=== PATIENT | male | born 1960 | race Caucasian/White ===

== ENCOUNTER 2016-09-07 11:17 | Emergency (ER) | payer OTHER ==
[2016-09-07] MEDS ORDERED: RX INFO: IV CONTRAST WAS GIVEN 1 EACH MISC MISCELLANE PRN (11:55)
[2016-09-07] MEDS ORDERED: HYDROmorphone 1 MG/ML 1 ML SYRINGE IVP STA ×2 (11:55→15:46)
[2016-09-07] MEDS ORDERED: ONDANSETRON 4 MG/2 ML VIAL IVP STA (11:55)
--- NOTE | 2016-09-07 11:59 | ED ---
General Adult HPI - General Chief complaint: Chest Pain Stated complaint: chest and abdominal pain, post op Time Seen by Provider: 09/07/16 11:20 Source: patient, RN notes reviewed Mode of arrival: wheelchair Limitations: no limitations - History of Present Illness Initial comments: This is a 55-year-old male who presents emergency with a past medical history significant for smoking. Patient states she also had a abdominal aortic aneurysm. He states he just got stented on Sunday and released from yesterday. Patient states he woke up this morning felt fine and had a couple coughing and then started having significant abdominal pain which starts at the lower abdomen and radiates up to the epigastrium and into the lower aspect of his chest. Patient states the pain is been constant has not been changing. Patient states it's extremely nauseated and has vomited. Patient states no one else in the household was vomited. Patient denies any diarrhea. Patient denies any recent fever chills or cough. Patient states he is mildly short of breath but the oxygen seems to helped him. Patient denies any recent fever or chills. Patient denies any lightheadedness dizziness or near-syncopal episode. Patient denies any headache he denies any numbness weakness - Related Data Home Medications Medication Instructions Recorded Confirmed Albuterol Sulfate [Proair Hfa] 2 puff INHALATION RT-TID PRN 02/23/14 09/07/16 Amitriptyline HCl [Elavil] 25 mg PO HS PRN 02/23/14 09/07/16 Aspirin 81 mg PO DAILY 02/23/14 09/07/16 Clopidogrel [Plavix] 75 mg PO DAILY 02/23/14 09/07/16 Fluticasone Propionate [Flovent 1 puff INHALATION RT-BID PRN 02/23/14 09/07/16 Diskus] Omeprazole [PriLOSEC] 20 mg PO DAILY 02/23/14 09/07/16 Carvedilol [Coreg] 12.5 mg PO BID 08/25/15 09/07/16 Losartan [Cozaar] 50 mg PO DAILY 05/16/16 09/07/16 Sertraline [Zoloft] 50 mg PO DAILY 05/16/16 09/07/16 Atorvastatin Calcium [Lipitor] 80 mg PO HS 09/07/16 09/07/16 HYDROcodone/APAP 10-325MG [[place] 1 tab PO Q4HR PRN 09/07/16 09/07/16 10-325] Allergies Allergy/AdvReac Type Severity Reaction Status Date / Time amoxicillin [Amoxicillin] Allergy Rash/Hives Verified 09/07/16 12:04 enalapril maleate Allergy Rash/Hives Verified 09/07/16 12:04 [From Vasotec] enalaprilat dihydrate Allergy Rash/Hives Verified 09/07/16 12:04 [From Vasotec] Penicillins Allergy Rash/Hives Verified 09/07/16 12:04 Review of Systems ROS Statement: Those systems with pertinent positive or pertinent negative responses have been documented in the HPI. ROS Other: All systems not noted in ROS Statement are negative. Past Medical History Past Medical History: Cancer, COPD, CVA/TIA, GERD/Reflux, Hyperlipidemia, Hypertension, Osteoarthritis (OA), Skin Disorder, Sleep Apnea/CPAP/BIPAP, Vascular Disorder Additional Past Medical History / Comment(s): Hx. TIA 2013, uses cpap, hx diverticulitis, skin cancer, aortic aneurysm-dr monitoring, frequent nausea, AAA History of Any Multi-Drug Resistant Organisms: None Reported Past Surgical History: Bowel Resection, Orthopedic Surgery Additional Past Surgical History / Comment(s): RT ROTATOR CUFF REPAIR, BONE SPUR REMOVED RT SHOULDER, I & D BOIL LT BUTTOCK, FEM POP BYPASS rt leg, surgery fx neck(pins and plates), 14-16 lap lysis of adhesions, lap reduction of incarcerated inc hernia with ventral hernia repair w/mesh. AAA repair Past Anesthesia/Blood Transfusion Reactions: No Reported Reaction Additional Past Anesthesia/Blood Transfusion Reaction / Comment(s): surgery for fx neck -has pins and plates-pt. states can move neck forward and back, side to side ok (this was his last surgery). Past Psychological History: No Psychological Hx Reported Smoking Status: Current every day smoker Past Alcohol Use History: Rare Additional Past Alcohol Use History / Comment(s): cut down on his smoking-less than 1 ppd, has smoked for 30 yrs. Past Drug Use History: None Reported - Past Family History Mother Family Medical History: COPD Father Additional Family Medical History / Comment(s): health-still alive at age 92 General Exam - General Exam Comments Initial Comments: GENERAL: Patient is well-developed and well-nourished. Patient is nontoxic and well- hydrated and is in moderate distress. ENT: Neck is soft and supple. No significant lymphadenopathy is noted. Oropharynx is clear. Moist mucous membranes. Neck has full range of motion without eliciting any pain. EYES: The sclera were anicteric and conjunctiva were pink and moist. Extraocular movements were intact and pupils were equal round and reactive to light. Eyelids were unremarkable. PULMONARY: Unlabored respirations. Good breath sounds bilaterally. No audible rales rhonchi or wheezing was noted. CARDIOVASCULAR: There is a regular rate and rhythm without any murmurs gallops or rubs. ABDOMEN: Abdomen is mildly tender in the epigastric region all the down to and from umbilical. There is no rebound or guarding No palpable organomegaly was noted. There is no palpable pulsatile mass. SKIN: Skin is clear with no lesions or rashes and otherwise unremarkable. NEUROLOGIC: Patient is alert and oriented x3. Cranial nerves II through XII are grossly intact. Motor and sensory are also intact. Normal speech, volume and content. Symmetrical smile. . MUSCULOSKELETAL: Normal extremities with adequate strength and full range of motion. No lower extremity swelling or edema. No calf tenderness. LYMPHATICS: No significant lymphadenopathy is noted PSYCHIATRIC: Normal psychiatric evaluation. Normal interpersonal interactions appears functionally intact in deals appropriately with others. No signs of depression. No signs of anxiety. Limitations: no limitations Course Vital Signs 09/07/16 09/07/16 11:24 13:45 Temperature 98.2 F 96.9 F L Pulse Rate 75 75 Respiratory 20 16 Rate Blood Pressure 145/88 122/67 O2 Sat by Pulse 95 97 Oximetry Medical Decision Making - Medical Decision Making EKG shows normal sinus rhythm at 80 bpm DE interval 182 QRS 78 QT interval 366 QTC is 422. Patient's EKG shows no ST segment elevation or depression or T- wave abdomen is noted. I went back and reevaluated the patient is feeling considerably better he stated he only had 3 out of 10 pain at this time. I spoke with Dr. Kent he did not feel comfortable accepting the patient has I spoke with Dr. Arevalo the surgeon at he wanted the patient transferred to their ER spoke with Dr. Ruiz in the ER he accepted the transfer I sent the patient to the emergency room. - Lab Data Result diagrams: 09/07/16 12:22 09/07/16 12:22 Lab Results 09/07/16 09/07/16 09/07/16 Range/Units 12:22 12:22 12:22 WBC 12.8 H (3.8-10.6) k/uL RBC 4.70 (4.30-5.90) m/uL Hgb 15.2 (13.0-17.5) gm/dL Hct 44.5 (39.0-53.0) % MCV 94.6 (80.0-100.0) fL MCH 32.3 (25.0-35.0) pg MCHC 34.1 (31.0-37.0) g/dL RDW 13.5 (11.5-15.5) % Plt Count 272 (150-450) k/uL Neutrophils % 79 % Lymphocytes % 11 % Monocytes % 8 % Eosinophils % 1 % Basophils % 0 % Neutrophils # 10.1 H (1.3-7.7) k/uL Lymphocytes # 1.4 (1.0-4.8) k/uL Monocytes # 1.0 (0-1.0) k/uL Eosinophils # 0.1 (0-0.7) k/uL Basophils # 0.0 (0-0.2) k/uL PT (9.0-12.0) sec INR (<1.1) APTT (22.0-30.0) sec Sodium 135 L (137-145) mmol/L Potassium 4.3 (3.5-5.1) mmol/L Chloride 100 (98-107) mmol/L Carbon Dioxide 23 (22-30) mmol/L Anion Gap 12 mmol/L BUN 12 (9-20) mg/dL Creatinine 0.78 (0.66-1.25) mg/dL Est GFR (MDRD) Af Amer >60 (>60 ml/min/1.73 sqM) Est GFR (MDRD) Non-Af >60 (>60 ml/min/1.73 sqM) Glucose 129 H (74-99) mg/dL Calcium 9.2 (8.4-10.2) mg/dL Total Bilirubin 0.9 (0.2-1.3) mg/dL AST 15 L (17-59) U/L ALT 36 (21-72) U/L Alkaline Phosphatase 49 (38-126) U/L Total Creatine Kinase 70 (55-170) U/L CK-MB (CK-2) 0.5 (0.0-2.4) ng/mL CK-MB (CK-2) Rel Index 0.7 Troponin I <0.012 (0.000-0.034) ng/mL Total Protein 7.0 (6.3-8.2) g/dL Albumin 3.8 (3.5-5.0) g/dL Amylase 59 (30-110) U/L Lipase 421 H (23-300) U/L 09/07/16 Range/Units 12:22 WBC (3.8-10.6) k/uL RBC (4.30-5.90) m/uL Hgb (13.0-17.5) gm/dL Hct (39.0-53.0) % MCV (80.0-100.0) fL MCH (25.0-35.0) pg MCHC (31.0-37.0) g/dL RDW (11.5-15.5) % Plt Count (150-450) k/uL Neutrophils % % Lymphocytes % % Monocytes % % Eosinophils % % Basophils % % Neutrophils # (1.3-7.7) k/uL Lymphocytes # (1.0-4.8) k/uL Monocytes # (0-1.0) k/uL Eosinophils # (0-0.7) k/uL Basophils # (0-0.2) k/uL PT 10.4 (9.0-12.0) sec INR 1.0 (<1.1) APTT 23.2 (22.0-30.0) sec Sodium (137-145) mmol/L Potassium (3.5-5.1) mmol/L Chloride (98-107) mmol/L Carbon Dioxide (22-30) mmol/L Anion Gap mmol/L BUN (9-20) mg/dL Creatinine (0.66-1.25) mg/dL Est GFR (MDRD) Af Amer (>60 ml/min/1.73 sqM) Est GFR (MDRD) Non-Af (>60 ml/min/1.73 sqM) Glucose (74-99) mg/dL Calcium (8.4-10.2) mg/dL Total Bilirubin (0.2-1.3) mg/dL AST (17-59) U/L ALT (21-72) U/L Alkaline Phosphatase (38-126) U/L Total Creatine Kinase (55-170) U/L CK-MB (CK-2) (0.0-2.4) ng/mL CK-MB (CK-2) Rel Index Troponin I (0.000-0.034) ng/mL Total Protein (6.3-8.2) g/dL Albumin (3.5-5.0) g/dL Amylase (30-110) U/L Lipase (23-300) U/L Disposition Clinical Impression: Postoperative abdominal pain, Elevated lipase Disposition: OTHER INSTITUTION NOT DEFINED Time of Disposition: 15:11 - Out of Hospital Transfer - Req. Specs Out of Hospital Transfer - Requested Specifics: Other Emergency Center ([facility])
[2016-09-07 12:43] LABS: Basophils % (A) 0 %; CH 33.9; Eosinophils # (A) 0.1 k/uL (0-0.7); Eosinophils % (A) 1 %; HCT 44.5 % (39.0-53.0); HDW 2.61; HGB 15.2 gm/dL (13.0-17.5); Luc # (Auto) 0.23; Luc % (Auto) 2; Lymphocytes # (A) 1.4 k/uL (1.0-4.8); Lymphocytes % (A) 11 %; MCH 32.3 pg (25.0-35.0); MCHC 34.1 g/dL (31.0-37.0); MCV 94.6 fL (80.0-100.0); Mean Platelet Volume 6.7; Monocytes % (A) 8 %; Neutrophils # (A) 10.1 k/uL (1.3-7.7); Neutrophils % (A) 79 %; RDW 13.5 % (11.5-15.5); WBC 12.8 k/uL (3.8-10.6); WBC (Perox) 13.78
[2016-09-07 12:53] LABS: ALT 36 U/L (21-72); AST 15 U/L (17-59); Alkaline Phosphatase 49 U/L (38-126); Amylase 59 U/L (30-110); Anion Gap 12 mmol/L; Blood Urea Nitrogen 12 mg/dL (9-20); Calcium 9.2 mg/dL (8.4-10.2); Carbon Dioxide 23 mmol/L (22-30); Chloride 100 mmol/L (98-107); Glucose 129 mg/dL (74-99); Non-African American GFR(MDRD) >60 (>60 ml/min/1.73 sqM); Potassium 4.3 mmol/L (3.5-5.1); Sodium 135 mmol/L (137-145); Total Bilirubin 0.9 mg/dL (0.2-1.3)
[2016-09-07 12:59] LABS: Partial Thromboplastin Time 23.2 sec (22.0-30.0); Prothrombin Time 10.4 sec (9.0-12.0)
--- NOTE | 2016-09-07 13:00 | XR ---
EXAMINATION TYPE: XR chest 2V DATE OF EXAM: 09/07/2016 12:54 PM COMPARISON: 08/27/14 HISTORY: Shortness of breath TECHNIQUE: Frontal and lateral views of the chest are obtained. FINDINGS: Scattered senescent parenchymal changes noted. Hyperinflation compatible with COPD. No evidence for infiltrate. No evidence for atelectasis. Heart size is stable. Mediastinal structures are stable and grossly unremarkable. No evidence for hilar prominence. Degenerative changes dorsal spine. IMPRESSION: 1. No evidence for acute pulmonary disease.
[2016-09-07 13:05] LABS: Creatine Kinase 70 U/L (55-170)
[2016-09-07 13:17] LABS: Creatine Kinase MB 0.5 ng/mL (0.0-2.4); Troponin I <0.012 ng/mL (0.000-0.034)
--- NOTE | 2016-09-07 13:26 | CT ---
EXAMINATION TYPE: CT angio abdomen DATE OF EXAM: 09/07/2016 1:06 PM COMPARISON: 07/26/2016 HISTORY: Patient complains of periumbilical pain today. Patient had aortic stent placed [address] DLP: 2829.7 mGycm Automated exposure control for dose reduction was used. TECHNIQUE: Performed with IV Contrast, patient injected with 100 mL of Omnipaque 300. FINDINGS: Limited CT sections are obtained the lung bases. Some compressive atelectasis may be present. Noncontrast imaging liver spleen adrenal glands and kidneys normal. Pancreas is atrophic. Gallbladder is unremarkable. The aortic stent within the aortic aneurysm is evident. No obvious extravasation on the noncontrast imaging is evident. Appendix is normal. Loops of bowel without contrast are unremark able. Anterior abdominal wall hernia containing a small amount of mesenteric fat is at the level of t he umbilicus. Urinary bladder is decompressed and has an air-fluid level likely related to the patien t's catheter insertion. Postcontrast imaging is performed. No endovascular leak is evident. There appears to be a small amoun t of air adjacent to the proximal stent within the abdominal aortic aneurysm. This is present on pre and postcontrast imaging. IMPRESSION: 1. SMALL AMOUNT OF AIR ADJACENT TO THE PROXIMAL STENT WITHIN THE ABDOMINAL AORTIC ANEURYSM. CONSIDER INFECTION WITHIN THE DIFFERENTIAL. CONSIDER INSTRUMENTATION FROM THE PROCEDURE A POSSIBLE SOURCE. 2. NO ENDOVASCULAR LEAK EVIDENT. 3. AIR WITHIN THE URINARY BLADDER CAN BE RELATED TO THE PATIENT'S SHRESTHA CATHETER INSERTION.
[2016-09-07 14:00] VITALS: RESP 16
[2016-09-07 15:38] VITALS: BP 142/72; PULSE 76; TEMP 97.7
== END 2016-09-07 15:57 | disposition other institution (70) ==
LOC: EC 11:17
DX: G89.18 Other acute postprocedural pain (principal); R10.9 Unspecified abdominal pain; R74.8 Abnormal levels of other serum enzymes; I71.4 Abdominal aortic aneurysm, without rupture; F17.200 Nicotine dependence, unspecified, uncomplicated; R05 Cough; R11.2 Nausea with vomiting, unspecified; J44.9 Chronic obstructive pulmonary disease, unspecified; R06.02 Shortness of breath; K21.9 Gastro-esophageal reflux disease without esophagitis; G47.30 Sleep apnea, unspecified; E78.5 Hyperlipidemia, unspecified; I10 Essential (primary) hypertension; Z99.89 Dependence on other enabling machines and devices; Z79.899 Other long term (current) drug therapy; Z79.82 Long term (current) use of aspirin; Z79.02 Long term (current) use of antithrombotics/antiplatelets; Z88.0 Allergy status to penicillin; Z88.8 Allergy status to other drugs, medicaments and biological substances; Z86.73 Personal history of transient ischemic attack (TIA), and cerebral infarction without residual deficits; Z85.828 Personal history of other malignant neoplasm of skin
CPT/HCPCS: 99285; 36415; 93005; 80053; 82150; 82550; 82553; 83690; 84484; 85025; 85610; 85730; 71020; 74175; 96374; 96375; 96376; J2405; J1170; Q9967

== ENCOUNTER 2016-09-11 12:51 | Emergency (ER) | payer OTHER ==
[2016-09-11] MEDS ORDERED: RX INFO: IV CONTRAST WAS GIVEN 1 EACH MISC MISCELLANE PRN ×2 (13:01→15:23)
[2016-09-11] MEDS ORDERED: MORPHINE SULFATE 4 MG/ML SYRINGE IV STA (13:01)
[2016-09-11] MEDS ORDERED: SODIUM CHLORIDE 0.9% 1,000 ML IV STA (13:01)
[2016-09-11] MEDS ORDERED: SODIUM CHLORIDE 0.9% 500 ML IV STA (13:01)
--- NOTE | 2016-09-11 13:07 | ED ---
General Adult HPI - General Chief complaint: Abdominal Pain Stated complaint: Right Abd pain Time Seen by Provider: 09/11/16 13:00 Source: patient, RN notes reviewed, old records reviewed Mode of arrival: ambulatory Limitations: no limitations - History of Present Illness Initial comments: This is a 55-year-old male here for evaluation. The patient comes in for evaluation of bowel pain. Patient believes that he is having difficulty with this pooping. Abdominal pain. Patient did have significant recent history of abdominal surgery aortic surgery, patient has had one to hospital admissions since his surgery. Patient originally had surgery on Sunday was discharged home next day this is an elective aortic repair, he then came back to our ER for possible abdominal pain the next day. Patient was transferred an inpatient for 3 days and symptoms did resolve. He has had difficulty with bowel movements. Patient states he is taking stimulants at home with no help. - Related Data Home Medications Medication Instructions Recorded Confirmed Albuterol Sulfate [Proair Hfa] 2 puff INHALATION RT-TID PRN 02/23/14 09/11/16 Amitriptyline HCl [Elavil] 25 mg PO HS PRN 02/23/14 09/11/16 Aspirin 81 mg PO DAILY 02/23/14 09/11/16 Clopidogrel [Plavix] 75 mg PO DAILY 02/23/14 09/11/16 Fluticasone Propionate [Flovent 1 puff INHALATION RT-BID PRN 02/23/14 09/11/16 Diskus] Omeprazole [PriLOSEC] 20 mg PO DAILY 02/23/14 09/11/16 Carvedilol [Coreg] 12.5 mg PO BID 08/25/15 09/11/16 Losartan [Cozaar] 50 mg PO DAILY 05/16/16 09/11/16 Sertraline [Zoloft] 50 mg PO DAILY 05/16/16 09/11/16 Atorvastatin Calcium [Lipitor] 80 mg PO HS 09/07/16 09/11/16 HYDROcodone/APAP 10-325MG [[place]man 1 tab PO Q4HR PRN 09/07/16 09/11/16 10-325] Allergies Allergy/AdvReac Type Severity Reaction Status Date / Time amoxicillin [Amoxicillin] Allergy Rash/Hives Verified 09/11/16 13:41 enalapril maleate Allergy Rash/Hives Verified 09/11/16 13:41 [From Vasotec] enalaprilat dihydrate Allergy Rash/Hives Verified 09/11/16 13:41 [From Vasotec] Penicillins Allergy Rash/Hives Verified 09/11/16 13:41 Review of Systems ROS Statement: Those systems with pertinent positive or pertinent negative responses have been documented in the HPI. ROS Other: All systems not noted in ROS Statement are negative. Past Medical History Past Medical History: Cancer, COPD, CVA/TIA, GERD/Reflux, Hyperlipidemia, Hypertension, Osteoarthritis (OA), Skin Disorder, Sleep Apnea/CPAP/BIPAP, Vascular Disorder Additional Past Medical History / Comment(s): Hx. TIA 2013, uses cpap, hx diverticulitis, skin cancer, aortic aneurysm-dr monitoring, frequent nausea, AAA History of Any Multi-Drug Resistant Organisms: None Reported Past Surgical History: Bowel Resection, Orthopedic Surgery Additional Past Surgical History / Comment(s): RT ROTATOR CUFF REPAIR, BONE SPUR REMOVED RT SHOULDER, I & D BOIL LT BUTTOCK, FEM POP BYPASS rt leg, surgery fx neck(pins and plates), 08-26- lap lysis of adhesions, lap reduction of incarcerated inc hernia with ventral hernia repair w/mesh. AAA repair Past Anesthesia/Blood Transfusion Reactions: No Reported Reaction Additional Past Anesthesia/Blood Transfusion Reaction / Comment(s): surgery for fx neck -has pins and plates-pt. states can move neck forward and back, side to side ok (this was his last surgery). Past Psychological History: No Psychological Hx Reported Smoking Status: Current every day smoker Past Alcohol Use History: Rare Additional Past Alcohol Use History / Comment(s): cut down on his smoking-less than 1 ppd, has smoked for 30 yrs. Past Drug Use History: None Reported - Past Family History Mother Family Medical History: COPD Father Additional Family Medical History / Comment(s): health-still alive at age 92 General Exam Limitations: no limitations General appearance: alert, in no apparent distress Head exam: Present: atraumatic, normocephalic, normal inspection Eye exam: Present: normal appearance, PERRL, EOMI. Absent: scleral icterus, conjunctival injection, periorbital swelling ENT exam: Present: normal exam, mucous membranes moist Neck exam: Present: normal inspection. Absent: tenderness, meningismus, lymphadenopathy Respiratory exam: Present: normal lung sounds bilaterally. Absent: respiratory distress, wheezes, rales, rhonchi, stridor Cardiovascular Exam: Present: regular rate, normal rhythm, normal heart sounds. Absent: systolic murmur, diastolic murmur, rubs, gallop, clicks GI/Abdominal exam: Present: soft, normal bowel sounds. Absent: distended, tenderness, guarding, rebound, rigid Extremities exam: Present: normal inspection, full ROM, normal capillary refill. Absent: tenderness, pedal edema, joint swelling, calf tenderness Back exam: Present: normal inspection Neurological exam: Present: alert, oriented X3, CN II-XII intact Psychiatric exam: Present: normal affect, normal mood Skin exam: Present: warm, dry, intact, normal color. Absent: rash Course Vital Signs 09/11/16 12:53 Temperature 97.1 F L Pulse Rate 87 Respiratory 18 Rate Blood Pressure 111/71 O2 Sat by Pulse 95 Oximetry - Reevaluation(s) Reevaluation #1: 09/11/16 16:07 Patient's pain is resolved, no distress EKG Findings - EKG Comments: EKG Findings:: EKG shows normal sinus rhythm rate of 81, MI 162, QRS 80, QTC 450 Medical Decision Making - Medical Decision Making 55 male ER for evaluation regarding regarding abdominal pain. Patient feels he is constipated will patient is not having constipation, postop pain with surgery repair. Patient can be discharged home - Lab Data Result diagrams: 09/11/16 14:00 09/11/16 14:00 Lab Results 09/11/16 09/11/16 09/11/16 Range/Units 14:00 14:00 14:00 WBC 11.4 H (3.8-10.6) k/uL RBC 4.52 (4.30-5.90) m/uL Hgb 14.8 (13.0-17.5) gm/dL Hct 43.0 (39.0-53.0) % MCV 95.3 (80.0-100.0) fL MCH 32.8 (25.0-35.0) pg MCHC 34.4 (31.0-37.0) g/dL RDW 13.1 (11.5-15.5) % Plt Count 343 (150-450) k/uL Neutrophils % 73 % Lymphocytes % 15 % Monocytes % 7 % Eosinophils % 2 % Basophils % 1 % Neutrophils # 8.4 H (1.3-7.7) k/uL Lymphocytes # 1.7 (1.0-4.8) k/uL Monocytes # 0.8 (0-1.0) k/uL Eosinophils # 0.3 (0-0.7) k/uL Basophils # 0.1 (0-0.2) k/uL PT (9.0-12.0) sec INR (<1.1) APTT (22.0-30.0) sec Sodium 137 (137-145) mmol/L Potassium 4.9 (3.5-5.1) mmol/L Chloride 99 (98-107) mmol/L Carbon Dioxide 28 (22-30) mmol/L Anion Gap 10 mmol/L BUN 9 (9-20) mg/dL Creatinine 1.04 (0.66-1.25) mg/dL Est GFR (MDRD) Af Amer >60 (>60 ml/min/1.73 sqM) Est GFR (MDRD) Non-Af >60 (>60 ml/min/1.73 sqM) Glucose 108 H (74-99) mg/dL Plasma Lactic Acid Maximilian (0.7-2.0) mmol/L Calcium 9.1 (8.4-10.2) mg/dL Phosphorus 4.6 H (2.5-4.5) mg/dL Magnesium 1.7 (1.6-2.3) mg/dL Total Bilirubin 1.1 (0.2-1.3) mg/dL AST 17 (17-59) U/L ALT 40 (21-72) U/L Alkaline Phosphatase 54 (38-126) U/L Total Creatine Kinase 58 (55-170) U/L CK-MB (CK-2) 0.4 (0.0-2.4) ng/mL CK-MB (CK-2) Rel Index 0.7 Troponin I <0.012 (0.000-0.034) ng/mL Total Protein 7.0 (6.3-8.2) g/dL Albumin 3.7 (3.5-5.0) g/dL Urine Color Urine Appearance (Clear) Urine pH (5.0-8.0) Ur Specific [place] (1.001-1.035) Urine Protein (Negative) Urine Glucose (UA) (Negative) Urine Ketones (Negative) Urine Blood (Negative) Urine Nitrate (Negative) Urine Bilirubin (Negative) Urine Urobilinogen (<2.0) mg/dL Ur Leukocyte Esterase (Negative) 09/11/16 09/11/16 09/11/16 Range/Units 14:00 14:00 14:48 WBC (3.8-10.6) k/uL RBC (4.30-5.90) m/uL Hgb (13.0-17.5) gm/dL Hct (39.0-53.0) % MCV (80.0-100.0) fL MCH (25.0-35.0) pg MCHC (31.0-37.0) g/dL RDW (11.5-15.5) % Plt Count (150-450) k/uL Neutrophils % % Lymphocytes % % Monocytes % % Eosinophils % % Basophils % % Neutrophils # (1.3-7.7) k/uL Lymphocytes # (1.0-4.8) k/uL Monocytes # (0-1.0) k/uL Eosinophils # (0-0.7) k/uL Basophils # (0-0.2) k/uL PT 11.0 (9.0-12.0) sec INR 1.1 (<1.1) APTT 23.1 (22.0-30.0) sec Sodium (137-145) mmol/L Potassium (3.5-5.1) mmol/L Chloride (98-107) mmol/L Carbon Dioxide (22-30) mmol/L Anion Gap mmol/L BUN (9-20) mg/dL Creatinine (0.66-1.25) mg/dL Est GFR (MDRD) Af Amer (>60 ml/min/1.73 sqM) Est GFR (MDRD) Non-Af (>60 ml/min/1.73 sqM) Glucose (74-99) mg/dL Plasma Lactic Acid Maximilian 1.1 (0.7-2.0) mmol/L Calcium (8.4-10.2) mg/dL Phosphorus (2.5-4.5) mg/dL Magnesium (1.6-2.3) mg/dL Total Bilirubin (0.2-1.3) mg/dL AST (17-59) U/L ALT (21-72) U/L Alkaline Phosphatase (38-126) U/L Total Creatine Kinase (55-170) U/L CK-MB (CK-2) (0.0-2.4) ng/mL CK-MB (CK-2) Rel Index Troponin I (0.000-0.034) ng/mL Total Protein (6.3-8.2) g/dL Albumin (3.5-5.0) g/dL Urine Color Yellow Urine Appearance Clear (Clear) Urine pH 6.5 (5.0-8.0) Ur Specific [place] 1.011 (1.001-1.035) Urine Protein Negative (Negative) Urine Glucose (UA) Negative (Negative) Urine Ketones Negative (Negative) Urine Blood Negative (Negative) Urine Nitrate Negative (Negative) Urine Bilirubin Negative (Negative) Urine Urobilinogen 6.0 (<2.0) mg/dL Ur Leukocyte Esterase Negative (Negative) - Radiology Data Radiology results: report reviewed (X-ray abdominal series a chest negative for acute disease, CT pelvis negative for acute disease), image reviewed Disposition Clinical Impression: Colicky periumbilical abdominal pain, Nausea & vomiting, Post-op pain Disposition: HOME SELF-CARE Condition: Good Instructions: Abdominal Pain (ED) Referrals: Jackson Barahona DO [Primary Care Provider] - 1-2 days
[2016-09-11] MEDS ORDERED: DOCUSATE 100 MG CAP PO STA (14:08)
[2016-09-11] MEDS ORDERED: DICYCLOMINE 10 MG/ML 2 ML AMP IM STA (14:08)
[2016-09-11] MEDS ORDERED: MAGNESIUM CITRATE 296 ML BOTTLE PO ONE (14:08)
[2016-09-11] MEDS ORDERED: GLYCERIN ADULT SUPPOSITORY 1 EACH RECTAL STA (14:08)
[2016-09-11 14:24] LABS: Basophils # (A) 0.1 k/uL (0-0.2); Basophils % (A) 1 %; CH 33.5; CHCM 35.3; Eosinophils # (A) 0.3 k/uL (0-0.7); Eosinophils % (A) 2 %; HGB 14.8 gm/dL (13.0-17.5); Luc # (Auto) 0.21; Luc % (Auto) 2; Lymphocytes # (A) 1.7 k/uL (1.0-4.8); Lymphocytes % (A) 15 %; MCH 32.8 pg (25.0-35.0); MCHC 34.4 g/dL (31.0-37.0); MCV 95.3 fL (80.0-100.0); Mean Platelet Volume 7.6; Monocytes # (A) 0.8 k/uL (0-1.0); Monocytes % (A) 7 %; Neutrophils # (A) 8.4 k/uL (1.3-7.7); Neutrophils % (A) 73 %; RBC 4.52 m/uL (4.30-5.90); RDW 13.1 % (11.5-15.5); WBC 11.4 k/uL (3.8-10.6)
[2016-09-11 14:33] LABS: INR 1.1 (<1.1); Partial Thromboplastin Time 23.1 sec (22.0-30.0)
[2016-09-11 14:35] LABS: ALT 40 U/L (21-72); AST 17 U/L (17-59); Alkaline Phosphatase 54 U/L (38-126); Anion Gap 10 mmol/L; Blood Urea Nitrogen 9 mg/dL (9-20); Calcium 9.1 mg/dL (8.4-10.2); Carbon Dioxide 28 mmol/L (22-30); Chloride 99 mmol/L (98-107); Glucose 108 mg/dL (74-99); Magnesium 1.7 mg/dL (1.6-2.3); Non-African American GFR(MDRD) >60 (>60 ml/min/1.73 sqM); Phosphorous 4.6 mg/dL (2.5-4.5); Potassium 4.9 mmol/L (3.5-5.1); Sodium 137 mmol/L (137-145); Total Bilirubin 1.1 mg/dL (0.2-1.3)
[2016-09-11 14:46] LABS: Creatine Kinase 58 U/L (55-170)
[2016-09-11 14:56] LABS: Creatine Kinase MB 0.4 ng/mL (0.0-2.4); Troponin I <0.012 ng/mL (0.000-0.034)
[2016-09-11 15:04] LABS: Appearance,Urine Clear (Clear); Bilirubin,Urine Negative (Negative); Glucose,Urine (UA) Negative (Negative); Ketones,Urine Negative (Negative); Leukocyte Esterase,Urine Negative (Negative); Nitrite,Urine Negative (Negative); PH, Urine 6.5 (5.0-8.0); Protein,Urine Negative (Negative); Specific Gravity,Urine 1.011 (1.001-1.035); UA Billing (MACRO vs. MICRO) CHEM
--- NOTE | 2016-09-11 15:22 | XR ---
EXAMINATION TYPE: XR abdomen acute w cxr DATE OF EXAM: 09/11/2016 2:40 PM COMPARISON: NONE HISTORY: 55-year-old male with lower abdominal pain since last week, history of recent aortic stent. FINDINGS: Frontal view of the chest shows normal heart size and aorta. Diffuse interstitial prominence likely c hronic. Some focal right midlung atelectasis is present. Nodular density left lower lung likely nippl e shadow. No ashleigh consolidation or pleural effusion. Endovascular aortobiiliac stent graft is present. No evidence for free intraperitoneal air. A few scattered small colonic air-fluid levels are present. No dilated small bowel or small bowel air -fluid level seen. No significant stool burden. No suspicious calcifications. Surgical clips at the right groin. Partially visualized cervical fusion hardware. IMPRESSION: 1. Chronic-appearing changes in the lungs with some strandy midlung atelectasis on both sides. 2. No evidence for free air or bowel obstruction. 3. Scattered small air-fluid levels in the colon could represent a mild ileus or enteritis. No signif icant stool burden.
[2016-09-11] MEDS ORDERED: HYDROmorphone 1 MG/ML 1 ML SYRINGE IVP STA (15:27)
--- NOTE | 2016-09-11 15:46 | CT ---
EXAMINATION TYPE: CT angio abdomen pelvis DATE OF EXAM: 09/11/2016 3:31 PM COMPARISON: 09/07/2016 HISTORY: Pt states of abdominal pain after stent sx x6 days ago. CT DLP: 3012.7 mGycm CONTRAST: CTA abdominal aorta with 3-D reconstruction is performed without Oral Contrast and with IV Contrast, patient injected with 100 mL of Omnipaque 350. Contrast CTA of the abdominal aorta was performed from the lung apex through the base of the pelvis. 3-D reconstruction imaging obtained at a separate workstation. CONTRAST CT ABDOMEN AND PELVIS ABDOMENAL AORTA: Aortic stent graft is again noted. There is no evidence for contrast extravasation o r endoleak. Small focus of air is noted at the superior extent of the aortic graft likely postprocedu ral in nature. This has decreased from prior study. Branch vessels are patent. No evidence for abdomi nal aortic aneurysm. No dissection. Iliac vessels are symmetric and patent. LIVER/GB- No significant abnormality is seen. PANCREAS- No significant abnormality is seen. SPLEEN- No significant abnormality is seen. ADRENALS- No significant abnormality is seen. KIDNEYS/BLADDER- No significant abnormality is seen. Decreasing air within the urinary bladder. BOWEL- No Significant abnormality GENITAL ORGANS: No gross abnormality seen. LYMPH NODES- No greater than 1cm abdominal or pelvic lymph nodes areappreciated. OSSEOUS STRUCTURES- No significant abnormality is seen. OTHER- No significant abnormality is seen. IMPRESSION- 1. Aortic stent graft without evidence for leak, rupture or extravasation. Decreasing air adjacent to the proximal component of the stent graft is likely postprocedural in nature. Infection not excluded although felt to be less likely. 2. Decreasing air within the lumen of the urinary bladder.
[2016-09-11 16:25] VITALS: BP 117/64; PULSE 70; RESP 16; TEMP 98.4
== END 2016-09-11 16:24 | disposition home or self-care (01) ==
LOC: EC 12:51
DX: R10.33 Periumbilical pain (principal); G89.18 Other acute postprocedural pain; R11.2 Nausea with vomiting, unspecified; K21.9 Gastro-esophageal reflux disease without esophagitis; J44.9 Chronic obstructive pulmonary disease, unspecified; E78.5 Hyperlipidemia, unspecified; I10 Essential (primary) hypertension; M19.90 Unspecified osteoarthritis, unspecified site; Z86.73 Personal history of transient ischemic attack (TIA), and cerebral infarction without residual deficits; Z87.19 Personal history of other diseases of the digestive system; Z85.828 Personal history of other malignant neoplasm of skin; F17.200 Nicotine dependence, unspecified, uncomplicated; Z79.02 Long term (current) use of antithrombotics/antiplatelets; Z79.82 Long term (current) use of aspirin; Z79.899 Other long term (current) drug therapy; Z88.0 Allergy status to penicillin; Z88.8 Allergy status to other drugs, medicaments and biological substances; Z98.890 Other specified postprocedural states; Y83.8 Other surgical procedures as the cause of abnormal reaction of the patient, or of later complication, without mention of misadventure at the time of the procedure
CPT/HCPCS: 99285; 96374; 96375; 96361 ×2; 96372; 36415; 93005; 80053; 82550; 82553; 83605; 83735; 84100; 84484; 85025; 85610; 85730; 81003; 87086; 74022; 74174; J2270; J0500; Q9967; J1170

== ENCOUNTER → 2016-09-22 | Outpatient (CLI) | payer OTHER | END | disposition home or self-care (01) | LOC: LABWHC1 08:45 | PROVIDERS: ATTEND Surgery Plastic and Reconstructive Surgery | DX: E51.8 Other manifestations of thiamine deficiency (principal) | CPT/HCPCS: 36415; 84425 ==

== ENCOUNTER 2016-11-13 10:07 | Emergency (ER) | payer OTHER ==
[2016-11-13] MEDS ORDERED: ONDANSETRON 4 MG/2 ML VIAL IVP STA ×2 (10:34→12:53)
[2016-11-13] MEDS ORDERED: SODIUM CHLORIDE 0.9% 500 ML IV STA (10:34)
[2016-11-13] MEDS ORDERED: HYDROmorphone 1 MG/ML 1 ML SYRINGE IVP STA (10:35)
[2016-11-13] MEDS ORDERED: RX INFO: IV CONTRAST WAS GIVEN 1 EACH MISC MISCELLANE PRN (10:39)
--- NOTE | 2016-11-13 10:41 | ED ---
Abdominal Pain HPI - General Chief Complaint: Abdominal Pain Stated Complaint: abd pain Time Seen by Provider: 11/13/16 10:27 Source: patient, family Mode of arrival: wheelchair - History of Present Illness Initial Comments: 56-year-old male patient presents emergency department today for complaints of periumbilical abdominal pain. Patient states that symptoms started on Sunday with abdominal pain, nausea, and vomiting. Patient states he did vomit bright red blood, and did have some black stools on Sunday. Patient states that symptoms resolved on Sunday and had return of abdominal pain again this morning around 0700. Patient states the pain is a constant severe squeezing pain. Patient denies any radiation to his back. Patient denies any diarrhea, constipation, hematuria, urinary frequency, urinary urgency, or dysuria. Patient states he does have a history of diverticulitis and repair of umbilical hernia. Patient also had a AAA stenting and repair in September of this year. He denies any fever or chills, dizziness, weakness, chest pain, back pain. He is reporting some mild shortness of breath but states he does have a history of COPD and is oxygen dependent at nighttime hours a CPAP. - Related Data Home Medications Medication Instructions Recorded Confirmed Albuterol Sulfate [Proair Hfa] 2 puff INHALATION RT-TID PRN 02/23/14 11/13/16 Amitriptyline HCl [Elavil] 25 mg PO HS PRN 02/23/14 11/13/16 Aspirin 81 mg PO DAILY 02/23/14 11/13/16 Clopidogrel [Plavix] 75 mg PO DAILY 02/23/14 11/13/16 Carvedilol [Coreg] 12.5 mg PO BID 08/25/15 11/13/16 Losartan [Cozaar] 50 mg PO DAILY 05/16/16 11/13/16 Sertraline [Zoloft] 50 mg PO DAILY 05/16/16 11/13/16 Atorvastatin Calcium [Lipitor] 80 mg PO HS 09/07/16 11/13/16 HYDROcodone/APAP 10-325MG [Simms 1 tab PO Q4HR PRN 09/07/16 11/13/16 10-325] Previous Rx's Medication Instructions Recorded Magnesium Oxide [Magox 400] 400 mg PO DAILY #60 tablet 09/19/16 Omeprazole 40 mg PO DAILY #90 capsule. 09/19/16 Omeprazole 40 mg PO AC-BRKFST #30 capsule. 11/13/16 Sucralfate [Carafate] 1 gm PO ACHS #20 tablet 11/13/16 Allergies Allergy/AdvReac Type Severity Reaction Status Date / Time amoxicillin [Amoxicillin] Allergy Rash/Hives Verified 11/13/16 10:49 enalapril maleate Allergy Rash/Hives Verified 11/13/16 10:49 [From Vasotec] enalaprilat dihydrate Allergy Rash/Hives Verified 11/13/16 10:49 [From Vasotec] Penicillins Allergy Rash/Hives Verified 11/13/16 10:49 Review of Systems ROS Statement: Those systems with pertinent positive or pertinent negative responses have been documented in the HPI. ROS Other: All systems not noted in ROS Statement are negative. Past Medical History Past Medical History: Cancer, COPD, CVA/TIA, GERD/Reflux, Hyperlipidemia, Hypertension, Osteoarthritis (OA), Skin Disorder, Sleep Apnea/CPAP/BIPAP, Vascular Disorder Additional Past Medical History / Comment(s): Hx. TIA 2013, uses cpap, hx diverticulitis, skin cancer, aortic aneurysm-dr monitoring, frequent nausea, AAA History of Any Multi-Drug Resistant Organisms: None Reported Past Surgical History: Bowel Resection, Orthopedic Surgery Additional Past Surgical History / Comment(s): RT ROTATOR CUFF REPAIR, BONE SPUR REMOVED RT SHOULDER, I & D BOIL LT BUTTOCK, FEM POP BYPASS rt leg, surgery fx neck(pins and plates), 08-26-16 lap lysis of adhesions, lap reduction of incarcerated inc hernia with ventral hernia repair w/mesh. AAA repair Past Anesthesia/Blood Transfusion Reactions: No Reported Reaction Additional Past Anesthesia/Blood Transfusion Reaction / Comment(s): surgery for fx neck -has pins and plates-pt. states can move neck forward and back, side to side ok (this was his last surgery). Past Psychological History: No Psychological Hx Reported Smoking Status: Current every day smoker Past Alcohol Use History: Rare Additional Past Alcohol Use History / Comment(s): cut down on his smoking-less than 1 ppd, has smoked for 30 yrs. Past Drug Use History: None Reported - Past Family History Mother Family Medical History: COPD Father Additional Family Medical History / Comment(s): health-still alive at age 92 General Exam General appearance: alert, in no apparent distress Eye exam: Present: normal appearance, PERRL, EOMI. Absent: scleral icterus, conjunctival injection, periorbital swelling ENT exam: Present: normal exam, mucous membranes moist Neck exam: Present: normal inspection. Absent: tenderness, meningismus, lymphadenopathy Respiratory exam: Present: normal lung sounds bilaterally, wheezes (Scattered expiratory). Absent: respiratory distress, rales, rhonchi, stridor Cardiovascular Exam: Present: regular rate, normal rhythm, normal heart sounds. Absent: systolic murmur, diastolic murmur, rubs, gallop, clicks GI/Abdominal exam: Present: soft, tenderness (Lower abdominal tenderness), normal bowel sounds. Absent: distended, guarding, rebound, rigid Extremities exam: Present: normal inspection, full ROM, normal capillary refill. Absent: tenderness, pedal edema, joint swelling, calf tenderness Back exam: Present: normal inspection. Absent: CVA tenderness (R), CVA tenderness (L) Neurological exam: Present: alert, oriented X3, CN II-XII intact Psychiatric exam: Present: normal affect, normal mood Skin exam: Present: warm, dry, intact, normal color. Absent: rash Course Vital Signs 11/13/16 10:21 Temperature 97.8 F Pulse Rate 68 Respiratory 20 Rate Blood Pressure 173/105 O2 Sat by Pulse 95 Oximetry Medical Decision Making - Medical Decision Making 56-year-old male patient presents to emergency department today for evaluation of periumbilical abdominal pain and tenderness. CT of the abdomen and pelvis with contrast reveals moderate gastritis with no evidence of bowel obstruction or other abnormalities. Lab work was unremarkable. Patient's symptoms have improved with IV pain meds and IV fluids. Patient will be discharged home with a prescription for omeprazole 40 mg daily. Patient also instructed to follow- up with surgeon. Patient instructed to return for any new, worsening, or concerning symptoms. Patient verbalizes understanding and agrees with this plan. - Lab Data Result diagrams: 11/13/16 10:34 11/13/16 10:34 Lab Results 11/13/16 11/13/16 11/13/16 Range/Units 10:34 10:34 10:34 WBC 10.2 (3.8-10.6) k/uL RBC 5.40 (4.30-5.90) m/uL Hgb 17.4 (13.0-17.5) gm/dL Hct 51.4 (39.0-53.0) % MCV 95.3 (80.0-100.0) fL MCH 32.2 (25.0-35.0) pg MCHC 33.8 (31.0-37.0) g/dL RDW 13.8 (11.5-15.5) % Plt Count 343 (150-450) k/uL Neutrophils % 77 % Lymphocytes % 15 % Monocytes % 5 % Eosinophils % 1 % Basophils % 0 % Neutrophils # 7.9 H (1.3-7.7) k/uL Lymphocytes # 1.5 (1.0-4.8) k/uL Monocytes # 0.5 (0-1.0) k/uL Eosinophils # 0.1 (0-0.7) k/uL Basophils # 0.0 (0-0.2) k/uL PT (9.0-12.0) sec INR (<1.1) APTT (22.0-30.0) sec Sodium 140 (137-145) mmol/L Potassium 4.2 (3.5-5.1) mmol/L Chloride 102 (98-107) mmol/L Carbon Dioxide 22 (22-30) mmol/L Anion Gap 16 mmol/L BUN 22 H (9-20) mg/dL Creatinine 1.12 (0.66-1.25) mg/dL Est GFR (MDRD) Af Amer >60 (>60 ml/min/1.73 sqM) Est GFR (MDRD) Non-Af >60 (>60 ml/min/1.73 sqM) Glucose 135 H (74-99) mg/dL Calcium 9.6 (8.4-10.2) mg/dL Total Bilirubin 0.9 (0.2-1.3) mg/dL AST 18 (17-59) U/L ALT 28 (21-72) U/L Alkaline Phosphatase 50 (38-126) U/L Total Protein 7.9 (6.3-8.2) g/dL Albumin 4.5 (3.5-5.0) g/dL Amylase 54 (30-110) U/L Lipase 86 (23-300) U/L Stool Occult Blood Negative (Negative) 11/13/16 Range/Units 10:34 WBC (3.8-10.6) k/uL RBC (4.30-5.90) m/uL Hgb (13.0-17.5) gm/dL Hct (39.0-53.0) % MCV (80.0-100.0) fL MCH (25.0-35.0) pg MCHC (31.0-37.0) g/dL RDW (11.5-15.5) % Plt Count (150-450) k/uL Neutrophils % % Lymphocytes % % Monocytes % % Eosinophils % % Basophils % % Neutrophils # (1.3-7.7) k/uL Lymphocytes # (1.0-4.8) k/uL Monocytes # (0-1.0) k/uL Eosinophils # (0-0.7) k/uL Basophils # (0-0.2) k/uL PT 11.2 (9.0-12.0) sec INR 1.1 (<1.1) APTT 22.3 (22.0-30.0) sec Sodium (137-145) mmol/L Potassium (3.5-5.1) mmol/L Chloride (98-107) mmol/L Carbon Dioxide (22-30) mmol/L Anion Gap mmol/L BUN (9-20) mg/dL Creatinine (0.66-1.25) mg/dL Est GFR (MDRD) Af Amer (>60 ml/min/1.73 sqM) Est GFR (MDRD) Non-Af (>60 ml/min/1.73 sqM) Glucose (74-99) mg/dL Calcium (8.4-10.2) mg/dL Total Bilirubin (0.2-1.3) mg/dL AST (17-59) U/L ALT (21-72) U/L Alkaline Phosphatase (38-126) U/L Total Protein (6.3-8.2) g/dL Albumin (3.5-5.0) g/dL Amylase (30-110) U/L Lipase (23-300) U/L Stool Occult Blood (Negative) Disposition Clinical Impression: Gastritis Disposition: HOME SELF-CARE Condition: Stable Instructions: Gastritis (ED) Additional Instructions: Eat bland foods. Take omeprazole as directed. Follow up with surgeon. Follow- up with primary care physician for recheck in one to 2 days. Return for any new , worsening, or concerning symptoms. Prescriptions: Omeprazole 40 mg PO AC-BRKFST #30 capsule. Sucralfate [Carafate] 1 gm PO ACHS #20 tablet Referrals: Jackson Barahona DO [Primary Care Provider] - 1-2 days Letitia Baez MD [STAFF PHYSICIAN] - 1-2 days Time of Disposition: 11:43
[2016-11-13 10:59] LABS: Basophils % (A) 0 %; CH 33.6; CHCM 35.4; Eosinophils # (A) 0.1 k/uL (0-0.7); Eosinophils % (A) 1 %; HCT 51.4 % (39.0-53.0); HDW 2.71; HGB 17.4 gm/dL (13.0-17.5); Luc # (Auto) 0.19; Luc % (Auto) 2; Lymphocytes # (A) 1.5 k/uL (1.0-4.8); Lymphocytes % (A) 15 %; MCH 32.2 pg (25.0-35.0); MCHC 33.8 g/dL (31.0-37.0); MCV 95.3 fL (80.0-100.0); Monocytes # (A) 0.5 k/uL (0-1.0); Monocytes % (A) 5 %; Neutrophils # (A) 7.9 k/uL (1.3-7.7); Neutrophils % (A) 77 %; RDW 13.8 % (11.5-15.5); WBC 10.2 k/uL (3.8-10.6); WBC (Perox) 11.13
[2016-11-13 11:07] LABS: Partial Thromboplastin Time 22.3 sec (22.0-30.0)
[2016-11-13 11:11] LABS: ALT 28 U/L (21-72); AST 18 U/L (17-59); Alkaline Phosphatase 50 U/L (38-126); Amylase 54 U/L (30-110); Anion Gap 16 mmol/L; Blood Urea Nitrogen 22 mg/dL (9-20); Calcium 9.6 mg/dL (8.4-10.2); Carbon Dioxide 22 mmol/L (22-30); Chloride 102 mmol/L (98-107); Glucose 135 mg/dL (74-99); Non-African American GFR(MDRD) >60 (>60 ml/min/1.73 sqM); Potassium 4.2 mmol/L (3.5-5.1); Sodium 140 mmol/L (137-145); Total Bilirubin 0.9 mg/dL (0.2-1.3); Total Protein 7.9 g/dL (6.3-8.2)
[2016-11-13 11:14] LABS: INR 1.1 (<1.1); Prothrombin Time 11.2 sec (9.0-12.0)
--- NOTE | 2016-11-13 11:29 | CT ---
EXAMINATION TYPE: CT abdomen pelvis w con DATE OF EXAM: 11/13/2016 11:19 AM COMPARISON: CT abdomen and pelvis September 11, 2016 HISTORY: Mid Abd pain with nausea, vomiting and dark stools CT DLP: 1800 mGycm, Automated Exposure Control for Dose Reduction was Utilized. CONTRAST: CT scan of the abdomen and pelvis is performed without oral but with IV Contrast, patient injected wi th 100 mL of Omnipaque 300. FINDINGS: LUNG BASES: Dependent atelectatic change is redemonstrated bilaterally. LIVER/GB: No significant abnormality is appreciated. PANCREAS: No significant abnormality is seen. SPLEEN: No significant abnormality is seen. ADRENALS: No significant abnormality is seen. KIDNEYS: No significant abnormality is seen. BOWEL: Evaluation bowel is suboptimal due to lack of enteric contrast. There is no suspicious small o r large bowel dilatation seen. Some moderate wall thickening is suspected in the stomach. Surgical fuentes tures are seen involving the distal sigmoid colon near axial image 76. PROSTATE/SEMINAL VESICLES: No gross abnormality seen. LYMPH NODES: No greater than 1cm abdominal or pelvic lymph nodes are appreciated. OSSEOUS STRUCTURES: Mild to moderate multilevel spurring and spine is redemonstrated. OTHER: No surg ical clips in the right groin region are redemonstrated. There is slightly poor contrast bolus. There is juxtarenal aortobiiliac stent graft redemonstrated which appears patent. [place] aneurysm size is felt stable measuring up to 4.8 cm transversely on axial image 46. IMPRESSION: Moderate wall thickening of the stomach suggests moderate gastritis. Clinical correlation advised. No bowel obstruction is seen. No additional new significant finding identified.
[2016-11-13] MEDS ORDERED: PANTOPRAZOLE 40 MG/10 ML VIAL IVP STA (11:35)
[2016-11-13 12:06] VITALS: RESP 16
[2016-11-13 13:02] VITALS: BP 172/97; PULSE 63; TEMP 97.8
== END 2016-11-13 13:00 | disposition home or self-care (01) ==
LOC: EC 10:07
DX: K29.70 Gastritis, unspecified, without bleeding (principal); R06.02 Shortness of breath; R11.2 Nausea with vomiting, unspecified; J44.9 Chronic obstructive pulmonary disease, unspecified; K21.9 Gastro-esophageal reflux disease without esophagitis; E78.5 Hyperlipidemia, unspecified; I10 Essential (primary) hypertension; M19.90 Unspecified osteoarthritis, unspecified site; F17.200 Nicotine dependence, unspecified, uncomplicated; Z79.82 Long term (current) use of aspirin; Z79.02 Long term (current) use of antithrombotics/antiplatelets; Z79.899 Other long term (current) drug therapy; Z88.0 Allergy status to penicillin; Z88.8 Allergy status to other drugs, medicaments and biological substances; Z87.19 Personal history of other diseases of the digestive system; Z86.73 Personal history of transient ischemic attack (TIA), and cerebral infarction without residual deficits; Z86.79 Personal history of other diseases of the circulatory system; Z98.890 Other specified postprocedural states
CPT/HCPCS: 36415; 80053; 82150; 83690; 85025; 85610; 85730; 82272; 74177; 99284; 96374; 96375 ×2; J2405; J1170; Q9967; C9113

== ENCOUNTER → 2017-01-15 | Outpatient (CLI) | payer OTHER ==
--- NOTE | 2017-01-16 08:13 | CTL ---
EXAMINATION TYPE: CT Low Dose Lung DATE OF EXAM ORDERED: 01/15/2017 HISTORY: Personal history of tobacco use. Lung cancer screening CT DLP: 159.[address] CTDI: 4.3 mGy Automated exposure control for dose reduction was used. SCREENING VISIT: First COMPARISON: None TECHNIQUE: Low dose computed tomography scan was performed through the chest at 1 mm thick sections a nd reconstructed images in the coronal plane at [address] DIAGNOSTIC QUALITY: Satisfactory FINDINGS: LUNG NODULES: None. LUNGS: COPD: Severity: Moderate Fibrosis: Severity: Minimal apical fibrosis bilaterally. There is mild linear scarring in the mid gladis gs bilaterally. There is left basilar linear atelectasis and/or scarring. Lymph nodes: Some subcentimeter paratracheal and subcarinal lymph nodes are seen. No significant grea ter than 1 cm thoracic lymph nodes are identified. Other findings: Mild central parahilar peribronchial wall thickening is present bilaterally. BILATERAL PLEURAL SPACE: Effusion: None Calcification: None Thickening: None Pneumothorax: None HEART: Heart Size: Normal Coronary calcification: Minimal Pericardial effusion: Tiny OTHER FINDINGS: Upper abdomen: There is partial visualization of aortic stent graft beginning just below SMA origin. Liver is isodense to low dense relative to spleen consistent with mild diffuse fatty infiltration. Bony thorax: Mild multilevel spurring in the thoracic spine is present. There is partial visualizatio n of surgical change in the cervical spine on localizer image. Supraclavicular region: No significant finding is seen. Other: Ascending aorta measures up to 3.9 cm diameter on axial image 135. A bovine type arch is seen which is normal variant. IMPRESSION: No suspicious nodules or masses identified. Background moderate emphysematous change is p resent. There is ectasia of the ascending aorta measuring up to 3.9 cm in diameter noted. FOLLOW UP CT CHEST RECOMMENDATION: Annual low-dose lung screening CT CT LUNG RAD: Lung-Rad 1 Negative
== END | disposition home or self-care (01) ==
LOC: RADCTMAIN 18:48
PROVIDERS: ATTEND Internal Medicine Sleep Medicine
DX: Z12.2 Encounter for screening for malignant neoplasm of respiratory organs (principal); J43.9 Emphysema, unspecified; I77.810 Thoracic aortic ectasia; Z87.891 Personal history of nicotine dependence

== ENCOUNTER → 2017-02-20 | Outpatient (CLI) | payer OTHER ==
[2017-02-20 10:37] LABS: ALT 33 U/L (21-72); AST 16 U/L (17-59); Cholesterol 131 mg/dL (<200); HDL Cholesterol 25 mg/dL (40-60); Triglycerides 207 mg/dL (<150)
== END ==
LOC: LABWHC1 09:07
PROVIDERS: ATTEND Internal Medicine Interventional Cardiology
DX: E78.2 Mixed hyperlipidemia (principal)
CPT/HCPCS: 36415; 80061; 84450; 84460

== ENCOUNTER → 2017-04-25 | Outpatient (CLI) | payer OTHER ==
--- NOTE | 2017-04-25 19:22 | CT ---
EXAMINATION TYPE: CT angio abd aorta wo/w con DATE OF EXAM: 04/25/2017 COMPARISON: 11/13/2016 HISTORY: Follow-up abdominal aortic aneurysm with stent. CT DLP: 2748.40 mGycm, Automated Exposure Control for Dose Reduction was Utilized. CONTRAST: CT scan of the abdomen and pelvis is performed with oral and without and with IV Contrast, patient in jected with 100 mL of Omnipaque 350. FINDINGS: Lung bases are clear. There is no pleural effusion. Heart size is normal. There is aortic stent exten ding from from the level of the renal arteries to the common iliac arteries. There is normal contrast opacification of the stent. There is fusiform aneurysm of the lower abdominal aorta. This measures 4 .6 cm in diameter. The kidneys have normal size and contour. There is normal renal contrast opacification. There is contreras ncy of the superior mesenteric artery and the celiac artery. There is bilateral patency of the renal arteries. There is a tiny amount of thrombus within the left common iliac artery stent but no evidenc e of stenosis or occlusion. There is no ascites. Bladder distends smoothly. There is no sign of a pelvic mass. There is ventral h ernia at the umbilicus that contains omental fat. IMPRESSION: Abdominal aortic aneurysm is stable compared to old exam of 11/13/2016. No evidence of hem odynamically significant stenosis. Stable umbilical hernia. There is a tiny amount of thrombus in the stent that appears new compared to old exam.
== END | disposition home or self-care (01) ==
LOC: RADCTMAIN 18:22
PROVIDERS: ATTEND Thoracic Surgery (Cardiothoracic Vascular Surgery)
DX: I71.4 Abdominal aortic aneurysm, without rupture (principal); K42.9 Umbilical hernia without obstruction or gangrene; I74.5 Embolism and thrombosis of iliac artery
CPT/HCPCS: 75635; Q9967

== ENCOUNTER 2017-05-11 20:36 | Observation (INO) | payer OTHER ==
[2017-05-11] MEDS ORDERED: SODIUM CHLORIDE 0.9% 500 ML IV STA (20:43)
[2017-05-11] MEDS ORDERED: SODIUM CHLORIDE 0.9% 1,000 ML IV STA (20:43)
[2017-05-11 20:46] LABS: Glucose,Whole Blood 112 mg/dL (75-99)
--- NOTE | 2017-05-11 20:48 | ED ---
General Adult HPI - General Source: patient, RN notes reviewed, old records reviewed Mode of arrival: EMS Limitations: no limitations <Brayden Oquendo - Last Filed: 05/11/17 20:45> <Varun Calvo - Last Filed: 05/11/17 22:54> - General Chief complaint: Syncope Stated complaint: Syncope Time Seen by Provider: 05/11/17 20:42 - History of Present Illness Initial comments: 56-year-old male with history of COPD and hypertension presents for evaluation of altered mental status and unresponsiveness. Patient was at home, according to EMS his family was unable to arouse him. When EMS arrived, he was alert. Throughout transport patient did become unresponsive several times. According to EMS he remained in sinus rhythm at this time. Vital signs were stable. Patient was extremely diaphoretic during these episodes. At the time of my evaluation patient is alert and oriented. He has no complaints. Denies headache. Denies chest pain or shortness of breath. Denies abdominal pain. Denies fever or chills. Patient states he was recently started on 2 new medications for his COPD. He also admits to smoking marijuana earlier in the day. Denies any alcohol or other drug (Brayden Oquendo) - Related Data Home Medications Medication Instructions Recorded Confirmed Clopidogrel [Plavix] 75 mg PO DAILY 02/23/14 05/11/17 Carvedilol [Coreg] 12.5 mg PO BID 08/25/15 05/11/17 Losartan [Cozaar] 50 mg PO DAILY 05/16/16 05/11/17 Sertraline [Zoloft] 50 mg PO DAILY 05/16/16 05/11/17 Atorvastatin Calcium [Lipitor] 80 mg PO HS 09/07/16 05/11/17 Dicyclomine [Bentyl] 20 mg PO TID 05/11/17 05/11/17 Montelukast [Singulair] 10 mg PO DAILY 05/11/17 05/11/17 Multivitamins, Thera [Multivitamin 1 tab PO DAILY 05/11/17 05/11/17 (formulary)] Previous Rx's Medication Instructions Recorded Magnesium Oxide [Magox 400] 400 mg PO DAILY #60 tablet 09/19/16 Omeprazole 40 mg PO -BRKT #30 capsule. 04/03/17 Allergies Allergy/AdvReac Type Severity Reaction Status Date / Time amoxicillin [Amoxicillin] Allergy Rash/Hives Verified 05/11/17 20:41 enalapril maleate Allergy Rash/Hives Verified 05/11/17 20:41 [From Vasotec] enalaprilat dihydrate Allergy Rash/Hives Verified 05/11/17 20:41 [From Vasotec] Penicillins Allergy Rash/Hives Verified 05/11/17 20:41 Review of Systems ROS Other: All systems not noted in ROS Statement are negative. <Brayden Oquendo - Last Filed: 05/11/17 20:45> ROS Other: All systems not noted in ROS Statement are negative. <Varun Calvo - Last Filed: 05/11/17 22:54> ROS Statement: Those systems with pertinent positive or pertinent negative responses have been documented in the HPI. Past Medical History Past Medical History: Cancer, COPD, CVA/TIA, GERD/Reflux, Hyperlipidemia, Hypertension, Osteoarthritis (OA), Skin Disorder, Sleep Apnea/CPAP/BIPAP, Vascular Disorder Additional Past Medical History / Comment(s): Hx. TIA 2013, uses cpap, hx diverticulitis, skin cancer, aortic aneurysm-dr monitoring, frequent nausea, AAA History of Any Multi-Drug Resistant Organisms: None Reported Past Surgical History: Bowel Resection, Orthopedic Surgery Additional Past Surgical History / Comment(s): RT ROTATOR CUFF REPAIR, BONE SPUR REMOVED RT SHOULDER, I & D BOIL LT BUTTOCK, FEM POP BYPASS rt leg, surgery fx neck(pins and plates), 14-16 lap lysis of adhesions, lap reduction of incarcerated inc hernia with ventral hernia repair w/mesh. AAA repair Past Anesthesia/Blood Transfusion Reactions: No Reported Reaction Additional Past Anesthesia/Blood Transfusion Reaction / Comment(s): surgery for fx neck -has pins and plates-pt. states can move neck forward and back, side to side ok (this was his last surgery). Past Psychological History: No Psychological Hx Reported Smoking Status: Current every day smoker Past Alcohol Use History: None Reported, Rare Past Drug Use History: Marijuana - Past Family History Mother Family Medical History: COPD Father Additional Family Medical History / Comment(s): health-still alive at age 92 <Brayden Oquendo - Last Filed: 05/11/17 20:45> General Exam Limitations: no limitations General appearance: alert, in no apparent distress Head exam: Present: atraumatic, normocephalic Eye exam: Present: normal appearance, PERRL ENT exam: Present: normal exam Neck exam: Present: normal inspection. Absent: tenderness, meningismus Respiratory exam: Present: normal lung sounds bilaterally. Absent: respiratory distress, wheezes Cardiovascular Exam: Present: regular rate, normal rhythm GI/Abdominal exam: Present: soft. Absent: distended, tenderness Extremities exam: Present: normal inspection, normal capillary refill. Absent: pedal edema Neurological exam: Present: alert, oriented X3, CN II-XII intact. Absent: motor sensory deficit Psychiatric exam: Present: normal affect, normal mood Skin exam: Present: warm, diaphoretic <Brayden Oquedno - Last Filed: 05/11/17 20:45> Course <Brayden Oquendo - Last Filed: 05/11/17 20:45> <Varun Calvo - Last Filed: 05/11/17 22:54> Vital Signs 05/11/17 05/11/17 20:37 21:53 Temperature 96.9 F L Pulse Rate 67 59 L Respiratory 16 16 Rate Blood Pressure 129/78 113/62 O2 Sat by Pulse 94 L 3 L Oximetry - Reevaluation(s) Reevaluation #1: 05/11/172099 Patient's care is signed out to Dr. Calvo at 2100 awaiting all x-rays and laboratory studies. (Brayden Oquendo) EKG Findings - EKG Comments: EKG Findings:: EKG shows normal sinus rhythm, ventricular rate 65, OR interval 184, QRS duration 84, QTC 416, there is no ST segment elevation or depression, no T-wave abnormality <Brayden Oquendo - Last Filed: 05/11/17 20:45> Medical Decision Making <Brayden Oquendo - Last Filed: 05/11/17 20:45> - Lab Data Result diagrams: 05/11/17 20:40 05/11/17 20:40 <Varun Calvo - Last Filed: 05/11/17 22:54> - Medical Decision Making This patient has a sign out to review the remaining lab tests. The patient's x- ray does show a possible pneumonia though clinically he is not having any symptoms or signs. Patient given 1 dose of antibiotics and to have follow-up picture in the morning. Patient be admitted for overnight monitoring for the syncope. Results discussed with patient and family. He is symptom-free at admission. (Varun Calvo) - Lab Data Lab Results 05/11/17 05/11/17 05/11/17 Range/Units 20:40 20:40 20:40 WBC 12.0 H (3.8-10.6) k/uL RBC 4.76 (4.30-5.90) m/uL Hgb 16.0 (13.0-17.5) gm/dL Hct 47.0 (39.0-53.0) % MCV 98.7 (80.0-100.0) fL MCH 33.5 (25.0-35.0) pg MCHC 34.0 (31.0-37.0) g/dL RDW 13.8 (11.5-15.5) % Plt Count 303 (150-450) k/uL Neutrophils % 64 % Lymphocytes % 23 % Monocytes % 7 % Eosinophils % 3 % Basophils % 1 % Neutrophils # 7.7 (1.3-7.7) k/uL Lymphocytes # 2.8 (1.0-4.8) k/uL Monocytes # 0.8 (0-1.0) k/uL Eosinophils # 0.4 (0-0.7) k/uL Basophils # 0.1 (0-0.2) k/uL PT (9.0-12.0) sec INR (<1.2) APTT (22.0-30.0) sec VBG pH (7.31-7.41) VBG pCO2 (37-51) mmHg VBG HCO3 (24-28) mmol/L Sodium 139 (137-145) mmol/L Potassium 4.2 (3.5-5.1) mmol/L Chloride 106 (98-107) mmol/L Carbon Dioxide 20 L (22-30) mmol/L Anion Gap 13 mmol/L BUN 18 (9-20) mg/dL Creatinine 1.17 (0.66-1.25) mg/dL Est GFR (MDRD) Af Amer >60 (>60 ml/min/1.73 sqM) Est GFR (MDRD) Non-Af >60 (>60 ml/min/1.73 sqM) Glucose 94 (74-99) mg/dL POC Glucose (mg/dL) (75-99) mg/dL POC Glu [employer] Worker ID Calcium 9.3 (8.4-10.2) mg/dL Magnesium 1.7 (1.6-2.3) mg/dL Total Bilirubin 0.3 (0.2-1.3) mg/dL AST 18 (17-59) U/L ALT 26 (21-72) U/L Alkaline Phosphatase 50 (38-126) U/L Total Creatine Kinase 150 (55-170) U/L CK-MB (CK-2) 0.7 (0.0-2.4) ng/mL CK-MB (CK-2) Rel Index 0.5 Troponin I <0.012 (0.000-0.034) ng/mL Total Protein 7.0 (6.3-8.2) g/dL Albumin 3.9 (3.5-5.0) g/dL 05/11/17 05/11/17 05/11/17 Range/Units 20:40 20:40 20:43 WBC (3.8-10.6) k/uL RBC (4.30-5.90) m/uL Hgb (13.0-17.5) gm/dL Hct (39.0-53.0) % MCV (80.0-100.0) fL MCH (25.0-35.0) pg MCHC (31.0-37.0) g/dL RDW (11.5-15.5) % Plt Count (150-450) k/uL Neutrophils % % Lymphocytes % % Monocytes % % Eosinophils % % Basophils % % Neutrophils # (1.3-7.7) k/uL Lymphocytes # (1.0-4.8) k/uL Monocytes # (0-1.0) k/uL Eosinophils # (0-0.7) k/uL Basophils # (0-0.2) k/uL PT 10.4 (9.0-12.0) sec INR 1.0 (<1.2) APTT 22.8 (22.0-30.0) sec VBG pH 7.35 (7.31-7.41) VBG pCO2 45 (37-51) mmHg VBG HCO3 24 (24-28) mmol/L Sodium (137-145) mmol/L Potassium (3.5-5.1) mmol/L Chloride (98-107) mmol/L Carbon Dioxide (22-30) mmol/L Anion Gap mmol/L BUN (9-20) mg/dL Creatinine (0.66-1.25) mg/dL Est GFR (MDRD) Af Amer (>60 ml/min/1.73 sqM) Est GFR (MDRD) Non-Af (>60 ml/min/1.73 sqM) Glucose (74-99) mg/dL POC Glucose (mg/dL) 112 H (75-99) mg/dL POC Glu [employer] Worker ID Vani Baker Calcium (8.4-10.2) mg/dL Magnesium (1.6-2.3) mg/dL Total Bilirubin (0.2-1.3) mg/dL AST (17-59) U/L ALT (21-72) U/L Alkaline Phosphatase (38-126) U/L Total Creatine Kinase (55-170) U/L CK-MB (CK-2) (0.0-2.4) ng/mL CK-MB (CK-2) Rel Index Troponin I (0.000-0.034) ng/mL Total Protein (6.3-8.2) g/dL Albumin (3.5-5.0) g/dL Disposition <Brayden Oquendo - Last Filed: 05/11/17 20:45> <Varun Calov - Last Filed: 05/11/17 22:54> Clinical Impression: Syncope Disposition: ADMITTED IP TO THIS HOSP Condition: Good Referrals: Jackson Barahona DO [Primary Care Provider] - 1-2 days
[2017-05-11 21:02] LABS: VBG PH 7.35 (7.31-7.41)
[2017-05-11 21:03] LABS: Basophils # (A) 0.1 k/uL (0-0.2); Basophils % (A) 1 %; CH 34.3; CHCM 34.9; Eosinophils # (A) 0.4 k/uL (0-0.7); Eosinophils % (A) 3 %; HDW 2.61; Luc # (Auto) 0.23; Luc % (Auto) 2; Lymphocytes # (A) 2.8 k/uL (1.0-4.8); Lymphocytes % (A) 23 %; MCH 33.5 pg (25.0-35.0); MCV 98.7 fL (80.0-100.0); Mean Platelet Volume 7.9; Monocytes # (A) 0.8 k/uL (0-1.0); Monocytes % (A) 7 %; Neutrophils # (A) 7.7 k/uL (1.3-7.7); Neutrophils % (A) 64 %; RBC 4.76 m/uL (4.30-5.90); RDW 13.8 % (11.5-15.5); WBC (Perox) 12.12
[2017-05-11 21:13] LABS: Partial Thromboplastin Time 22.8 sec (22.0-30.0); Prothrombin Time 10.4 sec (9.0-12.0)
[2017-05-11 21:15] LABS: ALT 26 U/L (21-72); AST 18 U/L (17-59); Alkaline Phosphatase 50 U/L (38-126); Anion Gap 13 mmol/L; Blood Urea Nitrogen 18 mg/dL (9-20); Calcium 9.3 mg/dL (8.4-10.2); Carbon Dioxide 20 mmol/L (22-30); Chloride 106 mmol/L (98-107); Glucose 94 mg/dL (74-99); Magnesium 1.7 mg/dL (1.6-2.3); Non-African American GFR(MDRD) >60 (>60 ml/min/1.73 sqM); Potassium 4.2 mmol/L (3.5-5.1); Sodium 139 mmol/L (137-145); Total Bilirubin 0.3 mg/dL (0.2-1.3)
[2017-05-11 21:27] LABS: Creatine Kinase 150 U/L (55-170)
--- NOTE | 2017-05-11 21:34 | XR ---
EXAMINATION TYPE: XR chest 2V DATE OF EXAM: 05/11/2017 COMPARISON: 09/07/2016 HISTORY: Syncope TECHNIQUE: Frontal and lateral views of the chest are obtained. FINDINGS: There is some mild infiltrate in the left lower lobe. The other lung plunkett are clear. The re is no heart failure. Heart size is normal. There is no sign of pleural effusion. IMPRESSION: Mild pneumonia and atelectasis in the left lower lobe is new compared to last exam. Norm al heart.
[2017-05-11 21:40] LABS: Creatine Kinase MB 0.7 ng/mL (0.0-2.4); Troponin I <0.012 ng/mL (0.000-0.034)
--- NOTE | 2017-05-11 21:41 | CT ---
EXAMINATION TYPE: CT brain wo con DATE OF EXAM: 05/11/2017 COMPARISON: 04/25/2014 HISTORY: SYNCOPE. CT DLP: 968.7 mGycm Automated exposure control for dose reduction was used. FINDINGS: Ventricles and sulci appear normal. There is no mass effect nor midline shift. There is no sign of in tracranial hemorrhage. There is mucosal thickening in the maxillary and ethmoid sinuses. IMPRESSION: NEGATIVE CT SCAN OF THE BRAIN. SINUSITIS WITHOUT SIGNIFICANT CHANGE COMPARED TO OLD EXAM.
[2017-05-11] MEDS ORDERED: AZITHROMYCIN 500 MG TAB PO STA (22:46)
[2017-05-11] MEDS ORDERED: NITROGLYCERIN SL TABS 0.4 MG TAB SUBLINGUAL PRN (22:49)
[2017-05-11 23:40] VITALS: BMI 37.2
[2017-05-12] MEDS: MORPHINE SULFATE 2 MG/ML SYRINGE IVP PRN ×3 (00:49→09:13)
[2017-05-12 03:02] LABS: Cholesterol 128 mg/dL (<200); HDL Cholesterol 26 mg/dL (40-60)
[2017-05-12 03:06] LABS: Creatine Kinase 123 U/L (55-170)
[2017-05-12 03:19] LABS: Creatine Kinase MB 0.7 ng/mL (0.0-2.4); Troponin I <0.012 ng/mL (0.000-0.034)
[2017-05-12] MEDS ORDERED: PANTOPRAZOLE 40 MG TABLET PO SCH (07:30)
[2017-05-12] MEDS ORDERED: SERTRALINE 50 MG TAB PO SCH (09:00)
[2017-05-12] MEDS ORDERED: ASPIRIN 325 MG TAB PO SCH (09:00)
[2017-05-12] MEDS ORDERED: CARVEDILOL 12.5 MG TAB PO SCH (09:00)
[2017-05-12] MEDS ORDERED: CLOPIDOGREL 75 MG TAB PO SCH (09:00)
[2017-05-12] MEDS ORDERED: DICYCLOMINE 20 MG TAB PO SCH (09:00)
[2017-05-12] MEDS ORDERED: MAGNESIUM OXIDE 400 MG TAB PO SCH (09:00)
[2017-05-12] MEDS ORDERED: MULTIVITAMINS, THERA 1 EACH TAB PO SCH (09:00)
[2017-05-12] MEDS ORDERED: MONTELUKAST 10 MG TAB PO SCH (09:00)
[2017-05-12] MEDS ORDERED: LOSARTAN 50 MG TAB PO SCH (09:00)
[2017-05-12 09:27] LABS: Creatine Kinase 118 U/L (55-170)
[2017-05-12 09:39] LABS: Creatine Kinase MB 0.6 ng/mL (0.0-2.4); Troponin I <0.012 ng/mL (0.000-0.034)
--- NOTE | 2017-05-12 10:50 | P.HPIM ---
History of Present Illness 56-year-old male with history of COPD and hypertension presents for evaluation of altered mental status and unresponsiveness. Patient was at home, according to EMS his family was unable to arouse him. When EMS arrived, he was alert. Throughout transport patient did become unresponsive several times. According to EMS he remained in sinus rhythm at this time. Vital signs were stable. Patient was extremely diaphoretic during these episodes. At the time of my evaluation patient is alert and oriented. He has no complaints. Denies headache. Denies chest pain or shortness of breath. Denies abdominal pain. Denies fever or chills. Patient states he was recently started on 2 new medications for his COPD. He also admits to smoking marijuana earlier in the day. Denies any alcohol or other drug. I do not see any recent echocardiogram patient media monitor is essentially within normal notes EKG showed sinus rhythm. Chest x-ray were as read as possible pneumonia although clinically patient does not have pneumonia patient probably has atelectasis and will not require any antibiotics patient blood pressure is stable orthostatic vitals are negative. Patient doesn't have any diarrhea. We will obtain cardiology consultation regarding possibility of requiring a media monitor. Patient will monitor and to later in the day and will be discharged with an outpatient echocardiogram Review of Systems REVIEW OF SYSTEMS: CONSTITUTIONAL: No fever, no malaise, no fatigue. HEENT: No recent visual problems or hearing problems. Denied any sore throat. CARDIOVASCULAR: No chest pain, orthopnea, PND, no palpitations. PULMONARY: No shortness of breath, no cough, no hemoptysis. GASTROINTESTINAL: No diarrhea, no nausea, no vomiting, no abdominal pain. Normoactive bowel sounds. NEUROLOGICAL: No headaches, no weakness, no numbness. HEMATOLOGICAL: Denies any bleeding or petechiae. GENITOURINARY: Denies any burning micturition, frequency, or urgency. MUSCULOSKELETAL/RHEUMATOLOGICAL: Denies any joint pain, swelling, or any muscle pain. ENDOCRINE: Denies any polyuria or polydipsia. The rest of the 14-point review of systems is negative. Past Medical History Past Medical History: Cancer, COPD, CVA/TIA, GERD/Reflux, Hyperlipidemia, Hypertension, Osteoarthritis (OA), Skin Disorder, Sleep Apnea/CPAP/BIPAP, Vascular Disorder Additional Past Medical History / Comment(s): Hx. TIA 2013, uses cpap, hx diverticulitis, skin cancer, aortic aneurysm-dr monitoring, frequent nausea, AAA History of Any Multi-Drug Resistant Organisms: None Reported Past Surgical History: Bowel Resection, Orthopedic Surgery Additional Past Surgical History / Comment(s): RT ROTATOR CUFF REPAIR, BONE SPUR REMOVED RT SHOULDER, I & D BOIL LT BUTTOCK, FEM POP BYPASS rt leg, surgery fx neck(pins and plates), 08-26-15 lap lysis of adhesions, lap reduction of incarcerated inc hernia with ventral hernia repair w/mesh. AAA repair Past Anesthesia/Blood Transfusion Reactions: No Reported Reaction Additional Past Anesthesia/Blood Transfusion Reaction / Comment(s): surgery for fx neck -has pins and plates-pt. states can move neck forward and back, side to side ok (this was his last surgery). Past Psychological History: No Psychological Hx Reported Smoking Status: Current every day smoker Past Alcohol Use History: None Reported, Rare Additional Past Alcohol Use History / Comment(s): cut down on his smoking-less than 1 ppd, has smoked for 30 yrs. Past Drug Use History: None Reported - Past Family History Mother Family Medical History: COPD Father Family Medical History: No Reported History Additional Family Medical History / Comment(s): health-still alive at age 92 Medications and Allergies Home Medications Medication Instructions Recorded Confirmed Type Clopidogrel [Plavix] 75 mg PO DAILY 02/23/14 05/11/17 History Carvedilol [Coreg] 12.5 mg PO BID 08/25/15 05/11/17 History Losartan [Cozaar] 50 mg PO DAILY 05/16/16 05/11/17 History Sertraline [Zoloft] 50 mg PO DAILY 05/16/16 05/11/17 History Atorvastatin Calcium [Lipitor] 80 mg PO HS 09/07/16 05/11/17 History Magnesium Oxide [Magox 400] 400 mg PO DAILY #60 tablet 09/19/16 05/11/17 Rx Omeprazole 40 mg PO ALIX-JOSE M #30 capsule. 11/13/16 05/11/17 Rx Dicyclomine [Bentyl] 20 mg PO TID 05/11/17 05/11/17 History Montelukast [Singulair] 10 mg PO DAILY 05/11/17 05/11/17 History Multivitamins, Thera [Multivitamin 1 tab PO DAILY 05/11/17 05/11/17 History (formulary)] Allergies Allergy/AdvReac Type Severity Reaction Status Date / Time amoxicillin [Amoxicillin] Allergy Rash/Hives Verified 05/11/17 20:41 enalapril maleate Allergy Rash/Hives Verified 05/11/17 20:41 [From Vasotec] enalaprilat dihydrate Allergy Rash/Hives Verified 05/11/17 20:41 [From Vasotec] Penicillins Allergy Rash/Hives Verified 05/11/17 20:41 Physical Exam Vitals: Vital Signs Temp Pulse Pulse Resp BP BP Pulse Ox 05/12/17 08:25 95 05/12/17 08:00 65 18 05/12/17 07:00 97.0 F L 65 18 121/77 94 L 05/11/17 23:04 65 16 135/79 96 05/11/17 21:53 59 L 16 113/62 93 L 05/11/17 20:37 96.9 F L 67 16 129/78 94 L Intake and Output 05/11/17 05/12/17 05/12/17 22:59 06:59 14:59 Intake Total 425 480 Output Total 1000 Balance -575 480 Intake: Intake, IV Titration 425 Amount Sodium Chloride 0.9% 1, 375 000 ml @ 75 mls/hr IV . [id number] STA Rx#:[id number] cefTRIAXone 1,000 mg In 50 Sodium Chloride 0.9% 50 ml @ 100 mls/hr IVPB ONCE STA Rx#:[id number] Oral 480 Output: Urine 1000 Other: Voiding Method Toilet Toilet Urinal # Voids 1 Weight 121.109 kg 121.109 kg 121.109 kg Patient Weight 05/13/17 06:59 Weight 121.109 kg PHYSICAL EXAMINATION: GENERAL: The patient is alert and oriented x3, not in any acute distress. Obese HEENT: Pupils are round and equally reacting to light. EOMI. No scleral icterus. No conjunctival pallor. Normocephalic, atraumatic. No pharyngeal erythema. No thyromegaly. CARDIOVASCULAR: S1 and S2 present. No murmurs, rubs, or gallops. PULMONARY: Chest is clear to auscultation, no wheezing or crackles. ABDOMEN: Soft, nontender, nondistended, normoactive bowel sounds. No palpable organomegaly. MUSCULOSKELETAL: No joint swelling or deformity. EXTREMITIES: No cyanosis, clubbing, or pedal edema. NEUROLOGICAL: Gross neurological examination did not reveal any focal deficits. SKIN: No rashes. Results CBC & Chem 7: 05/11/17 20:40 05/11/17 20:40 Labs: Abnormal Lab Results - Last 24 Hours (Table) 05/11/17 05/11/17 05/11/17 Range/Units 20:40 20:40 20:40 WBC 12.0 H (3.8-10.6) k/uL D-Dimer 3.07 H (<0.60) mg/L FEU Carbon Dioxide 20 L (22-30) mmol/L POC Glucose (mg/dL) (75-99) mg/dL Triglycerides (<150) mg/dL HDL Cholesterol (40-60) mg/dL 05/11/17 05/12/17 Range/Units 20:43 02:26 WBC (3.8-10.6) k/uL D-Dimer (<0.60) mg/L FEU Carbon Dioxide (22-30) mmol/L POC Glucose (mg/dL) 112 H (75-99) mg/dL Triglycerides 167 H (<150) mg/dL HDL Cholesterol 26 L (40-60) mg/dL Thrombosis Risk Factor Assmnt - Choose All That Apply Any of the Below Risk Factors Present?: Yes Each Factor Represents 1 point: Abnormal pulmonary function (COPD), Age 41-60 years, Obesity (BMI >25) Other Risk Factors: No Other congenital or acquired thrombophilia - If yes, enter type in comment: No Thrombosis Risk Factor Assessment Total Risk Factor Score: 3 Thrombosis Risk Factor Assessment Level: Moderate Risk Assessment and Plan Plan: #1 syncope: Probably vasovagal in nature, no overnight events on telemetry. Cardiology will be consulted for outpatient Holter monitoring and will order outpatient echo cardiac memory monitor and later in the day and possibility of discharge later in the day. Patient blood pressure is essentially stable patient uses losartan and Coreg which will be continued EKG essentially within normal limits. #2 right lower lung atelectasis without any pneumonia, patient will not require antibiotics. #3 obesity: Counseling was provided #4 gastroesophageal reflux disease #5 hyperlipidemia #6 sleep apnea: Uses CPAP machine which she will continue. #7 hypertension: Patient will continue done the same home education medication regimen without any changes.
--- NOTE | 2017-05-12 10:51 | P.DS ---
Providers Date of admission: 05/11/17 22:49 Attending physician: Artie Wiseman Primary care physician: Jackson Barahona [facility] Course: Please refer to my HPI Patient Condition at Discharge: Good Plan - Discharge Summary New Discharge Prescriptions: No Action Clopidogrel [Plavix] 75 mg PO DAILY Carvedilol [Coreg] 12.5 mg PO BID Sertraline [Zoloft] 50 mg PO DAILY Losartan [Cozaar] 50 mg PO DAILY Atorvastatin Calcium [Lipitor] 80 mg PO HS Magnesium Oxide [Magox 400] 400 mg PO DAILY #60 tablet Omeprazole 40 mg PO AC-BRKFST #30 capsule. Multivitamins, Thera [Multivitamin (formulary)] 1 tab PO DAILY Montelukast [Singulair] 10 mg PO DAILY Dicyclomine [Bentyl] 20 mg PO TID Discharge Medication List Clopidogrel [Plavix] 75 mg PO DAILY 02/23/14 [History] Carvedilol [Coreg] 12.5 mg PO BID 08/25/15 [History] Losartan [Cozaar] 50 mg PO DAILY 05/16/16 [History] Sertraline [Zoloft] 50 mg PO DAILY 05/16/16 [History] Atorvastatin Calcium [Lipitor] 80 mg PO HS 09/07/16 [History] Magnesium Oxide [Magox 400] 400 mg PO DAILY #60 tablet 09/19/16 [Rx] Omeprazole 40 mg PO AC-BRKFST #30 capsule. 11/13/16 [Rx] Dicyclomine [Bentyl] 20 mg PO TID 05/11/17 [History] Montelukast [Singulair] 10 mg PO DAILY 05/11/17 [History] Multivitamins, Thera [Multivitamin (formulary)] 1 tab PO DAILY 05/11/17 [History ] Follow up Appointment(s)/Referral(s): Jackson Barahona DO [Primary Care Provider] - 3 Days
[2017-05-12] MEDS ORDERED: RX INFO: IV CONTRAST WAS GIVEN 1 EACH MISC MISCELLANE PRN (13:57)
--- NOTE | 2017-05-12 14:27 | CONS ---
CONSULTATION Mr. Pollock is a 56-year-old male who presented with a syncopal episode. The patient has a known history of peripheral vascular disease, history of abdominal aortic aneurysm, history of hypertension and hyperlipidemia. Yesterday while sitting at home, he complained of discomfort in the epigastrium and then subsequently became diaphoretic and felt dizzy. The EMS came and picked him up and he passed out in the ambulance. When he came to he was in the emergency room. He is ambulating today and feeling well. The episode occurred a few hours after eating and he does not recall any specific issue or around that. He denies any vomiting. He denies any change in his breathing. No chest pain. No palpitation. No arrhythmia. He underwent cardiac catheterization in August of 2014 and revealed moderate disease in the proximal left main with a normal fractional flow reserve and a normal left ventricular size and systolic function. He is usually active physically without any difficulty. He denies any PND, orthopnea, or peripheral edema. No prior history of arrhythmia or prior syncopal episode. His coronary risk factors are remarkable for the history of hypertension, history of hyperlipidemia. He is a nonsmoker, nondiabetic. MEDICATION: His medications at home include Zoloft, Singulair 10 mg daily, magnesium, losartan 50 mg daily, Plavix 75 mg daily. Coreg 12.5 mg twice a day and Lipitor 80 mg daily and includes Ellipta. REVIEW OF SYSTEMS: RESPIRATORY SYSTEM: Has no recent wheezing. No cough. No fever. GI SYSTEM: No recent GI bleeding. No peptic ulcer disease. SYSTEM: No dysuria or hematuria. NERVOUS SYSTEM: No stroke or seizure. PHYSICAL EXAMINATION: He is a 56-year-old male, alert, oriented, in no apparent distress. Blood pressure 121/70 with a heart rate 60. HEAD: Normocephalic. EYES: Sclerae anicteric. NECK: Good upstroke. No bruit. No jugular venous distention. LUNGS: Clear to auscultation. HEART: Regular rate and rhythm. S1, S2. No S3. No rub. ABDOMEN: Soft, nontender, obese. Positive bowel sounds. No organomegaly. EXTREMITIES: No edema. Intact distal pulses. LAB DATA: Lab data revealed troponin less than 0.012 for 3 samples. Cholesterol 128, LDL of 69. His D-dimer is 3.07. Hemoglobin of 16, white blood cell of 12. His EKG reveals sinus mechanism with no acute changes. Chest x-ray revealed questionable infiltrate, although clinically the patient has no findings to suggest an infectious process and his CT scan was unremarkable. IMPRESSION: 1. Syncopal episode, probably vasovagal, etiology not clear. 2. History of coronary artery disease, stable. 3. History of hypertension. 4. Hyperlipidemia. 5. History of abdominal aortic aneurysm. RECOMMENDATION: From the cardiac standpoint, he is stable. He will be followed as an outpatient. MMODL / IJN: [id number] /
[2017-05-12 14:28] VITALS: BP 147/72; PULSE 59; RESP 17; TEMP 97.5
--- NOTE | 2017-05-12 15:02 | CT ---
CT CHEST FOR PULMONARY EMBOLISM. EXAMINATION TYPE: CT chest angio for PE DATE OF EXAM: 05/12/2017 INDICATION: Patient complains of difficulty breathing. CT DLP: 537.6 mGycm, Automated exposure control for dose reduction was used. CONTRAST: Patient injected with 100 mL of Omnipaque 350. COMPARISON: NONE TECHNIQUE: CT of the chest is performed on a spiral scan at 2 mm thick sections. Study is performed with intravenous contrast timed for evaluation for pulmonary embolism. This will limit additional po rtions of the evaluation. 3-D MIP images reconstructed by the technologist are reviewed on the compu ter in the coronal and sagittal planes. FINDINGS: No persistent filling defects are evident to suggest an acute pulmonary embolism. No mediastinal or hilar adenopathy enlarged by CT criteria is evident. The ascending aorta diameter at the level of the main pulmonary artery is 3.9 cm. The main pulmonary artery diameter at the bifur cation is 2.2 cm. Mild emphysematous changes are present. No suspicious nodules are evident. Some peribronchial thicken ing is present diffusely. Streak opacities are in the posterior dependent lung bases. Limited CT section through the upper abdomen are unremarkable. IMPRESSIONS: 1. Clinical consideration for very mild bronchitis could be considered. 2. An acute pulmonary process is not evident. 3. No acute pulmonary embolism.
[2017-05-12] MEDS ORDERED: ATORVASTATIN 80 MG TAB PO SCH (21:00)
== END 2017-05-12 15:05 | disposition home or self-care (01) ==
LOC: EC 20:36 → INTOOBSV 22:49 → 5MS5E 22:49
PROVIDERS: ADMIT Hospitalist; ATTEND Hospitalist
DX: R55 Syncope and collapse (principal); I10 Essential (primary) hypertension; J98.11 Atelectasis; I25.10 Atherosclerotic heart disease of native coronary artery without angina pectoris; I73.9 Peripheral vascular disease, unspecified; F17.200 Nicotine dependence, unspecified, uncomplicated; M19.91 Primary osteoarthritis, unspecified site; E78.5 Hyperlipidemia, unspecified; E66.9 Obesity, unspecified; J44.9 Chronic obstructive pulmonary disease, unspecified; F12.90 Cannabis use, unspecified, uncomplicated; G47.30 Sleep apnea, unspecified; K21.9 Gastro-esophageal reflux disease without esophagitis; Z68.37 Body mass index [BMI] 37.0-37.9, adult; Z79.02 Long term (current) use of antithrombotics/antiplatelets; Z79.899 Other long term (current) drug therapy; Z86.73 Personal history of transient ischemic attack (TIA), and cerebral infarction without residual deficits; Z86.79 Personal history of other diseases of the circulatory system; Z88.0 Allergy status to penicillin; Z88.8 Allergy status to other drugs, medicaments and biological substances; Z99.89 Dependence on other enabling machines and devices
CPT/HCPCS: 96376; 96361 ×3; 96375; 96365; 99285; 36415; 93005 ×2; 85379; 80061; 80053; 82550 ×2; 82553 ×2; 82803; 83735; 84484 ×2; 85025; 85610; 85730; 71020; 70450; 71275; G0378 ×2; Q9967; J0696; J2270

== ENCOUNTER → 2017-09-19 | Outpatient (CLI) | payer OTHER ==
[2017-09-19 08:42] LABS: HCT 47.7 % (39.0-53.0); HGB 15.8 gm/dL (13.0-17.5); MCH 31.6 pg (25.0-35.0); MCHC 33.2 g/dL (31.0-37.0); MCV 95.4 fL (80.0-100.0); Platelet Count 270 k/uL (150-450); RDW 12.9 % (11.5-15.5); WBC 9.2 k/uL (3.8-10.6)
[2017-09-19 09:01] LABS: ALT 26 U/L (21-72); AST 16 U/L (17-59); Anion Gap 11 mmol/L; Blood Urea Nitrogen 14 mg/dL (9-20); Calcium 9.5 mg/dL (8.4-10.2); Carbon Dioxide 26 mmol/L (22-30); Chloride 104 mmol/L (98-107); Cholesterol 137 mg/dL (<200); Glucose 114 mg/dL (74-99); HDL Cholesterol 31 mg/dL (40-60); LDL Cholesterol,Calculated 71 mg/dL (0-99); Magnesium 1.8 mg/dL (1.6-2.3); Potassium 4.5 mmol/L (3.5-5.1); Sodium 141 mmol/L (137-145); Triglycerides 174 mg/dL (<150)
== END | disposition home or self-care (01) ==
LOC: LABWHC1 08:25
PROVIDERS: ATTEND Internal Medicine Interventional Cardiology
DX: I10 Essential (primary) hypertension (principal); E78.5 Hyperlipidemia, unspecified; I25.10 Atherosclerotic heart disease of native coronary artery without angina pectoris; E78.2 Mixed hyperlipidemia
CPT/HCPCS: 36415; 80048; 80061; 83735; 84450; 84460; 85027

== ENCOUNTER → 2017-10-24 | Outpatient (CLI) | payer OTHER ==
--- NOTE | 2017-10-24 15:55 | CT ---
EXAMINATION TYPE: CT angio abd aorta wo/w con DATE OF EXAM: 10/24/2017 COMPARISON: NONE INDICATION: Aortic Abdominal Aneurysm w/o rupture DLP: 2894.3 mGycm, Automated exposure control for dose reduction was used. CONTRAST: 100 mL of Omnipaque 350. Study performed TECHNIQUE: Axial images were obtained from above the diaphragm to the pubic rami in the axial plane a t 5 mm thick sections. Reconstructed images are reviewed on the computer in the coronal plane. FINDINGS: Limited CT sections are obtained the lung bases. Minimal compressive atelectasis may be in the depen dent right lung base. Lung bases are otherwise clear.. CT ABDOMEN: There is a 0.8 cm lymph node at the level of the diaphragm posterior to the esophagus. Liver: Normal Spleen: Normal Pancreas: Normal Adrenal glands: The adrenal glands are normal. Gallbladder: Normal Kidneys: No masses are evident. No hydronephrosis is present. No cysts are present. Delayed images were obtained through the kidneys, which remain unremarkable. Aorta: Vascular calcification is within the aorta. Aortic stent is present. Maximum aortic diameter surrounding stent is 4.1 cm. Stent extends into the iliac vessels. Contrast is within the stent which is patent. On delayed images stent appear normal. No endovascular leak is evident. Inferior vena cava: Normal. CT PELVIS: Loops of bowel within the abdomen and pelvis are normal. Study is without oral contrast limiting bowel evaluation. Appendix: Normal as visualized. Urinary bladder: Normal. Genitourinary structures: Prostate is prominent. Osseous structures: No suspicious lytic or sclerotic lesions. Some spondylosis is within the lumbar s pine IMPRESSIONS: 1. No endovascular leak. Residual aneurysm measures 4.1 cm within the mid abdominal aorta which is s lightly smaller than comparison.
== END | disposition home or self-care (01) ==
LOC: RADCTMAIN 10:59
PROVIDERS: ATTEND Thoracic Surgery (Cardiothoracic Vascular Surgery)
DX: I71.4 Abdominal aortic aneurysm, without rupture (principal); Z88.0 Allergy status to penicillin
CPT/HCPCS: 75635; Q9967

== ENCOUNTER → 2018-01-22 | Outpatient (CLI) | payer OTHER ==
--- NOTE | 2018-01-22 09:32 | US ---
EXAMINATION TYPE: US abdomen complete DATE OF EXAM: 01/22/2018 COMPARISON: CT 2018 CLINICAL HISTORY: R10.13 Epigastric pain. Large body habitus, overlying bowel gas difficult scan EXAM MEASUREMENTS: Liver Length: 19.3 cm Gallbladder Wall: 0.1 cm CBD: 0.3 cm Spleen: 10.9 cm Right Kidney: 11.7 x 3.8 x 4.0 cm Left Kidney: 11.2 x 4.7 x 4.7 cm Pancreas: Obscured by bowel gas Liver: Heterogeneous pattern. No focal mass. Gallbladder: wnl Evidence for sonographic Tang's sign: No CBD: wnl Spleen: wnl Right Kidney: wnl Left Kidney: wnl Upper IVC: wnl Abd Aorta: Obscured by overlying bowel gas IMPRESSION: 1. Heterogeneous pattern to the liver which is nonspecific and be seen with fatty infiltration or hep atitis. Mild hepatomegaly measuring 19 cm.
== END | disposition home or self-care (01) ==
LOC: RADUSWWP 08:47
DX: R16.0 Hepatomegaly, not elsewhere classified (principal)
CPT/HCPCS: 76700

== ENCOUNTER 2018-01-26 07:19 | Inpatient (IN) | payer OTHER ==
[2018-01-26] MEDS ORDERED: SODIUM CHLORIDE 0.9% 500 ML IV STA (07:39)
[2018-01-26] MEDS ORDERED: ONDANSETRON 4 MG/2 ML VIAL IVP STA (07:40)
[2018-01-26] MEDS ORDERED: MORPHINE SULFATE 2 MG/ML SYRINGE IVP STA (07:40)
--- NOTE | 2018-01-26 07:43 | ED ---
General Adult HPI - General Chief complaint: Urogenital Stated complaint: GROIN PAIN Time Seen by Provider: 01/26/18 07:22 Source: patient, EMS, RN notes reviewed, old records reviewed Mode of arrival: EMS Limitations: no limitations - History of Present Illness Initial comments: 57 yo male presents with pain and swelling in the right groin. Pain began yesterday. Has progressed over the past 24 hours. He does have swelling and redness in the right groin. Denies fever but states he is hot and then closed with his had nausea. No vomiting. Patient has previous history of bowel resection for diverticulosis. He has had abdominal aortic stenting as well as bypass to the right lower extremity. Denies any right lower extremity pain today. Denies significant testicular tenderness. No history of hernia in this region before. - Related Data Home Medications Medication Instructions Recorded Confirmed Clopidogrel [Plavix] 75 mg PO DAILY 02/23/14 05/11/17 Carvedilol [Coreg] 12.5 mg PO BID 08/25/15 05/11/17 Losartan [Cozaar] 50 mg PO DAILY 05/16/16 05/11/17 Sertraline [Zoloft] 50 mg PO DAILY 05/16/16 05/11/17 Atorvastatin Calcium [Lipitor] 80 mg PO HS 09/07/16 05/11/17 Dicyclomine [Bentyl] 20 mg PO TID 05/11/17 05/11/17 Montelukast [Singulair] 10 mg PO DAILY 05/11/17 05/11/17 Multivitamins, Thera [Multivitamin 1 tab PO DAILY 05/11/17 05/11/17 (formulary)] Ipratropium-Albuterol Nebulize 3 ml INHALATION RT-TID 05/12/17 05/12/17 [Duoneb 0.5 mg-3 mg/3 ml Soln] Mometasone/Formoterol [Dulera 100 1 puff INHALATION RT-BID 05/12/17 05/12/17 Mcg/5 Mcg Inhaler] Umeclidinium [place] [Incruse 1 puff INHALATION RT-DAILY 05/12/17 05/12/17 Ellipta] Previous Rx's Medication Instructions Recorded Magnesium Oxide [Magox 400] 400 mg PO DAILY #60 tablet 09/19/16 Omeprazole 40 mg PO AC-BRKFST #30 capsule. 11/13/16 Allergies Allergy/AdvReac Type Severity Reaction Status Date / Time amoxicillin [Amoxicillin] Allergy Rash/Hives Verified 01/26/18 07:23 enalapril maleate Allergy Rash/Hives Verified 01/26/18 07:23 [From Vasotec] enalaprilat dihydrate Allergy Rash/Hives Verified 01/26/18 07:23 [From Vasotec] Penicillins Allergy Rash/Hives Verified 01/26/18 07:23 Review of Systems ROS Statement: Those systems with pertinent positive or pertinent negative responses have been documented in the HPI. ROS Other: All systems not noted in ROS Statement are negative. Past Medical History Past Medical History: Cancer, COPD, CVA/TIA, GERD/Reflux, Hyperlipidemia, Hypertension, Osteoarthritis (OA), Skin Disorder, Sleep Apnea/CPAP/BIPAP, Vascular Disorder Additional Past Medical History / Comment(s): Hx. TIA 2013, uses cpap, hx diverticulitis, skin cancer, aortic aneurysm-dr monitoring, frequent nausea, AAA History of Any Multi-Drug Resistant Organisms: None Reported Past Surgical History: Bowel Resection, Orthopedic Surgery Additional Past Surgical History / Comment(s): RT ROTATOR CUFF REPAIR, BONE SPUR REMOVED RT SHOULDER, I & D BOIL LT BUTTOCK, FEM POP BYPASS rt leg, surgery fx neck(pins and plates), 08-26-15 lap lysis of adhesions, lap reduction of incarcerated inc hernia with ventral hernia repair w/mesh. AAA repair Past Anesthesia/Blood Transfusion Reactions: No Reported Reaction Additional Past Anesthesia/Blood Transfusion Reaction / Comment(s): surgery for fx neck -has pins and plates-pt. states can move neck forward and back, side to side ok (this was his last surgery). Past Psychological History: No Psychological Hx Reported Smoking Status: Current every day smoker Past Alcohol Use History: None Reported, Rare Past Drug Use History: None Reported - Past Family History Mother Family Medical History: COPD Father Family Medical History: No Reported History Additional Family Medical History / Comment(s): health-still alive at age 92 General Exam Limitations: no limitations General appearance: alert, in no apparent distress Head exam: Present: atraumatic, normocephalic Eye exam: Present: normal appearance, PERRL ENT exam: Present: normal exam Neck exam: Present: normal inspection. Absent: tenderness, meningismus Respiratory exam: Present: normal lung sounds bilaterally. Absent: respiratory distress Cardiovascular Exam: Present: regular rate, normal rhythm GI/Abdominal exam: Present: soft, distended. Absent: tenderness, guarding, rebound exam: Present: scrotal swelling, other (Erythema, and tense swelling along the right inguinal canal. Tenderness to palpation.). Absent: testicular tenderness Extremities exam: Present: normal inspection, normal capillary refill, other. Absent: pedal edema, calf tenderness Neurological exam: Present: alert, oriented X3, CN II-XII intact. Absent: motor sensory deficit Psychiatric exam: Present: normal affect, normal mood Skin exam: Present: warm, dry, intact. Absent: cyanosis, diaphoretic Course Vital Signs 01/26/18 01/26/18 07:21 08:06 Temperature 97.9 F Pulse Rate 83 77 Respiratory 18 18 Rate Blood Pressure 157/69 106/61 O2 Sat by Pulse 96 98 Oximetry Medical Decision Making - Medical Decision Making 57 yo male presenting with right groin pain and swelling. Laboratory studies are obtained including CBC, CMP, blood culture and lactic acid. CBC is significant for an elevated white blood cell count 19, hemoglobin is stable, normal electrolytes. Lactic acid is normal at 1.1. Blood culture pending. CT and ultrasound are obtained, CT shows right hemiscrotal and inguinal subcutaneous edema consistent with cellulitis. There is no bowel involvement. Ultrasound shows hyperemia consistent with cellulitis, no abscess or fluid collection, no torsion or orchitis. Patient's mass is nonpulsatile, it is away from the femoral pulse. There is induration with no focal abscess tracking into the perineum. CT is negative for soft tissue gas or abscess collection. Patient is given IV antibiotics, he will be admitted for further evaluation treatment. Case discussed with Dr. Wiseman, will accept admission - Lab Data Result diagrams: 01/26/18 08:05 01/26/18 08:05 Lab Results 01/26/18 01/26/18 01/26/18 Range/Units 08:05 08:05 08:05 WBC 19.0 H (3.8-10.6) k/uL RBC 4.48 (4.30-5.90) m/uL Hgb 14.9 (13.0-17.5) gm/dL Hct 43.1 (39.0-53.0) % MCV 96.0 (80.0-100.0) fL MCH 33.2 (25.0-35.0) pg MCHC 34.6 (31.0-37.0) g/dL RDW 13.4 (11.5-15.5) % Plt Count 234 (150-450) k/uL Neutrophils % 87 % Lymphocytes % 6 % Monocytes % 4 % Eosinophils % 1 % Basophils % 0 % Neutrophils # 16.5 H (1.3-7.7) k/uL Lymphocytes # 1.1 (1.0-4.8) k/uL Monocytes # 0.8 (0-1.0) k/uL Eosinophils # 0.3 (0-0.7) k/uL Basophils # 0.1 (0-0.2) k/uL Sodium 136 L (137-145) mmol/L Potassium 4.0 (3.5-5.1) mmol/L Chloride 103 (98-107) mmol/L Carbon Dioxide 23 (22-30) mmol/L Anion Gap 10 mmol/L BUN 12 (9-20) mg/dL Creatinine 0.93 (0.66-1.25) mg/dL Est GFR (CKD-EPI)AfAm >90 (>60 ml/min/1.73 sqM) Est GFR (CKD-EPI)NonAf >90 (>60 ml/min/1.73 sqM) Glucose 137 H (74-99) mg/dL Plasma Lactic Acid Maximilian 1.1 (0.7-2.0) mmol/L Calcium 8.5 (8.4-10.2) mg/dL Total Bilirubin 1.1 (0.2-1.3) mg/dL AST 12 L (17-59) U/L ALT 30 (21-72) U/L Alkaline Phosphatase 48 (38-126) U/L Total Protein 6.3 (6.3-8.2) g/dL Albumin 3.6 (3.5-5.0) g/dL Amylase 39 (30-110) U/L Lipase 41 (23-300) U/L Disposition Clinical Impression: Cellulitis of groin Disposition: ADMITTED IP TO THIS HOSP Condition: Stable Is patient prescribed a controlled substance at d/c from ED?: No Referrals: Jackson Barahona DO [Primary Care Provider] - 1-2 days Decision to Admit Reason: Admit from EC Decision Date: 01/26/18 Decision Time: 10:12
[2018-01-26 08:18] LABS: Basophils # (A) 0.1 k/uL (0-0.2); Basophils % (A) 0 %; Eosinophils # (A) 0.3 k/uL (0-0.7); Eosinophils % (A) 1 %; HCT 43.1 % (39.0-53.0); HGB 14.9 gm/dL (13.0-17.5); Lymphocytes # (A) 1.1 k/uL (1.0-4.8); Lymphocytes % (A) 6 %; MCH 33.2 pg (25.0-35.0); MCHC 34.6 g/dL (31.0-37.0); Mean Platelet Volume 6.8; Monocytes # (A) 0.8 k/uL (0-1.0); Monocytes % (A) 4 %; Neutrophils # (A) 16.5 k/uL (1.3-7.7); Neutrophils % (A) 87 %; Platelet Count 234 k/uL (150-450); RBC 4.48 m/uL (4.30-5.90); RDW 13.4 % (11.5-15.5)
[2018-01-26 08:26] LABS: ALT 30 U/L (21-72); AST 12 U/L (17-59); Albumin 3.6 g/dL (3.5-5.0); Alkaline Phosphatase 48 U/L (38-126); Amylase 39 U/L (30-110); Anion Gap 10 mmol/L; Blood Urea Nitrogen 12 mg/dL (9-20); Calcium 8.5 mg/dL (8.4-10.2); Carbon Dioxide 23 mmol/L (22-30); Chloride 103 mmol/L (98-107); Glucose 137 mg/dL (74-99); Lipase 41 U/L (23-300); Sodium 136 mmol/L (137-145); Total Bilirubin 1.1 mg/dL (0.2-1.3); Total Protein 6.3 g/dL (6.3-8.2)
[2018-01-26] MEDS ORDERED: LEVOFLOXACIN 500MG-D5W PMX 500 MG in DEXTROSE/WATER 1 100ML.BAG IVPB STA (08:30)
[2018-01-26] MEDS ORDERED: metroNIDAZOLE-NS PMX 500 MG in SALINE 1 100ML.BAG IVPB STA (08:30)
--- NOTE | 2018-01-26 08:58 | CT ---
EXAMINATION TYPE: CT abdomen pelvis w con DATE OF EXAM: 01/26/2018 COMPARISON: 10/24/2017 CT HISTORY: Groin Pain. Abdominal pain. CT DLP: 2142.10 mGycm. Automated exposure control for dose reduction was used. TECHNIQUE: Helical acquisition of images was performed from the lung bases through the pelvis. CONTRAST: Performed without Oral Contrast and with IV Contrast, patient injected with 100 ml mL of Is ovue 300. FINDINGS: RIGHT INGUINAL REGION: In the area of interest as directed by the patient there is diffuse ill-define d subcutaneous edematous reticulation of the adipose, extending from the inguinal canal down into the right hemiscrotum, with ill-defined scrotal vasculature noted on the caudal-most CT image. This melanie atous reticulation measures 18 cm obliques cc by 7 x 7 cm. No associated gas bubbles. No associated d rainable fluid collections. Further characterization with scrotal Doppler ultrasound is requested. LUNG BASES: No significant abnormality is appreciated. LIVER/GB: No significant abnormality is appreciated. PANCREAS: No significant abnormality is seen. SPLEEN: No significant abnormality is seen. ADRENALS: No significant abnormality is seen. KIDNEYS: No significant abnormality is seen. PERITONEAL CAVITY: No free air is visualized. ABDOMINAL ADENOPATHY: None visualized REPRODUCTIVE ORGANS: No significant abnormality is seen URINARY BLADDER: No significant abnormality is seen. PELVIC ADENOPATHY: None visualized. OSSEOUS STRUCTURES: No significant abnormality is seen. BOWEL: No significant abnormality is seen. VASCULATURE: Aortobiiliac stent is in place, but cannot be well visualized as the study was obtained in a venous stage of contrast enhancement. It appears to be patent. IMPRESSION: RIGHT HEMISCROTAL AND INGUINAL SUBCUTANEOUS EDEMATOUS CHANGE WITH OVERLYING CUTANEOUS THICKENING. REQ UEST FURTHER CHARACTERIZATION WITH SCROTAL DOPPLER ULTRASOUND.
--- NOTE | 2018-01-26 09:16 | US ---
EXAMINATION TYPE: US scrotum with doppler. Grayscale and color Doppler Duplex imaging performed of t daysi scrotum. DATE OF EXAM: 01/26/2018 COMPARISON: CT done same day CLINICAL HISTORY: Pain, with lump swelling adjacent to right testicle. EXAM MEASUREMENTS: TESTICLES: Ipsilateral RIGHT testicle: 4.1 x 1.9 x 2.9 cm, slightly larger than the left testicle. Contralateral LEFT testicle: 4.1 x 1.4 x 2.7 cm. EPIDIDYMIS HEAD: Right Epididymis: 1.1 x 0.6 cm. Left Epididymis: 0.9 x 0.7 cm. Doppler performed to assess for testicular vascularity; good bilateral color flow and waveforms are s een. There is no evidence of testicular torsion. Presence of hydroceles: none seen Presence of varicoceles: posterior to left testicle that have increased flow with valsalva There is edematous tissue noted adjacent to right testicle where patient has lump. Unable to prove he rnia with valsalva as no movement of the tissue is appreciated with ultrasound. IMPRESSION: Negative for testicular torsion or epididymal orchitis. No drainable fluid collection and no sonograp hic evidence of gas within the soft tissues. Therefore, the CT and sonographic findings consistent wi th a clinical diagnosis of cellulitis. Would suggest follow-up imaging following treatment, to prove resolution of the findings.
[2018-01-26] MEDS ORDERED: VANCOMYCIN IV PER PHARMACY 1 EACH MISC MISCELLANE PRN ×2 (09:27→16:29)
[2018-01-26] MEDS ORDERED: VANCOMYCIN 2,500 MG in SODIUM CHLORIDE 0.9% 500 ML IVPB STA (09:36)
[2018-01-26] MEDS ORDERED: NALOXONE 0.4 MG/ML 1 ML VIAL IV PRN (10:05)
[2018-01-26] MEDS ORDERED: CLINDAMYCIN 600 MG in DEXTROSE 5% IN WATER 50 ML IVPB STA ×2 (10:05)
[2018-01-26 11:21] VITALS: BMI 37.6
[2018-01-26] MEDS: MORPHINE SULFATE 2 MG/ML SYRINGE IV PRN ×3 (11:31→21:14)
[2018-01-26 11:41] LABS: Appearance,Urine Clear (Clear); Bilirubin,Urine Negative (Negative); Blood,Urine Negative (Negative); Color,Urine Yellow; Glucose,Urine (UA) Negative (Negative); Ketones,Urine Negative (Negative); Leukocyte Esterase,Urine Negative (Negative); Nitrite,Urine Negative (Negative); Protein,Urine Trace (Negative)
[2018-01-26] MEDS: SODIUM CHLORIDE 0.9% 1,000 ML IV SCH (11:43)
[2018-01-26 11:53] LABS: Specific Gravity,Urine >1.050 (1.001-1.035)
[2018-01-26] MEDS ORDERED: NICOTINE POLACRILEX 2 MG GUM BUCCAL PRN (15:59)
[2018-01-26] MEDS ORDERED: NAPROXEN 250 MG TAB PO SCH (16:15)
[2018-01-26] MEDS: NICOTINE 21MG/24HR PATCH TRANSDERM SCH (16:40)
[2018-01-26] MEDS: ENOXAPARIN 40 MG/0.4 ML SYRINGE SQ SCH (16:40)
[2018-01-26] MEDS: MULTIVITAMINS, THERA 1 EACH TAB PO SCH (16:41)
[2018-01-26] MEDS: PANTOPRAZOLE 40 MG TABLET PO SCH (16:41)
[2018-01-26] MEDS: MONTELUKAST 10 MG TAB PO SCH (16:41)
[2018-01-26] MEDS: SERTRALINE 100 MG TAB PO SCH (16:41)
[2018-01-26] MEDS: CARVEDILOL 12.5 MG TAB PO SCH (16:41)
[2018-01-26] MEDS: FAMOTIDINE 20 MG TAB PO SCH ×2 (16:41→21:14)
--- NOTE | 2018-01-26 16:59 | HP ---
HISTORY AND PHYSICAL DATE OF ADMISSION: 01/25/2018 PRESENTING COMPLAINT: Swelling, pain in the groin. HISTORY OF PRESENTING COMPLAINT: This is a pleasant 57-year-old patient of Dr. Barahona. Chronic stable medical conditions include COPD, GERD, hyperlipidemia, hypertension, osteoarthritis, sleep apnea, aortic aneurysm. The patient started off with pain and swelling in the right groin affecting the right part of the scrotum. Scrotum became very painful, tender. Denies any obvious fever. The patient does notice boils at times and decided to come in. The patient denies any injury to that area or shaving in that area or wearing any tight underwear. The patient was started on antibiotic in the ER. The patient denies any previous infection at that site. REVIEW OF SYSTEMS: CONSTITUTIONAL: Tired. HEENT: None. RESPIRATORY: Occasional wheezing. CARDIOVASCULAR: None. GASTROINTESTINAL: Heartburn. GENITOURINARY: As above. MUSCULOSKELETAL: Arthritic pain in joints. DERMATOLOGICAL: As above. LYMPHATICS: None. PSYCHIATRY: None. NEUROLOGICAL: None. PAST MEDICAL HISTORY: COPD, TIA, GERD, hyperlipidemia, hypertension, osteoarthritis, sleep apnea, uses CPAP, peripheral artery disease, diverticulitis, skin cancer, aortic aneurysm. PAST SURGICAL HISTORY: Bowel resection, right rotator cuff repair, bone spur removed right shoulder, I and D of left buttock, fem-pop bypass right leg, surgery for fracture of the neck pins and plates, lap lysis of adhesions, lap reduction of incarcerated inguinal hernia with ventral hernia repair with mesh, AAA repair. SOCIAL HISTORY: Smokes less than a pack a day for over 30 years. Lives with his girlfriend. Retired [employer]. FAMILY HISTORY: COPD. HOME MEDICATIONS: Include: 1. Ellipta 1 puff daily. 2. Zoloft 100 mg p.o. daily. 3. Omeprazole 40 mg daily. 4. Multivitamin 1 tablet p.o. daily. 5. Singulair 10 mg p.o. daily. 6. Dulera 100/5 one puff b.i.d. 7. Magnesium oxide 400 mg p.o. daily. 8. Cozaar 50 mg p.o. daily. 9. Plavix 75 mg p.o. daily. 10.Coreg 12.5 p.o. b.i.d. 11.Lipitor 80 mg q.h.s. ALLERGIES: To AMOXICILLIN, VASOTEC, PENICILLIN. EXAMINATION: Temperature 97.9, pulse 83, respirations 18, blood pressure 157/69, pulse ox 96% on room air. GENERAL APPEARANCE: Well-built, BMI 37.7, lying in bed, not in distress. EYES: Pupils equal. Conjunctivae normal. HEENT: External nose and ears normal. Oral cavity normal neck JVD not raised. Mass not palpable. Respiratory effort normal. LUNGS: Diminished breath sounds. CARDIOVASCULAR: First and second sounds normal. No edema. ABDOMEN: Distended, soft. Liver and spleen not palpable. LYMPHATIC: No lymph node palpable in neck or axillae. PSYCHIATRY: Alert and oriented x3. Mood and affect normal. GENITOURINARY: Patient has tenderness, especially in the right part of the scrotum. This area of exquisite tenderness going to above the scrotum area. There is no obvious fluctuation. Some tenderness in the right groin area, too. INVESTIGATIONS: White count 9, hemoglobin 14.9. Potassium 4. BUN and creatinine are normal. On examination, abdominal-pelvis CT scan shows right hemiscrotal inguinal subcutaneous edema changes with overlying cutaneous thickening and Doppler ultrasound does not report any fluid collection. ASSESSMENT: 1. Acute severe cellulitis, though abscess cannot be ruled out, in the right scrotum, which appears to be above the right testicle. I am wondering if this is an extension from the inguinal canal area. 2. Chronic obstructive pulmonary disease in a current smoker. 3. Gastroesophageal reflux disease. 4. Hyperlipidemia. 5. Essential hypertension. 6. Primary osteoarthritis. 7. Obstructive sleep apnea, uses a CPAP machine. 8. Peripheral artery disease. 9. Obesity; BMI 37.7. PLAN: Home medications are resumed. The patient is on IV clindamycin. Will add naproxen for anti-inflammatory. Will use warm compress and try to keep the scrotum a bit elevated. Consultation to ID and Urology is being made. Care was discussed with the patient. Questions were answered. MMODL / IJN: [id number] /
[2018-01-26] MEDS ORDERED: CLINDAMYCIN 600 MG in DEXTROSE 5% IN WATER 50 ML IVPB SCH ×2 (17:00)
[2018-01-26] MEDS: ERTAPENEM 1 GM in SODIUM CHLORIDE 0.9% 50 ML IVPB SCH (17:38)
--- NOTE | 2018-01-26 18:59 | P.CONS ---
History of Present Illness - Reason for Consult Consult date: 01/26/18 - Chief Complaint pain into the right groin - History of Present Illness 57-year-old male who has underlying medical troubles that include COPD hyperlipidemia hypertension and sleep apnea is developed difficulty that he has not had in the past. Is about the significant swelling and discomfort at the base of his scrotum to the right and into the tissue on the right side of his scrotum and pelvis. He relates area is tender and firm. He has had multiple skin abscesses in the past and requires surgical drainage at this time it does feel different. He has not noticed any pimple or pustule she's had an upper areas. He denies any distinct trauma to the area he has had no change in his clothing or his underwear, he does not shave in the region. He does not ride a bicycle and does not recall any falls. Zachary is developed the rapid onset of an illness with fever and chills in the significant pain in this area. Because of this he presented the emergency room and has been admitted for this infectious process. He denies being diabetic. Review of Systems pleasant 57-year-old male HEENT:Denies headache or acute visual change. Denies sinus or mouth discomforts. Denies neck stiffness or pain. Denies significant oral cavity pain. Denies difficulty on swallowing. Lungs: Denies significant shortness of breath, cough, sputum production, or hemoptysis. Cardiovascular: Denies significant shortness of breath, chest pain, chest wall pain, orthopnea, dyspnea on exertion, syncope Gastrointestinal:Denies nausea, vomiting, diarrhea, constipation, hematemesis, melena, hematochezia. No no significant change of bowel habit noticed. Musculoskeletal: he has chronic musculoskeletal pain and is disabled because of his back Skin: as per the HPI Neuro: Denies headache or visual change. Denies any new onset weakness or difficulty with ambulation. Denies falls or seizures. Psychiatric:Denies anxiety or depression. Endocrine: Denies significant fatigue, denies significant weight loss or weight gain. Past Medical History Past Medical History: Cancer, COPD, CVA/TIA, GERD/Reflux, Hyperlipidemia, Hypertension, Osteoarthritis (OA), Skin Disorder, Sleep Apnea/CPAP/BIPAP, Vascular Disorder Additional Past Medical History / Comment(s): Hx. TIA 2013, uses cpap, hx diverticulitis, skin cancer, aortic aneurysm, frequent nausea History of Any Multi-Drug Resistant Organisms: None Reported Past Surgical History: Bowel Resection, Orthopedic Surgery Additional Past Surgical History / Comment(s): RT ROTATOR CUFF REPAIR, BONE SPUR REMOVED RT SHOULDER, I & D BOIL LT BUTTOCK, FEM POP BYPASS rt leg, surgery fx neck (pins and plates), 08-26-15 lap lysis of adhesions, lap reduction of incarcerated ing hernia with ventral hernia repair w/mesh. AAA repair Past Anesthesia/Blood Transfusion Reactions: No Reported Reaction Additional Past Anesthesia/Blood Transfusion Reaction / Comm: surgery for fx neck -has pins and plates-pt. states can move neck forward and back, side to side ok (this was his last surgery). Past Psychological History: No Psychological Hx Reported Additional Psychological History / Comment(s): and lives with his and the family home, they have 2 pet dogs. Adult children do not live with him. Is a chronic tobacco smoker and has not stopped. Denies significant alcohol use or recreational drug use. 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 No experience. No international travel history. tattoos were professionally applied. Smoking Status: Current every day smoker Past Alcohol Use History: None Reported Additional Past Alcohol Use History / Comment(s): cut down on his smoking-less than 1 ppd, has smoked for 30 yrs. Past Drug Use History: None Reported - Past Family History Mother Family Medical History: COPD Additional Family Medical History / Comment(s): 2011 at age 78. Father Family Medical History: No Reported History Additional Family Medical History / Comment(s): in 2016 at age 92 Medications and Allergies Home Medications and Allergies Comment(s): Current Medications Atorvastatin Calcium (Lipitor) 80 mg PO HS [facility] Carvedilol (Coreg) 12.5 mg PO BID-W/MEALS [facility] Last Admin: 01/26/18 16:41 Dose: 12.5 mg Clopidogrel Bisulfate (Plavix) 75 mg PO DAILY [facility] Enoxaparin Sodium (Lovenox) 40 mg SQ DAILY [facility] Last Admin: 01/26/18 16:40 Dose: 40 mg Famotidine (Pepcid) 20 mg PO BID [facility] Last Admin: 01/26/18 16:41 Dose: 20 mg Sodium Chloride (Saline 0.9%) 1,000 mls @ 20 mls/hr IV .Q24H [facility] Last Admin: 01/26/18 11:43 Dose: 20 mls/hr Ertapenem 1 gm/ Sodium (Chloride) 50 mls @ 100 mls/hr IVPB Q24H [facility] Last Admin: 01/26/18 17:38 Dose: 100 mls/hr Vancomycin HCl 2,500 mg/ (Sodium Chloride) 500 mls @ 167 mls/hr IVPB Q24H [facility] Vancomycin HCl 2,000 mg/ (Sodium Chloride) 500 mls @ 167 mls/hr IVPB Q12HR [facility] Ipratropium [place] (Atrovent Nebulized) 0.5 mg INHALATION RT-QID [facility] Ketorolac Tromethamine (Toradol) 30 mg IVP Q6HR PRN PRN Reason: Moderate to Severe Pain Stop: 01/30/18 16:38 Losartan Potassium (Cozaar) 50 mg PO DAILY [facility] Magnesium Oxide (Mag-Ox) 400 mg PO DAILY [facility] Montelukast Sodium (Singulair) 10 mg PO DAILY [facility] Last Admin: 01/26/18 16:41 Dose: 10 mg Morphine Sulfate (Morphine Sulfate (Inj)) 4 mg IV Q4HR PRN PRN Reason: Severe Pain Last Admin: 01/26/18 16:42 Dose: 4 mg Multivitamins (Theragran) 1 each PO DAILY@1200 [facility] Last Admin: 01/26/18 16:41 Dose: 1 each Naloxone HCl (Narcan) 0.2 mg IV Q2M PRN PRN Reason: Opioid Reversal Nicotine (Habitrol 21mg/24hr Patch) 1 patch TRANSDERM DAILY [facility] Last Admin: 01/26/18 16:40 Dose: 1 patch Nicotine Polacrilex (Nicorette Gum) 2 mg BUCCAL Q4HR PRN PRN Reason: Nicotine Cravings Pantoprazole Sodium (Protonix) 40 mg PO AC-BRKFST [facility] Last Admin: 01/26/18 16:41 Dose: 40 mg Sertraline HCl (Zoloft) 100 mg PO DAILY [facility] Last Admin: 01/26/18 16:41 Dose: 100 mg Home Medications Medication Instructions Recorded Confirmed Type Clopidogrel [Plavix] 75 mg PO DAILY 02/23/14 01/26/18 History Carvedilol [Coreg] 12.5 mg PO BID 08/25/15 01/26/18 History Losartan [Cozaar] 50 mg PO DAILY 05/16/16 01/26/18 History Atorvastatin Calcium [Lipitor] 80 mg PO HS 09/07/16 01/26/18 History Magnesium Oxide [Magox 400] 400 mg PO DAILY #60 tablet 09/19/16 01/26/18 Rx Omeprazole 40 mg PO AC-BRKFST #30 capsule. 11/13/16 01/26/18 Rx Montelukast [Singulair] 10 mg PO DAILY 05/11/17 01/26/18 History Multivitamins, Thera [Multivitamin 1 tab PO DAILY 05/11/17 01/26/18 History (formulary)] Mometasone/Formoterol [Dulera 100 1 puff INHALATION RT-BID 05/12/17 01/26/18 History Mcg/5 Mcg Inhaler] Umeclidinium [place] [Incruse 1 puff INHALATION RT-DAILY 05/12/17 01/26/18 History Ellipta] Sertraline [Zoloft] 100 mg PO DAILY 01/26/18 01/26/18 History Allergies Allergy/AdvReac Type Severity Reaction Status Date / Time amoxicillin [Amoxicillin] Allergy Rash/Hives Verified 01/26/18 10:28 enalapril maleate Allergy Rash/Hives Verified 01/26/18 10:28 [From Vasotec] enalaprilat dihydrate Allergy Rash/Hives Verified 01/26/18 10:28 [From Vasotec] Penicillins Allergy Rash/Hives Verified 01/26/18 10:28 Physical Exam Vitals: Vital Signs Temp Pulse Pulse Resp BP BP Pulse Ox 01/26/18 16:00 68 20 01/26/18 15:00 98.7 F 68 20 108/56 95 01/26/18 11:34 73 20 01/26/18 11:32 97.9 F 73 20 125/65 97 01/26/18 10:55 97.1 F L 77 18 115/67 95 01/26/18 08:06 77 18 106/61 98 01/26/18 07:21 97.9 F 83 18 157/69 96 Intake and Output 01/26/18 01/26/18 01/26/18 06:59 14:59 22:59 Intake Total 320 Balance 320 Intake: Oral 320 Other: Voiding Method Toilet Toilet # Voids 1 Weight 122.47 kg 57-year-old male that has obesity is uncomfortable but not severe distress HEENT: Anicteric conjunctiva are pink and moist nasal mucosa grossly intact without significant lesions, there is no thrush.dentition is poor has all teeth missing upper without a plate no oral cavity lesions could be seen Neck: The neck is supple without significant lymphadenopathy or thyromegaly. Lungs: there was symmetric bilateral air entry with expiratory wheezes to the lung [place] but no ashleigh bronchial sounds, no dullness or egophony Heart: Regular rate and rhythm with an audible S1-S2, no S3 loud S4. There is no significant murmur click or rub, PMI was nondisplaced. Abdomen: Positive bowel sounds soft and nontender without palpable masses or organomegaly. There was no guarding or rebound. Extremities: upper extremities reveals normal IV site. Lower extremities evidence of the multiple prior surgical interventions there are no significant open ulcers in the lower extremities they are cool but not cold to touch The scrotum is evaluated. Left side is without any difficulties. The testicle is without tenderness and there is no open lesions to the left hemiscrotum area. There is no significant lymphadenopathy and a left inguinal area. The right hemiscrotum shows some swelling. The testicle itself is tender to touch. The epididymis is not swollen at the area is slightly tender. The base of the scrotum into the pelvic tissue shows evidence of the extensive induration there some warmth there some erythema there is however no open ulcerations, there is no bruising. No evidence of any lacerations or abrasions. The tissue is extremely tender in the region and there is right inguinal lymphadenopathy. No other abnormal lymph nodes are noted Neuro: Awake alert oriented to person place and time. There are no acute new gross focal sensory motor deficits. Results CBC & Chem 7: 01/26/18 08:05 01/26/18 08:05 Labs: Abnormal Lab Results - Last 24 Hours (Table) 01/26/18 01/26/18 01/26/18 Range/Units 08:05 08:05 10:15 WBC 19.0 H (3.8-10.6) k/uL Neutrophils # 16.5 H (1.3-7.7) k/uL Sodium 136 L (137-145) mmol/L Glucose 137 H (74-99) mg/dL AST 12 L (17-59) U/L Ur Specific [place] >1.050 H (1.001-1.035) Urine Protein Trace H (Negative) Laboratory Results WBC 19.0 k/uL (3.8-10.6) H 01/26/18 08:05 RBC 4.48 m/uL (4.30-5.90) 01/26/18 08:05 Hgb 14.9 gm/dL (13.0-17.5) 01/26/18 08:05 Hct 43.1 % (39.0-53.0) 01/26/18 08:05 MCV 96.0 fL (80.0-100.0) 01/26/18 08:05 MCH 33.2 pg (25.0-35.0) 01/26/18 08:05 MCHC 34.6 g/dL (31.0-37.0) 01/26/18 08:05 RDW 13.4 % (11.5-15.5) 01/26/18 08:05 Plt Count 234 k/uL (150-450) 01/26/18 08:05 Neutrophils % 87 % 01/26/18 08:05 Lymphocytes % 6 % 01/26/18 08:05 Monocytes % 4 % 01/26/18 08:05 Eosinophils % 1 % 01/26/18 08:05 Basophils % 0 % 01/26/18 08:05 Neutrophils # 16.5 k/uL (1.3-7.7) H 01/26/18 08:05 Lymphocytes # 1.1 k/uL (1.0-4.8) 01/26/18 08:05 Monocytes # 0.8 k/uL (0-1.0) 01/26/18 08:05 Eosinophils # 0.3 k/uL (0-0.7) 01/26/18 08:05 Basophils # 0.1 k/uL (0-0.2) 01/26/18 08:05 Sodium 136 mmol/L (137-145) L 01/26/18 08:05 Potassium 4.0 mmol/L (3.5-5.1) 01/26/18 08:05 Chloride 103 mmol/L (98-107) 01/26/18 08:05 Carbon Dioxide 23 mmol/L (22-30) 01/26/18 08:05 Anion Gap 10 mmol/L 01/26/18 08:05 BUN 12 mg/dL (9-20) 01/26/18 08:05 Creatinine 0.93 mg/dL (0.66-1.25) 01/26/18 08:05 Est GFR (CKD-EPI)AfAm >90 (>60 ml/min/1.73 sqM) 01/26/18 08:05 Est GFR (CKD-EPI)NonAf >90 (>60 ml/min/1.73 sqM) 01/26/18 08:05 Glucose 137 mg/dL (74-99) H 01/26/18 08:05 Plasma Lactic Acid [place] 1.1 mmol/L (0.7-2.0) 01/26/18 08:05 Calcium 8.5 mg/dL (8.4-10.2) 01/26/18 08:05 Total Bilirubin 1.1 mg/dL (0.2-1.3) 01/26/18 08:05 AST 12 U/L (17-59) L 01/26/18 08:05 ALT 30 U/L (21-72) 01/26/18 08:05 Alkaline Phosphatase 48 U/L (38-126) 01/26/18 08:05 Total Protein 6.3 g/dL (6.3-8.2) 01/26/18 08:05 Albumin 3.6 g/dL (3.5-5.0) 01/26/18 08:05 Amylase 39 U/L (30-110) 01/26/18 08:05 Lipase 41 U/L (23-300) 01/26/18 08:05 Urine Color Yellow 01/26/18 10:15 Urine Appearance Clear (Clear) 01/26/18 10:15 Urine pH 7.0 (5.0-8.0) 01/26/18 10:15 Ur Specific [place] >1.050 (1.001-1.035) H 01/26/18 10:15 Urine Protein Trace (Negative) H 01/26/18 10:15 Urine Glucose (UA) Negative (Negative) 01/26/18 10:15 Urine Ketones Negative (Negative) 01/26/18 10:15 Urine Blood Negative (Negative) 01/26/18 10:15 Urine Nitrite Negative (Negative) 01/26/18 10:15 Urine Bilirubin Negative (Negative) 01/26/18 10:15 Urine Urobilinogen 3.0 mg/dL (<2.0) 01/26/18 10:15 Ur Leukocyte Esterase Negative (Negative) 01/26/18 10:15 CT scan - pelvis: report reviewed (as well as ultrasound without evidence of any abscess with evidence of cellulitis in the area, no evidence of phlegmon at this time.) Assessment and Plan (1) Cellulitis of groin Narrative/Plan: 57-year-old male who does have obesity but denies diabetes presents to Hospital significant pain and swelling to the right groin area. Is having significant fevers chills and malaise and constantly presented. There is evidence of the distinct swelling and infection in this region of the right hemiscrotum. There is no evidence of any torsion or drainable abscess at this point in time. The patient likely has an extensive cellulitis. There is no evidence of any enhancement of the fascial planes without evidence of necrotizing fasciitis. The patient does not have a known history of MRSA infection but does have ALLERGIES to several antibiotics. To enhance the coverage for this area insuring that were covering for enteric pathogens, anaerobes as well as staph and strep antibiotic therapy with ertapenem and vancomycin will be utilized for now. For comfort warm or cold packs and the applied. Ketorolac is also offered in hopes that we can improve his significant amount of pain. The area will be monitored and if he develops evidence of phlegmon or abscess then surgical intervention may be required. Patient's blood sugar was mildly elevated 137 if he has any further elevated blood glucose with further evaluate for the possibility of diabetes. Current Visit: Yes Status: Acute Code(s): L03.314 - CELLULITIS OF GROIN SNOMED Code(s): 41539118 (2) BMI 38.0-38.9,adult Current Visit: No Status: Chronic Code(s): Z68.38 - BODY MASS INDEX (BMI) 38.0-38.9, ADULT SNOMED Code(s): 072704946 (3) Aortic aneurysm and dissection Current Visit: No Status: Chronic Code(s): I71.00 - DISSECTION OF UNSPECIFIED SITE OF AORTA SNOMED Code(s): 738653879 (4) Leukocytosis Current Visit: Yes Status: Acute Code(s): D72.829 - ELEVATED WHITE BLOOD CELL COUNT, UNSPECIFIED SNOMED Code(s): 669978259
[2018-01-26] MEDS ORDERED: VANCOMYCIN 2,500 MG in SODIUM CHLORIDE 0.9% 500 ML IVPB SCH (19:00)
[2018-01-26] MEDS: ATORVASTATIN 80 MG TAB PO SCH (21:14)
[2018-01-27] MEDS: KETOROLAC 30 MG/ML 1 ML VIAL IVP PRN ×2 (01:37→13:27)
[2018-01-27] MEDS: FAMOTIDINE 20 MG TAB PO SCH ×2 (08:09→22:02)
[2018-01-27] MEDS: CLOPIDOGREL 75 MG TAB PO SCH (08:09)
[2018-01-27] MEDS: NICOTINE 21MG/24HR PATCH TRANSDERM SCH (08:09)
[2018-01-27] MEDS: VANCOMYCIN 2,000 MG in SODIUM CHLORIDE 0.9% 500 ML IVPB SCH ×2 (08:09→20:52)
[2018-01-27] MEDS: CARVEDILOL 12.5 MG TAB PO SCH ×2 (08:09→16:58)
[2018-01-27] MEDS: PANTOPRAZOLE 40 MG TABLET PO SCH (08:09)
[2018-01-27] MEDS: MAGNESIUM OXIDE 400 MG TAB PO SCH (08:09)
[2018-01-27] MEDS: LOSARTAN 50 MG TAB PO SCH (08:09)
[2018-01-27] MEDS: SERTRALINE 100 MG TAB PO SCH (08:09)
[2018-01-27] MEDS: ENOXAPARIN 40 MG/0.4 ML SYRINGE SQ SCH (08:09)
[2018-01-27] MEDS: MORPHINE SULFATE 2 MG/ML SYRINGE IV PRN ×2 (08:11→18:05)
[2018-01-27] MEDS: MONTELUKAST 10 MG TAB PO SCH (08:15)
[2018-01-27 08:20] LABS: Basophils # (A) 0.1 k/uL (0-0.2); Basophils % (A) 0 %; Eosinophils # (A) 0.2 k/uL (0-0.7); Eosinophils % (A) 1 %; HCT 40.3 % (39.0-53.0); HGB 13.8 gm/dL (13.0-17.5); Lymphocytes # (A) 1.1 k/uL (1.0-4.8); Lymphocytes % (A) 8 %; MCHC 34.2 g/dL (31.0-37.0); MCV 96.7 fL (80.0-100.0); Mean Platelet Volume 6.8; Monocytes # (A) 0.9 k/uL (0-1.0); Monocytes % (A) 6 %; Neutrophils # (A) 12.1 k/uL (1.3-7.7); Neutrophils % (A) 83 %; Platelet Count 230 k/uL (150-450); RBC 4.17 m/uL (4.30-5.90); RDW 13.4 % (11.5-15.5); WBC 14.5 k/uL (3.8-10.6)
[2018-01-27] MEDS: IPRATROPIUM 0.5 MG/2.5 ML NEBU INHALATION SCH ×4 (08:26→19:18)
--- NOTE | 2018-01-27 11:14 | P.GSCN ---
History of Present Illness Consult date: 01/27/18 Reason for Consult: Cellulitis of the right groin History of present illness: The patient is a 57-year-old male admitted on 01/26 in the morning for evaluation and treatment of pain and swelling in the right groin. The patient said that he felt well until 01/25 when he first noted a "lump" and pain in the right groin. He denied any fever or chills. He says the pain and swelling worsened and he came to the emergency room where he was evaluated. Computed tomography scan of the abdomen and pelvis and scrotal ultrasound showed edema in the right groin but no evidence of abscess. The patient was initially treated with clindamycin and this was switched to vancomycin and ertapenem by Dr. Mcguire yesterday evening. The patient has remained afebrile since he was admitted. His white blood count at the time of admission was 15,000. His white count this morning is 11,500. He continues to have some discomfort right groin and does not feel there has been any significant lessening or worsening in the degree of swelling. He has no voiding problems. He says that he required incision and drainage of an abscess on his buttock and time in the past year or two. He says that he had previously required incision and drainage of "boils" the genital area performed by Dr. Loera. Review of Systems - Constitutional Reports lethargy, Denies fever - Gastrointestinal Denies abdominal pain - Genitourinary Reports as per HPI Past Medical History Past Medical History: Cancer, COPD, CVA/TIA, GERD/Reflux, Hyperlipidemia, Hypertension, Osteoarthritis (OA), Skin Disorder, Sleep Apnea/CPAP/BIPAP, Vascular Disorder Additional Past Medical History / Comment(s): Hx. TIA 2013, uses cpap, hx diverticulitis, skin cancer, aortic aneurysm, frequent nausea, drainage of buttock abscess and incision and drainage of skin abscesses History of Any Multi-Drug Resistant Organisms: None Reported Past Surgical History: Bowel Resection, Orthopedic Surgery Additional Past Surgical History / Comment(s): RT ROTATOR CUFF REPAIR, BONE SPUR REMOVED RT SHOULDER, I & D BOIL LT BUTTOCK, FEM POP BYPASS rt leg, surgery fx neck (pins and plates), 08-26-15 lap lysis of adhesions, lap reduction of incarcerated ing hernia with ventral hernia repair w/mesh. AAA repair Past Anesthesia/Blood Transfusion Reactions: No Reported Reaction Additional Past Anesthesia/Blood Transfusion Reaction / Comm: surgery for fx neck -has pins and plates-pt. states can move neck forward and back, side to side ok (this was his last surgery). Past Psychological History: No Psychological Hx Reported Additional Psychological History / Comment(s): and lives with his and the family home, they have 2 pet dogs. Adult children do not live with him. Is a chronic tobacco smoker and has not stopped. Denies significant alcohol use or recreational drug use. 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 No experience. No international travel history. tattoos were professionally applied. Smoking Status: Current every day smoker Past Alcohol Use History: None Reported Additional Past Alcohol Use History / Comment(s): cut down on his smoking-less than 1 ppd, has smoked for 30 yrs. Past Drug Use History: None Reported - Past Family History Mother Family Medical History: COPD Additional Family Medical History / Comment(s): 2011 at age 78. Father Family Medical History: No Reported History Additional Family Medical History / Comment(s): in 2016 at age 92 Medications and Allergies Home Medications Medication Instructions Recorded Confirmed Type Clopidogrel [Plavix] 75 mg PO DAILY 02/23/14 01/26/18 History Carvedilol [Coreg] 12.5 mg PO BID 08/25/15 01/26/18 History Losartan [Cozaar] 50 mg PO DAILY 05/16/16 01/26/18 History Atorvastatin Calcium [Lipitor] 80 mg PO HS 09/07/16 01/26/18 History Magnesium Oxide [Magox 400] 400 mg PO DAILY #60 tablet 09/19/16 01/26/18 [facility] [address] [facility] [facility] 11/13/16 01/26/18 Rx Montelukast [Singulair] 10 mg PO DAILY 05/11/17 01/26/18 History Multivitamins, Thera [Multivitamin 1 tab PO DAILY 05/11/17 01/26/18 History (formulary)] Mometasone/Formoterol [Dulera 100 1 puff INHALATION RT-BID 05/12/17 01/26/18 History Mcg/5 Mcg Inhaler] Umeclidinium [place] [Incruse 1 puff INHALATION RT-DAILY 05/12/17 01/26/18 History Ellipta] Sertraline [Zoloft] 100 mg PO DAILY 01/26/18 01/26/18 History Allergies Allergy/AdvReac Type Severity Reaction Status Date / Time amoxicillin [Amoxicillin] Allergy Rash/Hives Verified 01/26/18 10:28 enalapril maleate Allergy Rash/Hives Verified 01/26/18 10:28 [From Vasotec] enalaprilat dihydrate Allergy Rash/Hives Verified 01/26/18 10:28 [From Vasotec] Penicillins Allergy Rash/Hives Verified 01/26/18 10:28 Surgical - Exam Vital Signs Temp Pulse Resp BP Pulse Ox 97.9 F 83 18 157/69 96 01/26/18 07:21 01/26/18 07:21 01/26/18 07:21 01/26/18 07:21 01/26/18 07:21 - General well developed, well nourished, no distress, obese - Respiratory normal respiratory effort - Abdomen Abdomen: soft, non tender, no organomegaly - Genitourinary normal penis with no external lesions, testicles non-tender, other (There is induration in the right groin which extends inferiorly lateral to the scrotum. He is minimal erythema and no fluctuance. The right testicle not appear to be involved with the induration. Rugae are present in the right scrotum.) Results - Labs 01/27/18 07:15 01/26/18 08:05 Abnormal Lab Results - Last 24 Hours (Table) 01/26/18 01/27/18 Range/Units 10:15 07:15 WBC 14.5 H (3.8-10.6) k/uL RBC 4.17 L (4.30-5.90) m/uL Neutrophils # 12.1 H (1.3-7.7) k/uL Ur Specific [place] >1.050 H (1.001-1.035) Urine Protein Trace H (Negative) Microbiology - Last 24 Hours (Table) 01/26/18 08:05 Blood Culture - Preliminary Blood No Growth after 24 hours Assessment and Plan (1) Cellulitis of groin Narrative/Plan: The patient appears to have cellulitis involving the right groin and is currently receiving vancomycin and ertapenem. No abscess was noted on ultrasound or computed tomography scan but unfortunately the patient is obese which makes it more difficult to interpret the studies. At the present time he does not appear to have any fluctuance or other signs of an abscess and hopefully his IV antibiotics will be adequate for treatment of the infection. I will reexamine him again in the morning. Current Visit: Yes Status: Acute Code(s): L03.314 - CELLULITIS OF GROIN SNOMED Code(s): 97956084
[2018-01-27] MEDS: MULTIVITAMINS, THERA 1 EACH TAB PO SCH (11:19)
[2018-01-27] MEDS: SODIUM CHLORIDE 0.9% 1,000 ML IV SCH (11:21)
--- NOTE | 2018-01-27 15:30 | P.PN ---
Subjective Progress Note Date: 01/27/18 57-year-old male who has underlying medical troubles that include COPD hyperlipidemia hypertension and sleep apnea is developed difficulty that he has not had in the past. Is about the significant swelling and discomfort at the base of his scrotum to the right and into the tissue on the right side of his scrotum and pelvis. He relates area is tender and firm. He has had multiple skin abscesses in the past and requires surgical drainage at this time it does feel different. He has not noticed any pimple or pustule she's had an upper areas. He denies any distinct trauma to the area he has had no change in his clothing or his underwear, he does not shave in the region. He does not ride a bicycle and does not recall any falls. The patient developed the rapid onset of an illness with fever and chills in the significant pain in this area. Because of this he presented the emergency room and has been admitted for this infectious process. He denies being diabetic. 01/27/2018 the patient is showing some further improvement but still has discomfort in the area. He has been seen by urology with no surgical plan Objective - Vital Signs Vital signs: Vital Signs Temp 98.9 F 01/27/18 06:33 Pulse 64 01/27/18 12:22 Resp 20 01/27/18 15:19 BP 110/67 01/27/18 06:33 Pulse Ox 98 01/27/18 06:33 Intake & Output 01/26/18 01/27/18 01/27/18 18:59 06:59 18:59 Intake Total 320 600 Balance 320 600 Weight 122.47 kg Intake: Oral 320 600 Other: Voiding Method Toilet Toilet Toilet # Voids 1 1 2 - Exam 57-year-old male that has obesity is uncomfortable but not severe distress HEENT: Anicteric conjunctiva are pink and moist nasal mucosa grossly intact without significant lesions, there is no thrush.dentition is poor has all teeth missing upper without a plate no oral cavity lesions could be seen Neck: The neck is supple without significant lymphadenopathy or thyromegaly. Lungs: there was symmetric bilateral air entry with expiratory wheezes to the lung plunkett but no ashleigh bronchial sounds, no dullness or egophony Heart: Regular rate and rhythm with an audible S1-S2, no S3 loud S4. There is no significant murmur click or rub, PMI was nondisplaced. Abdomen: Positive bowel sounds soft and nontender without palpable masses or organomegaly. There was no guarding or rebound. Extremities: upper extremities reveals normal IV site. Lower extremities evidence of the multiple prior surgical interventions there are no significant open ulcers in the lower extremities they are cool but not cold to touch The scrotum is evaluated. Left side is without any difficulties. The testicle is without tenderness and there is no open lesions to the left hemiscrotum area. There is no significant lymphadenopathy and a left inguinal area. The right hemiscrotum shows some swelling. The testicle itself is tender to touch. The epididymis is not swollen at the area is slightly tender. The base of the scrotum into the pelvic tissue shows evidence of the extensive induration there some warmth there some erythema there is however no open ulcerations, there is no bruising. No evidence of any lacerations or abrasions. The tissue is extremely tender in the region and there is right inguinal lymphadenopathy. No other abnormal lymph nodes are noted Neuro: Awake alert oriented to person place and time. There are no acute new gross focal sensory motor deficits. - Labs CBC & Chem 7: 01/27/18 07:15 01/26/18 08:05 Labs: Abnormal Lab Results - Last 24 Hours (Table) 01/27/18 Range/Units 07:15 WBC 14.5 H (3.8-10.6) k/uL RBC 4.17 L (4.30-5.90) m/uL Neutrophils # 12.1 H (1.3-7.7) k/uL Microbiology - Last 24 Hours (Table) 01/26/18 08:05 Blood Culture - Preliminary Blood No Growth after 24 hours Laboratory Results WBC 14.5 k/uL (3.8-10.6) H 01/27/18 07:15 RBC 4.17 m/uL (4.30-5.90) L 01/27/18 07:15 Hgb 13.8 gm/dL (13.0-17.5) 01/27/18 07:15 Hct 40.3 % (39.0-53.0) 01/27/18 07:15 MCV 96.7 fL (80.0-100.0) 01/27/18 07:15 MCH 33.0 pg (25.0-35.0) 01/27/18 07:15 MCHC 34.2 g/dL (31.0-37.0) 01/27/18 07:15 RDW 13.4 % (11.5-15.5) 01/27/18 07:15 Plt Count 230 k/uL (150-450) 01/27/18 07:15 Neutrophils % 83 % 01/27/18 07:15 Lymphocytes % 8 % 01/27/18 07:15 Monocytes % 6 % 01/27/18 07:15 Eosinophils % 1 % 01/27/18 07:15 Basophils % 0 % 01/27/18 07:15 Neutrophils # 12.1 k/uL (1.3-7.7) H 01/27/18 07:15 Lymphocytes # 1.1 k/uL (1.0-4.8) 01/27/18 07:15 Monocytes # 0.9 k/uL (0-1.0) 01/27/18 07:15 Eosinophils # 0.2 k/uL (0-0.7) 01/27/18 07:15 Basophils # 0.1 k/uL (0-0.2) 01/27/18 07:15 Sodium 136 mmol/L (137-145) L 01/26/18 08:05 Potassium 4.0 mmol/L (3.5-5.1) 01/26/18 08:05 Chloride 103 mmol/L (98-107) 01/26/18 08:05 Carbon Dioxide 23 mmol/L (22-30) 01/26/18 08:05 Anion Gap 10 mmol/L 01/26/18 08:05 BUN 12 mg/dL (9-20) 01/26/18 08:05 Creatinine 0.93 mg/dL (0.66-1.25) 01/26/18 08:05 Est GFR (CKD-EPI)AfAm >90 (>60 ml/min/1.73 sqM) 01/26/18 08:05 Est GFR (CKD-EPI)NonAf >90 (>60 ml/min/1.73 sqM) 01/26/18 08:05 Glucose 137 mg/dL (74-99) H 01/26/18 08:05 Plasma Lactic Acid Maximilian 1.1 mmol/L (0.7-2.0) 01/26/18 08:05 Calcium 8.5 mg/dL (8.4-10.2) 01/26/18 08:05 Total Bilirubin 1.1 mg/dL (0.2-1.3) 01/26/18 08:05 AST 12 U/L (17-59) L 01/26/18 08:05 ALT 30 U/L (21-72) 01/26/18 08:05 Alkaline Phosphatase 48 U/L (38-126) 01/26/18 08:05 Total Protein 6.3 g/dL (6.3-8.2) 01/26/18 08:05 Albumin 3.6 g/dL (3.5-5.0) 01/26/18 08:05 Amylase 39 U/L (30-110) 01/26/18 08:05 Lipase 41 U/L (23-300) 01/26/18 08:05 Urine Color Yellow 01/26/18 10:15 Urine Appearance Clear (Clear) 01/26/18 10:15 Urine pH 7.0 (5.0-8.0) 01/26/18 10:15 Ur Specific [place] >1.050 (1.001-1.035) H 01/26/18 10:15 Urine Protein Trace (Negative) H 01/26/18 10:15 Urine Glucose (UA) Negative (Negative) 01/26/18 10:15 Urine Ketones Negative (Negative) 01/26/18 10:15 Urine Blood Negative (Negative) 01/26/18 10:15 Urine Nitrite Negative (Negative) 01/26/18 10:15 Urine Bilirubin Negative (Negative) 01/26/18 10:15 Urine Urobilinogen 3.0 mg/dL (<2.0) 01/26/18 10:15 Ur Leukocyte Esterase Negative (Negative) 01/26/18 10:15 Microbiology 01/26/18 08:05 Blood Blood Culture - Preliminary No Growth after 24 hours Assessment and Plan (1) Cellulitis of groin Narrative/Plan: 57-year-old male who does have obesity but denies diabetes presents to Hospital significant pain and swelling to the right groin area. Is having significant fevers chills and malaise and constantly presented. There is evidence of the distinct swelling and infection in this region of the right hemiscrotum. There is no evidence of any torsion or drainable abscess at this point in time. The patient likely has an extensive cellulitis. There is no evidence of any enhancement of the fascial planes without evidence of necrotizing fasciitis. The patient does not have a known history of MRSA infection but does have ALLERGIES to several antibiotics. To enhance the coverage for this area insuring that were covering for enteric pathogens, anaerobes as well as staph and strep antibiotic therapy with ertapenem and vancomycin will be utilized for now. For comfort warm or cold packs and the applied. Ketorolac is also offered in hopes that we can improve his significant amount of pain. The area will be monitored and if he develops evidence of phlegmon or abscess then surgical intervention may be required. Patient's blood sugar was mildly elevated 137 if he has any further elevated blood glucose with further evaluate for the possibility of diabetes. 2017 by the patient be feeling slightly better, still having discomfort but is not having fever and his chills have resolved. At this time we'll continue with current antibiotic therapy of ertapenem and vancomycin pending further culture results. Ketorolac has helped his pain. Urological evaluation has occurred with no need for surgical intervention at this time. He may need repeat imaging studies at the site changes over time which may give us the opportunity for drainage if abscess develops. He is more comfortable today. Current Visit: Yes Status: Acute Code(s): L03.314 - CELLULITIS OF GROIN SNOMED Code(s): 53064236 (2) BMI 38.0-38.9,adult Current Visit: No Status: Chronic Code(s): Z68.38 - BODY MASS INDEX (BMI) 38.0-38.9, ADULT SNOMED Code(s): 756198598 (3) Aortic aneurysm and dissection Current Visit: No Status: Chronic Code(s): I71.00 - DISSECTION OF UNSPECIFIED SITE OF AORTA SNOMED Code(s): 730931913 (4) Leukocytosis Current Visit: Yes Status: Acute Code(s): D72.829 - ELEVATED WHITE BLOOD CELL COUNT, UNSPECIFIED SNOMED Code(s): 917644485
[2018-01-27] MEDS: ERTAPENEM 1 GM in SODIUM CHLORIDE 0.9% 50 ML IVPB SCH (16:57)
--- NOTE | 2018-01-27 19:57 | PN ---
PROGRESS NOTE DATE OF SERVICE: 01/27/18 PRESENT COMPLAINT: Pain in the right groin. INTERVAL HISTORY: The patient has presented with severe cellulitis of the right scrotum/right groin area. Seen by Dr. Montenegro. At this point, decision made to continue with antibiotics not for any surgical intervention. The patient is still having significant pain, faint. No fevers. He is on IV antibiotics. REVIEW OF SYSTEMS: Done for constitutional, cardiovascular, GI, pulmonary; relevant findings above. CURRENT MEDICATIONS: Reviewed that include IV ertapenem and IV vancomycin. PHYSICAL EXAMINATION: Afebrile, pulse 70, respiration 14, blood pressure 111/56, pulse ox 93% on room air. GENERAL APPEARANCE: Sitting up a bit uncomfortable. EYES: Pupils equal. Conjunctivae normal. HEENT: External appearance of nose and ears. Oral cavity normal. NECK: JVD not raised. Mass not palpable. RESPIRATORY: Effort normal. Lungs, slightly decreased breath sounds. CARDIOVASCULAR: First and second sounds normal. No edema. ABDOMEN: Distended, soft. Liver and spleen not palpable. PSYCHIATRY: Alert, oriented x3. Mood and affect normal. GROIN AREA: Redness, tenderness in the right part of the scrotum and adjoining groin area with slight improvement. INVESTIGATIONS: White count 14.5. Blood cultures are negative. ASSESSMENT: 1. Acute severe cellulitis, abscess cannot be ruled out in the right scrotal area. The patient has been afebrile. White count has started to come down. 2. Chronic obstructive pulmonary disease in a current smoker. 3. Gastroesophageal reflux disease. 4. Hyperlipidemia. 5. Essential hypertension. 6. Primary osteoarthritis. 7. Obstructive sleep apnea uses CPAP machine. 8. Peripheral artery disease. 9. Obesity; BMI 37.7. PLAN: Keep the patient on IV antibiotics including IV ertapenem and vancomycin. I spoke to the patient and the nurse to elevate the scrotum. The patient is getting IV Toradol, which helped with inflammation. Follow. MMODL / IJN: [id number] /
[2018-01-27] MEDS ORDERED: ONDANSETRON 4 MG/2 ML VIAL IVP PRN (20:57)
[2018-01-27] MEDS: ATORVASTATIN 80 MG TAB PO SCH (22:02)
[2018-01-28] MEDS: KETOROLAC 30 MG/ML 1 ML VIAL IVP PRN ×4 (06:37→23:45)
[2018-01-28] MEDS: IPRATROPIUM 0.5 MG/2.5 ML NEBU INHALATION SCH ×4 (07:32→19:39)
[2018-01-28] MEDS: VANCOMYCIN 2,000 MG in SODIUM CHLORIDE 0.9% 500 ML IVPB SCH ×2 (07:47→20:54)
[2018-01-28] MEDS: CLOPIDOGREL 75 MG TAB PO SCH (07:47)
[2018-01-28] MEDS: FAMOTIDINE 20 MG TAB PO SCH ×2 (07:47→20:08)
[2018-01-28] MEDS: MAGNESIUM OXIDE 400 MG TAB PO SCH (07:47)
[2018-01-28] MEDS: LOSARTAN 50 MG TAB PO SCH (07:47)
[2018-01-28] MEDS: SERTRALINE 100 MG TAB PO SCH (07:47)
[2018-01-28] MEDS: ENOXAPARIN 40 MG/0.4 ML SYRINGE SQ SCH (07:48)
[2018-01-28] MEDS: PANTOPRAZOLE 40 MG TABLET PO SCH (07:48)
[2018-01-28] MEDS: NICOTINE 21MG/24HR PATCH TRANSDERM SCH (07:48)
[2018-01-28] MEDS: CARVEDILOL 12.5 MG TAB PO SCH ×2 (07:48→16:56)
[2018-01-28] MEDS: MONTELUKAST 10 MG TAB PO SCH (07:48)
[2018-01-28] MEDS: SODIUM CHLORIDE 0.9% 1,000 ML IV SCH (11:00)
[2018-01-28] MEDS: MULTIVITAMINS, THERA 1 EACH TAB PO SCH (12:23)
--- NOTE | 2018-01-28 13:10 | P.PN ---
Progress Note - Text Progress Note Date: 01/28/18 The patient had a low-grade temperature which was slightly over 100 last night but otherwise has remained afebrile. He says that he feels more comfortable since he was admitted and denies any chills. Blood cultures are no growth. On examination there is slight erythema in the right groin and the induration which extends from the groin to the lateral scrotum is unchanged. It is no fluctuance or other evidence of an overt abscess. The patient will be continued on his current antibiotics and will be reevaluated tomorrow.
[2018-01-28] MEDS: MORPHINE SULFATE 2 MG/ML SYRINGE IV PRN (15:35)
--- NOTE | 2018-01-28 16:15 | P.PN ---
Subjective Progress Note Date: 01/28/18 Progress note being dictated for Dr. Hayden. Interval history: This is a 57-year-old gentleman admitted with acute severe cellulitis, possible abscess of the right scrotal/groin. Maintained on IV antibiotics as per infectious disease. No surgical intervention recommended as per urology. Maintained on vancomycin and ertapenem. T-max 100.3.preliminary blood cultures negative at 48 hours. Redness, edema, tenderness slowly improving. Objective - Vital Signs Vital signs: Vital Signs Temp 98.3 F 01/28/18 13:34 Pulse 72 01/28/18 15:47 Resp 20 01/28/18 13:34 BP 106/60 01/28/18 13:34 Pulse Ox 94 L 01/28/18 13:34 Intake & Output 01/27/18 01/28/18 01/28/18 18:59 06:59 18:59 Other: Voiding Method Toilet Toilet # Voids 2 3 3 # Bowel Movements 0 - Exam PHYSICAL EXAM: VITAL SIGNS: As above GENERAL: Sitting up in bed, no acute distress HEENT: Conjunctivae normal. eyes normal. Oral mucosa moist NECK: No JVD. No thyroid enlargement. No LNs CARDIOVASCULAR: S1, S2 muffled. No murmur RESPIRATION: Breath sounds diminished in the bases. No rhonchi or crackles. No bronchial breathing. ABDOMEN: Soft, distended, nontender . No guarding. no masses palpable. Bowel sounds heard. LEGS: No edema. no swelling PSYCHIATRY: Alert and oriented -3, mood and affect normal. NERVOUS SYSTEM: Cranial N 2-12 grossly normal. Moves all 4 limbs. Diffuse weakness No focal deficits. No sensory deficit. No signs of cerebellar dysfucntion. Groin AREA: Mild erythema of right groin extending to the lateral scrotum, slightly improved Joints: No active swelling. No inflammation. Lymphatic system. No LN neck axilla or groin. - Labs CBC & Chem 7: 01/27/18 07:15 01/28/18 07:36 Labs: Microbiology - Last 24 Hours (Table) 01/26/18 08:05 Blood Culture - Preliminary Blood No Growth after 48 hours Assessment and Plan Assessment: 1. Acute cellulitis, abscess cannot be ruled out of the right scrotal,groin area 2. Peripheral vascular disease 3. COPD 4. Ongoing nicotine abuse 5. Gastroesophageal reflux disease 6. Obesity, BMI 37.7 Plan: Continue on current medication regime ,monitoring and symptomatic treatment. Maintain IV antibiotics of ertapenem and vancomycin as per infectious disease. Pain management/ IV Toradol. Follow closely with urology. The impression and plan of care has been dictated as directed. : I performed a history and examination of this patient, discussed the same with the dictator. I agree with the dictator's note ,documented as a scribe. Any additional findings or plans will be noted.
[2018-01-28] MEDS: ERTAPENEM 1 GM in SODIUM CHLORIDE 0.9% 50 ML IVPB SCH (16:56)
[2018-01-28] MEDS: ATORVASTATIN 80 MG TAB PO SCH (20:08)
--- NOTE | 2018-01-28 20:19 | P.PN ---
Subjective Progress Note Date: 01/28/18 57-year-old male who has underlying medical troubles that include COPD hyperlipidemia hypertension and sleep apnea is developed difficulty that he has not had in the past. Is about the significant swelling and discomfort at the base of his scrotum to the right and into the tissue on the right side of his scrotum and pelvis. He relates area is tender and firm. He has had multiple skin abscesses in the past and requires surgical drainage at this time it does feel different. He has not noticed any pimple or pustule she's had an upper areas. He denies any distinct trauma to the area he has had no change in his clothing or his underwear, he does not shave in the region. He does not ride a bicycle and does not recall any falls. The patient developed the rapid onset of an illness with fever and chills in the significant pain in this area. Because of this he presented the emergency room and has been admitted for this infectious process. He denies being diabetic. 01/27/2018 the patient is showing some further improvement but still has discomfort in the area. He has been seen by urology with no surgical plan 01/28/2018 the patient has had some improvement. His pain is somewhat better in the area. He has been seen by urology follow-up ultrasound has been requested to ensure the area is not developing into an abscess that requires drainage. Overall he feels better. Objective - Vital Signs Vital signs: Vital Signs Temp 98.3 F 01/28/18 13:34 Pulse 76 01/28/18 19:49 Resp 20 01/28/18 13:34 BP 106/60 01/28/18 13:34 Pulse Ox 94 L 01/28/18 13:34 Intake & Output 01/28/18 01/28/18 01/29/18 06:59 18:59 06:59 Other: Voiding Method Toilet # Voids 3 2 # Bowel Movements 0 - Exam 57-year-old male that has obesity is uncomfortable but not severe distress HEENT: Anicteric conjunctiva are pink and moist nasal mucosa grossly intact without significant lesions, there is no thrush.dentition is poor has all teeth missing upper without a plate no oral cavity lesions could be seen Neck: The neck is supple without significant lymphadenopathy or thyromegaly. Lungs: there was symmetric bilateral air entry with expiratory wheezes to the lung plunkett but no ashleigh bronchial sounds, no dullness or egophony Heart: Regular rate and rhythm with an audible S1-S2, no S3 loud S4. There is no significant murmur click or rub, PMI was nondisplaced. Abdomen: Positive bowel sounds soft and nontender without palpable masses or organomegaly. There was no guarding or rebound. Extremities: upper extremities reveals normal IV site. Lower extremities evidence of the multiple prior surgical interventions there are no significant open ulcers in the lower extremities they are cool but not cold to touch The scrotum is evaluated. Left side is without any difficulties. The testicle is without tenderness and there is no open lesions to the left hemiscrotum area. There is no significant lymphadenopathy and a left inguinal area. The right hemiscrotum shows some swelling. The testicle itself is tender to touch. The epididymis is not swollen at the area is slightly tender. The base of the scrotum into the pelvic tissue shows evidence of the extensive induration there some warmth there some erythema there is however no open ulcerations, there is no bruising. No evidence of any lacerations or abrasions. The tissue is extremely tender in the region and there is right inguinal lymphadenopathy. No other abnormal lymph nodes are noted Neuro: Awake alert oriented to person place and time. There are no acute new gross focal sensory motor deficits. - Labs CBC & Chem 7: 01/27/18 07:15 01/28/18 07:36 Labs: Microbiology - Last 24 Hours (Table) 01/26/18 08:05 Blood Culture - Preliminary Blood No Growth after 48 hours Laboratory Results WBC 14.5 k/uL (3.8-10.6) H 01/27/18 07:15 RBC 4.17 m/uL (4.30-5.90) L 01/27/18 07:15 Hgb 13.8 gm/dL (13.0-17.5) 01/27/18 07:15 Hct 40.3 % (39.0-53.0) 01/27/18 07:15 MCV 96.7 fL (80.0-100.0) 01/27/18 07:15 MCH 33.0 pg (25.0-35.0) 01/27/18 07:15 MCHC 34.2 g/dL (31.0-37.0) 01/27/18 07:15 RDW 13.4 % (11.5-15.5) 01/27/18 07:15 Plt Count 230 k/uL (150-450) 01/27/18 07:15 Neutrophils % 83 % 01/27/18 07:15 Lymphocytes % 8 % 01/27/18 07:15 Monocytes % 6 % 01/27/18 07:15 Eosinophils % 1 % 01/27/18 07:15 Basophils % 0 % 01/27/18 07:15 Neutrophils # 12.1 k/uL (1.3-7.7) H 01/27/18 07:15 Lymphocytes # 1.1 k/uL (1.0-4.8) 01/27/18 07:15 Monocytes # 0.9 k/uL (0-1.0) 01/27/18 07:15 Eosinophils # 0.2 k/uL (0-0.7) 01/27/18 07:15 Basophils # 0.1 k/uL (0-0.2) 01/27/18 07:15 Sodium 136 mmol/L (137-145) L 01/26/18 08:05 Potassium 4.0 mmol/L (3.5-5.1) 01/26/18 08:05 Chloride 103 mmol/L (98-107) 01/26/18 08:05 Carbon Dioxide 23 mmol/L (22-30) 01/26/18 08:05 Anion Gap 10 mmol/L 01/26/18 08:05 BUN 12 mg/dL (9-20) 01/26/18 08:05 Creatinine 0.92 mg/dL (0.66-1.25) 01/28/18 07:36 Est GFR (CKD-EPI)AfAm >90 (>60 ml/min/1.73 sqM) 01/28/18 07:36 Est GFR (CKD-EPI)NonAf >90 (>60 ml/min/1.73 sqM) 01/28/18 07:36 Glucose 137 mg/dL (74-99) H 01/26/18 08:[address] Glu mg/dL 126 01/26/18 16:29 Hemoglobin A1c 6.0 % (4.0-6.0) 01/26/18 16:29 Plasma Lactic Acid Maximilian 1.1 mmol/L (0.7-2.0) 01/26/18 08:05 Calcium 8.5 mg/dL (8.4-10.2) 01/26/18 08:05 Total Bilirubin 1.1 mg/dL (0.2-1.3) 01/26/18 08:05 AST 12 U/L (17-59) L 01/26/18 08:05 ALT 30 U/L (21-72) 01/26/18 08:05 Alkaline Phosphatase 48 U/L (38-126) 01/26/18 08:05 Total Protein 6.3 g/dL (6.3-8.2) 01/26/18 08:05 Albumin 3.6 g/dL (3.5-5.0) 01/26/18 08:05 Amylase 39 U/L (30-110) 01/26/18 08:05 Lipase 41 U/L (23-300) 01/26/18 08:05 Urine Color Yellow 01/26/18 10:15 Urine Appearance Clear (Clear) 01/26/18 10:15 Urine pH 7.0 (5.0-8.0) 01/26/18 10:15 Ur Specific [place] >1.050 (1.001-1.035) H 01/26/18 10:15 Urine Protein Trace (Negative) H 01/26/18 10:15 Urine Glucose (UA) Negative (Negative) 01/26/18 10:15 Urine Ketones Negative (Negative) 01/26/18 10:15 Urine Blood Negative (Negative) 01/26/18 10:15 Urine Nitrite Negative (Negative) 01/26/18 10:15 Urine Bilirubin Negative (Negative) 01/26/18 10:15 Urine Urobilinogen 3.0 mg/dL (<2.0) 01/26/18 10:15 Ur Leukocyte Esterase Negative (Negative) 01/26/18 10:15 Microbiology 01/26/18 08:05 Blood Blood Culture - Preliminary No Growth after 48 hours Assessment and Plan (1) Cellulitis of groin Narrative/Plan: 57-year-old male who does have obesity but denies diabetes presents to Hospital significant pain and swelling to the right groin area. Is having significant fevers chills and malaise and constantly presented. There is evidence of the distinct swelling and infection in this region of the right hemiscrotum. There is no evidence of any torsion or drainable abscess at this point in time. The patient likely has an extensive cellulitis. There is no evidence of any enhancement of the fascial planes without evidence of necrotizing fasciitis. The patient does not have a known history of MRSA infection but does have ALLERGIES to several antibiotics. To enhance the coverage for this area insuring that were covering for enteric pathogens, anaerobes as well as staph and strep antibiotic therapy with ertapenem and vancomycin will be utilized for now. For comfort warm or cold packs and the applied. Ketorolac is also offered in hopes that we can improve his significant amount of pain. The area will be monitored and if he develops evidence of phlegmon or abscess then surgical intervention may be required. Patient's blood sugar was mildly elevated 137 if he has any further elevated blood glucose with further evaluate for the possibility of diabetes. 2017 by the patient be feeling slightly better, still having discomfort but is not having fever and his chills have resolved. At this time we'll continue with current antibiotic therapy of ertapenem and vancomycin pending further culture results. Ketorolac has helped his pain. Urological evaluation has occurred with no need for surgical intervention at this time. He may need repeat imaging studies at the site changes over time which may give us the opportunity for drainage if abscess develops. He is more comfortable today. 01/28/2018 patient does feel somewhat better today. Fevers and chills have remained resolved. However did have a fever last night and had excellent response to the ketorolac. Follow-up ultrasound was requested for tomorrow to evaluate if the site is developed into an abscess that will require surgical drainage from urology. Leukocytosis is showing some improvement and will be monitored. Patient is showing some clinical improvement we'll continue with the ertapenem and vancomycin at this time pending further intervention. Current Visit: Yes Status: Acute Code(s): L03.314 - CELLULITIS OF GROIN SNOMED Code(s): 20412580 (2) BMI 38.0-38.9,adult Current Visit: No Status: Chronic Code(s): Z68.38 - BODY MASS INDEX (BMI) 38.0-38.9, ADULT SNOMED Code(s): 538843817 (3) Aortic aneurysm and dissection Current Visit: No Status: Chronic Code(s): I71.00 - DISSECTION OF UNSPECIFIED SITE OF AORTA SNOMED Code(s): 596236337 (4) Leukocytosis Current Visit: Yes Status: Acute Code(s): D72.829 - ELEVATED WHITE BLOOD CELL COUNT, UNSPECIFIED SNOMED Code(s): 059749821
[2018-01-29] MEDS: MORPHINE SULFATE 2 MG/ML SYRINGE IV PRN ×4 (01:07→23:38)
[2018-01-29] MEDS ORDERED: VANCOMYCIN TROUGH DUE 1 EACH MISC MISCELLANE ONE (08:00)
[2018-01-29] MEDS: KETOROLAC 30 MG/ML 1 ML VIAL IVP PRN ×3 (08:27→21:12)
[2018-01-29] MEDS: IPRATROPIUM 0.5 MG/2.5 ML NEBU INHALATION SCH ×4 (08:33→20:12)
[2018-01-29] MEDS: NICOTINE 21MG/24HR PATCH TRANSDERM SCH (08:37)
[2018-01-29] MEDS: VANCOMYCIN 2,000 MG in SODIUM CHLORIDE 0.9% 500 ML IVPB SCH ×3 (08:37→21:11)
[2018-01-29] MEDS: ENOXAPARIN 40 MG/0.4 ML SYRINGE SQ SCH (08:40)
[2018-01-29] MEDS: SERTRALINE 100 MG TAB PO SCH (08:40)
[2018-01-29] MEDS: FAMOTIDINE 20 MG TAB PO SCH ×2 (08:40→21:13)
[2018-01-29] MEDS: CARVEDILOL 12.5 MG TAB PO SCH ×2 (08:40→17:11)
[2018-01-29] MEDS: LOSARTAN 50 MG TAB PO SCH (08:40)
[2018-01-29] MEDS: MONTELUKAST 10 MG TAB PO SCH (08:40)
[2018-01-29] MEDS: CLOPIDOGREL 75 MG TAB PO SCH (08:40)
[2018-01-29] MEDS: PANTOPRAZOLE 40 MG TABLET PO SCH (08:40)
[2018-01-29] MEDS: MAGNESIUM OXIDE 400 MG TAB PO SCH (08:41)
[2018-01-29] MEDS: MULTIVITAMINS, THERA 1 EACH TAB PO SCH (08:41)
[2018-01-29 09:50] LABS: Basophils % (A) 0 %; Eosinophils # (A) 0.1 k/uL (0-0.7); Eosinophils % (A) 1 %; HCT 39.4 % (39.0-53.0); HGB 13.1 gm/dL (13.0-17.5); Lymphocytes # (A) 0.9 k/uL (1.0-4.8); Lymphocytes % (A) 6 %; MCH 31.6 pg (25.0-35.0); MCHC 33.3 g/dL (31.0-37.0); MCV 94.8 fL (80.0-100.0); Mean Platelet Volume 7.3; Monocytes # (A) 0.6 k/uL (0-1.0); Monocytes % (A) 4 %; Neutrophils # (A) 12.4 k/uL (1.3-7.7); Neutrophils % (A) 87 %; Platelet Count 266 k/uL (150-450); RBC 4.16 m/uL (4.30-5.90); RDW 13.1 % (11.5-15.5); WBC 14.3 k/uL (3.8-10.6)
[2018-01-29 10:09] LABS: Anion Gap 12 mmol/L; Blood Urea Nitrogen 16 mg/dL (9-20); Calcium 8.2 mg/dL (8.4-10.2); Carbon Dioxide 21 mmol/L (22-30); Chloride 104 mmol/L (98-107); Glucose 99 mg/dL (74-99); Sodium 137 mmol/L (137-145)
[2018-01-29 10:49] LABS: Erythrocyte Sedimentation Rate 78 mm/hr (0-15)
[2018-01-29] MEDS: SODIUM CHLORIDE 0.9% 1,000 ML IV SCH (11:08)
--- NOTE | 2018-01-29 12:50 | US ---
EXAMINATION TYPE: US groin RT DATE OF EXAM: 01/29/2018 COMPARISON: US 01/26/2018, CT 01/26/2018 CLINICAL HISTORY: abscess. Right groin swollen area No fluid collection visualized at the area of the patient's palpable area in the right groin. Images saved show mild subcutaneous edema without well-formed fluid collection or suspicious mass. IMPRESSION: As above
--- NOTE | 2018-01-29 13:29 | P.PN ---
Progress Note - Text Progress Note Date: 01/29/18 Patient is afebrile and says that he is more comfortable than yesterday. On examination he continues to have induration in his right groin. The degree of erythema appears last and there is no definite fluctuance other than inferiorly in the groin which could be related to edema. Ultrasound of the right groin today showed no evidence of abscess. In view of this there is no need to attempt drainage and the patient will be continued on antibiotics.
[2018-01-29] MEDS: ERTAPENEM 1 GM in SODIUM CHLORIDE 0.9% 50 ML IVPB SCH (17:10)
--- NOTE | 2018-01-29 18:21 | P.PN ---
Subjective Progress Note Date: 01/29/18 Progress note being dictated for Dr. Hayden. Interval history: This is a 57-year-old gentleman admitted with acute severe cellulitis, possible abscess of the right scrotal/groin. Maintained on IV antibiotics as per infectious disease. No surgical intervention recommended as per urology. Maintained on vancomycin and ertapenem. T-max 100.3.preliminary blood cultures negative at 48 hours. Redness, edema, tenderness slowly improving. 01/29/2018 remains afebrile, redness, edema, tenderness improving. Groin Ultrasound completed reporting no fluid collection in the right groin, mild subcutaneous edema without suspicious mass or well formed fluid collection. Initially had planned for discharge but upon arising, crease of right leg and groin area burst open with significant puss drainage. Cultures obtained. Objective - Vital Signs Vital signs: Vital Signs Temp 98.3 F 01/29/18 14:58 Pulse 76 01/29/18 15:56 Resp 18 01/29/18 14:58 BP 144/80 01/29/18 14:58 Pulse Ox 97 01/29/18 14:58 Intake & Output 01/28/18 01/29/18 01/29/18 18:59 06:59 18:59 Other: Voiding Method Toilet # Voids 2 3 2 # Bowel Movements 1 - Exam PHYSICAL EXAM: VITAL SIGNS: As above GENERAL: Sitting up in bed, no acute distress HEENT: Conjunctivae normal. eyes normal. Oral mucosa moist NECK: No JVD. No thyroid enlargement. No LNs CARDIOVASCULAR: S1, S2 muffled. No murmur RESPIRATION: Breath sounds diminished in the bases. No rhonchi or crackles. No bronchial breathing. ABDOMEN: Soft, distended, nontender . No guarding. no masses palpable. Bowel sounds heard. LEGS: No edema. no swelling PSYCHIATRY: Alert and oriented -3, mood and affect normal. NERVOUS SYSTEM: Cranial N 2-12 grossly normal. Moves all 4 limbs. Diffuse weakness No focal deficits. No sensory deficit. No signs of cerebellar dysfucntion. Groin AREA: Mild erythema of right groin extending to the lateral scrotum, slightly improved; as mentioned above Joints: No active swelling. No inflammation. Lymphatic system. No LN neck axilla or groin. - Labs CBC & Chem 7: 01/29/18 09:05 01/29/18 09:05 Labs: Abnormal Lab Results - Last 24 Hours (Table) 01/29/18 01/29/18 Range/Units 09:05 09:05 WBC 14.3 H (3.8-10.6) k/uL RBC 4.16 L (4.30-5.90) m/uL Neutrophils # 12.4 H (1.3-7.7) k/uL Lymphocytes # 0.9 L (1.0-4.8) k/uL ESR 78 H (0-15) mm/hr Carbon Dioxide 21 L (22-30) mmol/L Calcium 8.2 L (8.4-10.2) mg/dL Microbiology - Last 24 Hours (Table) 01/26/18 08:05 Blood Culture - Preliminary Blood No Growth after 72 hours Assessment and Plan Assessment: 1. Acute cellulitis, abscess cannot be ruled out of the right scrotal,groin area 2. Peripheral vascular disease 3. COPD 4. Ongoing nicotine abuse 5. Gastroesophageal reflux disease 6. Obesity, BMI 37.7 Plan: Continue on current medication regime ,monitoring and symptomatic treatment. Maintain IV antibiotics as per infectious disease. Cultures obtained and pending. The impression and plan of care has been dictated as directed. : I performed a history and examination of this patient, discussed the same with the dictator. I agree with the dictator's note ,documented as a scribe. Any additional findings or plans will be noted.
[2018-01-29] MEDS: ATORVASTATIN 80 MG TAB PO SCH (21:13)
--- NOTE | 2018-01-29 22:08 | P.PN ---
Subjective Progress Note Date: 01/29/18 57-year-old male who has underlying medical troubles that include COPD hyperlipidemia hypertension and sleep apnea is developed difficulty that he has not had in the past. Is about the significant swelling and discomfort at the base of his scrotum to the right and into the tissue on the right side of his scrotum and pelvis. He relates area is tender and firm. He has had multiple skin abscesses in the past and requires surgical drainage at this time it does feel different. He has not noticed any pimple or pustule she's had an upper areas. He denies any distinct trauma to the area he has had no change in his clothing or his underwear, he does not shave in the region. He does not ride a bicycle and does not recall any falls. The patient developed the rapid onset of an illness with fever and chills in the significant pain in this area. Because of this he presented the emergency room and has been admitted for this infectious process. He denies being diabetic. 01/27/2018 the patient is showing some further improvement but still has discomfort in the area. He has been seen by urology with no surgical plan 01/28/2018 the patient has had some improvement. His pain is somewhat better in the area. He has been seen by urology follow-up ultrasound has been requested to ensure the area is not developing into an abscess that requires drainage. Overall he feels better. January 29 2018 patient is been seen by urology, ultrasound failed to reveal evidence of a large fluid collection. However this evening the patient arose to go to the bathroom and had a large gush of material from his right groin area. He relates immediately after he felt considerably better with a significant reduction in pain and discomfort to the area. He's had no fever or chills senses as occurred. He is impressed with how much better he feels. Objective - Vital Signs Vital signs: Vital Signs Temp 98.3 F 01/29/18 14:58 Pulse 78 01/29/18 20:21 Resp 18 01/29/18 14:58 BP 144/80 01/29/18 14:58 Pulse Ox 97 01/29/18 14:58 Intake & Output 01/29/18 01/29/18 01/30/18 06:59 18:59 06:59 Other: Voiding Method Toilet # Voids 3 2 2 # Bowel Movements 1 - Exam 57-year-old male that has obesity is uncomfortable but not severe distress HEENT: Anicteric conjunctiva are pink and moist nasal mucosa grossly intact without significant lesions, there is no thrush.dentition is poor has all teeth missing upper without a plate no oral cavity lesions could be seen Neck: The neck is supple without significant lymphadenopathy or thyromegaly. Lungs: there was symmetric bilateral air entry with expiratory wheezes to the lung plunkett but no ashleigh bronchial sounds, no dullness or egophony Heart: Regular rate and rhythm with an audible S1-S2, no S3 loud S4. There is no significant murmur click or rub, PMI was nondisplaced. Abdomen: Positive bowel sounds soft and nontender without palpable masses or organomegaly. There was no guarding or rebound. Extremities: upper extremities reveals normal IV site. Lower extremities evidence of the multiple prior surgical interventions there are no significant open ulcers in the lower extremities they are cool but not cold to touch The scrotum is evaluated. Left side is without any difficulties. The testicle is without tenderness and there is no open lesions to the left hemiscrotum area. There is no significant lymphadenopathy and a left inguinal area. The right hemiscrotum shows some swelling. The testicle itself is tender to touch. The epididymis is not swollen at the area is slightly tender. The base of the scrotum into the pelvic tissue shows evidence of the extensive induration there some warmth there some erythema There is now an area that has opened and a large amount of somewhat foul smelling purulent material is drained, there is still a large amount of induration but it is much less tense and he is much less tender. The tissue is extremely tender in the region and there is right inguinal lymphadenopathy. No other abnormal lymph nodes are noted Neuro: Awake alert oriented to person place and time. There are no acute new gross focal sensory motor deficits. - Labs CBC & Chem 7: 01/29/18 09:05 01/29/18 09:05 Labs: Abnormal Lab Results - Last 24 Hours (Table) 01/29/18 01/29/18 Range/Units 09:05 09:05 WBC 14.3 H (3.8-10.6) k/uL RBC 4.16 L (4.30-5.90) m/uL Neutrophils # 12.4 H (1.3-7.7) k/uL Lymphocytes # 0.9 L (1.0-4.8) k/uL ESR 78 H (0-15) mm/hr Carbon Dioxide 21 L (22-30) mmol/L Calcium 8.2 L (8.4-10.2) mg/dL Microbiology - Last 24 Hours (Table) 01/26/18 08:05 Blood Culture - Preliminary Blood No Growth after 72 hours Laboratory Results WBC 14.3 k/uL (3.8-10.6) H 01/29/18 09:05 RBC 4.16 m/uL (4.30-5.90) L 01/29/18 09:05 Hgb 13.1 gm/dL (13.0-17.5) 01/29/18 09:05 Hct 39.4 % (39.0-53.0) 01/29/18 09:05 MCV 94.8 fL (80.0-100.0) 01/29/18 09:05 MCH 31.6 pg (25.0-35.0) 01/29/18 09:05 MCHC 33.3 g/dL (31.0-37.0) 01/29/18 09:05 RDW 13.1 % (11.5-15.5) 01/29/18 09:05 Plt Count 266 k/uL (150-450) 01/29/18 09:05 Neutrophils % 87 % 01/29/18 09:05 Lymphocytes % 6 % 01/29/18 09:05 Monocytes % 4 % 01/29/18 09:05 Eosinophils % 1 % 01/29/18 09:05 Basophils % 0 % 01/29/18 09:05 Neutrophils # 12.4 k/uL (1.3-7.7) H 01/29/18 09:05 Lymphocytes # 0.9 k/uL (1.0-4.8) L 01/29/18 09:05 Monocytes # 0.6 k/uL (0-1.0) 01/29/18 09:05 Eosinophils # 0.1 k/uL (0-0.7) 01/29/18 09:05 Basophils # 0.0 k/uL (0-0.2) 01/29/18 09:05 ESR 78 mm/hr (0-15) H 01/29/18 09:05 Sodium 137 mmol/L (137-145) 01/29/18 09:05 Potassium 4.0 mmol/L (3.5-5.1) 01/29/18 09:05 Chloride 104 mmol/L (98-107) 01/29/18 09:05 Carbon Dioxide 21 mmol/L (22-30) L 01/29/18 09:05 Anion Gap 12 mmol/L 01/29/18 09:05 BUN 16 mg/dL (9-20) 01/29/18 09:05 Creatinine 0.96 mg/dL (0.66-1.25) 01/29/18 09:05 Est GFR (CKD-EPI)AfAm >90 (>60 ml/min/1.73 sqM) 01/29/18 09:05 Est GFR (CKD-EPI)NonAf 89 (>60 ml/min/1.73 sqM) 01/29/18 09:05 Glucose 99 mg/dL (74-99) 01/29/18 09:[address] Glu mg/dL 126 01/26/18 16:29 Hemoglobin A1c 6.0 % (4.0-6.0) 01/26/18 16:29 Plasma Lactic Acid Maximilian 1.1 mmol/L (0.7-2.0) 01/26/18 08:05 Calcium 8.2 mg/dL (8.4-10.2) L 01/29/18 09:05 Total Bilirubin 1.1 mg/dL (0.2-1.3) 01/26/18 08:05 AST 12 U/L (17-59) L 01/26/18 08:05 ALT 30 U/L (21-72) 01/26/18 08:05 Alkaline Phosphatase 48 U/L (38-126) 01/26/18 08:05 Total Protein 6.3 g/dL (6.3-8.2) 01/26/18 08:05 Albumin 3.6 g/dL (3.5-5.0) 01/26/18 08:05 Amylase 39 U/L (30-110) 01/26/18 08:05 Lipase 41 U/L (23-300) 01/26/18 08:05 Urine Color Yellow 01/26/18 10:15 Urine Appearance Clear (Clear) 01/26/18 10:15 Urine pH 7.0 (5.0-8.0) 01/26/18 10:15 Ur Specific [place] >1.050 (1.001-1.035) H 01/26/18 10:15 Urine Protein Trace (Negative) H 01/26/18 10:15 Urine Glucose (UA) Negative (Negative) 01/26/18 10:15 Urine Ketones Negative (Negative) 01/26/18 10:15 Urine Blood Negative (Negative) 01/26/18 10:15 Urine Nitrite Negative (Negative) 01/26/18 10:15 Urine Bilirubin Negative (Negative) 01/26/18 10:15 Urine Urobilinogen 3.0 mg/dL (<2.0) 01/26/18 10:15 Ur Leukocyte Esterase Negative (Negative) 01/26/18 10:15 Vancomycin Trough 12.1 ug/mL 01/29/18 09:05 Microbiology 01/26/18 08:05 Blood Blood Culture - Preliminary No Growth after 72 hours Assessment and Plan (1) Cellulitis of groin Narrative/Plan: 57-year-old male who does have obesity but denies diabetes presents to Hospital significant pain and swelling to the right groin area. Is having significant fevers chills and malaise and constantly presented. There is evidence of the distinct swelling and infection in this region of the right hemiscrotum. There is no evidence of any torsion or drainable abscess at this point in time. The patient likely has an extensive cellulitis. There is no evidence of any enhancement of the fascial planes without evidence of necrotizing fasciitis. The patient does not have a known history of MRSA infection but does have ALLERGIES to several antibiotics. To enhance the coverage for this area insuring that were covering for enteric pathogens, anaerobes as well as staph and strep antibiotic therapy with ertapenem and vancomycin will be utilized for now. For comfort warm or cold packs and the applied. Ketorolac is also offered in hopes that we can improve his significant amount of pain. The area will be monitored and if he develops evidence of phlegmon or abscess then surgical intervention may be required. Patient's blood sugar was mildly elevated 137 if he has any further elevated blood glucose with further evaluate for the possibility of diabetes. 2017 by the patient be feeling slightly better, still having discomfort but is not having fever and his chills have resolved. At this time we'll continue with current antibiotic therapy of ertapenem and vancomycin pending further culture results. Ketorolac has helped his pain. Urological evaluation has occurred with no need for surgical intervention at this time. He may need repeat imaging studies at the site changes over time which may give us the opportunity for drainage if abscess develops. He is more comfortable today. 01/28/2018 patient does feel somewhat better today. Fevers and chills have remained resolved. However did have a fever last night and had excellent response to the ketorolac. Follow-up ultrasound was requested for tomorrow to evaluate if the site is developed into an abscess that will require surgical drainage from urology. Leukocytosis is showing some improvement and will be monitored. Patient is showing some clinical improvement we'll continue with the ertapenem and vancomycin at this time pending further intervention. 01/29/2018 patient now feels considerably better that the site has spontaneously drained, he has been seen by urology and there is no plans for surgical intervention of any type. We'll continue with warm compress to facilitate drainage from this site. Patient continues warm showers also to help with the drainage. Gentle manipulation will help further drainage. A culture was sent which is going to help with the course of antibiotic therapy and discharge which hopefully we can arrange for tomorrow once we have a bit more data. He does have a leukocytosis and somewhat persistent but with the drainage would expect this to improve. Current Visit: Yes Status: Acute Code(s): L03.314 - CELLULITIS OF GROIN SNOMED Code(s): 29817620 (2) BMI 38.0-38.9,adult Current Visit: No Status: Chronic Code(s): Z68.38 - BODY MASS INDEX (BMI) 38.0-38.9, ADULT SNOMED Code(s): 558372590 (3) Aortic aneurysm and dissection Current Visit: No Status: Chronic Code(s): I71.00 - DISSECTION OF UNSPECIFIED SITE OF AORTA SNOMED Code(s): 246719436 (4) Leukocytosis Current Visit: Yes Status: Acute Code(s): D72.829 - ELEVATED WHITE BLOOD CELL COUNT, UNSPECIFIED SNOMED Code(s): 278329968
[2018-01-30] MEDS: ENOXAPARIN 40 MG/0.4 ML SYRINGE SQ SCH (06:58)
[2018-01-30 07:58] VITALS: RESP 18
[2018-01-30] MEDS: MORPHINE SULFATE 2 MG/ML SYRINGE IV PRN ×2 (08:21→14:43)
[2018-01-30] MEDS: MONTELUKAST 10 MG TAB PO SCH (08:22)
[2018-01-30] MEDS: LOSARTAN 50 MG TAB PO SCH (08:22)
[2018-01-30] MEDS: NICOTINE 21MG/24HR PATCH TRANSDERM SCH (08:22)
[2018-01-30] MEDS: MAGNESIUM OXIDE 400 MG TAB PO SCH (08:24)
[2018-01-30] MEDS: SERTRALINE 100 MG TAB PO SCH (08:24)
[2018-01-30] MEDS: CARVEDILOL 12.5 MG TAB PO SCH (08:24)
[2018-01-30] MEDS: CLOPIDOGREL 75 MG TAB PO SCH (08:24)
[2018-01-30] MEDS: FAMOTIDINE 20 MG TAB PO SCH (08:24)
[2018-01-30] MEDS: MULTIVITAMINS, THERA 1 EACH TAB PO SCH (08:25)
[2018-01-30] MEDS: VANCOMYCIN 2,000 MG in SODIUM CHLORIDE 0.9% 500 ML IVPB SCH (08:25)
[2018-01-30] MEDS: PANTOPRAZOLE 40 MG TABLET PO SCH (08:25)
[2018-01-30] MEDS: IPRATROPIUM 0.5 MG/2.5 ML NEBU INHALATION SCH ×3 (08:30→15:43)
--- NOTE | 2018-01-30 12:02 | P.PN ---
Progress Note - Text Progress Note Date: 01/30/18 The patient is afebrile. He apparently had spontaneous drainage from the inferior area of his groin induration last night and a large amount of purulent material discharged. Says he feels much better at this time. The abscess was apparently not visualized on the ultrasound performed earlier in the day. He continued to have induration in the superior groin that this does not appear fluctuant. Hopefully this will resolve now that the abscess inferiorly has drained. The patient will be continued on his current antibiotics.
[2018-01-30] MEDS: KETOROLAC 30 MG/ML 1 ML VIAL IVP PRN (13:08)
--- NOTE | 2018-01-30 15:51 | P.PN ---
Subjective Progress Note Date: 01/30/18 Progress note being dictated for Dr. Hayedn. Interval history: This is a 57-year-old gentleman admitted with acute severe cellulitis, possible abscess of the right scrotal/groin. Maintained on IV antibiotics as per infectious disease. No surgical intervention recommended as per urology. Maintained on vancomycin and ertapenem. T-max 100.3.preliminary blood cultures negative at 48 hours. Redness, edema, tenderness slowly improving. 01/29/2018 remains afebrile, redness, edema, tenderness improving. Groin Ultrasound completed reporting no fluid collection in the right groin, mild subcutaneous edema without suspicious mass or well formed fluid collection. Initially had planned for discharge but upon arising, crease of right leg and groin area burst open with significant puss drainage. Cultures obtained. 01/30/2018 cultures pending. States less tenderness, feels significantly better. Afebrile, labs pending. Further evaluated by urology with no surgical interventions recommended at this time. Objective - Vital Signs Vital signs: Vital Signs Temp 98.0 F 01/30/18 07:32 Pulse 70 01/30/18 08:43 Resp 18 01/30/18 07:32 BP 146/78 01/30/18 07:32 Pulse Ox 97 01/30/18 07:32 Intake & Output 01/29/18 01/30/18 01/30/18 18:59 06:59 18:59 Weight 122.47 kg Other: Voiding Method Toilet Toilet # Voids 2 2 # Bowel Movements 1 - Exam PHYSICAL EXAM: VITAL SIGNS: As above GENERAL: Sitting up in bed, no acute distress HEENT: Conjunctivae normal. eyes normal. Oral mucosa moist NECK: No JVD. No thyroid enlargement. No LNs CARDIOVASCULAR: S1, S2 muffled. No murmur RESPIRATION: Breath sounds diminished in the bases. No rhonchi or crackles. No bronchial breathing. ABDOMEN: Soft, distended, nontender . No guarding. no masses palpable. Bowel sounds heard. LEGS: No edema. no swelling PSYCHIATRY: Alert and oriented -3, mood and affect normal. NERVOUS SYSTEM: Cranial N 2-12 grossly normal. Moves all 4 limbs. Diffuse weakness No focal deficits. No sensory deficit. No signs of cerebellar dysfucntion. Groin AREA: Mild erythema of right groin extending to the lateral scrotum, slightly improved; as mentioned above; now open inferior area of groin draining serosanguineous Joints: No active swelling. No inflammation. Lymphatic system. No LN neck axilla or groin. - Labs CBC & Chem 7: 01/29/18 09:05 01/29/18 09:05 Labs: Microbiology - Last 24 Hours (Table) 01/26/18 08:05 Blood Culture - Preliminary Blood No Growth after 96 hours 01/29/18 17:25 Gram Stain - Preliminary Groin Wound Culture - Preliminary 01/29/18 17:25 Anaerobic Culture - Preliminary Groin Assessment and Plan Assessment: 1. Acute cellulitis, spontaneously drained abscess of the right scrotal,groin area 2. Peripheral vascular disease 3. COPD 4. Ongoing nicotine abuse 5. Gastroesophageal reflux disease 6. Obesity, BMI 37.7 Plan: Continue on current medication regime ,monitoring and symptomatic treatment. Maintain IV antibiotics/warm compresses as per infectious disease. Discharge planning in progress pending culture results. The impression and plan of care has been dictated as directed. : I performed a history and examination of this patient, discussed the same with the dictator. I agree with the dictator's note ,documented as a scribe. Any additional findings or plans will be noted.
[2018-01-30 16:13] VITALS: BP 130/72; PULSE 63; TEMP 98.4
[2018-01-30] MEDS: ERTAPENEM 1 GM in SODIUM CHLORIDE 0.9% 50 ML IVPB SCH (16:47)
[2018-01-30 16:56] LABS: Basophils % (A) 0 %; Eosinophils # (A) 0.3 k/uL (0-0.7); Eosinophils % (A) 4 %; HCT 37.4 % (39.0-53.0); Lymphocytes # (A) 1.5 k/uL (1.0-4.8); Lymphocytes % (A) 18 %; MCH 32.5 pg (25.0-35.0); MCHC 34.8 g/dL (31.0-37.0); MCV 93.5 fL (80.0-100.0); Mean Platelet Volume 7.6; Monocytes # (A) 0.5 k/uL (0-1.0); Monocytes % (A) 6 %; Neutrophils # (A) 5.7 k/uL (1.3-7.7); Neutrophils % (A) 70 %; Platelet Count 259 k/uL (150-450); RBC 3.99 m/uL (4.30-5.90); WBC 8.2 k/uL (3.8-10.6)
--- NOTE | 2018-01-30 22:17 | P.PN ---
Subjective Progress Note Date: 01/30/18 57-year-old male who has underlying medical troubles that include COPD hyperlipidemia hypertension and sleep apnea is developed difficulty that he has not had in the past. Is about the significant swelling and discomfort at the base of his scrotum to the right and into the tissue on the right side of his scrotum and pelvis. He relates area is tender and firm. He has had multiple skin abscesses in the past and requires surgical drainage at this time it does feel different. He has not noticed any pimple or pustule she's had an upper areas. He denies any distinct trauma to the area he has had no change in his clothing or his underwear, he does not shave in the region. He does not ride a bicycle and does not recall any falls. The patient developed the rapid onset of an illness with fever and chills in the significant pain in this area. Because of this he presented the emergency room and has been admitted for this infectious process. He denies being diabetic. 01/27/2018 the patient is showing some further improvement but still has discomfort in the area. He has been seen by urology with no surgical plan 01/28/2018 the patient has had some improvement. His pain is somewhat better in the area. He has been seen by urology follow-up ultrasound has been requested to ensure the area is not developing into an abscess that requires drainage. Overall he feels better. January 29 2018 patient is been seen by urology, ultrasound failed to reveal evidence of a large fluid collection. However this evening the patient arose to go to the bathroom and had a large gush of material from his right groin area. He relates immediately after he felt considerably better with a significant reduction in pain and discomfort to the area. He's had no fever or chills senses as occurred. He is impressed with how much better he feels 01/30/2018 patient continues to improve, the spontaneous drainage has allowed the improvement. No further fever and pain nearly resolved. Objective - Vital Signs Vital signs: Vital Signs Temp 98.4 F 01/30/18 15:00 Pulse 70 01/30/18 15:53 Resp 18 01/30/18 15:00 BP 130/72 01/30/18 15:00 Pulse Ox 95 01/30/18 15:00 Intake & Output 06/20/18 06/20/18 06/21/18 06:59 18:59 06:59 Weight 122.47 kg Other: Voiding Method Toilet # Voids 2 - Exam 57-year-old male that has obesity is uncomfortable but not severe distress HEENT: Anicteric conjunctiva are pink and moist nasal mucosa grossly intact without significant lesions, there is no thrush.dentition is poor has all teeth missing upper without a plate no oral cavity lesions could be seen Neck: The neck is supple without significant lymphadenopathy or thyromegaly. Lungs: there was symmetric bilateral air entry with expiratory wheezes to the lung plunkett but no ashleigh bronchial sounds, no dullness or egophony Heart: Regular rate and rhythm with an audible S1-S2, no S3 loud S4. There is no significant murmur click or rub, PMI was nondisplaced. Abdomen: Positive bowel sounds soft and nontender without palpable masses or organomegaly. There was no guarding or rebound. Extremities: upper extremities reveals normal IV site. Lower extremities evidence of the multiple prior surgical interventions there are no significant open ulcers in the lower extremities they are cool but not cold to touch The scrotum is evaluated. Left side is without any difficulties. The testicle is without tenderness and there is no open lesions to the left hemiscrotum area. There is no significant lymphadenopathy and a left inguinal area. The right hemiscrotum shows some swelling. The testicle itself is tender to touch. The epididymis is not swollen at the area is slightly tender. The base of the scrotum into the pelvic tissue shows evidence of the extensive induration there some warmth there some erythema There is now an area that has opened and is still draining a moderate amount of seropurulent drainage there is still a large amount of induration but it is much less tense and he is much less tender. The tissue is right groin less tender and the inguinal lymphadenopathy is improved. No other abnormal lymph nodes are noted Neuro: Awake alert oriented to person place and time. There are no acute new gross focal sensory motor deficits. - Labs CBC & Chem 7: 01/30/18 16:02 01/29/18 09:05 Labs: Abnormal Lab Results - Last 24 Hours (Table) 01/30/18 Range/Units 16:02 RBC 3.99 L (4.30-5.90) m/uL Hct 37.4 L (39.0-53.0) % Microbiology - Last 24 Hours (Table) 01/26/18 08:05 Blood Culture - Preliminary Blood No Growth after 96 hours 01/29/18 17:25 Gram Stain - Preliminary Groin Wound Culture - Preliminary 01/29/18 17:25 Anaerobic Culture - Preliminary Groin Laboratory Results WBC 8.2 k/uL (3.8-10.6) 01/30/18 16:02 RBC 3.99 m/uL (4.30-5.90) L 01/30/18 16:02 Hgb 13.0 gm/dL (13.0-17.5) 01/30/18 16:02 Hct 37.4 % (39.0-53.0) L 01/30/18 16:02 MCV 93.5 fL (80.0-100.0) 01/30/18 16:02 MCH 32.5 pg (25.0-35.0) 01/30/18 16:02 MCHC 34.8 g/dL (31.0-37.0) 01/30/18 16:02 RDW 13.0 % (11.5-15.5) 01/30/18 16:02 Plt Count 259 k/uL (150-450) 01/30/18 16:02 Neutrophils % 70 % 01/30/18 16:02 Lymphocytes % 18 % 01/30/18 16:02 Monocytes % 6 % 01/30/18 16:02 Eosinophils % 4 % 01/30/18 16:02 Basophils % 0 % 01/30/18 16:02 Neutrophils # 5.7 k/uL (1.3-7.7) 01/30/18 16:02 Lymphocytes # 1.5 k/uL (1.0-4.8) 01/30/18 16:02 Monocytes # 0.5 k/uL (0-1.0) 01/30/18 16:02 Eosinophils # 0.3 k/uL (0-0.7) 01/30/18 16:02 Basophils # 0.0 k/uL (0-0.2) 01/30/18 16:02 ESR 78 mm/hr (0-15) H 01/29/18 09:05 Sodium 137 mmol/L (137-145) 01/29/18 09:05 Potassium 4.0 mmol/L (3.5-5.1) 01/29/18 09:05 Chloride 104 mmol/L (98-107) 01/29/18 09:05 Carbon Dioxide 21 mmol/L (22-30) L 01/29/18 09:05 Anion Gap 12 mmol/L 01/29/18 09:05 BUN 16 mg/dL (9-20) 01/29/18 09:05 Creatinine 0.96 mg/dL (0.66-1.25) 01/29/18 09:05 Est GFR (CKD-EPI)AfAm >90 (>60 ml/min/1.73 sqM) 01/29/18 09:05 Est GFR (CKD-EPI)NonAf 89 (>60 ml/min/1.73 sqM) 01/29/18 09:05 Glucose 99 mg/dL (74-99) 01/29/18 09:[address] Glu mg/dL 126 01/26/18 16:29 Hemoglobin A1c 6.0 % (4.0-6.0) 01/26/18 16:29 Plasma Lactic Acid Maximilian 1.1 mmol/L (0.7-2.0) 01/26/18 08:05 Calcium 8.2 mg/dL (8.4-10.2) L 01/29/18 09:05 Total Bilirubin 1.1 mg/dL (0.2-1.3) 01/26/18 08:05 AST 12 U/L (17-59) L 01/26/18 08:05 ALT 30 U/L (21-72) 01/26/18 08:05 Alkaline Phosphatase 48 U/L (38-126) 01/26/18 08:05 Total Protein 6.3 g/dL (6.3-8.2) 01/26/18 08:05 Albumin 3.6 g/dL (3.5-5.0) 01/26/18 08:05 Amylase 39 U/L (30-110) 01/26/18 08:05 Lipase 41 U/L (23-300) 01/26/18 08:05 Urine Color Yellow 01/26/18 10:15 Urine Appearance Clear (Clear) 01/26/18 10:15 Urine pH 7.0 (5.0-8.0) 01/26/18 10:15 Ur Specific [place] >1.050 (1.001-1.035) H 01/26/18 10:15 Urine Protein Trace (Negative) H 01/26/18 10:15 Urine Glucose (UA) Negative (Negative) 01/26/18 10:15 Urine Ketones Negative (Negative) 01/26/18 10:15 Urine Blood Negative (Negative) 01/26/18 10:15 Urine Nitrite Negative (Negative) 01/26/18 10:15 Urine Bilirubin Negative (Negative) 01/26/18 10:15 Urine Urobilinogen 3.0 mg/dL (<2.0) 01/26/18 10:15 Ur Leukocyte Esterase Negative (Negative) 01/26/18 10:15 Vancomycin Trough 12.1 ug/mL 01/29/18 09:05 Microbiology 01/26/18 08:05 Blood Blood Culture - Preliminary No Growth after 96 hours 01/29/18 17:25 Groin Gram Stain - Preliminary 01/29/18 17:25 Groin Wound Culture - Preliminary 01/29/18 17:25 Groin Anaerobic Culture - Preliminary Assessment and Plan (1) Cellulitis of groin Narrative/Plan: 57-year-old male who does have obesity but denies diabetes presents to Hospital significant pain and swelling to the right groin area. Is having significant fevers chills and malaise and constantly presented. There is evidence of the distinct swelling and infection in this region of the right hemiscrotum. There is no evidence of any torsion or drainable abscess at this point in time. The patient likely has an extensive cellulitis. There is no evidence of any enhancement of the fascial planes without evidence of necrotizing fasciitis. The patient does not have a known history of MRSA infection but does have ALLERGIES to several antibiotics. To enhance the coverage for this area insuring that were covering for enteric pathogens, anaerobes as well as staph and strep antibiotic therapy with ertapenem and vancomycin will be utilized for now. For comfort warm or cold packs and the applied. Ketorolac is also offered in hopes that we can improve his significant amount of pain. The area will be monitored and if he develops evidence of phlegmon or abscess then surgical intervention may be required. Patient's blood sugar was mildly elevated 137 if he has any further elevated blood glucose with further evaluate for the possibility of diabetes. 2017 by the patient be feeling slightly better, still having discomfort but is not having fever and his chills have resolved. At this time we'll continue with current antibiotic therapy of ertapenem and vancomycin pending further culture results. Ketorolac has helped his pain. Urological evaluation has occurred with no need for surgical intervention at this time. He may need repeat imaging studies at the site changes over time which may give us the opportunity for drainage if abscess develops. He is more comfortable today. 01/28/2018 patient does feel somewhat better today. Fevers and chills have remained resolved. However did have a fever last night and had excellent response to the ketorolac. Follow-up ultrasound was requested for tomorrow to evaluate if the site is developed into an abscess that will require surgical drainage from urology. Leukocytosis is showing some improvement and will be monitored. Patient is showing some clinical improvement we'll continue with the ertapenem and vancomycin at this time pending further intervention. 01/29/2018 patient now feels considerably better that the site has spontaneously drained, he has been seen by urology and there is no plans for surgical intervention of any type. We'll continue with warm compress to facilitate drainage from this site. Patient continues warm showers also to help with the drainage. Gentle manipulation will help further drainage. A culture was sent which is going to help with the course of antibiotic therapy and discharge which hopefully we can arrange for tomorrow once we have a bit more data. He does have a leukocytosis and somewhat persistent but with the drainage would expect this to improve. 01/30/2018 patient is now with marked improvement and anxious for discharge to home, this will be arranged. At first moxifloxacin was sent to pharmacy but denied by insurance so Levaquin and flagyl was sent and allowed. should follow up with me in 2 weeks if possible. Emily still need surgical drainage if does not progress to resolution. Status: Acute Code(s): L03.314 - CELLULITIS OF GROIN SNOMED Code(s): 50739331 (2) BMI 38.0-38.9,adult Status: Chronic Code(s): Z68.38 - BODY MASS INDEX (BMI) 38.0-38.9, ADULT SNOMED Code(s): 316661491 (3) Aortic aneurysm and dissection Status: Chronic Code(s): I71.00 - DISSECTION OF UNSPECIFIED SITE OF AORTA SNOMED Code(s): 305429143 (4) Leukocytosis Status: Acute Code(s): D72.829 - ELEVATED WHITE BLOOD CELL COUNT, UNSPECIFIED SNOMED Code(s): 171289073
== END 2018-01-30 16:45 | disposition home or self-care (01) | DRG 603 ==
LOC: EC 07:19 → 4MS4W 10:23 → OBSVTOIN 01-29 13:30
PROVIDERS: ADMIT Hospitalist; ATTEND Hospitalist
DX: L03.314 Cellulitis of groin (principal); E66.9 Obesity, unspecified; L02.214 Cutaneous abscess of groin; E78.5 Hyperlipidemia, unspecified; J44.9 Chronic obstructive pulmonary disease, unspecified; K21.9 Gastro-esophageal reflux disease without esophagitis; I10 Essential (primary) hypertension; M19.91 Primary osteoarthritis, unspecified site; G47.33 Obstructive sleep apnea (adult) (pediatric); Z68.37 Body mass index [BMI] 37.0-37.9, adult; F17.210 Nicotine dependence, cigarettes, uncomplicated; Z71.6 Tobacco abuse counseling; Z79.02 Long term (current) use of antithrombotics/antiplatelets; Z79.51 Long term (current) use of inhaled steroids; Z79.899 Other long term (current) drug therapy; Z85.828 Personal history of other malignant neoplasm of skin; Z86.73 Personal history of transient ischemic attack (TIA), and cerebral infarction without residual deficits; Z98.62 Peripheral vascular angioplasty status; Z90.49 Acquired absence of other specified parts of digestive tract; Z86.79 Personal history of other diseases of the circulatory system; Z87.81 Personal history of (healed) traumatic fracture; Z88.0 Allergy status to penicillin; Z88.8 Allergy status to other drugs, medicaments and biological substances; Z82.5 Family history of asthma and other chronic lower respiratory diseases
CPT/HCPCS: 36415; 74177; 76870; 80048; 80053; 80202; 81003; 82150; 82565; 83036; 83605; 83690; 85025; 85652; 87040; 87070; 87075; 87205; 93975; 94640; 96365; 96368; 96375; 99285

== ENCOUNTER → 2018-02-12 | Outpatient (CLI) | payer OTHER ==
--- NOTE | 2018-02-12 10:19 | US ---
EXAMINATION TYPE: US groin RT DATE OF EXAM: 02/12/2018 COMPARISON: 01/29/2018 CLINICAL HISTORY: L03.314 Cellulitis. Right groin cellulitis, hardness (lump) right groin posterior t o right scrotal sac Multiple lymph nodes right groin with largest = 1.6 x 0.6 x 1.4cm. These are nonenlarged. Scanned p osterior to right scrotal sac (patient's area of concern) fluid collection = 1.6 x 0.7cm that is avas cular. The recently seen subcutaneous edema has improved in the interim. IMPRESSION: Small 1.6 x 0.7 cm new focal fluid collection in the region of the previously seen cellu litis (sonographically improved edema) that may represent residual fluid collection from prior absces s/seroma as there is no peripheral vascularity to suggest abscess sonographically.
== END | disposition home or self-care (01) ==
LOC: RADUSWWP 09:36
PROVIDERS: ATTEND Surgery Plastic and Reconstructive Surgery
DX: L03.314 Cellulitis of groin (principal); Z88.0 Allergy status to penicillin

== ENCOUNTER 2018-03-22 16:05 | Inpatient (IN) | payer OTHER ==
[2018-03-22] MEDS ORDERED: MORPHINE SULFATE 4 MG/ML SYRINGE IVP STA (17:10)
[2018-03-22] MEDS ORDERED: SODIUM CHLORIDE 0.9% 1,000 ML IV ONE (17:10)
--- NOTE | 2018-03-22 17:15 | ED ---
General Adult HPI - General Chief complaint: Skin/Abscess/Foreign Body Stated complaint: Groin Infection Time Seen by Provider: 03/22/18 16:45 Source: patient Mode of arrival: ambulatory Limitations: no limitations - History of Present Illness Initial comments: Patient is a 57-year-old, nondiabetic male who presents with a chief complaint of right-sided groin pain and swelling. Patient states that he was admitted to the hospital in the middle of January and had had an abscess drained in that area. He states that this was performed by Dr. Baez. The patient states that over the last 2 days, the pain and swelling has increased after reportedly doing well from his previous surgery. The patient cannot identify an inciting incident. Pain is aggravated by walking, and palpation. There are no alleviating factors. Patient been taking Aleve without pain relief. Patient admits to some nausea but has not vomited, he denies chest pain or shortness of breath. Patient denies fever or chills at this time. - Related Data Home Medications Medication Instructions Recorded Confirmed Clopidogrel [Plavix] 75 mg PO DAILY 02/23/14 01/26/18 Carvedilol [Coreg] 12.5 mg PO BID 08/25/15 01/26/18 Losartan [Cozaar] 50 mg PO DAILY 05/16/16 01/26/18 Atorvastatin Calcium [Lipitor] 80 mg PO HS 09/07/16 01/26/18 Montelukast [Singulair] 10 mg PO DAILY 05/11/17 01/26/18 Multivitamins, Thera [Multivitamin 1 tab PO DAILY 05/11/17 01/26/18 (formulary)] Mometasone/Formoterol [Dulera 100 1 puff INHALATION RT-BID 05/12/17 01/26/18 Mcg/5 Mcg Inhaler] Umeclidinium [place] [Incruse 1 puff INHALATION RT-DAILY 05/12/17 01/26/18 Ellipta] Sertraline [Zoloft] 100 mg PO DAILY 01/26/18 01/26/18 Previous Rx's Medication Instructions Recorded Magnesium Oxide [Magox 400] 400 mg PO DAILY #60 tablet 09/19/16 Omeprazole 40 mg PO ALIX-JOSE M #30 capsule. 11/13/16 Nicotine 21Mg/24Hr Patch [Habitrol] 1 patch TRANSDERM DAILY #30 patch 01/29/18 Levofloxacin [Levaquin] 500 mg PO DAILY #14 tab 01/30/18 metroNIDAZOLE [Flagyl] 500 mg PO BID #56 tab 01/30/18 Allergies Allergy/AdvReac Type Severity Reaction Status Date / Time amoxicillin [Amoxicillin] Allergy Rash/Hives Verified 03/22/18 16:13 enalapril maleate Allergy Rash/Hives Verified 03/22/18 16:13 [From Vasotec] enalaprilat dihydrate Allergy Rash/Hives Verified 03/22/18 16:13 [From Vasotec] Penicillins Allergy Rash/Hives Verified 03/22/18 16:13 Review of Systems ROS Statement: Those systems with pertinent positive or pertinent negative responses have been documented in the HPI. ROS Other: All systems not noted in ROS Statement are negative. Constitutional: Denies: fever Genitourinary: Reports: testicular pain Musculoskeletal: Reports: other (Groin swelling and tenderness) Past Medical History Past Medical History: Cancer, COPD, CVA/TIA, GERD/Reflux, Hyperlipidemia, Hypertension, Osteoarthritis (OA), Skin Disorder, Sleep Apnea/CPAP/BIPAP, Vascular Disorder Additional Past Medical History / Comment(s): Hx. TIA 2013, uses cpap, hx diverticulitis, skin cancer, aortic aneurysm, frequent nausea, drainage of buttock abscess and incision and drainage of skin abscesses History of Any Multi-Drug Resistant Organisms: None Reported Past Surgical History: Bowel Resection, Orthopedic Surgery Additional Past Surgical History / Comment(s): RT ROTATOR CUFF REPAIR, BONE SPUR REMOVED RT SHOULDER, I & D BOIL LT BUTTOCK, FEM POP BYPASS rt leg, surgery fx neck (pins and plates), 08-26-15 lap lysis of adhesions, lap reduction of incarcerated ing hernia with ventral hernia repair w/mesh. AAA repair Past Anesthesia/Blood Transfusion Reactions: No Reported Reaction Additional Past Anesthesia/Blood Transfusion Reaction / Comment(s): surgery for fx neck -has pins and plates-pt. states can move neck forward and back, side to side ok (this was his last surgery). Past Psychological History: No Psychological Hx Reported Smoking Status: Current every day smoker Past Alcohol Use History: None Reported Past Drug Use History: None Reported - Past Family History Mother Family Medical History: COPD Additional Family Medical History / Comment(s): 2011 at age 78. Father Family Medical History: No Reported History Additional Family Medical History / Comment(s): in 2017 at age 92 General Exam Limitations: no limitations General appearance: alert, in no apparent distress Head exam: Present: atraumatic, normocephalic Eye exam: Present: normal appearance ENT exam: Present: normal exam Neck exam: Present: normal inspection Respiratory exam: Present: normal lung sounds bilaterally. Absent: respiratory distress, wheezes Cardiovascular Exam: Present: regular rate, normal rhythm GI/Abdominal exam: Present: soft. Absent: distended, tenderness Rectal exam: Present: deferred exam: Present: testicular tenderness (Right-sided), scrotal swelling, circumcision, other (There is fullness to palpation of the scrotum. I do not feel any fluctuance. The groin is swollen, erythematous, and indurated. It is exquisitely tender to palpation.). Absent: urethral discharge Extremities exam: Present: normal inspection Back exam: Present: normal inspection Neurological exam: Present: alert, oriented X3 Psychiatric exam: Present: normal affect, normal mood Skin exam: Present: warm, dry, intact Course Vital Signs 03/22/18 03/22/18 16:10 19:27 Temperature 98.4 F Pulse Rate 85 78 Respiratory 18 16 Rate Blood Pressure 116/79 137/71 O2 Sat by Pulse 95 96 Oximetry Medical Decision Making - Medical Decision Making Patient presents with a chief complaint of right-sided groin pain and swelling. On initial evaluation, vitals are stable, patient is no acute distress. The area is exquisitely tender to palpation. Patient required incision and drainage of an abscess in January. He states that this is in the same area. Patient be evaluated with basic labs, blood cultures, lactic acid, and computed tomography scan of the abdomen and pelvis. Patient is nondiabetic however fourniers gangrene cannot be excluded at this time. 7:35 PM Lab evaluation of this patient shows a white blood cell count of 14,000, labs are otherwise unremarkable. Computed tomography scan of the abdomen and pelvis shows evidence of an abscess in the right groin with extension to the scrotum. There is no CT evidence of necrotizing fasciitis or other gas forming bacterial infection. Case was discussed with Dr. Lopez who accepts admission. Patient was started on vancomycin, Rocephin, and clindamycin. Patient has a penicillin ALLERGY. Further management per the surgical team. Care plan was discussed with the patient, he is agreeable at this time. EKG performed at 1730 shows normal sinus rhythm with a rate of 75 bpm. EKG is otherwise unremarkable. - Lab Data Result diagrams: 03/22/18 18:10 03/22/18 18:10 Lab Results 03/22/18 03/22/18 03/22/18 Range/Units 18:10 18:10 18:10 WBC 14.0 H (3.8-10.6) k/uL RBC 5.22 (4.30-5.90) m/uL Hgb 16.4 D (13.0-17.5) gm/dL Hct 48.5 (39.0-53.0) % MCV 92.9 (80.0-100.0) fL MCH 31.4 (25.0-35.0) pg MCHC 33.8 (31.0-37.0) g/dL RDW 13.4 (11.5-15.5) % Plt Count 330 (150-450) k/uL Neutrophils % 71 % Lymphocytes % 18 % Monocytes % 6 % Eosinophils % 3 % Basophils % 1 % Neutrophils # 10.0 H (1.3-7.7) k/uL Lymphocytes # 2.4 (1.0-4.8) k/uL Monocytes # 0.8 (0-1.0) k/uL Eosinophils # 0.4 (0-0.7) k/uL Basophils # 0.1 (0-0.2) k/uL PT (9.0-12.0) sec INR (<1.2) Sodium 137 (137-145) mmol/L Potassium 4.5 (3.5-5.1) mmol/L Chloride 103 (98-107) mmol/L Carbon Dioxide 24 (22-30) mmol/L Anion Gap 10 mmol/L BUN 11 (9-20) mg/dL Creatinine 0.90 (0.66-1.25) mg/dL Est GFR (CKD-EPI)AfAm >90 (>60 ml/min/1.73 sqM) Est GFR (CKD-EPI)NonAf >90 (>60 ml/min/1.73 sqM) Glucose 90 (74-99) mg/dL Plasma Lactic Acid Maximilian 1.2 (0.7-2.0) mmol/L Calcium 9.2 (8.4-10.2) mg/dL 03/22/18 Range/Units 18:10 WBC (3.8-10.6) k/uL RBC (4.30-5.90) m/uL Hgb (13.0-17.5) gm/dL Hct (39.0-53.0) % MCV (80.0-100.0) fL MCH (25.0-35.0) pg MCHC (31.0-37.0) g/dL RDW (11.5-15.5) % Plt Count (150-450) k/uL Neutrophils % % Lymphocytes % % Monocytes % % Eosinophils % % Basophils % % Neutrophils # (1.3-7.7) k/uL Lymphocytes # (1.0-4.8) k/uL Monocytes # (0-1.0) k/uL Eosinophils # (0-0.7) k/uL Basophils # (0-0.2) k/uL PT 10.4 (9.0-12.0) sec INR 1.1 (<1.2) Sodium (137-145) mmol/L Potassium (3.5-5.1) mmol/L Chloride (98-107) mmol/L Carbon Dioxide (22-30) mmol/L Anion Gap mmol/L BUN (9-20) mg/dL Creatinine (0.66-1.25) mg/dL Est GFR (CKD-EPI)AfAm (>60 ml/min/1.73 sqM) Est GFR (CKD-EPI)NonAf (>60 ml/min/1.73 sqM) Glucose (74-99) mg/dL Plasma Lactic Acid Maximilian (0.7-2.0) mmol/L Calcium (8.4-10.2) mg/dL Disposition Clinical Impression: Groin abscess, Leukocytosis Disposition: ADMITTED IP TO THIS HOSP Condition: Good Is patient prescribed a controlled substance at d/c from ED?: No Referrals: Jackson Barahona DO [Primary Care Provider] - 1-2 days Decision to Admit Reason: Admit from EC
[2018-03-22 18:33] LABS: Basophils # (A) 0.1 k/uL (0-0.2); Basophils % (A) 1 %; Eosinophils # (A) 0.4 k/uL (0-0.7); Eosinophils % (A) 3 %; HCT 48.5 % (39.0-53.0); Lymphocytes # (A) 2.4 k/uL (1.0-4.8); Lymphocytes % (A) 18 %; MCH 31.4 pg (25.0-35.0); MCHC 33.8 g/dL (31.0-37.0); MCV 92.9 fL (80.0-100.0); Mean Platelet Volume 6.6; Monocytes # (A) 0.8 k/uL (0-1.0); Monocytes % (A) 6 %; Neutrophils % (A) 71 %; Platelet Count 330 k/uL (150-450); RBC 5.22 m/uL (4.30-5.90); RDW 13.4 % (11.5-15.5)
[2018-03-22 18:39] LABS: HGB 16.4 gm/dL (13.0-17.5); INR 1.1 (<1.2); Prothrombin Time 10.4 sec (9.0-12.0)
[2018-03-22 18:47] LABS: Anion Gap 10 mmol/L; Blood Urea Nitrogen 11 mg/dL (9-20); Calcium 9.2 mg/dL (8.4-10.2); Carbon Dioxide 24 mmol/L (22-30); Chloride 103 mmol/L (98-107); Glucose 90 mg/dL (74-99); Potassium 4.5 mmol/L (3.5-5.1); Sodium 137 mmol/L (137-145)
--- NOTE | 2018-03-22 19:12 | CT ---
EXAMINATION TYPE: CT abdomen pelvis w con DATE OF EXAM: 03/22/2018 COMPARISON: 01/26/2018 HISTORY: Right groin pain CT DLP: 1893 mGycm Automated exposure control for dose reduction was used. TECHNIQUE: Helical acquisition of images was performed from the lung bases through the pelvis. CONTRAST: Performed without Oral Contrast and with IV Contrast, patient injected with 100 mL of Isovue 300. FINDINGS: L there is mild interstitial infiltrate at the right posterior lung base. Heart size is normal. Liver and spleen appear normal. Bile ducts are not dilated. There is no pancreatic mass. Gallbladder appears normal. There is aortoiliac stent noted. There is no adrenal mass. Kidneys show satisfactory contrast opacification. There is no hydronephrosi s. There is no retroperitoneal adenopathy. There is no ascites. Abdominal aorta is atheromatous. Blad jose francisco distends smoothly. There is no pelvic mass. There is no intestinal wall thickening. There are no dilated loops. Appendix appears normal. There is 3.8 cm fusiform lower abdominal aortic aneurysm. The re is mild umbilical hernia that contains fat. There are spondylotic changes in the lumbar spine. There is some fat stranding in the right scrotal region. There is some fluid in the upper right scrot um. This measures 4.4 x 2.5 cm. IMPRESSION: MILD ABDOMINAL AORTIC ANEURYSM WITHOUT CHANGE. MINIMAL INTERSTITIAL INFILTRATE OR ATELECTASIS AT THE RIGHT LUNG BASE COMPARED TO OLD EXAM. Fluid and inflammatory changes in the upper right scrotum region. Correlation with the physical exam is recommended. There was fat stranding on the old CT scan that is similar to the exam today. There i s new fluid collection that could be related to an abscess.
[2018-03-22] MEDS ORDERED: HYDROcodone/APAP 5-325MG 1 EACH TAB PO STA (19:28)
[2018-03-22] MEDS ORDERED: CLINDAMYCIN 600 MG in DEXTROSE 5% IN WATER 50 ML IVPB STA ×2 (19:28)
[2018-03-22] MEDS ORDERED: VANCOMYCIN 2,000 MG in SODIUM CHLORIDE 0.9% 500 ML IVPB STA (19:28)
[2018-03-22] MEDS ORDERED: NALOXONE 0.4 MG/ML 1 ML VIAL IV PRN (19:32)
[2018-03-22] MEDS ORDERED: cefTRIAXone IN SWFI 1,000 MG/10 ML SYRINGE IVP SCH (20:00)
[2018-03-22] MEDS: SODIUM CHLORIDE 0.9% 1,000 ML IV SCH (21:13)
[2018-03-22] MEDS: MORPHINE SULFATE 4 MG/ML SYRINGE IV PRN (22:35)
[2018-03-23] MEDS: MORPHINE SULFATE 4 MG/ML SYRINGE IV PRN ×4 (02:45→19:57)
[2018-03-23] MEDS: VANCOMYCIN 2,000 MG in SODIUM CHLORIDE 0.9% 500 ML IVPB SCH ×2 (06:22→17:04)
[2018-03-23] MEDS: SODIUM CHLORIDE 0.9% 1,000 ML IV SCH ×2 (06:22→17:05)
[2018-03-23 07:42] LABS: Basophils # (A) 0.1 k/uL (0-0.2); Basophils % (A) 0 %; Eosinophils # (A) 0.3 k/uL (0-0.7); Eosinophils % (A) 2 %; HCT 44.5 % (39.0-53.0); HGB 14.7 gm/dL (13.0-17.5); Lymphocytes # (A) 1.5 k/uL (1.0-4.8); Lymphocytes % (A) 12 %; MCH 31.3 pg (25.0-35.0); MCHC 33.1 g/dL (31.0-37.0); MCV 94.4 fL (80.0-100.0); Mean Platelet Volume 6.5; Monocytes # (A) 0.8 k/uL (0-1.0); Monocytes % (A) 6 %; Neutrophils # (A) 10.3 k/uL (1.3-7.7); Neutrophils % (A) 79 %; Platelet Count 277 k/uL (150-450); RBC 4.71 m/uL (4.30-5.90); RDW 13.7 % (11.5-15.5); WBC 13.1 k/uL (3.8-10.6)
[2018-03-23 08:19] LABS: Anion Gap 6 mmol/L; Blood Urea Nitrogen 10 mg/dL (9-20); Calcium 8.6 mg/dL (8.4-10.2); Carbon Dioxide 24 mmol/L (22-30); Chloride 107 mmol/L (98-107); Glucose 105 mg/dL (74-99); Potassium 4.3 mmol/L (3.5-5.1); Sodium 137 mmol/L (137-145)
--- NOTE | 2018-03-23 08:53 | P.GSHP ---
History of Present Illness H&P Date: 03/23/18 Chief Complaint: Left groin abscess This a 57-year-old male who presented to the emergency room with complaints of left groin pain and swelling. Patient has a history of left groin abscess. He was initially treated by Dr. Campbell in January of this year. Patient states he had an incision and drainage performed. Patient known to me a performed a low anterior section approximately 8 years ago. Past Medical History Past Medical History: Cancer, COPD, CVA/TIA, GERD/Reflux, Hyperlipidemia, Hypertension, Osteoarthritis (OA), Skin Disorder, Sleep Apnea/CPAP/BIPAP, Vascular Disorder Additional Past Medical History / Comment(s): Hx. TIA 2013, uses cpap, hx diverticulitis, skin cancer, aortic aneurysm(sx done stated has stent), past abscess and incision and drainage of skin abscess rt groin History of Any Multi-Drug Resistant Organisms: None Reported Past Surgical History: Bowel Resection, Orthopedic Surgery Additional Past Surgical History / Comment(s): RT ROTATOR CUFF REPAIR, BONE SPUR REMOVED RT SHOULDER, I & D BOIL LT BUTTOCK, FEM POP BYPASS rt leg, surgery fx neck (pins and plates), 08-26-15 lap lysis of adhesions, lap reduction of incarcerated lt ing hernia with ventral hernia repair w/mesh. (AAA repair has stent) Past Anesthesia/Blood Transfusion Reactions: No Reported Reaction Additional Past Anesthesia/Blood Transfusion Reaction / Comment(s): surgery for fx neck -has pins and plates-pt. states can move neck forward and back, side to side ok (this was his last surgery). Smoking Status: Current every day smoker - Past Family History Mother Family Medical History: COPD Additional Family Medical History / Comment(s): 2011 at age 78. Father Family Medical History: No Reported History Additional Family Medical History / Comment(s): in 2016 at age 92 Medications and Allergies Home Medications Medication Instructions Recorded Confirmed Type Clopidogrel [Plavix] 75 mg PO HS 02/23/14 03/22/18 History Carvedilol [Coreg] 12.5 mg PO BID 08/25/15 03/22/18 History Losartan [Cozaar] 50 mg PO DAILY 05/16/16 03/22/18 History Atorvastatin Calcium [Lipitor] 80 mg PO HS 09/07/16 03/22/18 History Magnesium Oxide [Magox 400] 400 mg PO DAILY #60 tablet 09/19/16 03/22/18 Rx Omeprazole 40 mg PO AC-BRKFST #30 capsule. 11/13/16 03/22/18 Rx Montelukast [Singulair] 10 mg PO DAILY 05/11/17 03/22/18 History Multivitamins, Thera [Multivitamin 1 tab PO DAILY 05/11/17 03/22/18 History (formulary)] Mometasone/Formoterol [Dulera 100 1 puff INHALATION RT-BID 05/12/17 03/22/18 History Mcg/5 Mcg Inhaler] Sertraline [Zoloft] 100 mg PO DAILY 01/26/18 03/22/18 History Nystatin 100,000Unit/gm Cream 1 applic TOPICAL TID 03/22/18 03/22/18 History [Mycostatin Cream] Triamcinolone 0.1% Cream [Kenalog 1 applic TOPICAL TID 03/22/18 03/22/18 History 0.1% Cream] busPIRone HCL 22.5 mg PO BID 03/22/18 03/22/18 History Allergies Allergy/AdvReac Type Severity Reaction Status Date / Time amoxicillin [Amoxicillin] Allergy Rash/Hives Verified 03/22/18 20:14 enalapril maleate Allergy Rash/Hives Verified 03/22/18 20:14 [From Vasotec] enalaprilat dihydrate Allergy Rash/Hives Verified 03/22/18 20:14 [From Vasotec] Penicillins Allergy Rash/Hives Verified 03/22/18 20:14 Surgical - Exam Vital Signs Temp Pulse Resp BP Pulse Ox 98.4 F 85 18 116/79 95 03/22/18 16:10 03/22/18 16:10 03/22/18 16:10 03/22/18 16:10 03/22/18 16:10 - General well developed, no distress - Eyes PERRL - ENT normal pinna - Neck no masses - Respiratory normal expansion - Cardiovascular Rhythm: regular - Abdomen Left groin induration near the ilioinguinal ligament with some extension toward scrotum. Abdomen: soft, non tender Results - Labs 03/23/18 07:13 03/23/18 07:13 Abnormal Lab Results - Last 24 Hours (Table) 08/05/3003/23/18 03/23/18 Range/Units 18:10 07:13 07:13 WBC 14.0 H 13.1 H (3.8-10.6) k/uL Neutrophils # 10.0 H 10.3 H (1.3-7.7) k/uL Glucose 105 H (74-99) mg/dL Diabetes panel 03/22/18 03/23/18 Range/Units 18:10 07:13 Sodium 137 137 (137-145) mmol/L Potassium 4.5 4.3 (3.5-5.1) mmol/L Chloride 103 107 (98-107) mmol/L Carbon Dioxide 24 24 (22-30) mmol/L BUN 11 10 (9-20) mg/dL Creatinine 0.90 0.91 (0.66-1.25) mg/dL Glucose 90 105 H (74-99) mg/dL Calcium 9.2 8.6 (8.4-10.2) mg/dL Calcium panel 03/22/18 03/23/18 Range/Units 18:10 07:13 Calcium 9.2 8.6 (8.4-10.2) mg/dL Pituitary panel 03/22/18 03/23/18 Range/Units 18:10 07:13 Sodium 137 137 (137-145) mmol/L Potassium 4.5 4.3 (3.5-5.1) mmol/L Chloride 103 107 (98-107) mmol/L Carbon Dioxide 24 24 (22-30) mmol/L BUN 11 10 (9-20) mg/dL Creatinine 0.90 0.91 (0.66-1.25) mg/dL Glucose 90 105 H (74-99) mg/dL Calcium 9.2 8.6 (8.4-10.2) mg/dL Adrenal panel 03/22/18 03/23/18 Range/Units 18:10 07:13 Sodium 137 137 (137-145) mmol/L Potassium 4.5 4.3 (3.5-5.1) mmol/L Chloride 103 107 (98-107) mmol/L Carbon Dioxide 24 24 (22-30) mmol/L BUN 11 10 (9-20) mg/dL Creatinine 0.90 0.91 (0.66-1.25) mg/dL Glucose 90 105 H (74-99) mg/dL Calcium 9.2 8.6 (8.4-10.2) mg/dL Assessment and Plan Assessment: Left groin induration with possible abscess. Patient has improved with IV antibiotic. He'll be reassessed tomorrow. If there is evidence of a abscess he was taken to the OR for incision and drainage.
[2018-03-23] MEDS: LOSARTAN 50 MG TAB PO SCH (10:41)
[2018-03-23] MEDS: CARVEDILOL 12.5 MG TAB PO SCH ×2 (10:42→17:04)
[2018-03-23] MEDS: HEPARIN SODIUM,PORCINE 5,000 UNIT/ML 1 ML VIAL SQ SCH ×2 (10:42→19:58)
[2018-03-23] MEDS: PANTOPRAZOLE 40 MG TABLET PO SCH (10:42)
[2018-03-23] MEDS: MONTELUKAST 10 MG TAB PO SCH (10:42)
[2018-03-23] MEDS: SERTRALINE 100 MG TAB PO SCH (10:42)
[2018-03-23] MEDS: busPIRone HCl 5 MG TAB PO SCH ×2 (11:46→19:58)
[2018-03-23] MEDS: MULTIVITAMINS, THERA 1 EACH TAB PO SCH (11:48)
[2018-03-23] MEDS: MAGNESIUM OXIDE 400 MG TAB PO SCH (11:48)
[2018-03-23] MEDS: HYDROcodone/APAP 5-325MG 1 EACH TAB PO PRN ×2 (11:48→18:49)
[2018-03-23] MEDS: SYMBICORT 80-4.5 MCG INHALER INHALATION SCH ×2 (12:16→19:28)
[2018-03-23] MEDS: TRIAMCINOLONE 0.1% CREAM 80 GM TUBE TOPICAL SCH ×2 (15:04→19:59)
[2018-03-23] MEDS: NYSTATIN 100,000UNIT/GM CREAM 30 GM TUBE TOPICAL SCH ×2 (15:04→19:59)
[2018-03-23] MEDS: ATORVASTATIN 80 MG TAB PO SCH (19:58)
--- NOTE | 2018-03-23 21:33 | P.CONS ---
History of Present Illness - History of Present Illness this is a pleasant 57 yo M with pmh of CVA/TIA, GERD, Hypertension , Hyperlipidemia, osteoarthritis, sleep apnea on BiPAP/CPAP, he is s/p bowel resection who was admitted to the surgical team for right groin abscess, pt is complaining from right groin erythema and swelling and tenderness but states it is better than on admission , there is what looks like a fistula, pt is kept NPO over mid night for possible surgical intervention in the morning Review of Systems CONSTITUTIONAL: No fever, no malaise, no fatigue. HEENT: No recent visual problems or hearing problems. Denied any sore throat. CARDIOVASCULAR: No orthopnea, PND, no palpitations, no syncope. PULMONARY: No shortness of breath, no cough, no hemoptysis. GASTROINTESTINAL: No diarrhea, no nausea, no vomiting, no abdominal pain. Normoactive bowel sounds. NEUROLOGICAL: No headaches, no weakness, no numbness. HEMATOLOGICAL: Denies any bleeding or petechiae. GENITOURINARY: Denies any burning micturition, frequency, or urgency. MUSCULOSKELETAL/RHEUMATOLOGICAL: Denies any joint pain, swelling, or any muscle pain. ENDOCRINE: Denies any polyuria or polydipsia. Past Medical History Past Medical History: Cancer, COPD, CVA/TIA, GERD/Reflux, Hyperlipidemia, Hypertension, Osteoarthritis (OA), Skin Disorder, Sleep Apnea/CPAP/BIPAP, Vascular Disorder Additional Past Medical History / Comment(s): Hx. TIA 2013, uses cpap, hx diverticulitis, skin cancer, aortic aneurysm(sx done stated has stent), past abscess and incision and drainage of skin abscess rt groin History of Any Multi-Drug Resistant Organisms: None Reported Past Surgical History: Bowel Resection, Orthopedic Surgery Additional Past Surgical History / Comment(s): RT ROTATOR CUFF REPAIR, BONE SPUR REMOVED RT SHOULDER, I & D BOIL LT BUTTOCK, FEM POP BYPASS rt leg, surgery fx neck (pins and plates), 08-26-16 lap lysis of adhesions, lap reduction of incarcerated lt ing hernia with ventral hernia repair w/mesh. (AAA repair has stent) Past Anesthesia/Blood Transfusion Reactions: No Reported Reaction Additional Past Anesthesia/Blood Transfusion Reaction / Comm: surgery for fx neck -has pins and plates-pt. states can move neck forward and back, side to side ok (this was his last surgery). Smoking Status: Current every day smoker - Past Family History Mother Family Medical History: COPD Additional Family Medical History / Comment(s): 2011 at age 78. Father Family Medical History: No Reported History Additional Family Medical History / Comment(s): in 2017 at age 92 Medications and Allergies Home Medications Medication Instructions Recorded Confirmed Type Clopidogrel [Plavix] 75 mg PO HS 02/23/14 03/22/18 History Carvedilol [Coreg] 12.5 mg PO BID 08/25/15 03/22/18 History Losartan [Cozaar] 50 mg PO DAILY 05/16/16 03/22/18 History Atorvastatin Calcium [Lipitor] 80 mg PO HS 09/07/16 03/22/18 History Magnesium Oxide [Magox 400] 400 mg PO DAILY #60 tablet 09/19/16 03/22/18 Rx Omeprazole 40 mg PO AC-BRKFST #30 capsule. 11/13/16 03/22/18 Rx Montelukast [Singulair] 10 mg PO DAILY 05/11/17 03/22/18 History Multivitamins, Thera [Multivitamin 1 tab PO DAILY 05/11/17 03/22/18 History (formulary)] Mometasone/Formoterol [Dulera 100 1 puff INHALATION RT-BID 05/12/17 03/22/18 History Mcg/5 Mcg Inhaler] Sertraline [Zoloft] 100 mg PO DAILY 01/26/18 03/22/18 History Nystatin 100,000Unit/gm Cream 1 applic TOPICAL TID 03/22/18 03/22/18 History [Mycostatin Cream] Triamcinolone 0.1% Cream [Kenalog 1 applic TOPICAL TID 03/22/18 03/22/18 History 0.1% Cream] busPIRone HCL 22.5 mg PO BID 03/22/18 03/22/18 History Allergies Allergy/AdvReac Type Severity Reaction Status Date / Time amoxicillin [Amoxicillin] Allergy Rash/Hives Verified 03/22/18 20:14 enalapril maleate Allergy Rash/Hives Verified 03/22/18 20:14 [From Vasotec] enalaprilat dihydrate Allergy Rash/Hives Verified 03/22/18 20:14 [From Vasotec] Penicillins Allergy Rash/Hives Verified 03/22/18 20:14 Physical Exam Vitals: Vital Signs Temp Pulse Pulse Resp BP BP Pulse Ox 03/23/18 16:00 64 20 03/23/18 15:00 96.7 F L 64 20 115/66 94 L 03/23/18 08:00 71 18 03/23/18 07:00 98.3 F 71 18 147/86 94 L 03/22/18 21:30 98.1 F 79 20 153/95 95 03/22/18 20:11 71 16 95 03/22/18 19:27 78 16 137/71 96 Intake and Output 03/23/18 03/23/18 03/23/18 06:59 14:59 22:59 Intake Total 0 240 Output Total 800 275 Balance -800 240 -275 Intake: Oral 0 240 Output: Urine 800 275 Other: # Voids 2 1 # Bowel Movements 0 Weight 116 kg GENERAL: The patient is alert and oriented x3, not in any acute distress. Well developed, well nourished. HEENT: Pupils are round and equally reacting to light. EOMI. No scleral icterus. No conjunctival pallor. Normocephalic, atraumatic. No pharyngeal erythema. No thyromegaly. CARDIOVASCULAR: S1 and S2 present. No murmurs, rubs, or gallops. PULMONARY: Chest is clear to auscultation, no wheezing or crackles. ABDOMEN: Soft, nontender, nondistended, normoactive bowel sounds. No palpable organomegaly. MUSCULOSKELETAL: No joint swelling or deformity. EXTREMITIES: No cyanosis, clubbing, or pedal edema. -right groin abscess, with right groin erythema and swelling and tenderness, there is fistula like opening in the right groin as well NEUROLOGICAL: Gross neurological examination did not reveal any focal deficits. SKIN: No rashes. Results CBC & Chem 7: 03/23/18 07:13 03/23/18 07:13 Labs: Abnormal Lab Results - Last 24 Hours (Table) 03/23/18 03/23/18 Range/Units 07:13 07:13 WBC 13.1 H (3.8-10.6) k/uL Neutrophils # 10.3 H (1.3-7.7) k/uL Glucose 105 H (74-99) mg/dL Microbiology - Last 24 Hours (Table) 03/22/18 22:44 Blood Culture Gram Stain - Preliminary Blood 03/22/18 18:10 Blood Culture - Final Blood Assessment and Plan Assessment: Right Groin abscess with surrounding cellulitis CVA/TIA GERD Hypertension Hyperlipidemia osteoarthritis sleep apnea on BiPAP/CPAP he is s/p bowel resection Plan: pt is a pleasant 57 yo M who presents under surgery service team for right groing abscess and fistula, continue with the same treatment , continue with symptomatic treatment , resume home medication , monitor lytes and vitals including glucose , c/w iv fluids, infectious disease consult is appreciated . c/w same antibioitc pt is currently on meropenem . GI and DVT prophylaxis , further recommendation based upon pt clinical course -Plavix is on Hold for suergery DVT px on sc heparin , may hold it prior to surgery GI px protnoix
--- NOTE | 2018-03-23 23:26 | P.CONS ---
History of Present Illness - Reason for Consult Consult date: 03/23/18 - Chief Complaint Right scrotal abscess - History of Present Illness Rudolph 57-year-old male known to the service after his hospitalization a couple months ago which point in time he developed a significant abscess to his right groin and scrotal area. He was seen by general surgery and urology. He has spontaneous drainage of a large amount of grossly purulent material from the area and then had good resolution. He was seen in the office at which point in time he was feeling well, He had no erythema crepitance fluctuance or tenderness in the area. Now 6 weeks later has noticed over the last several days the recurrence of erythema swelling and discomfort right groin area. She started develops to be in fever and chills and with this presents to Hospital. With evidence of positive blood cultures and increasing infection to the right groin area the infectious diseases consultation was requested. The patient does not feel as poorly as he did last time. He did not let it get is out of hand and severe as it was a few months ago. Denies any other changes, does not shave Review of Systems rudolph 57-year-old male HEENT:Denies headache or acute visual change. Denies sinus or mouth discomforts. Denies neck stiffness or pain. Denies significant oral cavity pain. Denies difficulty on swallowing. Lungs: Denies significant shortness of breath, cough, sputum production, or hemoptysis. Cardiovascular: Denies significant shortness of breath, chest pain, chest wall pain, orthopnea, dyspnea on exertion, syncope Gastrointestinal:Denies nausea, vomiting, diarrhea, constipation, hematemesis, melena, hematochezia. No no significant change of bowel habit noticed. Musculoskeletal: he has chronic musculoskeletal pain and is disabled because of his back Skin: as per the HPI Neuro: Denies headache or visual change. Denies any new onset weakness or difficulty with ambulation. Denies falls or seizures. Psychiatric:Denies anxiety or depression. Endocrine: Denies significant fatigue, denies significant weight loss or weight gain. Past Medical History Past Medical History: Cancer, COPD, CVA/TIA, GERD/Reflux, Hyperlipidemia, Hypertension, Osteoarthritis (OA), Skin Disorder, Sleep Apnea/CPAP/BIPAP, Vascular Disorder Additional Past Medical History / Comment(s): Hx. TIA 2013, uses cpap, hx diverticulitis, skin cancer, aortic aneurysm(sx done stated has stent), past abscess and incision and drainage of skin abscess rt groin History of Any Multi-Drug Resistant Organisms: None Reported Past Surgical History: Bowel Resection, Orthopedic Surgery Additional Past Surgical History / Comment(s): RT ROTATOR CUFF REPAIR, BONE SPUR REMOVED RT SHOULDER, I & D BOIL LT BUTTOCK, FEM POP BYPASS rt leg, surgery fx neck (pins and plates), 08-26-15 lap lysis of adhesions, lap reduction of incarcerated lt ing hernia with ventral hernia repair w/mesh. (AAA repair has stent) Past Anesthesia/Blood Transfusion Reactions: No Reported Reaction Additional Past Anesthesia/Blood Transfusion Reaction / Comm: surgery for fx neck -has pins and plates-pt. states can move neck forward and back, side to side ok (this was his last surgery). Additional Psychological History / Comment(s): and lives with his and the family home, they have 2 pet dogs. Adult children do not live with him. Is a chronic tobacco smoker and has not stopped. Denies significant alcohol use or recreational drug use. 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 No experience. No international travel history. tattoos were professionally applied. Smoking Status: Current every day smoker - Past Family History Mother Family Medical History: COPD Additional Family Medical History / Comment(s): 2011 at age 78. Father Family Medical History: No Reported History Additional Family Medical History / Comment(s): in 2016 at age 92 Medications and Allergies Home Medications and Allergies Comment(s): Current Medications Hydrocodone Bitart/Acetaminophen ([place] 5-325) 1 each PO Q4HR PRN PRN Reason: Moderate Pain Last Admin: 03/23/18 18:49 Dose: 1 each Atorvastatin Calcium (Lipitor) 80 mg PO HS [facility] Last Admin: 03/23/18 19:58 Dose: 80 mg Budesonide/Formoterol Fumarate (Symbicort 80-4.5 Mcg Inhaler) 2 puff INHALATION RT-BID [facility] Last Admin: 03/23/18 19:28 Dose: 2 puff Buspirone HCl (Buspar) 22.5 mg PO BID [facility] Last Admin: 03/23/18 19:58 Dose: 22.5 mg Carvedilol (Coreg) 12.5 mg PO BID-W/MEALS [facility] Last Admin: 03/23/18 17:04 Dose: 12.5 mg Heparin Sodium (Porcine) (Heparin) 5,000 unit SQ Q12HR [facility] Last Admin: 03/23/18 19:58 Dose: 5,000 unit Sodium Chloride (Saline 0.9%) 1,000 mls @ 100 mls/hr IV .Q10H [facility] Last Admin: 03/23/18 17:05 Dose: 100 mls/hr Meropenem 2 gm/ Sodium (Chloride) 100 mls @ 200 mls/hr IVPB Q8HR [facility]; Protocol Losartan Potassium (Cozaar) 50 mg PO DAILY [facility] Last Admin: 03/23/18 10:41 Dose: 50 mg Magnesium Oxide (Mag-Ox) 400 mg PO 1200 [facility] Last Admin: 03/23/18 11:48 Dose: 400 mg Montelukast Sodium (Singulair) 10 mg PO DAILY [facility] Last Admin: 03/23/18 10:42 Dose: 10 mg Morphine Sulfate (Morphine Sulfate (Inj)) 4 mg IV Q4HR PRN PRN Reason: Severe Pain Last Admin: 03/23/18 19:57 Dose: 4 mg Multivitamins (Theragran) 1 each PO 1200 [facility] Last Admin: 03/23/18 11:48 Dose: 1 each Naloxone HCl (Narcan) 0.2 mg IV Q2M PRN PRN Reason: Opioid Reversal Nystatin (Mycostatin Cream) 1 applic TOPICAL TID [facility] Last Admin: 03/23/18 19:59 Dose: Not Given Pantoprazole Sodium (Protonix) 40 mg PO AC-BRKFST [facility] Last Admin: 03/23/18 10:42 Dose: 40 mg Sertraline HCl (Zoloft) 100 mg PO DAILY [facility] Last Admin: 03/23/18 10:42 Dose: 100 mg Triamcinolone Acetonide (Kenalog) 1 applic TOPICAL TID [facility] Last Admin: 03/23/18 19:59 Dose: Not Given Home Medications Medication Instructions Recorded Confirmed Type Clopidogrel [Plavix] 75 mg PO 02/23/14 03/22/18 History Carvedilol [Coreg] 12.5 mg PO BID 08/25/15 03/22/18 History Losartan [Cozaar] 50 mg PO DAILY 05/16/16 03/22/18 History Atorvastatin Calcium [Lipitor] 80 mg PO HS 09/07/16 03/22/18 History Magnesium Oxide [Magox 400] 400 mg PO DAILY #60 tablet 09/19/16 03/22/18 Rx Omeprazole 40 mg PO AC-BRKFST #30 capsule. 11/13/16 03/22/18 Rx Montelukast [Singulair] 10 mg PO DAILY 05/11/17 03/22/18 History Multivitamins, Thera [Multivitamin 1 tab PO DAILY 05/11/17 03/22/18 History (formulary)] Mometasone/Formoterol [Dulera 100 1 puff INHALATION RT-BID 05/12/17 03/22/18 History Mcg/5 Mcg Inhaler] Sertraline [Zoloft] 100 mg PO DAILY 01/26/18 03/22/18 History Nystatin 100,000Unit/gm Cream 1 applic TOPICAL TID 03/22/18 03/22/18 History [Mycostatin Cream] Triamcinolone 0.1% Cream [Kenalog 1 applic TOPICAL TID 03/22/18 03/22/18 History 0.1% Cream] busPIRone HCL 22.5 mg PO BID 03/22/18 03/22/18 History Allergies Allergy/AdvReac Type Severity Reaction Status Date / Time amoxicillin [Amoxicillin] Allergy Rash/Hives Verified 03/22/18 20:14 enalapril maleate Allergy Rash/Hives Verified 03/22/18 20:14 [From Vasotec] enalaprilat dihydrate Allergy Rash/Hives Verified 03/22/18 20:14 [From Vasotec] Penicillins Allergy Rash/Hives Verified 03/22/18 20:14 Physical Exam Vitals: Vital Signs Temp Pulse Resp BP Pulse Ox 03/23/18 16:00 64 20 03/23/18 15:00 96.7 F L 64 20 115/66 94 L 03/23/18 08:00 71 18 03/23/18 07:00 98.3 F 71 18 147/86 94 L Intake and Output 03/23/18 03/23/18 03/24/18 14:59 22:59 06:59 Intake Total 240 Output Total 275 Balance 240 -275 Intake: Oral 240 Output: Urine 275 Other: # Voids 2 1 # Bowel Movements 0 57-year-old male that has obesity is uncomfortable but not severe distress HEENT: Anicteric conjunctiva are pink and moist nasal mucosa grossly intact without significant lesions, there is no thrush.dentition is poor has all teeth missing upper without a plate no oral cavity lesions could be seen Neck: The neck is supple without significant lymphadenopathy or thyromegaly. Lungs: there was symmetric bilateral air entry with expiratory wheezes to the lung plunkett but no ashleigh bronchial sounds, no dullness or egophony Heart: Regular rate and rhythm with an audible S1-S2, no S3 loud S4. There is no significant murmur click or rub, PMI was nondisplaced. Abdomen: Positive bowel sounds soft and nontender without palpable masses or organomegaly. There was no guarding or rebound. Extremities: upper extremities reveals normal IV site. Lower extremities evidence of the multiple prior surgical interventions there are no significant open ulcers in the lower extremities they are cool but not cold to touch The right groin is evaluated. It is not nearly as involved as it was during his last stay. However is significant induration into the right groin fold at the base of the scrotum. The testicle itself is not swollen and painful at this time. There however is erythema and fluctuance to the right groin area. It is very tender to touch. Neuro: Awake alert oriented to person place and time. There are no acute new gross focal sensory motor deficits. Results CBC & Chem 7: 03/23/18 07:13 03/23/18 07:13 Labs: Abnormal Lab Results - Last 24 Hours (Table) 03/23/18 03/23/18 Range/Units 07:13 07:13 WBC 13.1 H (3.8-10.6) k/uL Neutrophils # 10.3 H (1.3-7.7) k/uL Glucose 105 H (74-99) mg/dL Microbiology - Last 24 Hours (Table) 03/22/18 22:44 Blood Culture Gram Stain - Preliminary Blood 03/22/18 18:10 Blood Culture - Final Blood Laboratory Results WBC 13.1 k/uL (3.8-10.6) H 03/23/18 07:13 RBC 4.71 m/uL (4.30-5.90) 03/23/18 07:13 Hgb 14.7 gm/dL (13.0-17.5) 03/23/18 07:13 Hct 44.5 % (39.0-53.0) 03/23/18 07:13 MCV 94.4 fL (80.0-100.0) 03/23/18 07:13 MCH 31.3 pg (25.0-35.0) 03/23/18 07:13 MCHC 33.1 g/dL (31.0-37.0) 03/23/18 07:13 RDW 13.7 % (11.5-15.5) 03/23/18 07:13 Plt Count 277 k/uL (150-450) 03/23/18 07:13 Neutrophils % 79 % 03/23/18 07:13 Lymphocytes % 12 % 03/23/18 07:13 Monocytes % 6 % 03/23/18 07:13 Eosinophils % 2 % 03/23/18 07:13 Basophils % 0 % 03/23/18 07:13 Neutrophils # 10.3 k/uL (1.3-7.7) H 03/23/18 07:13 Lymphocytes # 1.5 k/uL (1.0-4.8) 03/23/18 07:13 Monocytes # 0.8 k/uL (0-1.0) 03/23/18 07:13 Eosinophils # 0.3 k/uL (0-0.7) 03/23/18 07:13 Basophils # 0.1 k/uL (0-0.2) 03/23/18 07:13 PT 10.4 sec (9.0-12.0) 03/22/18 18:10 INR 1.1 (<1.2) 03/22/18 18:10 Sodium 137 mmol/L (137-145) 03/23/18 07:13 Potassium 4.3 mmol/L (3.5-5.1) 03/23/18 07:13 Chloride 107 mmol/L (98-107) 03/23/18 07:13 Carbon Dioxide 24 mmol/L (22-30) 03/23/18 07:13 Anion Gap 6 mmol/L 03/23/18 07:13 BUN 10 mg/dL (9-20) 03/23/18 07:13 Creatinine 0.91 mg/dL (0.66-1.25) 03/23/18 07:13 Est GFR (CKD-EPI)AfAm >90 (>60 ml/min/1.73 sqM) 03/23/18 07:13 Est GFR (CKD-EPI)NonAf >90 (>60 ml/min/1.73 sqM) 03/23/18 07:13 Glucose 105 mg/dL (74-99) H 03/23/18 07:13 Plasma Lactic Acid Maximilian 1.2 mmol/L (0.7-2.0) 03/22/18 18:10 Calcium 8.6 mg/dL (8.4-10.2) 03/23/18 07:13 Blood Type A Positive 03/22/18 22:44 Blood Type Recheck No 03/22/18 22:44 Antibody Screen NEGATIVE 03/22/18 22:44 Spec Expiration Date 03/25/2018 - 234303/22/18 22:44 Microbiology 03/22/18 22:44 Blood Blood Culture Gram Stain - Preliminary 03/22/18 18:10 Blood Blood Culture - Final Assessment and Plan (1) Groin abscess Current Visit: Yes Status: Acute Code(s): L02.214 - CUTANEOUS ABSCESS OF GROIN SNOMED Code(s): 11002358 (2) Leukocytosis Current Visit: Yes Status: Acute Code(s): D72.829 - ELEVATED WHITE BLOOD CELL COUNT, UNSPECIFIED SNOMED Code(s): 227132113 (3) Gram negative sepsis Narrative/Plan: Pleasant 57-year-old male who does have obesity and likely prediabetes is developed recurrent abscess into his right groin. He has had some difficulties with skin abscesses in the past but has not had any difficulties the severe. He was hospitalized a couple months ago and has been abscess that did spontaneously drain and with antibiotic therapy he had improvement. He was seen in the office in January and seemed to have good resolution. Now 6 weeks later has recurrence of the same area. It is likely that without an official incision and drainage there was residual infection in the area that has now allows significant recurrence. He has been seen by surgery and appears will be incision and drainage planned in the morning. Hopefully this official debridement will clean out any necrotic material in complete resolution of this infectious process. It is not there is a positive blood culture with gram-negative bacilli and antibiotic therapy is streamlined to Zosyn, there was no resistant gram-positive organisms last time and gram negatives are seen at this time. Pain control seems to be adequate will monitor, he may require an outpatient course of intravenous antibiotic therapy depending on the pathogen. Current Visit: Yes Status: Acute Code(s): A41.50 - GRAM-NEGATIVE SEPSIS, UNSPECIFIED SNOMED Code(s): 716257466
[2018-03-24] MEDS: MORPHINE SULFATE 4 MG/ML SYRINGE IV PRN ×6 (00:07→22:53)
[2018-03-24] MEDS: MEROPENEM 2 GM in SODIUM CHLORIDE 0.9% 100 ML IVPB SCH ×4 (00:07→23:49)
[2018-03-24] MEDS: SODIUM CHLORIDE 0.9% 1,000 ML IV SCH ×3 (03:57→21:28)
[2018-03-24] MEDS: SYMBICORT 80-4.5 MCG INHALER INHALATION SCH ×2 (07:32→19:17)
[2018-03-24] MEDS: TRIAMCINOLONE 0.1% CREAM 80 GM TUBE TOPICAL SCH ×3 (07:58→21:28)
[2018-03-24] MEDS: NYSTATIN 100,000UNIT/GM CREAM 30 GM TUBE TOPICAL SCH ×3 (07:59→21:28)
[2018-03-24] MEDS: busPIRone HCl 5 MG TAB PO SCH ×2 (07:59→21:26)
[2018-03-24] MEDS: LOSARTAN 50 MG TAB PO SCH (08:00)
[2018-03-24] MEDS: PANTOPRAZOLE 40 MG TABLET PO SCH (08:00)
[2018-03-24] MEDS: SERTRALINE 100 MG TAB PO SCH (08:00)
[2018-03-24] MEDS: CARVEDILOL 12.5 MG TAB PO SCH ×2 (08:00→18:20)
[2018-03-24] MEDS: MONTELUKAST 10 MG TAB PO SCH (08:00)
[2018-03-24] MEDS: HEPARIN SODIUM,PORCINE 5,000 UNIT/ML 1 ML VIAL SQ SCH ×2 (08:01→21:27)
[2018-03-24 08:26] LABS: Basophils # (A) 0.1 k/uL (0-0.2); Basophils % (A) 0 %; Eosinophils # (A) 0.3 k/uL (0-0.7); Eosinophils % (A) 2 %; HGB 15.1 gm/dL (13.0-17.5); Lymphocytes # (A) 1.4 k/uL (1.0-4.8); Lymphocytes % (A) 12 %; MCH 31.1 pg (25.0-35.0); MCHC 33.6 g/dL (31.0-37.0); MCV 92.7 fL (80.0-100.0); Mean Platelet Volume 6.8; Monocytes # (A) 0.6 k/uL (0-1.0); Monocytes % (A) 5 %; Neutrophils # (A) 9.3 k/uL (1.3-7.7); Neutrophils % (A) 79 %; Platelet Count 300 k/uL (150-450); RBC 4.85 m/uL (4.30-5.90); RDW 13.3 % (11.5-15.5); WBC 11.8 k/uL (3.8-10.6)
[2018-03-24 08:29] LABS: INR 1.1 (<1.2); Prothrombin Time 10.7 sec (9.0-12.0)
[2018-03-24 08:38] LABS: Anion Gap 6 mmol/L; Blood Urea Nitrogen 7 mg/dL (9-20); Calcium 8.8 mg/dL (8.4-10.2); Carbon Dioxide 23 mmol/L (22-30); Chloride 106 mmol/L (98-107); Glucose 106 mg/dL (74-99); Potassium 4.3 mmol/L (3.5-5.1); Sodium 135 mmol/L (137-145)
[2018-03-24] MEDS ORDERED: KETAMINE 10 MG/ML 20 ML VIAL ONE ×2 (09:44)
[2018-03-24] MEDS ORDERED: PROPOFOL 10 MG/ML 20 ML VIAL IV ONE ×2 (09:44)
[2018-03-24] MEDS ORDERED: IV FLUID CONTINUATION 100 ML IV ONE (09:44)
[2018-03-24] MEDS ORDERED: fentaNYL (PF) 50 MCG/ML 2 ML AMP ONE ×2 (09:44)
[2018-03-24] MEDS ORDERED: diphenhydrAMINE 50 MG/ML 1 ML VIAL ONE ×2 (09:44)
[2018-03-24] MEDS ORDERED: LIDOCAINE 1% INJ 10MG/ML (20 ML MDV) ONE ×2 (09:44)
[2018-03-24] MEDS ORDERED: MIDAZOLAM 2 MG/2 ML VIAL ONE ×2 (09:44)
[2018-03-24] MEDS ORDERED: ROPIVACAINE 5 MG/ML 30 ML VIAL MISCELLANE ONE ×2 (10:02)
[2018-03-24] MEDS ORDERED: LACTATED RINGERS 1,000 ML IV ONE (10:03)
--- NOTE | 2018-03-24 10:17 | P.OP ---
Date of Procedure: 03/24/18 Preoperative Diagnosis: Right groin abscess Postoperative Diagnosis: Right groin abscess Procedure(s) Performed: Incision and drainage of right groin abscess Anesthesia: MAC Surgeon: Rocky Lopez Pathology: other (Culture) Condition: stable Disposition: PACU Description of Procedure: The patient's placed the operative table in the dorsal lithotomy position. He received IV sedation. His right groin was prepped and draped usual sterile fashion. A 18-gauge needle was used to enter the abscess cavity. Approximately 10 mL of purulent fluid was removed. This was sent for culture. The area was anesthetized with 1% local Xylocaine. Next using a 10 blade the area the abscess cavity was incised. A 8 cm incision was made along the entire length of the abscess cavity. The Bovie was used for hemostasis. The wound was packed with Kerlix. Patient top she will was sent to recovery room stable condition.
[2018-03-24] MEDS ORDERED: KETOROLAC 30 MG/ML 1 ML VIAL IVP ONE (10:26)
[2018-03-24] MEDS: MAGNESIUM OXIDE 400 MG TAB PO SCH (11:29)
[2018-03-24] MEDS: HYDROcodone/APAP 5-325MG 1 EACH TAB PO PRN ×3 (11:29→21:32)
[2018-03-24] MEDS: MULTIVITAMINS, THERA 1 EACH TAB PO SCH (11:29)
--- NOTE | 2018-03-24 12:59 | P.PN ---
Subjective - History of Present Illness this is a pleasant 57 yo M with pmh of CVA/TIA, GERD, Hypertension , Hyperlipidemia, osteoarthritis, sleep apnea on BiPAP/CPAP, he is s/p bowel resection who was admitted to the surgical team for right groin abscess, pt is complaining from right groin erythema and swelling and tenderness but states it is better than on admission , there is what looks like a fistula, pt is kept NPO over mid night for possible surgical intervention in the morning 03/24/2018 Patient is a status I and D by surgical team on his right groin abscess, wound is open with packing is in a Place. WBC is trending down on antibiotic already Objective - Vital Signs Vital signs: Vital Signs Temp 97.7 F 03/24/18 10:17 Pulse 71 03/24/18 10:46 Resp 18 03/24/18 10:46 BP 127/73 03/24/18 10:46 Pulse Ox 94 L 03/24/18 10:46 Intake & Output 03/23/18 03/24/18 03/24/18 18:59 06:59 18:59 Intake Total 240 500 600 Output Total 275 600 10 Balance -35 -100 590 Intake: IV 600 Oral 240 500 Output: Urine 275 600 Estimated Blood Loss 10 Other: # Voids 1 # Bowel Movements 0 - Exam GENERAL: The patient is alert and oriented x3, not in any acute distress. Well developed, well nourished. HEENT: Pupils are round and equally reacting to light. EOMI. No scleral icterus. No conjunctival pallor. Normocephalic, atraumatic. No pharyngeal erythema. No thyromegaly. CARDIOVASCULAR: S1 and S2 present. No murmurs, rubs, or gallops. PULMONARY: Chest is clear to auscultation, no wheezing or crackles. ABDOMEN: Soft, nontender, nondistended, normoactive bowel sounds. No palpable organomegaly. MUSCULOSKELETAL: No joint swelling or deformity. EXTREMITIES: No cyanosis, clubbing, or pedal edema. -right groin abscess, s/p I&D, with improving right groin erythema and swelling and tenderness, wound is open and pack is in place NEUROLOGICAL: Gross neurological examination did not reveal any focal deficits. SKIN: No rashes. - Labs CBC & Chem 7: 03/24/18 08:01 03/24/18 08:01 Labs: Abnormal Lab Results - Last 24 Hours (Table) 03/24/18 03/24/18 Range/Units 08:01 08:01 WBC 11.8 H (3.8-10.6) k/uL Neutrophils # 9.3 H (1.3-7.7) k/uL Sodium 135 L (137-145) mmol/L BUN 7 L (9-20) mg/dL Glucose 106 H (74-99) mg/dL Microbiology - Last 24 Hours (Table) 03/22/18 18:10 Blood Culture Gram Stain - Final Blood Blood Culture - Final Neisseria mucosa 03/22/18 18:10 Blood Culture - Final Blood Assessment and Plan Assessment: Right Groin abscess with surrounding cellulitis , s/p I&D on 03/24/2018 CVA/TIA GERD Hypertension Hyperlipidemia osteoarthritis sleep apnea on BiPAP/CPAP he is s/p bowel resection Plan: pt is a pleasant 57 yo M who presents under surgery service team for right groing abscess and fistula, continue with the same treatment , continue with symptomatic treatment , resume home medication , monitor lytes and vitals including glucose , c/w iv fluids, infectious disease consult is appreciated . c/w same antibioitc pt is currently on meropenem . GI and DVT prophylaxis , further recommendation based upon pt clinical course -Plavix is on Hold for suergery DVT px on sc heparin , may hold it prior to surgery GI px protnoix
[2018-03-24] MEDS: ATORVASTATIN 80 MG TAB PO SCH (21:28)
[2018-03-25] MEDS: MORPHINE SULFATE 4 MG/ML SYRINGE IV PRN ×5 (03:00→21:28)
[2018-03-25 08:06] LABS: Basophils # (A) 0.1 k/uL (0-0.2); Basophils % (A) 1 %; Eosinophils # (A) 0.2 k/uL (0-0.7); Eosinophils % (A) 3 %; HGB 14.7 gm/dL (13.0-17.5); Lymphocytes # (A) 1.5 k/uL (1.0-4.8); Lymphocytes % (A) 18 %; MCH 31.6 pg (25.0-35.0); MCHC 34.3 g/dL (31.0-37.0); MCV 92.2 fL (80.0-100.0); Mean Platelet Volume 6.6; Monocytes # (A) 0.6 k/uL (0-1.0); Monocytes % (A) 8 %; Neutrophils # (A) 5.6 k/uL (1.3-7.7); Neutrophils % (A) 68 %; Platelet Count 284 k/uL (150-450); RBC 4.66 m/uL (4.30-5.90); WBC 8.2 k/uL (3.8-10.6)
[2018-03-25 08:18] LABS: Anion Gap 5 mmol/L; Blood Urea Nitrogen 9 mg/dL (9-20); Calcium 8.7 mg/dL (8.4-10.2); Carbon Dioxide 26 mmol/L (22-30); Chloride 105 mmol/L (98-107); Glucose 96 mg/dL (74-99); Potassium 4.4 mmol/L (3.5-5.1); Sodium 136 mmol/L (137-145)
[2018-03-25] MEDS: CARVEDILOL 12.5 MG TAB PO SCH ×2 (08:19→15:55)
[2018-03-25] MEDS: SODIUM CHLORIDE 0.9% 1,000 ML IV SCH ×2 (08:19→15:56)
[2018-03-25] MEDS: PANTOPRAZOLE 40 MG TABLET PO SCH (08:19)
[2018-03-25] MEDS: MEROPENEM 2 GM in SODIUM CHLORIDE 0.9% 100 ML IVPB SCH ×2 (08:20→15:55)
[2018-03-25] MEDS: HEPARIN SODIUM,PORCINE 5,000 UNIT/ML 1 ML VIAL SQ SCH ×2 (08:21→21:28)
[2018-03-25] MEDS: LOSARTAN 50 MG TAB PO SCH (08:21)
[2018-03-25] MEDS: busPIRone HCl 5 MG TAB PO SCH ×2 (08:21→21:28)
[2018-03-25] MEDS: MONTELUKAST 10 MG TAB PO SCH (08:22)
[2018-03-25] MEDS: NYSTATIN 100,000UNIT/GM CREAM 30 GM TUBE TOPICAL SCH ×3 (08:23→21:27)
[2018-03-25] MEDS: SYMBICORT 80-4.5 MCG INHALER INHALATION SCH ×2 (08:23→19:09)
[2018-03-25] MEDS: HYDROcodone/APAP 5-325MG 1 EACH TAB PO PRN ×4 (08:24→22:37)
[2018-03-25] MEDS: SERTRALINE 100 MG TAB PO SCH (08:24)
[2018-03-25] MEDS: TRIAMCINOLONE 0.1% CREAM 80 GM TUBE TOPICAL SCH ×3 (08:24→21:27)
[2018-03-25] MEDS: MULTIVITAMINS, THERA 1 EACH TAB PO SCH (12:53)
[2018-03-25] MEDS: MAGNESIUM OXIDE 400 MG TAB PO SCH (12:53)
--- NOTE | 2018-03-25 19:44 | P.PN ---
Subjective - History of Present Illness this is a pleasant 57 yo M with pmh of CVA/TIA, GERD, Hypertension , Hyperlipidemia, osteoarthritis, sleep apnea on BiPAP/CPAP, he is s/p bowel resection who was admitted to the surgical team for right groin abscess, pt is complaining from right groin erythema and swelling and tenderness but states it is better than on admission , there is what looks like a fistula, pt is kept NPO over mid night for possible surgical intervention in the morning 03/24/2018 Patient is a status I and D by surgical team on his right groin abscess, wound is open with packing is in a Place. WBC is trending down on antibiotic already 03/25/2018 PT Is not in distress, he feels more comfortable as he has less pain and tenderness, wound is open and surrounding area is lead mason tender and red but less compared to yesterday Objective - Vital Signs Vital signs: Vital Signs Temp 97.7 F 03/25/18 14:41 Pulse 68 03/25/18 14:41 Resp 18 03/25/18 14:41 BP 123/82 03/25/18 14:41 Pulse Ox 94 L 03/25/18 14:41 Intake & Output 03/25/18 03/25/18 03/26/18 06:59 18:59 06:59 Intake Total 800 600 Balance 800 600 Intake: Intake, IV Titration 800 Amount Sodium Chloride 0.9% 1, 800 000 ml @ 100 mls/hr IV . Q10H [facility] Rx#:[id number] Oral 600 Other: # Voids 2 1 - Exam GENERAL: The patient is alert and oriented x3, not in any acute distress. Well developed, well nourished. HEENT: Pupils are round and equally reacting to light. EOMI. No scleral icterus. No conjunctival pallor. Normocephalic, atraumatic. No pharyngeal erythema. No thyromegaly. CARDIOVASCULAR: S1 and S2 present. No murmurs, rubs, or gallops. PULMONARY: Chest is clear to auscultation, no wheezing or crackles. ABDOMEN: Soft, nontender, nondistended, normoactive bowel sounds. No palpable organomegaly. MUSCULOSKELETAL: No joint swelling or deformity. EXTREMITIES: No cyanosis, clubbing, or pedal edema. -right groin abscess, s/p I&D, with improving right groin erythema and swelling and tenderness, wound is open and pack is in place NEUROLOGICAL: Gross neurological examination did not reveal any focal deficits. SKIN: No rashes. - Labs CBC & Chem 7: 03/25/18 07:30 03/25/18 07:30 Labs: Abnormal Lab Results - Last 24 Hours (Table) 03/25/18 Range/Units 07:30 Sodium 136 L (137-145) mmol/L Microbiology - Last 24 Hours (Table) 03/24/18 07:40 Blood Culture - Preliminary Blood No Growth after 24 hours 03/24/18 08:01 Blood Culture - Preliminary Blood No Growth after 24 hours 03/24/18 10:00 Gram Stain - Preliminary Aspirate Body Fluid Culture - Preliminary 03/24/18 10:00 Anaerobic Culture - Preliminary Aspirate Assessment and Plan Assessment: Right Groin abscess with surrounding cellulitis , s/p I&D on 03/24/2018 CVA/TIA GERD Hypertension Hyperlipidemia osteoarthritis sleep apnea on BiPAP/CPAP he is s/p bowel resection Plan: pt is a pleasant 57 yo M who presents under surgery service team for right groing abscess and fistula, continue with the same treatment , continue with symptomatic treatment , resume home medication , monitor lytes and vitals including glucose , c/w iv fluids, infectious disease consult is appreciated . c/w same antibioitc pt is currently on meropenem . GI and DVT prophylaxis , further recommendation based upon pt clinical course -Plavix is on Hold for suergery DVT px on sc heparin , may hold it prior to surgery GI px protnoix
[2018-03-25] MEDS: ATORVASTATIN 80 MG TAB PO SCH (21:28)
--- NOTE | 2018-03-25 23:10 | P.PN ---
Subjective Progress Note Date: 03/25/18 Pleasant 57-year-old male known to the service after his hospitalization a couple months ago which point in time he developed a significant abscess to his right groin and scrotal area. He was seen by general surgery and urology. He has spontaneous drainage of a large amount of grossly purulent material from the area and then had good resolution. He was seen in the office at which point in time he was feeling well, He had no erythema crepitance fluctuance or tenderness in the area. Now 6 weeks later has noticed over the last several days the recurrence of erythema swelling and discomfort right groin area. She started develops to be in fever and chills and with this presents to Hospital. With evidence of positive blood cultures and increasing infection to the right groin area the infectious diseases consultation was requested. The patient does not feel as poorly as he did last time. He did not let it get is out of hand and severe as it was a few months ago. Denies any other changes, does not shave 03/25/2018 the patient was in the operating room yesterday, is now postoperative and comfortable but is impressed with the extent of the packing that was required. He is aware with his bacteremia and extensive infection that outpatient intravenous antibiotic therapy will be advised. Objective - Vital Signs Vital signs: Vital Signs Temp 97.7 F 03/25/18 14:41 Pulse 68 03/25/18 14:41 Resp 18 03/25/18 14:41 BP 123/82 03/25/18 14:41 Pulse Ox 94 L 03/25/18 14:41 Intake & Output 03/25/18 03/25/18 03/26/18 06:59 18:59 06:59 Intake Total 800 600 Output Total 250 Balance 800 600 -250 Intake: Intake, IV Titration 800 Amount Sodium Chloride 0.9% 1, 800 000 ml @ 100 mls/hr IV . Q10H SEBASTIAN Rx#:[id number] Oral 600 Output: Urine 250 Other: # Voids 2 1 1 - Exam 57-year-old male that has obesity is uncomfortable but not severe distress HEENT: Anicteric conjunctiva are pink and moist nasal mucosa grossly intact without significant lesions, there is no thrush.dentition is poor has all teeth missing upper without a plate no oral cavity lesions could be seen Neck: The neck is supple without significant lymphadenopathy or thyromegaly. Lungs: there was symmetric bilateral air entry with expiratory wheezes to the lung plunkett but no ashleigh bronchial sounds, no dullness or egophony Heart: Regular rate and rhythm with an audible S1-S2, no S3 loud S4. There is no significant murmur click or rub, PMI was nondisplaced. Abdomen: Positive bowel sounds soft and nontender without palpable masses or organomegaly. There was no guarding or rebound. Extremities: upper extremities reveals normal IV site. Lower extremities evidence of the multiple prior surgical interventions there are no significant open ulcers in the lower extremities they are cool but not cold to touch The right groin is evaluated. The surgical incision and drainage has occurred and there is less tenderness this time. There is no significant amount of purulent drainage although a large amount of purulent material was extracted at the time of the incision and drainage. The testicle itself is not swollen and painful at this time. There however is erythema and fluctuance to the right groin area. It is very tender to touch. Neuro: Awake alert oriented to person place and time. There are no acute new gross focal sensory motor deficits. - Labs CBC & Chem 7: 03/25/18 07:30 03/25/18 07:30 Labs: Abnormal Lab Results - Last 24 Hours (Table) 03/25/18 Range/Units 07:30 Sodium 136 L (137-145) mmol/L Microbiology - Last 24 Hours (Table) 03/24/18 07:40 Blood Culture - Preliminary Blood No Growth after 24 hours 03/24/18 08:01 Blood Culture - Preliminary Blood No Growth after 24 hours 03/24/18 10:00 Gram Stain - Preliminary Aspirate Body Fluid Culture - Preliminary Laboratory Results WBC 8.2 k/uL (3.8-10.6) 03/25/18 07:30 RBC 4.66 m/uL (4.30-5.90) 03/25/18 07:30 Hgb 14.7 gm/dL (13.0-17.5) 03/25/18 07:30 Hct 43.0 % (39.0-53.0) 03/25/18 07:30 MCV 92.2 fL (80.0-100.0) 03/25/18 07:30 MCH 31.6 pg (25.0-35.0) 03/25/18 07:30 MCHC 34.3 g/dL (31.0-37.0) 03/25/18 07:30 RDW 13.0 % (11.5-15.5) 03/25/18 07:30 Plt Count 284 k/uL (150-450) 03/25/18 07:30 Neutrophils % 68 % 03/25/18 07:30 Lymphocytes % 18 % 03/25/18 07:30 Monocytes % 8 % 03/25/18 07:30 Eosinophils % 3 % 03/25/18 07:30 Basophils % 1 % 03/25/18 07:30 Neutrophils # 5.6 k/uL (1.3-7.7) 03/25/18 07:30 Lymphocytes # 1.5 k/uL (1.0-4.8) 03/25/18 07:30 Monocytes # 0.6 k/uL (0-1.0) 03/25/18 07:30 Eosinophils # 0.2 k/uL (0-0.7) 03/25/18 07:30 Basophils # 0.1 k/uL (0-0.2) 03/25/18 07:30 PT 10.7 sec (9.0-12.0) 03/24/18 08:01 INR 1.1 (<1.2) 03/24/18 08:01 Sodium 136 mmol/L (137-145) L 03/25/18 07:30 Potassium 4.4 mmol/L (3.5-5.1) 03/25/18 07:30 Chloride 105 mmol/L (98-107) 03/25/18 07:30 Carbon Dioxide 26 mmol/L (22-30) 03/25/18 07:30 Anion Gap 5 mmol/L 03/25/18 07:30 BUN 9 mg/dL (9-20) 03/25/18 07:30 Creatinine 0.80 mg/dL (0.66-1.25) 03/25/18 07:30 Est GFR (CKD-EPI)AfAm >90 (>60 ml/min/1.73 sqM) 03/25/18 07:30 Est GFR (CKD-EPI)NonAf >90 (>60 ml/min/1.73 sqM) 03/25/18 07:30 Glucose 96 mg/dL (74-99) 03/25/18 07:30 Plasma Lactic Acid Maximilian 1.2 mmol/L (0.7-2.0) 03/22/18 18:10 Calcium 8.7 mg/dL (8.4-10.2) 03/25/18 07:30 Blood Type A Positive 03/22/18 22:44 Blood Type Recheck No 03/22/18 22:44 Antibody Screen NEGATIVE 03/22/18 22:44 Spec Expiration Date 03/25/2018 - 2344 03/22/18 22:44 Microbiology 03/24/18 07:40 Blood Blood Culture - Preliminary No Growth after 24 hours 03/24/18 08:01 Blood Blood Culture - Preliminary No Growth after 24 hours 03/24/18 10:00 Aspirate Gram Stain - Preliminary 03/24/18 10:00 Aspirate Body Fluid Culture - Preliminary 03/24/18 10:00 Aspirate Anaerobic Culture - Preliminary 03/22/18 18:10 Blood Blood Culture Gram Stain - Final 03/22/18 18:10 Blood Blood Culture - Final Neisseria mucosa 03/22/18 18:10 Blood Blood Culture - Final Assessment and Plan (1) Groin abscess Current Visit: Yes Status: Acute Code(s): L02.214 - CUTANEOUS ABSCESS OF GROIN SNOMED Code(s): 34547795 (2) Leukocytosis Current Visit: Yes Status: Acute Code(s): D72.829 - ELEVATED WHITE BLOOD CELL COUNT, UNSPECIFIED SNOMED Code(s): 593829016 (3) Gram negative sepsis Narrative/Plan: Pleasant 57-year-old male who does have obesity and likely prediabetes is developed recurrent abscess into his right groin. He has had some difficulties with skin abscesses in the past but has not had any difficulties the severe. He was hospitalized a couple months ago and has been abscess that did spontaneously drain and with antibiotic therapy he had improvement. He was seen in the office in January and seemed to have good resolution. Now 6 weeks later has recurrence of the same area. It is likely that without an official incision and drainage there was residual infection in the area that has now allows significant recurrence. He has been seen by surgery and appears will be incision and drainage planned in the morning. Hopefully this official debridement will clean out any necrotic material in complete resolution of this infectious process. It is not there is a positive blood culture with gram-negative bacilli and antibiotic therapy is streamlined to Zosyn, there was no resistant gram-positive organisms last time and gram negatives are seen at this time. Pain control seems to be adequate will monitor, he may require an outpatient course of intravenous antibiotic therapy depending on the pathogen. 03/25/2018 the patient is now status post incision and drainage. He is feeling somewhat better and doing well on current antibiotic therapy. The Neisseria mucosa was isolated and this is a gram-negative pathogen that is routinely susceptible to ceftriaxone Given the patient was bacteremic at this time antibiotic therapy continues and await follow blood culture. Once available PICC line will be placed and recently made for an outpatient course of intravenous antibiotic therapy patient relates that if office as the least expensive option would make at his choice. Current Visit: Yes Status: Acute Code(s): A41.50 - GRAM-NEGATIVE SEPSIS, UNSPECIFIED SNOMED Code(s): 232558207
[2018-03-26] MEDS: MEROPENEM 2 GM in SODIUM CHLORIDE 0.9% 100 ML IVPB SCH ×4 (00:43→23:13)
[2018-03-26] MEDS: MORPHINE SULFATE 4 MG/ML SYRINGE IV PRN ×3 (01:46→20:26)
[2018-03-26] MEDS: HYDROcodone/APAP 5-325MG 1 EACH TAB PO PRN ×5 (02:35→21:37)
[2018-03-26] MEDS: SODIUM CHLORIDE 0.9% 1,000 ML IV SCH ×2 (05:00→14:04)
[2018-03-26] MEDS: NYSTATIN 100,000UNIT/GM CREAM 30 GM TUBE TOPICAL SCH ×3 (07:56→21:38)
[2018-03-26] MEDS: TRIAMCINOLONE 0.1% CREAM 80 GM TUBE TOPICAL SCH ×3 (07:56→21:38)
[2018-03-26] MEDS: busPIRone HCl 5 MG TAB PO SCH ×2 (07:56→20:25)
[2018-03-26] MEDS: SERTRALINE 100 MG TAB PO SCH (07:57)
[2018-03-26] MEDS: CARVEDILOL 12.5 MG TAB PO SCH ×2 (07:57→16:29)
[2018-03-26] MEDS: LOSARTAN 50 MG TAB PO SCH (07:57)
[2018-03-26] MEDS: HEPARIN SODIUM,PORCINE 5,000 UNIT/ML 1 ML VIAL SQ SCH ×2 (07:57→20:26)
[2018-03-26] MEDS: MAGNESIUM OXIDE 400 MG TAB PO SCH (07:57)
[2018-03-26] MEDS: MONTELUKAST 10 MG TAB PO SCH (07:57)
[2018-03-26] MEDS: MULTIVITAMINS, THERA 1 EACH TAB PO SCH (07:57)
[2018-03-26] MEDS: PANTOPRAZOLE 40 MG TABLET PO SCH (07:57)
[2018-03-26 08:11] LABS: Basophils # (A) 0.1 k/uL (0-0.2); Basophils % (A) 1 %; Eosinophils # (A) 0.4 k/uL (0-0.7); Eosinophils % (A) 6 %; HCT 44.3 % (39.0-53.0); HGB 15.1 gm/dL (13.0-17.5); Lymphocytes % (A) 26 %; MCH 31.9 pg (25.0-35.0); MCHC 34.1 g/dL (31.0-37.0); MCV 93.5 fL (80.0-100.0); Mean Platelet Volume 6.5; Monocytes # (A) 0.6 k/uL (0-1.0); Monocytes % (A) 8 %; Neutrophils # (A) 4.6 k/uL (1.3-7.7); Neutrophils % (A) 58 %; Platelet Count 292 k/uL (150-450); RBC 4.74 m/uL (4.30-5.90); RDW 13.3 % (11.5-15.5); WBC 7.9 k/uL (3.8-10.6)
--- NOTE | 2018-03-26 08:29 | CDI ---
Last Revision, July 2017 Documentation Clarification Form Date: 03/26/2018 8:12:13 AM From: Keely MirandaOG, CCDS Admit Date: 03/22/2018 7:38:00 PM Patient Name: Lukasz Pollock Visit Number: [id number] Discharge Date: ATTENTION: The Clinical Documentation Specialists (CDI) and [facility] Coding Staff appreciate your assistance in clarifying documentation. Please respond to the clarification below the line at the bottom and electronically sign. The CDI & [facility] Coding staff will review the response and follow-up if needed. Please note: Queries are made part of the Legal Health Record. If you have any questions, please contact the author of this message via ITS. Sabino Schwarz MD Per your 03/23 ID Consult and subsequent documentation, the patient is diagnosed with Gram Negative Sepsis. Patient presented to the ER on 03/22 with right sided groin pain & swelling. Recently admitted in January this year with an abscess of the same area that was drained. Complained of nausea, no fever or chills. History/Risk Factors: TIA, Skin Cancer, COPD, Hypertension, Smoker. Clinical Indicators: VS: T 98.4, P 85, R 18, BP 116/79, PO 95 ra WBC: WBC 14.0, Neutrophils 10.0, Lactic Acid (1.2). Blood cultures: Beta-Lactamase Negative: Neisseria mucosa (final) Gram Stain, Blood Culture: Gram negative Diploccoci (final) Treatment: IV Ms, IV fl bolus, IV Clindamycin, IV Vanco, IV Rocephin In your professional opinion, please clarify if the Sepsis is ruled in or ruled out and if present on admission: Sepsis ruled in o If ruled in: o Present on Admission o Identify suspected organism & condition Sepsis ruled out Other, please specify Unable to determine Please continue to document in your progress notes and discharge summary in order to capture severity of illness and risk of mortality. Include clinical findings that support your diagnosis. Sepsis ruled in, on admission with fever at home, leukocytosis of 14, infection of the right groin, positive blood culture with neisseria mucosa( gram negative sriram) from right groin abscess which was surgically drained on 07/2018 [facility]
[2018-03-26 08:31] LABS: Anion Gap 7 mmol/L; Blood Urea Nitrogen 9 mg/dL (9-20); Calcium 8.9 mg/dL (8.4-10.2); Carbon Dioxide 26 mmol/L (22-30); Chloride 106 mmol/L (98-107); Glucose 93 mg/dL (74-99); Potassium 4.6 mmol/L (3.5-5.1); Sodium 139 mmol/L (137-145)
[2018-03-26] MEDS: SYMBICORT 80-4.5 MCG INHALER INHALATION SCH ×2 (08:52→21:05)
--- NOTE | 2018-03-26 15:59 | P.PN ---
Subjective - History of Present Illness this is a pleasant 57 yo M with pmh of CVA/TIA, GERD, Hypertension , Hyperlipidemia, osteoarthritis, sleep apnea on BiPAP/CPAP, he is s/p bowel resection who was admitted to the surgical team for right groin abscess, pt is complaining from right groin erythema and swelling and tenderness but states it is better than on admission , there is what looks like a fistula, pt is kept NPO over mid night for possible surgical intervention in the morning 03/24/2018 Patient is a status I and D by surgical team on his right groin abscess, wound is open with packing is in a Place. 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 Patient feels better. Pending finalization of his culture results for better choosing of his antibiotic as per ID team One of the blood cultures: Showing Neisseria. Repeat blood cultures are negative so far Objective - Vital Signs Vital signs: Vital Signs Temp 98.1 F 03/26/18 14:02 Pulse 65 03/26/18 14:02 Resp 18 03/26/18 14:02 BP 142/86 03/26/18 14:02 Pulse Ox 92 L 03/26/18 14:02 Intake & Output 03/25/18 03/26/18 03/26/18 18:59 06:59 18:59 Intake Total 600 600 Output Total 250 2275 Balance 600 -250 -1675 Weight 116 kg Intake: Oral 600 600 Output: Urine 250 2275 Other: # Voids 1 2 1 # Bowel Movements 1 - Exam GENERAL: The patient is alert and oriented x3, not in any acute distress. Well developed, well nourished. HEENT: Pupils are round and equally reacting to light. EOMI. No scleral icterus. No conjunctival pallor. Normocephalic, atraumatic. No pharyngeal erythema. No thyromegaly. CARDIOVASCULAR: S1 and S2 present. No murmurs, rubs, or gallops. PULMONARY: Chest is clear to auscultation, no wheezing or crackles. ABDOMEN: Soft, nontender, nondistended, normoactive bowel sounds. No palpable organomegaly. MUSCULOSKELETAL: No joint swelling or deformity. EXTREMITIES: No cyanosis, clubbing, or pedal edema. -right groin abscess, s/p I&D, with improving right groin erythema and swelling and tenderness, wound is open and pack is in place NEUROLOGICAL: Gross neurological examination did not reveal any focal deficits. SKIN: No rashes. - Labs CBC & Chem 7: 03/26/18 07:59 03/26/18 07:59 Labs: Microbiology - Last 24 Hours (Table) 03/24/18 07:40 Blood Culture - Preliminary Blood No Growth after 48 hours 03/24/18 08:01 Blood Culture - Preliminary Blood No Growth after 48 hours Assessment and Plan Assessment: Right Groin abscess with surrounding cellulitis , s/p I&D on 03/24/2018 CVA/TIA GERD Hypertension Hyperlipidemia osteoarthritis sleep apnea on BiPAP/CPAP he is s/p bowel resection Plan: pt is a pleasant 57 yo M who presents under surgery service team for right groing abscess and fistula, continue with the same treatment , continue with symptomatic treatment , resume home medication , monitor lytes and vitals including glucose , c/w iv fluids, infectious disease consult is appreciated . c/w same antibioitc pt is currently on meropenem . GI and DVT prophylaxis , further recommendation based upon pt clinical course -Plavix is on Hold for suergery DVT px on sc heparin , may hold it prior to surgery GI px protnoix
[2018-03-26] MEDS: ATORVASTATIN 80 MG TAB PO SCH (20:25)
--- NOTE | 2018-03-27 00:18 | P.PN ---
Subjective Progress Note Date: 03/26/18 Pleasant 57-year-old male known to the service after his hospitalization a couple months ago which point in time he developed a significant abscess to his right groin and scrotal area. He was seen by general surgery and urology. He has spontaneous drainage of a large amount of grossly purulent material from the area and then had good resolution. He was seen in the office at which point in time he was feeling well, He had no erythema crepitance fluctuance or tenderness in the area. Now 6 weeks later has noticed over the last several days the recurrence of erythema swelling and discomfort right groin area. She started develops to be in fever and chills and with this presents to Hospital. With evidence of positive blood cultures and increasing infection to the right groin area the infectious diseases consultation was requested. The patient does not feel as poorly as he did last time. He did not let it get is out of hand and severe as it was a few months ago. Denies any other changes, does not shave 03/25/2018 the patient was in the operating room yesterday, is now postoperative and comfortable but is impressed with the extent of the packing that was required. He is aware with his bacteremia and extensive infection that outpatient intravenous antibiotic therapy will be advised. 03/26/2018 the patient is feeling somewhat better today. He is denying new interim troubles. Blood cultures are negative and IV accesses been requested. Objective - Vital Signs Vital signs: Vital Signs Temp 98.0 F 03/26/18 23:00 Pulse 66 03/26/18 23:00 Resp 18 03/26/18 23:00 BP 120/76 03/26/18 23:00 Pulse Ox 95 03/26/18 23:00 Intake & Output 03/26/18 03/26/18 03/27/18 06:59 18:59 06:59 Intake Total 1200 Output Total 250 2500 Balance -250 -1300 Weight 116 kg Intake: Oral 1200 Output: Urine 250 2500 Other: # Voids 2 1 1 # Bowel Movements 1 - Exam 57-year-old male that has obesity is uncomfortable but not severe distress HEENT: Anicteric conjunctiva are pink and moist nasal mucosa grossly intact without significant lesions, there is no thrush.dentition is poor has all teeth missing upper without a plate no oral cavity lesions could be seen Neck: The neck is supple without significant lymphadenopathy or thyromegaly. Lungs: there was symmetric bilateral air entry with expiratory wheezes to the lung plunkett but no ashleigh bronchial sounds, no dullness or egophony Heart: Regular rate and rhythm with an audible S1-S2, no S3 loud S4. There is no significant murmur click or rub, PMI was nondisplaced. Abdomen: Positive bowel sounds soft and nontender without palpable masses or organomegaly. There was no guarding or rebound. Extremities: upper extremities reveals normal IV site. Lower extremities evidence of the multiple prior surgical interventions there are no significant open ulcers in the lower extremities they are cool but not cold to touch The right groin is evaluated. The surgical incision and drainage has occurred and there is less tenderness this time. There is no significant amount of purulent drainage although a large amount of purulent material was extracted at the time of the incision and drainage. The testicle itself is not swollen and painful at this time. There however is erythema and fluctuance to the right groin area. It is very tender to touch. Neuro: Awake alert oriented to person place and time. There are no acute new gross focal sensory motor deficits. - Labs CBC & Chem 7: 03/26/18 07:59 03/26/18 07:59 Labs: Microbiology - Last 24 Hours (Table) 03/24/18 07:40 Blood Culture - Preliminary Blood No Growth after 48 hours 03/24/18 08:01 Blood Culture - Preliminary Blood No Growth after 48 hours Laboratory Results WBC 7.9 k/uL (3.8-10.6) 03/26/18 07:59 RBC 4.74 m/uL (4.30-5.90) 03/26/18 07:59 Hgb 15.1 gm/dL (13.0-17.5) 03/26/18 07:59 Hct 44.3 % (39.0-53.0) 03/26/18 07:59 MCV 93.5 fL (80.0-100.0) 03/26/18 07:59 MCH 31.9 pg (25.0-35.0) 03/26/18 07:59 MCHC 34.1 g/dL (31.0-37.0) 03/26/18 07:59 RDW 13.3 % (11.5-15.5) 03/26/18 07:59 Plt Count 292 k/uL (150-450) 03/26/18 07:59 Neutrophils % 58 % 03/26/18 07:59 Lymphocytes % 26 % 03/26/18 07:59 Monocytes % 8 % 03/26/18 07:59 Eosinophils % 6 % 03/26/18 07:59 Basophils % 1 % 03/26/18 07:59 Neutrophils # 4.6 k/uL (1.3-7.7) 03/26/18 07:59 Lymphocytes # 2.0 k/uL (1.0-4.8) 03/26/18 07:59 Monocytes # 0.6 k/uL (0-1.0) 03/26/18 07:59 Eosinophils # 0.4 k/uL (0-0.7) 03/26/18 07:59 Basophils # 0.1 k/uL (0-0.2) 03/26/18 07:59 PT 10.7 sec (9.0-12.0) 03/24/18 08:01 INR 1.1 (<1.2) 03/24/18 08:01 Sodium 139 mmol/L (137-145) 03/26/18 07:59 Potassium 4.6 mmol/L (3.5-5.1) 03/26/18 07:59 Chloride 106 mmol/L (98-107) 03/26/18 07:59 Carbon Dioxide 26 mmol/L (22-30) 03/26/18 07:59 Anion Gap 7 mmol/L 03/26/18 07:59 BUN 9 mg/dL (9-20) 03/26/18 07:59 Creatinine 0.93 mg/dL (0.66-1.25) 03/26/18 07:59 Est GFR (CKD-EPI)AfAm >90 (>60 ml/min/1.73 sqM) 03/26/18 07:59 Est GFR (CKD-EPI)NonAf >90 (>60 ml/min/1.73 sqM) 03/26/18 07:59 Glucose 93 mg/dL (74-99) 03/26/18 07:59 Plasma Lactic Acid Maximilian 1.2 mmol/L (0.7-2.0) 03/22/18 18:10 Calcium 8.9 mg/dL (8.4-10.2) 03/26/18 07:59 Blood Type A Positive 03/22/18 22:44 Blood Type Recheck No 03/22/18 22:44 Antibody Screen NEGATIVE 03/22/18 22:44 Spec Expiration Date 03/25/2018 - 2344 03/22/18 22:44 Microbiology 03/24/18 07:40 Blood Blood Culture - Preliminary No Growth after 48 hours 03/24/18 08:01 Blood Blood Culture - Preliminary No Growth after 48 hours 03/24/18 10:00 Aspirate Gram Stain - Preliminary 03/24/18 10:00 Aspirate Body Fluid Culture - Preliminary 03/24/18 10:00 Aspirate Anaerobic Culture - Preliminary 03/22/18 18:10 Blood Blood Culture Gram Stain - Final 03/22/18 18:10 Blood Blood Culture - Final Neisseria mucosa 03/22/18 18:10 Blood Blood Culture - Final Assessment and Plan (1) Groin abscess Current Visit: Yes Status: Acute Code(s): L02.214 - CUTANEOUS ABSCESS OF GROIN SNOMED Code(s): 95125701 (2) Leukocytosis Current Visit: Yes Status: Acute Code(s): D72.829 - ELEVATED WHITE BLOOD CELL COUNT, UNSPECIFIED SNOMED Code(s): 896118593 (3) Gram negative sepsis Narrative/Plan: Pleasant 57-year-old male who does have obesity and likely prediabetes is developed recurrent abscess into his right groin. He has had some difficulties with skin abscesses in the past but has not had any difficulties the severe. He was hospitalized a couple months ago and has been abscess that did spontaneously drain and with antibiotic therapy he had improvement. He was seen in the office in January and seemed to have good resolution. Now 6 weeks later has recurrence of the same area. It is likely that without an official incision and drainage there was residual infection in the area that has now allows significant recurrence. He has been seen by surgery and appears will be incision and drainage planned in the morning. Hopefully this official debridement will clean out any necrotic material in complete resolution of this infectious process. It is not there is a positive blood culture with gram-negative bacilli and antibiotic therapy is streamlined to Zosyn, there was no resistant gram-positive organisms last time and gram negatives are seen at this time. Pain control seems to be adequate will monitor, he may require an outpatient course of intravenous antibiotic therapy depending on the pathogen. 03/25/2018 the patient is now status post incision and drainage. He is feeling somewhat better and doing well on current antibiotic therapy. The Neisseria mucosa was isolated and this is a gram-negative pathogen that is routinely susceptible to ceftriaxone Given the patient was bacteremic at this time antibiotic therapy continues and await follow blood culture. Once available PICC line will be placed and recently made for an outpatient course of intravenous antibiotic therapy patient relates that if office as the least expensive option would make at his choice. 03/26/2018 patient continues to improve status post is incision and drainage. Blood cultures are negative PICC line has been requested and we'll make arrangements for Rocephin as his outpatient intravenous antibiotic given the neisseria mucosa infection. We'll plan to weeks of antibiotic therapy given his gram-negative infection from the extensive abscess to the right groin. He will follow up closely in the outpatient clinic after his discharge. Aquacel silver will be utilized to packed into the ulceration. Current Visit: Yes Status: Acute Code(s): A41.50 - GRAM-NEGATIVE SEPSIS, UNSPECIFIED SNOMED Code(s): 890671714
[2018-03-27] MEDS: HYDROcodone/APAP 5-325MG 1 EACH TAB PO PRN ×4 (01:40→22:24)
[2018-03-27] MEDS: SYMBICORT 80-4.5 MCG INHALER INHALATION SCH ×2 (07:03→19:49)
[2018-03-27] MEDS: MEROPENEM 2 GM in SODIUM CHLORIDE 0.9% 100 ML IVPB SCH ×2 (08:23→15:12)
[2018-03-27] MEDS: busPIRone HCl 5 MG TAB PO SCH ×2 (08:24→20:18)
[2018-03-27] MEDS: PANTOPRAZOLE 40 MG TABLET PO SCH (08:25)
[2018-03-27] MEDS: SERTRALINE 100 MG TAB PO SCH (08:25)
[2018-03-27] MEDS: MONTELUKAST 10 MG TAB PO SCH (08:25)
[2018-03-27] MEDS: LOSARTAN 50 MG TAB PO SCH (08:25)
[2018-03-27] MEDS: HEPARIN SODIUM,PORCINE 5,000 UNIT/ML 1 ML VIAL SQ SCH ×2 (08:25→20:18)
[2018-03-27] MEDS: CARVEDILOL 12.5 MG TAB PO SCH ×2 (08:25→16:57)
[2018-03-27] MEDS: NYSTATIN 100,000UNIT/GM CREAM 30 GM TUBE TOPICAL SCH ×3 (08:26→22:20)
[2018-03-27] MEDS: MULTIVITAMINS, THERA 1 EACH TAB PO SCH (08:26)
[2018-03-27] MEDS: TRIAMCINOLONE 0.1% CREAM 80 GM TUBE TOPICAL SCH ×3 (08:26→22:20)
[2018-03-27] MEDS: MAGNESIUM OXIDE 400 MG TAB PO SCH (08:26)
[2018-03-27] MEDS: MORPHINE SULFATE 4 MG/ML SYRINGE IV PRN ×2 (15:45→20:12)
--- NOTE | 2018-03-27 20:14 | P.PN ---
Subjective - History of Present Illness this is a pleasant 57 yo M with pmh of CVA/TIA, GERD, Hypertension , Hyperlipidemia, osteoarthritis, sleep apnea on BiPAP/CPAP, he is s/p bowel resection who was admitted to the surgical team for right groin abscess, pt is complaining from right groin erythema and swelling and tenderness but states it is better than on admission , there is what looks like a fistula, pt is kept NPO over mid night for possible surgical intervention in the morning 03/24/2018 Patient is a status I and D by surgical team on his right groin abscess, wound is open with packing is in a Place. 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 Patient feels better. Pending finalization of his culture results for better choosing of his antibiotic as per ID team One of the blood cultures: Showing Neisseria. Repeat blood cultures are negative so far 03/27/2018 pt is still improving and waiting for his culture to finalize . he remains clinically stable Objective - Vital Signs Vital signs: Vital Signs Temp 96 F L 03/27/18 14:24 Pulse 61 03/27/18 15:35 Resp 17 03/27/18 15:35 BP 123/75 03/27/18 14:24 Pulse Ox 95 03/27/18 14:24 Intake & Output 03/27/18 03/27/18 03/28/18 06:59 18:59 06:59 Intake Total 400 240 Output Total 225 Balance 175 240 Weight 116 kg Intake: Oral 400 240 Output: Urine 225 Other: # Voids 2 2 - Exam GENERAL: The patient is alert and oriented x3, not in any acute distress. Well developed, well nourished. HEENT: Pupils are round and equally reacting to light. EOMI. No scleral icterus. No conjunctival pallor. Normocephalic, atraumatic. No pharyngeal erythema. No thyromegaly. CARDIOVASCULAR: S1 and S2 present. No murmurs, rubs, or gallops. PULMONARY: Chest is clear to auscultation, no wheezing or crackles. ABDOMEN: Soft, nontender, nondistended, normoactive bowel sounds. No palpable organomegaly. MUSCULOSKELETAL: No joint swelling or deformity. EXTREMITIES: No cyanosis, clubbing, or pedal edema. -right groin abscess, s/p I&D, with improving right groin erythema and swelling and tenderness, wound is open and pack is in place NEUROLOGICAL: Gross neurological examination did not reveal any focal deficits. SKIN: No rashes. - Labs CBC & Chem 7: 03/26/18 07:59 03/26/18 07:59 Labs: Microbiology - Last 24 Hours (Table) 03/24/18 10:00 Anaerobic Culture - Final Aspirate Anaerobic Gm Negative Bacilli 03/24/18 10:00 Gram Stain - Final Aspirate Body Fluid Culture - Final 03/24/18 07:40 Blood Culture - Preliminary Blood No Growth after 72 hours 03/24/18 08:01 Blood Culture - Preliminary Blood No Growth after 72 hours Assessment and Plan Assessment: Right Groin abscess with surrounding cellulitis , s/p I&D on 03/24/2018 CVA/TIA GERD Hypertension Hyperlipidemia osteoarthritis sleep apnea on BiPAP/CPAP he is s/p bowel resection Plan: pt is a pleasant 57 yo M who presents under surgery service team for right groing abscess and fistula, continue with the same treatment , continue with symptomatic treatment , resume home medication , monitor lytes and vitals including glucose , c/w iv fluids, infectious disease consult is appreciated . c/w same antibioitc pt is currently on meropenem . GI and DVT prophylaxis , further recommendation based upon pt clinical course -Plavix is on Hold for suergery DVT px on sc heparin , may hold it prior to surgery GI px protnoix
[2018-03-27] MEDS: ATORVASTATIN 80 MG TAB PO SCH (20:18)
[2018-03-27 22:25] VITALS: RESP 18
[2018-03-28] MEDS: MEROPENEM 2 GM in SODIUM CHLORIDE 0.9% 100 ML IVPB SCH ×2 (01:03→08:05)
[2018-03-28] MEDS: HYDROcodone/APAP 5-325MG 1 EACH TAB PO PRN ×3 (02:30→12:11)
[2018-03-28] MEDS: busPIRone HCl 5 MG TAB PO SCH (07:53)
[2018-03-28] MEDS: PANTOPRAZOLE 40 MG TABLET PO SCH (07:54)
[2018-03-28] MEDS: LOSARTAN 50 MG TAB PO SCH (07:54)
[2018-03-28] MEDS: CARVEDILOL 12.5 MG TAB PO SCH (07:54)
[2018-03-28] MEDS: MONTELUKAST 10 MG TAB PO SCH (07:54)
[2018-03-28] MEDS: SYMBICORT 80-4.5 MCG INHALER INHALATION SCH (07:54)
[2018-03-28] MEDS: MULTIVITAMINS, THERA 1 EACH TAB PO SCH (07:54)
[2018-03-28] MEDS: HEPARIN SODIUM,PORCINE 5,000 UNIT/ML 1 ML VIAL SQ SCH (07:55)
[2018-03-28] MEDS: NYSTATIN 100,000UNIT/GM CREAM 30 GM TUBE TOPICAL SCH ×2 (07:55→09:13)
[2018-03-28] MEDS: TRIAMCINOLONE 0.1% CREAM 80 GM TUBE TOPICAL SCH ×2 (07:55→09:13)
[2018-03-28] MEDS: MAGNESIUM OXIDE 400 MG TAB PO SCH (07:55)
[2018-03-28] MEDS: SERTRALINE 100 MG TAB PO SCH (07:55)
[2018-03-28] MEDS: MORPHINE SULFATE 4 MG/ML SYRINGE IV PRN (10:34)
[2018-03-28] MEDS ORDERED: cefTRIAXone IN SWFI 2,000 MG/20 ML SYRINGE IVP SCH (11:45)
[2018-03-28] MEDS ORDERED: LIDOCAINE 2% (PF) 20 MG/ML 2 ML VIAL SQ ONE (12:51)
[2018-03-28 15:12] VITALS: BP 137/89; PULSE 51; TEMP 98.9
--- NOTE | 2018-03-28 22:46 | P.DS ---
Providers Date of admission: 03/22/18 19:38 Attending physician: Artie Wiseman Consults: 03/23/18 08:16 Consult Physician Routine Consulting Provider: Artie Wiseman Consult Reason/Comments: medical management Do you want consulting provider notified?: Yes 03/23/18 08:54 Consult Physician Routine Consulting Provider: Artie Wiseman Consult Reason/Comments: Medications management Do you want consulting provider notified?: Yes 03/23/18 13:50 Consult Physician Routine Consulting Provider: Sabino Mcguire Consult Reason/Comments: positive blood cultures Do you want consulting provider notified?: Yes Primary care physician: [facility] Course: Please note patient was admitted under surgical service, however his surgeon was on medication as per staff and he was not following the patient over a few days, patient transferred to medical service and we discharged the patient today this is a pleasant 57 yo M with pmh of CVA/TIA, GERD, Hypertension , Hyperlipidemia, osteoarthritis, sleep apnea on BiPAP/CPAP, he is s/p bowel resection who was admitted to the surgical team for right groin abscess, he had right groin erythema, swelling and tenderness. Patient is status post incision and drainage of his right groin abscess, with open wound and PICC and dressing in place. Progressively patient was showing significant improvement, and his mobility is improved with less swelling and tenderness and redness. Infectious disease were following the patient. And he was discharged on IV ceftriaxone as per ID team recommendation, with PICC/midline in place. Patient was cleared by surgical infectious team for discharge. Problems and management plan were discussed with the patient and he agrees, patient is found stable and can be discharged home however he needs follow-up as an outpatient. An appointment is made for him with infectious disease clinic which he agrees with. Patient was instructed to follow-up with his PCP and the surgical office in one week and he agrees too GENERAL: The patient is alert and oriented x3, not in any acute distress. Well developed, well nourished. HEENT: Pupils are round and equally reacting to light. EOMI. No scleral icterus. No conjunctival pallor. Normocephalic, atraumatic. No pharyngeal erythema. No thyromegaly. CARDIOVASCULAR: S1 and S2 present. No murmurs, rubs, or gallops. PULMONARY: Chest is clear to auscultation, no wheezing or crackles. ABDOMEN: Soft, nontender, nondistended, normoactive bowel sounds. No palpable organomegaly. MUSCULOSKELETAL: No joint swelling or deformity. EXTREMITIES: No cyanosis, clubbing, or pedal edema. -right groin abscess, s/p I&D, with improving right groin erythema and swelling and tenderness, wound is open and pack is in place NEUROLOGICAL: Gross neurological examination did not reveal any focal deficits. SKIN: No rashes. Time spent more than 35 minutes Patient Condition at Discharge: Good Plan - Discharge Summary Discharge Rx Participant: Yes New Discharge Prescriptions: New cefTRIAXone SODIUM [Ceftriaxone] 2 gm IV DAILY #30 vial.port HYDROcodone/APAP 5-325MG [Natalia 5-325] 1 each PO Q6HR PRN 3 Days #10 tab PRN Reason: Moderate Pain Continue Clopidogrel [Plavix] 75 mg PO HS Carvedilol [Coreg] 12.5 mg PO BID Losartan [Cozaar] 50 mg PO DAILY Atorvastatin Calcium [Lipitor] 80 mg PO HS Magnesium Oxide [Magox 400] 400 mg PO DAILY #60 tablet Omeprazole 40 mg PO AC-BRKFST #30 capsule. Multivitamins, Thera [Multivitamin (formulary)] 1 tab PO DAILY Montelukast [Singulair] 10 mg PO DAILY Mometasone/Formoterol [Dulera 100 Mcg/5 Mcg Inhaler] 1 puff INHALATION RT-BID Sertraline [Zoloft] 100 mg PO DAILY Triamcinolone 0.1% Cream [Kenalog 0.1% Cream] 1 applic TOPICAL TID busPIRone HCL 22.5 mg PO BID Nystatin 100,000Unit/gm Cream [Mycostatin Cream] 1 applic TOPICAL TID Discharge Medication List Clopidogrel [Plavix] 75 mg PO HS 02/23/14 [History] Carvedilol [Coreg] 12.5 mg PO BID 08/25/15 [History] Losartan [Cozaar] 50 mg PO DAILY 05/16/16 [History] Atorvastatin Calcium [Lipitor] 80 mg PO HS 09/07/16 [History] Magnesium Oxide [Magox 400] 400 mg PO DAILY #60 tablet 09/19/16 [Rx] Omeprazole 40 mg PO AC-BRKFST #30 capsule. 11/13/16 [Rx] Montelukast [Singulair] 10 mg PO DAILY 05/11/17 [History] Multivitamins, Thera [Multivitamin (formulary)] 1 tab PO DAILY 05/11/17 [History ] Mometasone/Formoterol [Dulera 100 Mcg/5 Mcg Inhaler] 1 puff INHALATION RT-BID [History] Sertraline [Zoloft] 100 mg PO DAILY 01/26/18 [History] Nystatin 100,000Unit/gm Cream [Mycostatin Cream] 1 applic TOPICAL TID 03/22/18 [ History] Triamcinolone 0.1% Cream [Kenalog 0.1% Cream] 1 applic TOPICAL TID 03/22/18 [ History] busPIRone HCL 22.5 mg PO BID 03/22/18 [History] cefTRIAXone SODIUM [Ceftriaxone] 2 gm IV DAILY #30 vial.port 03/25/18 [Rx] HYDROcodone/APAP 5-325MG [Natalia 5-325] 1 each PO Q6HR PRN 3 Days #10 tab [Rx] Follow up Appointment(s)/Referral(s): Jackson Barahona DO [Primary Care Provider] - 1-2 days Sabino Mcguire MD [STAFF PHYSICIAN] - 03/29/18 (For IV antibiotic infusion please arrive any time tomorrow on 03/29/18 between 8:30AM and 4:00PM) [facility] Visiting Nurse, [NON-STAFF] - Rocky Lopez MD [STAFF PHYSICIAN] - 1 Week Patient Instructions/Handouts: Peripherally Inserted Central Catheters and Midline Catheters (DC), Acute Wound Care (DC) Activity/Diet/Wound Care/Special Instructions: -To the right groin ulceration, on Sunday, Sunday and Sunday, cleanse with saline and packed with Aquacel silver rope cover with saline moistened gauze and dry ABD pad to cover. (Supplies: Aquacel silver rope, 4 x 4, Kerlix, ABD) -Go to Dr. mcguire office anywhere from 8AM-4PM tomorrow 03/29. -No smoking, cessation information provided. -[facility] home[facility] with call with and let you know what time and when they will be coming. -Activity as tolerated. - PICC line info given to patient. -diet: resume your previous diet Discharge Disposition: HOME WITH HOME HEALTH SERVICES
== END 2018-03-28 15:44 | disposition home health service (06) | DRG 872 ==
LOC: EC 16:05 → 4MS4W 19:38
PROVIDERS: ADMIT Hospitalist; ATTEND Hospitalist
PROC: 0H9AXZZ Drainage of Inguinal Skin, External Approach (ICD-10-PCS; principal; 2018-03-24 09:00)
PROC: 05HC33Z Insertion of Infusion Device into Left Basilic Vein, Percutaneous Approach (ICD-10-PCS; 2018-03-28 12:30)
DX: A41.50 Gram-negative sepsis, unspecified (principal); L02.214 Cutaneous abscess of groin; E66.9 Obesity, unspecified; Z68.35 Body mass index [BMI] 35.0-35.9, adult; E78.5 Hyperlipidemia, unspecified; F17.200 Nicotine dependence, unspecified, uncomplicated; Z86.73 Personal history of transient ischemic attack (TIA), and cerebral infarction without residual deficits; G47.30 Sleep apnea, unspecified; I10 Essential (primary) hypertension; J44.9 Chronic obstructive pulmonary disease, unspecified; K21.9 Gastro-esophageal reflux disease without esophagitis; M19.90 Unspecified osteoarthritis, unspecified site; N49.2 Inflammatory disorders of scrotum; R73.03 Prediabetes; Z79.02 Long term (current) use of antithrombotics/antiplatelets; Z79.51 Long term (current) use of inhaled steroids; Z79.899 Other long term (current) drug therapy; Z82.5 Family history of asthma and other chronic lower respiratory diseases; Z85.828 Personal history of other malignant neoplasm of skin; Z86.79 Personal history of other diseases of the circulatory system; Z88.0 Allergy status to penicillin; Z90.49 Acquired absence of other specified parts of digestive tract; Z88.8 Allergy status to other drugs, medicaments and biological substances
CPT/HCPCS: 36415; 36569; 74177; 76937; 77001; 80048; 83605; 85025; 85610; 86850; 86900; 86901; 87040; 87070; 87075; 87205; 93005; 94640; 96365; 96375; 99285

== ENCOUNTER → 2018-04-10 | Outpatient (CLI) | payer OTHER ==
[2018-04-10 12:15] LABS: ALT 42 U/L (21-72); AST 18 U/L (17-59); Cholesterol 163 mg/dL (<200); HDL Cholesterol 32 mg/dL (40-60); LDL Cholesterol,Calculated 96 mg/dL (0-99); Triglycerides 174 mg/dL (<150)
== END | disposition home or self-care (01) ==
LOC: LABWHC1 11:15
PROVIDERS: ATTEND Internal Medicine Interventional Cardiology
DX: E78.2 Mixed hyperlipidemia (principal)
CPT/HCPCS: 36415; 80061; 84450; 84460

== ENCOUNTER 2018-05-22 00:17 | Observation (INO) | payer OTHER ==
[2018-05-22] MEDS ORDERED: SODIUM CHLORIDE 0.9% 1,000 ML IV ONE (01:21)
[2018-05-22] MEDS ORDERED: ONDANSETRON 4 MG/2 ML VIAL IVP STA (01:21)
[2018-05-22] MEDS ORDERED: HYDROmorphone 1 MG/ML 1 ML SYRINGE IVP STA ×2 (01:21→03:04)
[2018-05-22] MEDS ORDERED: KETOROLAC 30 MG/ML 1 ML VIAL IVP STA (01:21)
[2018-05-22 01:39] LABS: Basophils # (A) 0.1 k/uL (0-0.2); Basophils % (A) 1 %; Eosinophils # (A) 0.4 k/uL (0-0.7); Eosinophils % (A) 3 %; HCT 44.8 % (39.0-53.0); HGB 15.2 gm/dL (13.0-17.5); Lymphocytes # (A) 2.9 k/uL (1.0-4.8); Lymphocytes % (A) 22 %; MCH 31.6 pg (25.0-35.0); MCHC 33.9 g/dL (31.0-37.0); MCV 93.1 fL (80.0-100.0); Monocytes % (A) 8 %; Neutrophils # (A) 8.5 k/uL (1.3-7.7); Neutrophils % (A) 65 %; Platelet Count 290 k/uL (150-450); RBC 4.82 m/uL (4.30-5.90); RDW 13.9 % (11.5-15.5); WBC 13.1 k/uL (3.8-10.6)
[2018-05-22 01:50] LABS: ALT 18 U/L (21-72); AST 16 U/L (17-59); Albumin 3.7 g/dL (3.5-5.0); Alkaline Phosphatase 48 U/L (38-126); Anion Gap 13 mmol/L; Blood Urea Nitrogen 14 mg/dL (9-20); Calcium 9.1 mg/dL (8.4-10.2); Carbon Dioxide 19 mmol/L (22-30); Chloride 105 mmol/L (98-107); Glucose 122 mg/dL (74-99); Potassium 4.2 mmol/L (3.5-5.1); Sodium 137 mmol/L (137-145); Total Bilirubin 0.3 mg/dL (0.2-1.3); Total Protein 6.8 g/dL (6.3-8.2)
[2018-05-22] MEDS: LIDOCAINE 1% INJ 10MG/ML (20 ML MDV) SQ ONE ×2 (02:56→03:03)
--- NOTE | 2018-05-22 03:04 | ED ---
Skin/Abscess/FB HPI - General Source: patient, EMS Mode of arrival: EMS Limitations: no limitations <Mirta Sánchez - Last Filed: 05/22/18 03:05> <Xuan Mathew - Last Filed: 05/22/18 06:15> - General Chief complaint: Skin/Abscess/Foreign Body Stated complaint: GROIN PAIN Time Seen by Provider: 05/22/18 01:11 - History of Present Illness Initial comments: 57-year-old male patient presents to the emergency department today for evaluation of abscess to the left groin region. Patient states that the area started as a small pimple yesterday and then started to grow larger quickly. Patient states that the area is very tender to touch and painful. He denies any drainage from the area. Patient does have history of recurrent abscess to this area. Patient was admitted in January and then also in March for similar symptoms. Patient did have to have a PICC line inserted and prolonged IV antibiotics. The patient has followed with Dr. Mcguire outpatient. Patient states he has felt chilled and nauseous throughout the day today. Denies taking anything for his pain. Denies any documented temperatures. Patient denies any recent rash, shortness breath, chest pain, abdominal pain, vomiting, diarrhea, constipation, back pain, numbness, tingling, dizziness, weakness, hematuria, dysuria, urinary urgency, urinary frequency, headache, visual changes , or any other complaints. (Mirta Sánchez) - Related Data Home Medications Medication Instructions Recorded Confirmed Clopidogrel [Plavix] 75 mg PO HS 02/23/14 05/22/18 Carvedilol [Coreg] 12.5 mg PO BID 08/25/15 05/22/18 Losartan [Cozaar] 50 mg PO DAILY 05/16/16 05/22/18 Atorvastatin Calcium [Lipitor] 80 mg PO HS 09/07/16 05/22/18 Montelukast [Singulair] 10 mg PO DAILY 05/11/17 05/22/18 Multivitamins, Thera [Multivitamin 1 tab PO DAILY 05/11/17 05/22/18 (formulary)] Mometasone/Formoterol [Dulera 100 1 puff INHALATION RT-BID 05/12/17 05/22/18 Mcg/5 Mcg Inhaler] Sertraline [Zoloft] 100 mg PO DAILY 01/26/18 05/22/18 Nystatin 100,000Unit/gm Cream 1 applic TOPICAL TID 03/22/18 05/22/18 [Mycostatin Cream] Triamcinolone 0.1% Cream [Kenalog 1 applic TOPICAL TID 03/22/18 05/22/18 0.1% Cream] busPIRone HCL 22.5 mg PO BID 03/22/18 05/22/18 Previous Rx's Medication Instructions Recorded Magnesium Oxide [Magox 400] 400 mg PO DAILY #60 tablet 09/19/16 Omeprazole 40 mg PO AC-BRKFST #30 capsule. 11/13/16 cefTRIAXone SODIUM [Ceftriaxone] 2 gm IV DAILY #30 vial.port 03/25/18 HYDROcodone/APAP 5-325MG [[place] 1 each PO Q6HR PRN 3 Days #10 tab 03/28/18 5-325] Allergies Allergy/AdvReac Type Severity Reaction Status Date / Time amoxicillin [Amoxicillin] Allergy Rash/Hives Verified 03/22/18 20:14 enalapril maleate Allergy Rash/Hives Verified 03/22/18 20:14 [From Vasotec] enalaprilat dihydrate Allergy Rash/Hives Verified 03/22/18 20:14 [From Vasotec] Penicillins Allergy Rash/Hives Verified 03/22/18 20:14 Review of Systems ROS Other: All systems not noted in ROS Statement are negative. <Mirta Sánchez M - Last Filed: 05/22/18 03:05> ROS Other: All systems not noted in ROS Statement are negative. <Xuan Mathew - Last Filed: 05/22/18 06:15> ROS Statement: Those systems with pertinent positive or pertinent negative responses have been documented in the HPI. Past Medical History Past Medical History: Cancer, COPD, CVA/TIA, GERD/Reflux, Hyperlipidemia, Hypertension, Osteoarthritis (OA), Skin Disorder, Sleep Apnea/CPAP/BIPAP, Vascular Disorder Additional Past Medical History / Comment(s): Hx. TIA 2013, uses cpap, hx diverticulitis, skin cancer, aortic aneurysm(sx done stated has stent), past abscess and incision and drainage of skin abscess rt groin History of Any Multi-Drug Resistant Organisms: None Reported Past Surgical History: Bowel Resection, Orthopedic Surgery Additional Past Surgical History / Comment(s): RT ROTATOR CUFF REPAIR, BONE SPUR REMOVED RT SHOULDER, I & D BOIL LT BUTTOCK, FEM POP BYPASS rt leg, surgery fx neck (pins and plates), 08-26-16 lap lysis of adhesions, lap reduction of incarcerated lt ing hernia with ventral hernia repair w/mesh. (AAA repair has stent) Past Anesthesia/Blood Transfusion Reactions: No Reported Reaction Additional Past Anesthesia/Blood Transfusion Reaction / Comment(s): surgery for fx neck -has pins and plates-pt. states can move neck forward and back, side to side ok (this was his last surgery). Past Psychological History: No Psychological Hx Reported Smoking Status: Current every day smoker Past Alcohol Use History: None Reported Past Drug Use History: None Reported - Past Family History Mother Family Medical History: COPD Additional Family Medical History / Comment(s): 2011 at age 78. Father Family Medical History: No Reported History Additional Family Medical History / Comment(s): in 2017 at age 92 <Mirta Sánchez M - Last Filed: 05/22/18 03:05> General Exam Limitations: no limitations General appearance: alert, in no apparent distress, other (This is a well- developed, well-nourished adult male patient in no acute distress. Vital signs upon presentation are temperature 98.5F, pulse 79, respirations 17, blood pressure 154/76, pulse ox 97% on room air.) Eye exam: Present: normal appearance, PERRL, EOMI. Absent: scleral icterus, conjunctival injection, periorbital swelling ENT exam: Present: normal exam, normal oropharynx, mucous membranes moist Respiratory exam: Present: normal lung sounds bilaterally. Absent: respiratory distress, wheezes, rales, rhonchi, stridor Cardiovascular Exam: Present: regular rate, normal rhythm, normal heart sounds. Absent: systolic murmur, diastolic murmur, rubs, gallop, clicks GI/Abdominal exam: Present: soft, normal bowel sounds. Absent: distended, tenderness, guarding, rebound, rigid Neurological exam: Present: alert, oriented X3, CN II-XII intact Psychiatric exam: Present: normal affect, normal mood Skin exam: Present: warm, dry, intact, normal color. Absent: rash Expanded Type of lesion: Present: abscess (There is a 3 cm x 2 cm abscess to the left groin, there is surrounding erythema and evidence of purulent drainage. Area is firm with surrounding induration.) <Mirta Sánchez - Last Filed: 05/22/18 03:05> Vital Signs 05/22/18 05/22/18 05/22/18 00:19 02:50 03:48 Temperature 98.5 F Pulse Rate 79 67 71 Respiratory 17 18 16 Rate Blood Pressure 154/76 127/60 113/59 O2 Sat by Pulse 97 96 96 Oximetry Medical Decision Making - Lab Data Result diagrams: 05/22/18 00:26 05/22/18 00:26 <Mirta Sánchez - Last Filed: 05/22/18 03:05> - Lab Data Result diagrams: 05/22/18 00:26 05/22/18 00:26 <Xuan Mathew - Last Filed: 05/22/18 06:15> - Medical Decision Making 57 year-old male patient presented to the emergency department today for evaluation of left groin abscess. Physical examination did reveal a 3 cm x 2 cm abscess to the left groin with surrounding erythema and induration. Patient is exquisitely tender to the area making examination difficult. Patient did have evidence of purulent drainage. Does have history of recurrent abscess to this area with last admission being in March where he had to have PICC line insertion and prolonged IV antibiotics. Patient is currently afebrile. Patient does have elevated white blood cell count at 13.6. Patient will be started on antibiotics and admitted for surgical consultation and drainage. Dr. Mcguire will be consulted for infectious disease. Patient verbalizes understanding and agrees with this plan. (Mirta Sánchez) I was available for consultation in the emergency department. The history and physical exam were done by the midlevel provider. I was consulted for this patient's care. I reviewed the case with the midlevel provider and based on their presentation of the patient, I agree with the assessment, medical decision making and plan of care as documented. Based on the patient's complicated history do feel he warrants admission to the hospital. We'll plan to admit to medicine for infection with a consult to general surgery and infectious disease. (Xuan Mathew) - Lab Data Lab Results 05/22/18 05/22/18 05/22/18 Range/Units 00:26 00:26 00:26 WBC 13.1 H (3.8-10.6) k/uL RBC 4.82 (4.30-5.90) m/uL Hgb 15.2 (13.0-17.5) gm/dL Hct 44.8 (39.0-53.0) % MCV 93.1 (80.0-100.0) fL MCH 31.6 (25.0-35.0) pg MCHC 33.9 (31.0-37.0) g/dL RDW 13.9 (11.5-15.5) % Plt Count 290 (150-450) k/uL Neutrophils % 65 % Lymphocytes % 22 % Monocytes % 8 % Eosinophils % 3 % Basophils % 1 % Neutrophils # 8.5 H (1.3-7.7) k/uL Lymphocytes # 2.9 (1.0-4.8) k/uL Monocytes # 1.0 (0-1.0) k/uL Eosinophils # 0.4 (0-0.7) k/uL Basophils # 0.1 (0-0.2) k/uL Sodium 137 (137-145) mmol/L Potassium 4.2 (3.5-5.1) mmol/L Chloride 105 (98-107) mmol/L Carbon Dioxide 19 L (22-30) mmol/L Anion Gap 13 mmol/L BUN 14 (9-20) mg/dL Creatinine 1.00 (0.66-1.25) mg/dL Est GFR (CKD-EPI)AfAm >90 (>60 ml/min/1.73 sqM) Est GFR (CKD-EPI)NonAf 84 (>60 ml/min/1.73 sqM) Glucose 122 H (74-99) mg/dL Plasma Lactic Acid Maximilian 1.5 (0.7-2.0) mmol/L Calcium 9.1 (8.4-10.2) mg/dL Total Bilirubin 0.3 (0.2-1.3) mg/dL AST 16 L (17-59) U/L ALT 18 L (21-72) U/L Alkaline Phosphatase 48 (38-126) U/L Total Protein 6.8 (6.3-8.2) g/dL Albumin 3.7 (3.5-5.0) g/dL Disposition Decision to Admit Reason: Admit from EC Decision Date: 05/22/18 Decision Time: 03:11 <Mirta Sánchez - Last Filed: 05/22/18 03:05> <Xuan Mathew - Last Filed: 05/22/18 06:15> Clinical Impression: Abscess of left groin Disposition: ADMITTED IP TO THIS HOSP Condition: Serious
[2018-05-22] MEDS ORDERED: NALOXONE 0.4 MG/ML 1 ML VIAL IV PRN (03:14)
[2018-05-22] MEDS ORDERED: ACETAMINOPHEN TAB 325 MG TAB PO PRN (03:14)
[2018-05-22] MEDS ORDERED: VANCOMYCIN IV PER PHARMACY 1 EACH MISC MISCELLANE PRN (03:17)
[2018-05-22] MEDS ORDERED: VANCOMYCIN 1,750 MG in SODIUM CHLORIDE 0.9% 500 ML 500 ML IVPB STA (03:22)
[2018-05-22] MEDS ORDERED: cefTRIAXone 2,000 MG in SODIUM CHLORIDE 0.9% 100 ML IVPB STA (03:28)
[2018-05-22] MEDS: SODIUM CHLORIDE 0.9% 1,000 ML IV SCH ×2 (03:44→16:47)
[2018-05-22 04:51] VITALS: BMI 35.5
[2018-05-22] MEDS: HYDROmorphone 1 MG/ML 1 ML SYRINGE IVP PRN ×5 (09:22→23:55)
[2018-05-22] MEDS: busPIRone HCl 10 MG TAB PO SCH ×2 (10:08→20:34)
[2018-05-22] MEDS: SERTRALINE 100 MG TAB PO SCH (10:09)
[2018-05-22] MEDS: CARVEDILOL 12.5 MG TAB PO SCH ×2 (10:09→15:26)
[2018-05-22] MEDS: MULTIVITAMINS, THERA 1 EACH TAB PO SCH (10:09)
[2018-05-22] MEDS: LOSARTAN 50 MG TAB PO SCH (10:09)
[2018-05-22] MEDS: MAGNESIUM OXIDE 400 MG TAB PO SCH (10:09)
[2018-05-22] MEDS: PANTOPRAZOLE 40 MG TABLET PO SCH (10:09)
[2018-05-22] MEDS: MONTELUKAST 10 MG TAB PO SCH (10:09)
[2018-05-22] MEDS: clonazePAM 0.5 MG TAB PO SCH (10:13)
[2018-05-22] MEDS ORDERED: IPRATROPIUM-ALBUTEROL 3 ML NEB INHALATION PRN (12:16)
--- NOTE | 2018-05-22 12:29 | P.CONS ---
History of Present Illness - Reason for Consult Consult date: 05/22/18 Antibiotic recommendations - History of Present Illness This is a 57-year-old male patient was recently seen for abscess in the left groin region initially seen for this on an admission in January of this year. He admitted again in March for the same and was discharged home on Rocephin for 30 tape course which was subsequently changed and Dr. Mcguire office. Patient states he completed antibiotics about 2-3 weeks ago. His PICC line was removed. He states that an onset yesterday of erythema and edema to the left groin as well as fever and chills and nausea. He denies any vomiting or diarrhea. He came into [facility] emergency center for evaluation. He was afebrile, leukocytosis of 13.1. He was given a dose of ceftriaxone and vancomycin in the emergency center and admitted to the [facility] floor. He has been seen by Dr. Lopez with no plan for intervention today. He has been continued on vancomycin. Wound culture has been obtained. Cultures status received. Patient states that his fever or chills, and nausea are improved. He was able to eat at lunch without nausea. Patient does complain of shortness of breath with wheezing secondary to COPD. He voices frustration that the infection to the groin is recurring. Right groin wound is healed with no sign of infection. Review of Systems All systems: negative Constitutional: Reports chills, Reports fever, Reports poor appetite Eyes: denies blurred vision, denies pain Ears, nose, mouth and throat: Denies dental pain, Denies headache, Denies mouth pain, Denies sore throat, Denies vertigo Cardiovascular: Denies chest pain, Denies leg edema, Denies lightheadedness, Denies shortness of breath, Denies syncope Respiratory: Reports cough, Reports dyspnea, Reports wheezing, Denies cough with sputum, Denies excessive sputum, Denies hemoptysis, Denies home oxygen Gastrointestinal: Reports loss of appetite, Reports nausea, Denies abdominal pain, Denies diarrhea, Denies vomiting Genitourinary: Denies dysuria Musculoskeletal: Denies myalgias Integumentary: Reports wounds, Denies pruritus, Denies rash Neurological: Denies numbness, Denies weakness Psychiatric: Denies anxiety, Denies depression Endocrine: Denies fatigue, Denies weight change Past Medical History Past Medical History: Cancer, COPD, CVA/TIA, GERD/Reflux, Hyperlipidemia, Hypertension, Osteoarthritis (OA), Skin Disorder, Sleep Apnea/CPAP/BIPAP, Vascular Disorder Additional Past Medical History / Comment(s): Hx. TIA 2013, uses cpap, hx diverticulitis, skin cancer, aortic aneurysm(sx done stated has stent), past abscess and incision and drainage of skin abscess rt groin History of Any Multi-Drug Resistant Organisms: None Reported Past Surgical History: Bowel Resection, Orthopedic Surgery Additional Past Surgical History / Comment(s): RT ROTATOR CUFF REPAIR, BONE SPUR REMOVED RT SHOULDER, I & D BOIL LT BUTTOCK, FEM POP BYPASS rt leg, surgery fx neck (pins and plates), 08-26-15 lap lysis of adhesions, lap reduction of incarcerated lt ing hernia with ventral hernia repair w/mesh. (AAA repair has stent) Past Anesthesia/Blood Transfusion Reactions: No Reported Reaction Additional Past Anesthesia/Blood Transfusion Reaction / Comm: surgery for fx neck -has pins and plates-pt. states can move neck forward and back, side to side ok (this was his last surgery). Past Psychological History: No Psychological Hx Reported Additional Psychological History / Comment(s): and lives with his and the family home, they have 2 pet dogs. Adult children do not live with him. Is a chronic tobacco smoker of a half a pack per day for 35 years and has not stopped. Denies significant alcohol use or recreational drug use. 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 No experience. No international travel history. tattoos were professionally applied. Smoking Status: Current every day smoker Past Alcohol Use History: None Reported Additional Past Alcohol Use History / Comment(s): started smoking in 1987 has cut down to 1-2 cig per day Past Drug Use History: None Reported - Past Family History Mother Family Medical History: COPD Additional Family Medical History / Comment(s): 2011 at age 78. Father Family Medical History: No Reported History Additional Family Medical History / Comment(s): in 2016 at age 92 Medications and Allergies Home Medications Medication Instructions Recorded Confirmed Type Clopidogrel [Plavix] 75 mg PO HS 02/23/14 05/22/18 History Carvedilol [Coreg] 12.5 mg PO BID 08/25/15 05/22/18 History Losartan [Cozaar] 50 mg PO DAILY 05/16/16 05/22/18 History Atorvastatin Calcium [Lipitor] 80 mg PO HS 09/07/16 05/22/18 History Magnesium Oxide [Magox 400] 400 mg PO DAILY #60 tablet 09/19/16 05/22/18 Rx Omeprazole 40 mg PO ALIX-BRKFST #30 capsule. 11/13/16 05/22/18 Rx Montelukast [Singulair] 10 mg PO DAILY 05/11/17 05/22/18 History Multivitamins, Thera [Multivitamin 1 tab PO DAILY 05/11/17 05/22/18 History (formulary)] Mometasone/Formoterol [Dulera 100 1 puff INHALATION RT-BID 05/12/17 05/22/18 History Mcg/5 Mcg Inhaler] Sertraline [Zoloft] 100 mg PO DAILY 01/26/18 05/22/18 History Nystatin 100,000Unit/gm Cream 1 applic TOPICAL TID 03/22/18 05/22/18 History [Mycostatin Cream] Triamcinolone 0.1% Cream [Kenalog 1 applic TOPICAL TID 03/22/18 05/22/18 History 0.1% Cream] busPIRone HCL [Buspar] 30 mg PO BID 05/22/18 05/22/18 History clonazePAM [KlonoPIN] 0.5 mg PO DAILY 05/22/18 05/22/18 History Allergies Allergy/AdvReac Type Severity Reaction Status Date / Time amoxicillin [Amoxicillin] Allergy Rash/Hives Verified 05/22/18 08:11 enalapril maleate Allergy Rash/Hives Verified 05/22/18 08:11 [From Vasotec] enalaprilat dihydrate Allergy Rash/Hives Verified 05/22/18 08:11 [From Vasotec] Penicillins Allergy Rash/Hives Verified 05/22/18 08:11 Physical Exam Vitals: Vital Signs Temp Pulse Pulse Resp BP BP Pulse Ox 05/22/18 07:00 97.5 F L 72 16 113/69 92 L 05/22/18 04:19 97.5 F L 72 16 113/69 92 L 05/22/18 03:48 71 16 113/59 96 05/22/18 02:50 67 18 127/60 96 05/22/18 00:19 98.5 F 79 17 154/76 97 Intake and Output 05/21/18 05/22/18 05/22/18 22:59 06:59 14:59 Other: # Voids 1 Weight 115 kg Gen: This is a 57-year-old male. He is sitting up in bed and appears to be comfortable and in no acute distress. HEENT: Head is atraumatic, normocephalic. Pupils equal, round. Sclerae is anicteric. Conjunctiva pink. Mucous members of the mouth are moist. No thrush noted. Dentition is in poor order patient is edentulous on the top. NECK: Supple. No JVD. No lymphadenopathy. No thyromegaly. LUNGS: Expiratory wheezes throughout all lung plunkett. No intercostal retractions. HEART: Regular rate and rhythm. No murmur. ABDOMEN: Soft. Bowel sounds are present. No masses. No tenderness. The right groin shows a surgical wound that has healed. No surrounding erythema or edema. To the left groin there is edema with serous drainage with significant tenderness to touch. No testicular edema noted. EXTREMITIES: No pedal edema. No calf tenderness. Dorsalis pedis palpable bilaterally. NEUROLOGICAL: Patient is awake, alert and oriented x3. Cranial nerves 2 through 12 are grossly intact. Results Results: Laboratory Results WBC 13.1 k/uL (3.8-10.6) H 05/22/18 00:26 RBC 4.82 m/uL (4.30-5.90) 05/22/18 00:26 Hgb 15.2 gm/dL (13.0-17.5) 05/22/18 00:26 Hct 44.8 % (39.0-53.0) 05/22/18 00:26 MCV 93.1 fL (80.0-100.0) 05/22/18 00:26 MCH 31.6 pg (25.0-35.0) 05/22/18 00:26 MCHC 33.9 g/dL (31.0-37.0) 05/22/18 00:26 RDW 13.9 % (11.5-15.5) 05/22/18 00:26 Plt Count 290 k/uL (150-450) 05/22/18 00:26 Neutrophils % 65 % 05/22/18 00:26 Lymphocytes % 22 % 05/22/18 00: Monocytes % 8 % 05/22/18 00: Eosinophils % 3 % 05/22/18 00: Basophils % 1 % 05/22/18 00: Neutrophils # 8.5 k/uL (1.3-7.7) H 05/22/18 00: Lymphocytes # 2.9 k/uL (1.0-4.8) 05/22/18 00: Monocytes # 1.0 k/uL (0-1.0) 05/22/18 00: Eosinophils # 0.4 k/uL (0-0.7) 05/22/18 00: Basophils # 0.1 k/uL (0-0.2) 05/22/18 00:26 Sodium 137 mmol/L (137-145) 05/22/18 00: Potassium 4.2 mmol/L (3.5-5.1) 05/22/18: Chloride 105 mmol/L (98-107) 05/22/18 00: Carbon Dioxide 19 mmol/L (22-30) L 05/22/18 00: Anion Gap 13 mmol/L 05/22/18 00: BUN 14 mg/dL (9-20) 05/22/18 00: Creatinine 1.00 mg/dL (0.66-1.25) 05/22/18 00:26 Est GFR (CKD-EPI)AfAm >90 (>60 ml/min/1.73 sqM) 05/22/18 00: Est GFR (CKD-EPI)NonAf 84 (>60 ml/min/1.73 sqM) 05/22/18 00: Glucose 122 mg/dL (74-99) H 05/22/18 00:26 Plasma Lactic Acid Maximilian 1.5 mmol/L (0.7-2.0) 05/22/18: Calcium 9.1 mg/dL (8.4-10.2) 05/22/18 00:26 Total Bilirubin 0.3 mg/dL (0.2-1.3) 05/22/18 00: AST 16 U/L (17-59) L 05/22/18: ALT 18 U/L (21-72) L 05/22/18 00:26 Alkaline Phosphatase 48 U/L (38-126) 05/22/18 00:26 Total Protein 6.8 g/dL (6.3-8.2) 05/22/18 00:26 Albumin 3.7 g/dL (3.5-5.0) 05/22/18 00:26 CBC & Chem 7: 05/22/18 00:26 05/22/18 00:26 Labs: Abnormal Lab Results - Last 24 Hours (Table) 05/22/18 05/22/18 Range/Units 00: 00:26 WBC 13.1 H (3.8-10.6) k/uL Neutrophils # 8.5 H (1.3-7.7) k/uL Carbon Dioxide 19 L (22-30) mmol/L Glucose 122 H (74-99) mg/dL AST 16 L (17-59) U/L ALT 18 L (21-72) U/L Microbiology - Last 24 Hours (Table) 05/22/18 00:26 Wound Culture - Preliminary Groin Assessment and Plan Plan: This is a 57-year-old male who presents with recurrent soft tissue and skin abscesses wit concern for fistula. Now presents with abscess to the left groin. Patient is currently on vancomycin and Merrem added. General surgery is for possible I&D. Cultures are in progress. Continue supportive care. Further recommendations as patient versus. The above dictated assessment and findings were discussed with Dr. Mcguire. The impression and plan of care have been directed as dictated. Leonila Valles nurse practitioner acting as scribe for Dr. Mcguire.
[2018-05-22] MEDS: IPRATROPIUM-ALBUTEROL 3 ML NEB INHALATION SCH ×2 (12:43→19:38)
--- NOTE | 2018-05-22 13:15 | P.GSCN ---
History of Present Illness Consult date: 05/22/18 Reason for Consult: Left groin pain with probable abscess History of present illness: 57-year-old male being seen at the request of the attending for surgical eval after patient developed acutel pain in the left groin area within the last 24- 48 hours. Patient stated it initially started out on the left groin a small pimple yesterday and then he noted it get larger rather quickly. He stated the area was very tender to touch. Reportedly was experiencing odorous serous drainage from the area. Patient states that he has history of having recurrent abscess in this area. Patient has been admitted at least twice within the last several months for similar symptoms. Patient reports that he just completed a prolonged course of outpatient antibiotics with infectious disease Dr. Mcguire 2 weeks ago. Patient stated at that time the PICC line was removed. Patient stated he had been doing relatively well. Patient recently underwent incision and drainage of the right groin abscess March 24 this year. The right groin inspected nontender well-healed non-open the left groin significant tenderness with serous drainage significant amount edema was odor noted from the left groin . No edema noted to the testicles. Past medical history of prior CVA TIA, hypertension, hyperlipidemia, sleep apnea on BiPAP therapy esophageal reflux Past surgical history prior incision and drainages of the abscess bilateral groin Orthopedic procedures, repair of incarcerated left inguinal hernia, ventral hernia repair, aortic aneurysm repair with stent Active every day smoker Review of Systems Essentially unremarkable except as mentioned in the present illness Past Medical History Past Medical History: Cancer, COPD, CVA/TIA, GERD/Reflux, Hyperlipidemia, Hypertension, Osteoarthritis (OA), Skin Disorder, Sleep Apnea/CPAP/BIPAP, Vascular Disorder Additional Past Medical History / Comment(s): Hx. TIA 2013, uses cpap, hx diverticulitis, skin cancer, aortic aneurysm(sx done stated has stent), past abscess and incision and drainage of skin abscess rt groin History of Any Multi-Drug Resistant Organisms: None Reported Past Surgical History: Bowel Resection, Orthopedic Surgery Additional Past Surgical History / Comment(s): RT ROTATOR CUFF REPAIR, BONE SPUR REMOVED RT SHOULDER, I & D BOIL LT BUTTOCK, FEM POP BYPASS rt leg, surgery fx neck (pins and plates), 08-26-16 lap lysis of adhesions, lap reduction of incarcerated lt ing hernia with ventral hernia repair w/mesh. (AAA repair has stent) Past Anesthesia/Blood Transfusion Reactions: No Reported Reaction Additional Past Anesthesia/Blood Transfusion Reaction / Comm: surgery for fx neck -has pins and plates-pt. states can move neck forward and back, side to side ok (this was his last surgery). Past Psychological History: No Psychological Hx Reported Additional Psychological History / Comment(s): and lives with his and the family home, they have 2 pet dogs. Adult children do not live with him. Is a chronic tobacco smoker of a half a pack per day for 35 years and has not stopped. Denies significant alcohol use or recreational drug use. 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 No experience. No international travel history. tattoos were professionally applied. Smoking Status: Current every day smoker Past Alcohol Use History: None Reported Additional Past Alcohol Use History / Comment(s): started smoking in 1987 has cut down to 1-2 cig per day Past Drug Use History: None Reported - Past Family History Mother Family Medical History: COPD Additional Family Medical History / Comment(s): 2011 at age 78. Father Family Medical History: No Reported History Additional Family Medical History / Comment(s): in 2016 at age 92 Medications and Allergies Home Medications Medication Instructions Recorded Confirmed Type Clopidogrel [Plavix] 75 mg PO HS 02/23/14 05/22/18 History Carvedilol [Coreg] 12.5 mg PO BID 08/25/15 05/22/18 History Losartan [Cozaar] 50 mg PO DAILY 05/16/16 05/22/18 History Atorvastatin Calcium [Lipitor] 80 mg PO HS 09/07/16 05/22/18 History Magnesium Oxide [Magox 400] 400 mg PO DAILY #60 tablet 09/19/16 05/22/18 Rx Omeprazole 40 mg PO AC-BRKFST #30 capsule. 11/13/16 05/22/18 Rx Montelukast [Singulair] 10 mg PO DAILY 05/11/17 05/22/18 History Multivitamins, Thera [Multivitamin 1 tab PO DAILY 05/11/17 05/22/18 History (formulary)] Mometasone/Formoterol [Dulera 100 1 puff INHALATION RT-BID 05/12/17 05/22/18 History Mcg/5 Mcg Inhaler] Sertraline [Zoloft] 100 mg PO DAILY 01/26/18 05/22/18 History Nystatin 100,000Unit/gm Cream 1 applic TOPICAL TID 03/22/18 05/22/18 History [Mycostatin Cream] Triamcinolone 0.1% Cream [Kenalog 1 applic TOPICAL TID 03/22/18 05/22/18 History 0.1% Cream] busPIRone HCL [Buspar] 30 mg PO BID 05/22/18 05/22/18 History clonazePAM [KlonoPIN] 0.5 mg PO DAILY 05/22/18 05/22/18 History Allergies Allergy/AdvReac Type Severity Reaction Status Date / Time amoxicillin [Amoxicillin] Allergy Rash/Hives Verified 05/22/18 08:11 enalapril maleate Allergy Rash/Hives Verified 05/22/18 08:11 [From Vasotec] enalaprilat dihydrate Allergy Rash/Hives Verified 05/22/18 08:11 [From Vasotec] Penicillins Allergy Rash/Hives Verified 05/22/18 08:11 Surgical - Exam Vital Signs Temp Pulse Resp BP Pulse Ox 98.5 F 79 17 154/76 97 05/22/18 00:19 05/22/18 00:19 05/22/18 00:19 05/22/18 00:19 05/22/18 00:19 GENERAL APPEARANCE: 57-year-old male patient is alert, oriented, in no acute distress. "Upset I don't why I keep developing these cyst VITAL SIGNS: Reviewed HEENT: Head is normocephalic and atraumatic. Pupils are equal and reactive. The nares are patent. Oropharynx is clear without lesions. NECK: Supple without lymphadenopathy. Traches midline. HEART: S1, S2. Regular rate and rhythm. No murmur noted denying chest pain when questioning LUNGS: No crackles or wheezes are heard. Good air movement bilaterally on room air no cough noted ABDOMEN: Soft nondistended and nontender active bowel tones left groin significant tenderness with edema tender to the touch draining serous drainage with an odor The right groin shows a well-healed surgical scar from a prior incision and drainage. No scrotal edema. Patient reports no nausea no vomiting bowel movement this morning no loose stools Extremities no pedal edema no calf tenderness . Results - Labs 05/22/18 00:26 05/22/18 00:26 Abnormal Lab Results - Last 24 Hours (Table) 05/22/18 05/22/18 Range/Units 00:26 00:26 WBC 13.1 H (3.8-10.6) k/uL Neutrophils # 8.5 H (1.3-7.7) k/uL Carbon Dioxide 19 L (22-30) mmol/L Glucose 122 H (74-99) mg/dL AST 16 L (17-59) U/L ALT 18 L (21-72) U/L Microbiology - Last 24 Hours (Table) 05/22/18 00:26 Wound Culture - Preliminary Groin Diabetes panel 05/22/18 Range/Units 00:26 Sodium 137 (137-145) mmol/L Potassium 4.2 (3.5-5.1) mmol/L Chloride 105 (98-107) mmol/L Carbon Dioxide 19 L (22-30) mmol/L BUN 14 (9-20) mg/dL Creatinine 1.00 (0.66-1.25) mg/dL Glucose 122 H (74-99) mg/dL Calcium 9.1 (8.4-10.2) mg/dL AST 16 L (17-59) U/L ALT 18 L (21-72) U/L Alkaline Phosphatase 48 (38-126) U/L Total Protein 6.8 (6.3-8.2) g/dL Albumin 3.7 (3.5-5.0) g/dL Calcium panel 05/22/18 Range/Units 00:26 Calcium 9.1 (8.4-10.2) mg/dL Albumin 3.7 (3.5-5.0) g/dL Pituitary panel 05/22/18 Range/Units 00:26 Sodium 137 (137-145) mmol/L Potassium 4.2 (3.5-5.1) mmol/L Chloride 105 (98-107) mmol/L Carbon Dioxide 19 L (22-30) mmol/L BUN 14 (9-20) mg/dL Creatinine 1.00 (0.66-1.25) mg/dL Glucose 122 H (74-99) mg/dL Calcium 9.1 (8.4-10.2) mg/dL Adrenal panel 05/22/18 Range/Units 00:26 Sodium 137 (137-145) mmol/L Potassium 4.2 (3.5-5.1) mmol/L Chloride 105 (98-107) mmol/L Carbon Dioxide 19 L (22-30) mmol/L BUN 14 (9-20) mg/dL Creatinine 1.00 (0.66-1.25) mg/dL Glucose 122 H (74-99) mg/dL Calcium 9.1 (8.4-10.2) mg/dL Total Bilirubin 0.3 (0.2-1.3) mg/dL AST 16 L (17-59) U/L ALT 18 L (21-72) U/L Alkaline Phosphatase 48 (38-126) U/L Total Protein 6.8 (6.3-8.2) g/dL Albumin 3.7 (3.5-5.0) g/dL Assessment and Plan Assessment: Impression Present on admission left groin pain suspect due to an abscess A recent incision and drainage of the right groin abscess done on 03/24/2018 Obesity BMI 35 Current every day smoker History of a low anterior resection done 8 years prior History of prior abscess with incision and drainages of the right groin Present on admission leukocytosis suspect reactive Plan Continue recommendations by infectious disease defer to IV antibiotics per infectious disease recommendations currently on IV vancomycin Follow-up on pending wound cultures does not improve with IV antibiotics will be reassessed tomorrow for determination if indicated an incision and drainage of the infected area needs to be done Follow with you Pain control advised to stop smoking cigarettes smoking cessation information provided DVT and GI prophylaxis Surgical consultation note dictated for Dr. mitchell The above impression and plan of care have been discussed and directed by signing physician. Alona Chapman nurse practitioner acting as scribe for signing physician.
[2018-05-22] MEDS: VANCOMYCIN 1,750 MG in SODIUM CHLORIDE 0.9% 500 ML 500 ML IVPB SCH (14:41)
--- NOTE | 2018-05-22 15:06 | P.HPIM ---
History of Present Illness 57-year-old male came in the with pain in the left groin area found to have an abscess patient is presently on cefepime and vancomycin patient does not have any fever at home but does have leukocytosis did have chills at home. Patient was recently treated for right groin abscess patient completed these antibiotics about 2-3 weeks ago and had a PICC line at that time. Patient denied any cough runny nose dysuria dysuria. Patient was nauseous. Review of Systems REVIEW OF SYSTEMS: CONSTITUTIONAL: No fever, no malaise, no fatigue. HEENT: No recent visual problems or hearing problems. Denied any sore throat. CARDIOVASCULAR: No chest pain, orthopnea, PND, no palpitations, no syncope. PULMONARY: No shortness of breath, no cough, no hemoptysis. GASTROINTESTINAL: No diarrhea, no nausea, no vomiting, no abdominal pain. Normoactive bowel sounds. NEUROLOGICAL: No headaches, no weakness, no numbness. HEMATOLOGICAL: Denies any bleeding or petechiae. GENITOURINARY: Denies any burning micturition, frequency, or urgency. MUSCULOSKELETAL/RHEUMATOLOGICAL: Denies any joint pain, swelling, or any muscle pain. ENDOCRINE: Denies any polyuria or polydipsia. The rest of the 14-point review of systems is negative. t Past Medical History Past Medical History: Cancer, COPD, CVA/TIA, GERD/Reflux, Hyperlipidemia, Hypertension, Osteoarthritis (OA), Skin Disorder, Sleep Apnea/CPAP/BIPAP, Vascular Disorder Additional Past Medical History / Comment(s): Hx. TIA 2013, uses cpap, hx diverticulitis, skin cancer, aortic aneurysm(sx done stated has stent), past abscess and incision and drainage of skin abscess rt groin History of Any Multi-Drug Resistant Organisms: None Reported Past Surgical History: Bowel Resection, Orthopedic Surgery Additional Past Surgical History / Comment(s): RT ROTATOR CUFF REPAIR, BONE SPUR REMOVED RT SHOULDER, I & D BOIL LT BUTTOCK, FEM POP BYPASS rt leg, surgery fx neck (pins and plates), 08-26-16 lap lysis of adhesions, lap reduction of incarcerated lt ing hernia with ventral hernia repair w/mesh. (AAA repair has stent) Past Anesthesia/Blood Transfusion Reactions: No Reported Reaction Additional Past Anesthesia/Blood Transfusion Reaction / Comment(s): surgery for fx neck -has pins and plates-pt. states can move neck forward and back, side to side ok (this was his last surgery). Past Psychological History: No Psychological Hx Reported Additional Psychological History / Comment(s): and lives with his and the family home, they have 2 pet dogs. Adult children do not live with him. Is a chronic tobacco smoker of a half a pack per day for 35 years and has not stopped. Denies significant alcohol use or recreational drug use. 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 No experience. No international travel history. tattoos were professionally applied. Smoking Status: Current every day smoker Past Alcohol Use History: None Reported Additional Past Alcohol Use History / Comment(s): started smoking in 1987 has cut down to 1-2 cig per day Past Drug Use History: None Reported - Past Family History Mother Family Medical History: COPD Additional Family Medical History / Comment(s): 2011 at age 78. Father Family Medical History: No Reported History Additional Family Medical History / Comment(s): in 2016 at age 92 Medications and Allergies Home Medications Medication Instructions Recorded Confirmed Type Clopidogrel [Plavix] 75 mg PO HS 02/23/14 05/22/18 History Carvedilol [Coreg] 12.5 mg PO BID 08/25/15 05/22/18 History Losartan [Cozaar] 50 mg PO DAILY 05/16/16 05/22/18 History Atorvastatin Calcium [Lipitor] 80 mg PO HS 09/07/16 05/22/18 History Magnesium Oxide [Magox 400] 400 mg PO DAILY #60 tablet 09/19/16 05/22/18 Rx Omeprazole 40 mg PO [facility] [[email or web address]] #30 capsule. 11/13/16 05/22/18 Rx Montelukast [Singulair] 10 mg PO DAILY 05/11/17 05/22/18 History Multivitamins, Thera [Multivitamin 1 tab PO DAILY 05/11/17 05/22/18 History (formulary)] Mometasone/Formoterol [Dulera 100 1 puff INHALATION RT-BID 05/12/17 05/22/18 History Mcg/5 Mcg Inhaler] Sertraline [Zoloft] 100 mg PO DAILY 01/26/18 05/22/18 History Nystatin 100,000Unit/gm Cream 1 applic TOPICAL TID 03/22/18 05/22/18 History [Mycostatin Cream] Triamcinolone 0.1% Cream [Kenalog 1 applic TOPICAL TID 03/22/18 05/22/18 History 0.1% Cream] busPIRone HCL [Buspar] 30 mg PO BID 05/22/18 05/22/18 History clonazePAM [KlonoPIN] 0.5 mg PO DAILY 05/22/18 05/22/18 History Allergies Allergy/AdvReac Type Severity Reaction Status Date / Time amoxicillin [Amoxicillin] Allergy Rash/Hives Verified 05/22/18 08:11 enalapril maleate Allergy Rash/Hives Verified 05/22/18 08:11 [From Vasotec] enalaprilat dihydrate Allergy Rash/Hives Verified 05/22/18 08:11 [From Vasotec] Penicillins Allergy Rash/Hives Verified 05/22/18 08:11 Physical Exam Vitals: Vital Signs Temp Pulse Pulse Pulse Resp BP BP 05/22/18 14:39 97.8 F 61 05/22/18 12:53 74 05/22/18 12:43 72 05/22/18 07:00 97.5 F L 72 16 113/69 05/22/18 04:19 97.5 F L 72 16 113/69 05/22/18 03:48 71 16 113/59 05/22/18 02:50 67 18 127/60 05/22/18 00:19 98.5 F 79 17 154/76 BP Pulse Ox 05/22/18 14:39 104/69 92 L 05/22/18 12:53 05/22/18 12:43 05/22/18 07:00 92 L 05/22/18 04:19 92 L 05/22/18 03:48 96 05/22/18 02:50 96 05/22/18 00:19 97 Intake and Output 05/21/18 05/22/18 05/22/18 22:59 06:59 14:59 Output Total 325 Balance -325 Output: Urine 325 Other: # Voids 1 Weight 115 kg PHYSICAL EXAMINATION: GENERAL: The patient is alert and oriented x3, not in any acute distress. Well developed, well nourished. HEENT: Pupils are round and equally reacting to light. EOMI. No scleral icterus. No conjunctival pallor. Normocephalic, atraumatic. No pharyngeal erythema. No thyromegaly. CARDIOVASCULAR: S1 and S2 present. No murmurs, rubs, or gallops. PULMONARY: Chest is clear to auscultation, no wheezing or crackles. ABDOMEN: Soft, nontender, nondistended, normoactive bowel sounds. No palpable organomegaly. MUSCULOSKELETAL: No joint swelling or deformity. EXTREMITIES: No cyanosis, clubbing, or pedal edema. NEUROLOGICAL: Gross neurological examination did not reveal any focal deficits. SKIN: Right groin there is an indurated mass with some ulceration and drainage coming out of it mostly appears to be serous to purulent local is of temperature tenderness to touch. Results CBC & Chem 7: 05/22/18 00:26 05/22/18 00:26 Labs: Abnormal Lab Results - Last 24 Hours (Table) 05/22/18 05/22/18 Range/Units 00:26 00:26 WBC 13.1 H (3.8-10.6) k/uL Neutrophils # 8.5 H (1.3-7.7) k/uL Carbon Dioxide 19 L (22-30) mmol/L Glucose 122 H (74-99) mg/dL AST 16 L (17-59) U/L ALT 18 L (21-72) U/L Microbiology - Last 24 Hours (Table) 05/22/18 00:26 Gram Stain - Preliminary Groin Wound Culture - Preliminary Thrombosis Risk Factor Assmnt - Choose All That Apply Each Factor Represents 1 point: Abnormal pulmonary function (COPD), Age 41-60 years, Obesity (BMI >25) Other Risk Factors: No Thrombosis Risk Factor Assessment Total Risk Factor Score: 3 Thrombosis Risk Factor Assessment Level: Moderate Risk Assessment and Plan Plan: -Right groin abscess: Patient will need incision and drainage and Gen. surgery was consulted patient was started on vancomycin and Rocephin which is being continued -COPD without any exacerbation Gastroesophageal reflux disease hypertension -hyperlipidemia -Sleep apnea For above-mentioned chronic medical problems patient was resumed on appropriate home medications. Changes are being made in the medication reconciliation. Will follow-up on the blood cultures.
[2018-05-22] MEDS: MEROPENEM 2 GM in SODIUM CHLORIDE 0.9% 100 ML IVPB SCH ×2 (15:25→23:50)
[2018-05-22] MEDS: IOPAMIDOL-300 CONTRAST 30 ML VIAL (ORAL USE) PO PRN ×2 (15:25→16:39)
[2018-05-22] MEDS: TRIAMCINOLONE 0.1% CREAM 80 GM TUBE TOPICAL SCH ×2 (15:26→20:35)
[2018-05-22] MEDS: NYSTATIN 100,000UNIT/GM CREAM 30 GM TUBE TOPICAL SCH ×2 (15:26→20:36)
--- NOTE | 2018-05-22 18:18 | CT ---
EXAMINATION TYPE: CT abdomen pelvis w con DATE OF EXAM: 05/22/2018 COMPARISON: 03/22/2018 HISTORY: Left groin abscess. CT DLP: 1946 mGycm Automated exposure control for dose reduction was used. TECHNIQUE: Helical acquisition of images was performed from the lung bases through the pelvis. CONTRAST: Performed with Oral Contrast and with IV Contrast, patient injected with 100 mL of Isovue M300. FINDINGS: There is patchy atelectasis at the lung bases. Heart size is normal. There is no pericardial effusion . Liver spleen pancreas appear normal. Bile ducts are not dilated. Gallbladder appears normal. There is no adrenal mass. Kidneys have normal size and contour. There is no hydronephrosis. There is no retroperitoneal adenopa thy. There is aortoiliac stent noted. There is 3.8 cm aneurysm of the lower abdominal aorta. Stent ap pears patent. Bladder distends smoothly. There is no pelvic mass. I see no intestinal wall thickening. There are no dilated loops. The appendix appears normal. Bony structures are intact. There is no inguinal hernia. There is mild fat stranding in the left inguinal region without a discrete fluid collection. There i s small umbilical hernia that contains fat. IMPRESSION: THERE IS NEW INFILTRATE AND ATELECTASIS AT THE POSTERIOR LUNG BASES COMPARED TO OLD EXAM. SUBCUTANEOUS FAT STRANDING IN THE LEFT INGUINAL REGION CONSISTENT WITH CELLULITIS. NO ABSCESS. THERE IS CLEARING OF THE RIGHT PUDENDAL INFLAMMATORY CHANGES COMPARED TO OLD EXAM. THERE IS CLEARING OF A 4 X 2 CM FLUID COLLECTION IN THE UPPER RIGHT PUDENDAL REGION COMPARED TO OLD EXAM. STABLE ABDOMINAL AORTIC ANEURYSM.
[2018-05-22] MEDS: SYMBICORT 80-4.5 MCG INHALER INHALATION SCH (19:38)
[2018-05-22] MEDS: ATORVASTATIN 80 MG TAB PO SCH (20:34)
[2018-05-22] MEDS: CLOPIDOGREL 75 MG TAB PO SCH (20:34)
--- NOTE | 2018-05-22 23:27 | P.CON ---
Consult Note - . Consult date: 05/22/18 Assessment/Plan:: This is a 57-year-old male patient was recently seen for abscess in the left groin region initially seen for this on an admission in January of this year. He admitted again in March for the same and was discharged home on Rocephin for 30 day course which was subsequently changed and Dr. Mcguire office. Patient states he completed antibiotics about 2-3 weeks ago. His PICC line was removed. He states that an onset yesterday of erythema and edema to the left groin as well as fever and chills and nausea. He denies any vomiting or diarrhea. He came into [facility] emergency center for evaluation. He was afebrile, leukocytosis of 13.1. He was given a dose of ceftriaxone and vancomycin in the emergency center and admitted to the [facility] floor. He has been seen by Dr. Lopez with no plan for intervention today. He has been continued on vancomycin. Wound culture has been obtained. Cultures status received. Patient states that his fever or chills, and nausea are improved. He was able to eat at lunch without nausea. Patient does complain of shortness of breath with wheezing secondary to COPD. He voices frustration that the infection to the groin is recurring. Right groin wound is healed with no sign of infection.Please see the consult note is dictated by nurse practitioner Mrs. Leonila Valles Pleasant 57-year-old male with a very extensive recent past medical history regarding significant abscess to the right groin area that had recurred. Requiring extensive surgical incision and drainage. Patient was treated with a course of intravenous antibiotic therapy with complete resolution of the significant abscess to the right groin. There was a polymicrobial culture with multiple anaerobic bacteria as well as the neiserria species that resulted in a bacteremia. The patient has done well off of antibiotic therapy suddenly had the onset of pain and swelling discomfort to the left groin associated with fever and chill and because his fever became so highly became ill he presented to the emergency center for evaluation. The patient does have evidence of leukocytosis in the significant pain and swelling to the left groin. The patient did have a computed tomography scan of the abdomen performed over a year ago other than diverticulitis no evidence of any acute difficulty. Patient has been seen by general surgery and the case is discussed in that the patient is having recurrent abscess to the groin area. The last culture was polymicrobial with multiple anaerobic bacteria in the Neisseria species. With this there is concerns to a bowel source and a follow-up computed tomography scan has been requested. If there are no significant findings then the patient would do well to have colonoscopy to evaluate the possibility of underlying bowel disease. Antibiotic therapy with vancomycin and meropenem have been started pending further culture results. Await blood cultures, the patient was bacteremic during his last stay. I agree with evaluation, assessment and plan is dictated by nurse practitioner Mrs. Leonila Valles.
[2018-05-23] MEDS: VANCOMYCIN 1,750 MG in SODIUM CHLORIDE 0.9% 500 ML 500 ML IVPB SCH ×2 (03:39→14:22)
[2018-05-23] MEDS: HYDROmorphone 1 MG/ML 1 ML SYRINGE IVP PRN ×4 (04:41→19:42)
[2018-05-23] MEDS: SODIUM CHLORIDE 0.9% 1,000 ML IV SCH ×2 (06:22→19:41)
[2018-05-23] MEDS: SYMBICORT 80-4.5 MCG INHALER INHALATION SCH ×2 (07:26→21:02)
[2018-05-23] MEDS: IPRATROPIUM-ALBUTEROL 3 ML NEB INHALATION SCH ×3 (07:26→21:02)
[2018-05-23] MEDS: PANTOPRAZOLE 40 MG TABLET PO SCH (08:14)
[2018-05-23] MEDS: CARVEDILOL 12.5 MG TAB PO SCH ×2 (08:14→17:24)
[2018-05-23] MEDS: MULTIVITAMINS, THERA 1 EACH TAB PO SCH (08:14)
[2018-05-23] MEDS: LOSARTAN 50 MG TAB PO SCH (08:14)
[2018-05-23] MEDS: clonazePAM 0.5 MG TAB PO SCH (08:14)
[2018-05-23] MEDS: busPIRone HCl 10 MG TAB PO SCH ×2 (08:14→19:39)
[2018-05-23] MEDS: MONTELUKAST 10 MG TAB PO SCH (08:15)
[2018-05-23] MEDS: SERTRALINE 100 MG TAB PO SCH (08:15)
[2018-05-23] MEDS: NYSTATIN 100,000UNIT/GM CREAM 30 GM TUBE TOPICAL SCH ×3 (08:15→19:41)
[2018-05-23] MEDS: TRIAMCINOLONE 0.1% CREAM 80 GM TUBE TOPICAL SCH ×3 (08:15→19:41)
[2018-05-23] MEDS: MAGNESIUM OXIDE 400 MG TAB PO SCH (08:15)
[2018-05-23] MEDS: MEROPENEM 2 GM in SODIUM CHLORIDE 0.9% 100 ML IVPB SCH ×3 (08:17→23:55)
[2018-05-23 09:02] LABS: Basophils % (A) 1 %; Eosinophils # (A) 0.3 k/uL (0-0.7); Eosinophils % (A) 3 %; HCT 44.9 % (39.0-53.0); HGB 14.9 gm/dL (13.0-17.5); Lymphocytes # (A) 1.5 k/uL (1.0-4.8); Lymphocytes % (A) 19 %; MCH 31.5 pg (25.0-35.0); MCHC 33.1 g/dL (31.0-37.0); MCV 95.4 fL (80.0-100.0); Monocytes # (A) 0.4 k/uL (0-1.0); Monocytes % (A) 5 %; Neutrophils # (A) 5.9 k/uL (1.3-7.7); Neutrophils % (A) 71 %; Platelet Count 264 k/uL (150-450); RBC 4.71 m/uL (4.30-5.90); RDW 13.5 % (11.5-15.5); WBC 8.2 k/uL (3.8-10.6)
[2018-05-23 09:15] LABS: ALT 25 U/L (21-72); AST 16 U/L (17-59); Albumin 3.3 g/dL (3.5-5.0); Alkaline Phosphatase 46 U/L (38-126); Anion Gap 7 mmol/L; Blood Urea Nitrogen 12 mg/dL (9-20); Calcium 8.9 mg/dL (8.4-10.2); Carbon Dioxide 28 mmol/L (22-30); Chloride 104 mmol/L (98-107); Glucose 119 mg/dL (74-99); Sodium 139 mmol/L (137-145); Total Bilirubin 0.4 mg/dL (0.2-1.3); Total Protein 6.2 g/dL (6.3-8.2)
--- NOTE | 2018-05-23 11:25 | P.PN ---
Subjective Progress Note Date: 05/23/18 57-year-old male sitting up in bed. Reports continues to have discomfort in the left coronary. Moderate amount of serous drainage noted on dressing Discuss with the patient the plan to do colonoscopy tomorrow agreeable states anxious to find out "intracyst why he continues to get infection involving the reddy and keeps reoccurring the right groin wound continues to show no signs of infection urinating no difficulty. The white count 8.2 hemoglobin 14 electrolyte within normal limits except for potassium 5 Objective - Vital Signs Vital signs: Vital Signs Temp 97.1 F L 05/23/18 07:00 Pulse 70 05/23/18 07:35 Resp 16 05/23/18 07:00 BP 134/78 05/23/18 07:00 Pulse Ox 92 L 05/23/18 07:00 Intake & Output 05/22/18 05/23/18 05/23/18 18:59 06:59 18:59 Intake Total 240 1100 Output Total 325 900 500 Balance -85 200 -500 Intake: Oral 240 1100 Output: Urine 325 900 500 Other: # Bowel Movements 0 - Exam Physical exam 57-year-old male resting in bed appears in no acute distress states continues to have discomfort in the left groin area Lungs good air movement bilaterally Heart S1-S2 audible regular denying chest pain Abdomen obese soft nontender nondistended states no stool urinating no difficulty right groin evidence of infection left groin dressing in place positive tenderness Extremities no edema noted - Labs CBC & Chem 7: 05/23/18 08:20 05/23/18 08:20 Labs: Abnormal Lab Results - Last 24 Hours (Table) 05/23/18 Range/Units 08:20 Glucose 119 H (74-99) mg/dL AST 16 L (17-59) U/L Total Protein 6.2 L (6.3-8.2) g/dL Albumin 3.3 L (3.5-5.0) g/dL Microbiology - Last 24 Hours (Table) 05/22/18 00:26 Gram Stain - Preliminary Groin Wound Culture - Preliminary 05/22/18 00:26 Blood Culture - Preliminary Blood No Growth after 24 hours 05/22/18 09:20 Gram Stain - Preliminary Groin Wound Culture - Preliminary 05/22/18 09:20 Anaerobic Culture - Preliminary Groin Assessment and Plan Assessment: Impression Present on admission left groin pain suspect due to an abscess A recent incision and drainage of the right groin abscess done on 03/24/2018 Obesity BMI 35 Current every day smoker History of a low anterior resection done 8 years prior History of prior abscess with incision and drainages of the right groin Present on admission leukocytosis suspect reactive improving Mild hyperkalemia CAT scan abdomen and pelvis report indicates stable abdominal aortic aneurysm Computed tomography scan abdomen pelvis done on the subcutaneous fat left inguinal region consistent with cellulitis no abscess Plan Schedule for colonoscopy tomorrow Bowel prep to be initiated IV antibiotics per infectious disease recommendations currently on IV vancomycin and meropenem Follow-up on pending wound culture Follow with you Pain control advised to stop smoking cigarettes smoking cessation information provided DVT and GI prophylaxis The above impression and plan of care have been discussed and directed by signing physician. Alona Chapman nurse practitioner acting as scribe for signing physician.
[2018-05-23] MEDS ORDERED: PEG 3350-NA SULF,BICARB,CL/KCL 4,000 ML BOTTLE PO ONE (12:00)
[2018-05-23] MEDS: CLOPIDOGREL 75 MG TAB PO SCH ×2 (13:59→19:39)
[2018-05-23 15:33] VITALS: RESP 18
--- NOTE | 2018-05-23 16:04 | P.PN ---
Subjective Progress Note Date: 05/23/18 Progress note being dictated for Dr. Hayden. Interval history:57-year-old male came in the with pain in the left groin area found to have an abscess patient is presently on cefepime and vancomycin patient does not have any fever at home but does have leukocytosis did have chills at home. Patient was recently treated for right groin abscess patient completed these antibiotics about 2-3 weeks ago and had a PICC line at that time. Patient denied any cough runny nose dysuria dysuria. Patient was nauseous. Review of Systems REVIEW OF SYSTEMS: CONSTITUTIONAL: No fever, no malaise, no fatigue. HEENT: No recent visual problems or hearing problems. Denied any sore throat. CARDIOVASCULAR: No chest pain, orthopnea, PND, no palpitations, no syncope. PULMONARY: No shortness of breath, no cough, no hemoptysis. GASTROINTESTINAL: No diarrhea, no nausea, no vomiting, no abdominal pain. Normoactive bowel sounds. NEUROLOGICAL: No headaches, no weakness, no numbness. HEMATOLOGICAL: Denies any bleeding or petechiae. GENITOURINARY: Denies any burning micturition, frequency, or urgency. MUSCULOSKELETAL/RHEUMATOLOGICAL: Denies any joint pain, swelling, or any muscle pain. ENDOCRINE: Denies any polyuria or polydipsia. The rest of the 14-point review of systems is negative. 05/23/2018 maintained on IV antibiotics as per infectious disease. Reports increased drainage; serous. Given reocurring right groin wounds ,Scheduled for colonoscopy tomorrow with surgery. Afebrile, WBC 8.2. Potassium 5. t Objective - Vital Signs Vital signs: Vital Signs Temp 97.5 F L 05/23/18 15:00 Pulse 60 05/23/18 15:00 Resp 18 05/23/18 15:00 BP 117/72 05/23/18 15:00 Pulse Ox 91 L 05/23/18 15:00 Intake & Output 05/22/18 05/23/18 05/23/18 18:59 06:59 18:59 Intake Total 240 1100 240 Output Total 325 900 500 Balance -85 200 -260 Intake: Oral 240 1100 240 Output: Urine 325 900 500 Other: # Voids 2 # Bowel Movements 0 - Exam EXAMINATION: GENERAL: The patient is alert and oriented x3, not in any acute distress. Well developed, well nourished. HEENT: Pupils are round and equally reacting to light. EOMI. No scleral icterus. No conjunctival pallor. Normocephalic, atraumatic. No pharyngeal erythema. No thyromegaly. CARDIOVASCULAR: S1 and S2 present. No murmurs, rubs, or gallops. PULMONARY: Chest is clear to auscultation, no wheezing or crackles. ABDOMEN: Soft, nontender, nondistended, normoactive bowel sounds. No palpable organomegaly. MUSCULOSKELETAL: No joint swelling or deformity. EXTREMITIES: No cyanosis, clubbing, or pedal edema. NEUROLOGICAL: Gross neurological examination did not reveal any focal deficits. SKIN: Left groin there is an indurated mass with some ulceration, increased serous/purulent drainage, local temperature, tenderness to touch. - Labs CBC & Chem 7: 05/23/18 08:20 05/23/18 08:20 Labs: Abnormal Lab Results - Last 24 Hours (Table) 05/23/18 Range/Units 08:20 Glucose 119 H (74-99) mg/dL AST 16 L (17-59) U/L Total Protein 6.2 L (6.3-8.2) g/dL Albumin 3.3 L (3.5-5.0) g/dL Microbiology - Last 24 Hours (Table) 05/22/18 00:26 Gram Stain - Preliminary Groin Wound Culture - Preliminary 05/22/18 00:26 Blood Culture - Preliminary Blood No Growth after 24 hours 05/22/18 09:20 Gram Stain - Preliminary Groin Wound Culture - Preliminary 05/22/18 09:20 Anaerobic Culture - Preliminary Groin Assessment and Plan Assessment: -Left groin abscess: Recent incision and drainage -COPD without any exacerbation Gastroesophageal reflux disease hypertension -hyperlipidemia -Sleep apnea -Ongoing nicotine dependence Plan: Continue current medication regime ,monitoring and symptomatic treatment. Maintain IV antibiotics as per infectious disease. Wound cultures pending. As mentioned above scheduled for colonoscopy in a.m.. Smoking cessation readdressed. Low potassium diet. Close monitoring of electrolytes, renal function with repeat labs ordered for a.m. The impression and plan of care has been dictated as directed. : I performed a history and examination of this patient, discussed the same with the dictator. I agree with the dictator's note ,documented as a scribe. Any additional findings or plans will be noted.
[2018-05-23] MEDS: HYDROcodone/APAP 5-325MG 1 EACH TAB PO PRN ×2 (17:34→23:55)
[2018-05-23] MEDS: ATORVASTATIN 80 MG TAB PO SCH (19:40)
--- NOTE | 2018-05-23 23:14 | P.PN ---
Subjective Progress Note Date: 05/23/18 This is a 57-year-old male patient was recently seen for abscess in the left groin region initially seen for this on an admission in January of this year. He admitted again in March for the same and was discharged home on Rocephin for 30 tape course which was subsequently changed and Dr. Mcguire office. Patient states he completed antibiotics about 2-3 weeks ago. His PICC line was removed. He states that an onset yesterday of erythema and edema to the left groin as well as fever and chills and nausea. He denies any vomiting or diarrhea. He came into [facility] emergency center for evaluation. He was afebrile, leukocytosis of 13.1. He was given a dose of ceftriaxone and vancomycin in the emergency center and admitted to the [facility] floor. He has been seen by Dr. Lopez with no plan for intervention today. He has been continued on vancomycin. Wound culture has been obtained. Cultures status received. Patient states that his fever or chills, and nausea are improved. He was able to eat at lunch without nausea. Patient does complain of shortness of breath with wheezing secondary to COPD. He voices frustration that the infection to the groin is recurring. Right groin wound is healed with no sign of infection. 05/23/2018 patient is feeling slightly better today. The pain is under better control. Patient has had a computed tomography scan failure on 70 extensive abscess. No significant intra-abdominal pathology was seen. Objective - Vital Signs Vital signs: Vital Signs Temp 97.5 F L 05/23/18 15:00 Pulse 69 05/23/18 21:15 Resp 18 05/23/18 15:00 BP 117/72 05/23/18 15:00 Pulse Ox 91 L 05/23/18 15:00 Intake & Output 05/23/18 05/23/18 05/24/18 06:59 18:59 06:59 Intake Total 1100 240 600 Output Total 900 500 400 Balance 200 -260 200 Intake: Oral 1100 240 600 Output: Urine 900 500 400 Other: # Voids 2 # Bowel Movements 0 2 - Exam Gen: This is a 57-year-old male. He is sitting up in bed and appears to be comfortable and in no acute distress. HEENT: Head is atraumatic, normocephalic. Pupils equal, round. Sclerae is anicteric. Conjunctiva pink. Mucous members of the mouth are moist. No thrush noted. Dentition is in poor order patient is edentulous on the top. NECK: Supple. No JVD. No lymphadenopathy. No thyromegaly. LUNGS: Expiratory wheezes throughout all lung plunkett. No intercostal retractions. HEART: Regular rate and rhythm. No murmur. ABDOMEN: Soft. Bowel sounds are present. No masses. No tenderness. The right groin shows a surgical wound that has healed. No surrounding erythema or edema. To the left groin there is edema with less drainage with significant tenderness to touch. No testicular edema noted. EXTREMITIES: No pedal edema. No calf tenderness. Dorsalis pedis palpable bilaterally. NEUROLOGICAL: Patient is awake, alert and oriented x3. - Labs CBC & Chem 7: 05/23/18 08:20 05/23/18 08:20 Labs: Abnormal Lab Results - Last 24 Hours (Table) 05/23/18 Range/Units 08:20 Glucose 119 H (74-99) mg/dL AST 16 L (17-59) U/L Total Protein 6.2 L (6.3-8.2) g/dL Albumin 3.3 L (3.5-5.0) g/dL Microbiology - Last 24 Hours (Table) 05/22/18 00:26 Gram Stain - Preliminary Groin Wound Culture - Preliminary 05/22/18 00:26 Blood Culture - Preliminary Blood No Growth after 24 hours 05/22/18 09:20 Gram Stain - Preliminary Groin Wound Culture - Preliminary Laboratory Results WBC 8.2 k/uL (3.8-10.6) 05/23/18 08:20 RBC 4.71 m/uL (4.30-5.90) 05/23/18 08:20 Hgb 14.9 gm/dL (13.0-17.5) 05/23/18 08:20 Hct 44.9 % (39.0-53.0) 05/23/18 08:20 MCV 95.4 fL (80.0-100.0) 05/23/18 08:20 MCH 31.5 pg (25.0-35.0) 05/23/18 08:20 MCHC 33.1 g/dL (31.0-37.0) 05/23/18 08:20 RDW 13.5 % (11.5-15.5) 05/23/18 08:20 Plt Count 264 k/uL (150-450) 05/23/18 08:20 Neutrophils % 71 % 05/23/18 08:20 Lymphocytes % 19 % 05/23/18 08:20 Monocytes % 5 % 05/23/18 08:20 Eosinophils % 3 % 05/23/18 08:20 Basophils % 1 % 05/23/18 08:20 Neutrophils # 5.9 k/uL (1.3-7.7) 05/23/18 08:20 Lymphocytes # 1.5 k/uL (1.0-4.8) 05/23/18 08:20 Monocytes # 0.4 k/uL (0-1.0) 05/23/18 08:20 Eosinophils # 0.3 k/uL (0-0.7) 05/23/18 08:20 Basophils # 0.0 k/uL (0-0.2) 05/23/18 08:20 Sodium 139 mmol/L (137-145) 05/23/18 08:20 Potassium 5.0 mmol/L (3.5-5.1) 05/23/18 08:20 Chloride 104 mmol/L (98-107) 05/23/18 08:20 Carbon Dioxide 28 mmol/L (22-30) 05/23/18 08:20 Anion Gap 7 mmol/L 05/23/18 08:20 BUN 12 mg/dL (9-20) 05/23/18 08:20 Creatinine 0.98 mg/dL (0.66-1.25) 05/23/18 08:20 Est GFR (CKD-EPI)AfAm >90 (>60 ml/min/1.73 sqM) 05/23/18 08:20 Est GFR (CKD-EPI)NonAf 87 (>60 ml/min/1.73 sqM) 05/23/18 08:20 Glucose 119 mg/dL (74-99) H 05/23/18 08:20 Plasma Lactic Acid Maximilian 1.5 mmol/L (0.7-2.0) 05/22/18 00:26 Calcium 8.9 mg/dL (8.4-10.2) 05/23/18 08:20 Total Bilirubin 0.4 mg/dL (0.2-1.3) 05/23/18 08:20 AST 16 U/L (17-59) L 05/23/18 08:20 ALT 25 U/L (21-72) 05/23/18 08:20 Alkaline Phosphatase 46 U/L (38-126) 05/23/18 08:20 Total Protein 6.2 g/dL (6.3-8.2) L 05/23/18 08:20 Albumin 3.3 g/dL (3.5-5.0) L 05/23/18 08:20 Microbiology 05/22/18 00:26 Groin Gram Stain - Preliminary 05/22/18 00:26 Groin Wound Culture - Preliminary 05/22/18 00: Blood Blood Culture - Preliminary No Growth after 24 hours 05/22/18 09:20 Groin Gram Stain - Preliminary 05/22/18 09:20 Groin Wound Culture - Preliminary 05/22/18 09:20 Groin Anaerobic Culture - Preliminary - Imaging and Cardiology CT scan - abdomen: report reviewed, image reviewed (No evidence of abscess intra -abdominally, no significant dilatation of the colon inflammation without obvious abscess left groin. ) Assessment and Plan (1) Abscess of left groin Narrative/Plan: Pleasant 57-year-old male with a very extensive recent past medical history regarding significant abscess to the right groin area that had recurred. Requiring extensive surgical incision and drainage. Patient was treated with a course of intravenous antibiotic therapy with complete resolution of the significant abscess to the right groin. There was a polymicrobial culture with multiple anaerobic bacteria as well as the neiserria species that resulted in a bacteremia. The patient has done well off of antibiotic therapy suddenly had the onset of pain and swelling discomfort to the left groin associated with fever and chill and because his fever became so highly became ill he presented to the emergency center for evaluation. The patient does have evidence of leukocytosis in the significant pain and swelling to the left groin. The patient did have a computed tomography scan of the abdomen performed over a year ago other than diverticulitis no evidence of any acute difficulty. Patient has been seen by general surgery and the case is discussed in that the patient is having recurrent abscess to the groin area. The last culture was polymicrobial with multiple anaerobic bacteria in the Neisseria species. With this there is concerns to a bowel source and a follow-up computed tomography scan has been requested. If there are no significant findings then the patient would do well to have colonoscopy to evaluate the possibility of underlying bowel disease. Antibiotic therapy with vancomycin and meropenem have been started pending further culture results. Await blood cultures, the patient was bacteremic during his last stay 05/23/2018 the patient is feeling slightly better. Pain is improved since her spend some drainage of the left groin. I have a high-grade fevers. Cultures are in process. Computed tomography scan has been reviewed the case and discuss with surgery and that there is no need for drainage to the left groin at this time however etiology remains of concern. The patient is now had multiple infections which have been polymicrobial in nature. Consequently concerned to some type of communication with the gastrointestinal tract. Colonoscopy has been requested. Being planned for tomorrow. Continue current antibiotic therapy while the cultures remain in process. Current Visit: Yes Status: Acute Code(s): L02.214 - CUTANEOUS ABSCESS OF GROIN SNOMED Code(s): 02004954
[2018-05-24] MEDS: HYDROmorphone 1 MG/ML 1 ML SYRINGE IVP PRN ×4 (01:32→17:03)
[2018-05-24] MEDS: VANCOMYCIN 1,750 MG in SODIUM CHLORIDE 0.9% 500 ML 500 ML IVPB SCH ×2 (02:09→16:59)
[2018-05-24] MEDS: HYDROcodone/APAP 5-325MG 1 EACH TAB PO PRN (06:04)
[2018-05-24 07:11] VITALS: TEMP 97.8
[2018-05-24] MEDS: MAGNESIUM OXIDE 400 MG TAB PO SCH (07:34)
[2018-05-24] MEDS: busPIRone HCl 10 MG TAB PO SCH (07:34)
[2018-05-24] MEDS: CARVEDILOL 12.5 MG TAB PO SCH ×2 (07:34→17:05)
[2018-05-24] MEDS: clonazePAM 0.5 MG TAB PO SCH (07:34)
[2018-05-24] MEDS: MULTIVITAMINS, THERA 1 EACH TAB PO SCH (07:34)
[2018-05-24] MEDS: MONTELUKAST 10 MG TAB PO SCH (07:35)
[2018-05-24] MEDS: MEROPENEM 2 GM in SODIUM CHLORIDE 0.9% 100 ML IVPB SCH ×2 (07:35→16:03)
[2018-05-24] MEDS: PANTOPRAZOLE 40 MG TABLET PO SCH (07:35)
[2018-05-24] MEDS: LOSARTAN 50 MG TAB PO SCH (07:35)
[2018-05-24] MEDS: SODIUM CHLORIDE 0.9% 1,000 ML IV SCH (07:35)
[2018-05-24] MEDS: NYSTATIN 100,000UNIT/GM CREAM 30 GM TUBE TOPICAL SCH ×2 (07:36→16:04)
[2018-05-24] MEDS: SERTRALINE 100 MG TAB PO SCH (07:36)
[2018-05-24] MEDS: TRIAMCINOLONE 0.1% CREAM 80 GM TUBE TOPICAL SCH ×2 (07:36→16:04)
[2018-05-24] MEDS: SYMBICORT 80-4.5 MCG INHALER INHALATION SCH (08:45)
[2018-05-24] MEDS: IPRATROPIUM-ALBUTEROL 3 ML NEB INHALATION SCH ×2 (08:45→13:47)
[2018-05-24 10:11] LABS: Basophils # (A) 0.1 k/uL (0-0.2); Basophils % (A) 1 %; Eosinophils # (A) 0.4 k/uL (0-0.7); Eosinophils % (A) 5 %; HCT 46.6 % (39.0-53.0); HGB 15.6 gm/dL (13.0-17.5); Lymphocytes # (A) 1.6 k/uL (1.0-4.8); Lymphocytes % (A) 21 %; MCH 31.7 pg (25.0-35.0); MCHC 33.5 g/dL (31.0-37.0); MCV 94.6 fL (80.0-100.0); Monocytes # (A) 0.5 k/uL (0-1.0); Monocytes % (A) 6 %; Neutrophils % (A) 65 %; Platelet Count 279 k/uL (150-450); RBC 4.92 m/uL (4.30-5.90); RDW 13.5 % (11.5-15.5); WBC 7.6 k/uL (3.8-10.6)
[2018-05-24 10:33] LABS: Anion Gap 10 mmol/L; Blood Urea Nitrogen 9 mg/dL (9-20); Calcium 8.9 mg/dL (8.4-10.2); Carbon Dioxide 26 mmol/L (22-30); Chloride 105 mmol/L (98-107); Glucose 86 mg/dL (74-99); Potassium 4.6 mmol/L (3.5-5.1); Sodium 141 mmol/L (137-145)
[2018-05-24] MEDS ORDERED: PROPOFOL 10 MG/ML 20 ML VIAL IV ONE (11:29)
[2018-05-24] MEDS ORDERED: LIDOCAINE 1% INJ 10MG/ML (20 ML MDV) ONE (11:29)
[2018-05-24] MEDS ORDERED: IV FLUID CONTINUATION 300 ML IV ONE (11:30)
--- NOTE | 2018-05-24 11:44 | P.OP ---
Date of Procedure: 05/24/18 Preoperative Diagnosis: Left groin abscess Postoperative Diagnosis: Mild diverticulosis Procedure(s) Performed: Colonoscopy Anesthesia: MAC Surgeon: Rocky Lopez Pathology: none sent Condition: stable Disposition: PACU Description of Procedure: The patient's placed on the endoscopy table in the lateral position. He received IV sedation. Digital rectal exam was performed which revealed no abnormalities. The colonoscope was then placed patient anus passed throughout the entire colon. The ileocecal valve was visualized. The cecum, ascending and transverse colon appeared normal. In the descending; was mild diverticular changes. The scope was then brought back the rectum and this appeared normal. Scope was withdrawn for patient.
[2018-05-24] MEDS ORDERED: VANCOMYCIN TROUGH DUE 1 EACH MISC MISCELLANE ONE (14:00)
[2018-05-24 15:05] VITALS: BP 139/80; PULSE 74
--- NOTE | 2018-05-24 23:40 | P.PN ---
Subjective Progress Note Date: 05/24/18 This is a 57-year-old male patient was recently seen for abscess in the left groin region initially seen for this on an admission in January of this year. He admitted again in March for the same and was discharged home on Rocephin for 30 tape course which was subsequently changed and Dr. Mcguire office. Patient states he completed antibiotics about 2-3 weeks ago. His PICC line was removed. He states that an onset yesterday of erythema and edema to the left groin as well as fever and chills and nausea. He denies any vomiting or diarrhea. He came into [facility] emergency center for evaluation. He was afebrile, leukocytosis of 13.1. He was given a dose of ceftriaxone and vancomycin in the emergency center and admitted to the [facility] floor. He has been seen by Dr. Lopez with no plan for intervention today. He has been continued on vancomycin. Wound culture has been obtained. Cultures status received. Patient states that his fever or chills, and nausea are improved. He was able to eat at lunch without nausea. Patient does complain of shortness of breath with wheezing secondary to COPD. He voices frustration that the infection to the groin is recurring. Right groin wound is healed with no sign of infection. 05/23/2018 patient is feeling slightly better today. The pain is under better control. Patient has had a computed tomography scan failure on 70 extensive abscess. No significant intra-abdominal pathology was seen. 05/24/2018 patient is feeling considerably better today. The abscess in the left groin is draining well. No other new difficulties. Endoscopy is being performed without evidence of any underlying malignancy, or inflammatory bowel disease. He otherwise is improving. Objective - Vital Signs Vital signs: Vital Signs Temp 97.8 F 05/24/18 15:00 Pulse 74 05/24/18 15:00 Resp 18 05/24/18 15:00 BP 139/80 05/24/18 15:00 Pulse Ox 93 L 05/24/18 15:00 Intake & Output 05/24/18 05/24/18 05/25/18 06:59 18:59 06:59 Intake Total 600 820 Output Total 400 Balance 200 820 Intake: IV 100 Oral 600 720 Output: Urine 400 Other: # Voids 3 2 # Bowel Movements 12 - Exam Gen: This is a 57-year-old male. He is sitting up in bed and appears to be comfortable and in no acute distress. HEENT: Head is atraumatic, normocephalic. Pupils equal, round. Sclerae is anicteric. Conjunctiva pink. Mucous members of the mouth are moist. No thrush noted. Dentition is in poor order patient is edentulous on the top. NECK: Supple. No JVD. No lymphadenopathy. No thyromegaly. LUNGS: Expiratory wheezes throughout all lung plunkett. No intercostal retractions. HEART: Regular rate and rhythm. No murmur. ABDOMEN: Soft. Bowel sounds are present. No masses. No tenderness. The right groin shows a surgical wound that has healed. No surrounding erythema or edema. To the left groin there is edema with less drainage improvement in the tenderness to touch. No testicular edema noted. EXTREMITIES: No pedal edema. No calf tenderness. Dorsalis pedis palpable bilaterally. NEUROLOGICAL: Patient is awake, alert and oriented x3. - Labs CBC & Chem 7: 05/24/18 09:06 05/24/18 09:06 Labs: Microbiology - Last 24 Hours (Table) 05/22/18 09:20 Gram Stain - Final Groin Wound Culture - Final 05/22/18 00:26 Gram Stain - Final Groin Wound Culture - Final 05/22/18 00:26 Blood Culture - Preliminary Blood No Growth after 48 hours Laboratory Results WBC 7.6 k/uL (3.8-10.6) 05/24/18 09:06 RBC 4.92 m/uL (4.30-5.90) 05/24/18 09:06 Hgb 15.6 gm/dL (13.0-17.5) 05/24/18 09:06 Hct 46.6 % (39.0-53.0) 05/24/18 09:06 MCV 94.6 fL (80.0-100.0) 05/24/18 09:06 MCH 31.7 pg (25.0-35.0) 05/24/18 09:06 MCHC 33.5 g/dL (31.0-37.0) 05/24/18 09:06 RDW 13.5 % (11.5-15.5) 05/24/18 09:06 Plt Count 279 k/uL (150-450) 05/24/18 09:06 Neutrophils % 65 % 05/24/18 09:06 Lymphocytes % 21 % 05/24/18 09:06 Monocytes % 6 % 05/24/18 09:06 Eosinophils % 5 % 05/24/18 09:06 Basophils % 1 % 05/24/18 09:06 Neutrophils # 5.0 k/uL (1.3-7.7) 05/24/18 09:06 Lymphocytes # 1.6 k/uL (1.0-4.8) 05/24/18 09:06 Monocytes # 0.5 k/uL (0-1.0) 05/24/18 09:06 Eosinophils # 0.4 k/uL (0-0.7) 05/24/18 09:06 Basophils # 0.1 k/uL (0-0.2) 05/24/18 09:06 Sodium 141 mmol/L (137-145) 05/24/18 09:06 Potassium 4.6 mmol/L (3.5-5.1) 05/24/18 09:06 Chloride 105 mmol/L (98-107) 05/24/18 09:06 Carbon Dioxide 26 mmol/L (22-30) 05/24/18 09:06 Anion Gap 10 mmol/L 05/24/18 09:06 BUN 9 mg/dL (9-20) 05/24/18 09:06 Creatinine 0.94 mg/dL (0.66-1.25) 05/24/18 09:06 Est GFR (CKD-EPI)AfAm >90 (>60 ml/min/1.73 sqM) 05/24/18 09:06 Est GFR (CKD-EPI)NonAf >90 (>60 ml/min/1.73 sqM) 05/24/18 09:06 Glucose 86 mg/dL (74-99) 05/24/18 09:06 Plasma Lactic Acid Maximilian 1.5 mmol/L (0.7-2.0) 05/22/18 00:26 Calcium 8.9 mg/dL (8.4-10.2) 05/24/18 09:06 Total Bilirubin 0.4 mg/dL (0.2-1.3) 05/23/18 08:20 AST 16 U/L (17-59) L 05/23/18 08:20 ALT 25 U/L (21-72) 05/23/18 08:20 Alkaline Phosphatase 46 U/L (38-126) 05/23/18 08:20 Total Protein 6.2 g/dL (6.3-8.2) L 05/23/18 08:20 Albumin 3.3 g/dL (3.5-5.0) L 05/23/18 08:20 Vancomycin Trough 19.1 ug/mL 05/24/18 14:09 Microbiology 05/22/18 09:20 Groin Gram Stain - Final 05/22/18 09:20 Groin Wound Culture - Final 05/22/18 00:26 Groin Gram Stain - Final 05/22/18 00:26 Groin Wound Culture - Final 05/22/18 00:26 Blood Blood Culture - Preliminary No Growth after 48 hours 05/22/18 09:20 Groin Anaerobic Culture - Preliminary Assessment and Plan (1) Abscess of left groin Narrative/Plan: Pleasant 57-year-old male with a very extensive recent past medical history regarding significant abscess to the right groin area that had recurred. Requiring extensive surgical incision and drainage. Patient was treated with a course of intravenous antibiotic therapy with complete resolution of the significant abscess to the right groin. There was a polymicrobial culture with multiple anaerobic bacteria as well as the neiserria species that resulted in a bacteremia. The patient has done well off of antibiotic therapy suddenly had the onset of pain and swelling discomfort to the left groin associated with fever and chill and because his fever became so highly became ill he presented to the emergency center for evaluation. The patient does have evidence of leukocytosis in the significant pain and swelling to the left groin. The patient did have a computed tomography scan of the abdomen performed over a year ago other than diverticulitis no evidence of any acute difficulty. Patient has been seen by general surgery and the case is discussed in that the patient is having recurrent abscess to the groin area. The last culture was polymicrobial with multiple anaerobic bacteria in the Neisseria species. With this there is concerns to a bowel source and a follow-up computed tomography scan has been requested. If there are no significant findings then the patient would do well to have colonoscopy to evaluate the possibility of underlying bowel disease. Antibiotic therapy with vancomycin and meropenem have been started pending further culture results. Await blood cultures, the patient was bacteremic during his last stay 05/23/2018 the patient is feeling slightly better. Pain is improved since her spend some drainage of the left groin. I have a high-grade fevers. Cultures are in process. Computed tomography scan has been reviewed the case and discuss with surgery and that there is no need for drainage to the left groin at this time however etiology remains of concern. The patient is now had multiple infections which have been polymicrobial in nature. Consequently concerned to some type of communication with the gastrointestinal tract. Colonoscopy has been requested. Being planned for tomorrow. Continue current antibiotic therapy while the cultures remain in process. 05/24/2018 patient is status post colonoscopy without evidence of any significant abdominal pathology specifically no evidence of malignancy or inflammatory bowel disease. The patient is improved and is ready for discharge to home. Oral antibiotic therapy with Ceftin and Flagyl has been sent to his pharmacy. Local wound care which is dry dressing can be utilized. She'll follow-up in the office in the outpatient setting. Antibiotic therapy might need to be altered after discharge based on the culture results. Fortunately this abscess is much less involved them during his last stay. However the etiology of the recurrent abscess remains unclear, he had minimally elevated blood glucose during the stay. Potentially a prediabetic condition resulting in recurrent infection is possible. Status: Acute Code(s): L02.214 - CUTANEOUS ABSCESS OF GROIN SNOMED Code(s): 79865793
--- NOTE | 2018-05-25 12:26 | P.DS ---
Providers Date of admission: 05/22/18 03:11 Expected date of discharge: 05/24/18 Attending physician: Lamont Hayden Consults: 05/22/18 09:13 Consult Physician Routine Consulting Provider: Rocky Lopez Consult Reason/Comments: possible I&D Left groin Do you want consulting provider notified?: Yes 05/22/18 09:39 Consult Physician Stat Consulting Provider: Sabino Mcguire Consult Reason/Comments: recs abx Do you want consulting provider notified?: Yes Primary care physician: Stated None Hospital Course: Final Diagnoses: -Left groin abscess: Recent incision and drainage -Status post colonoscopy, Mild diverticulosis -COPD without any exacerbation Gastroesophageal reflux disease hypertension -hyperlipidemia -Sleep apnea -Ongoing nicotine dependence Hospital course:This [id number] male came in the with pain in the left groin area found to have an abscess patient is presently on cefepime and vancomycin patient does not have any fever at home but does have leukocytosis did have chills at home. Patient was recently treated for right groin abscess patient completed these antibiotics about 2-3 weeks ago and had a PICC line at that time. Patient denied any cough runny nose dysuria dysuria. Patient was nauseous. Evaluated by surgery and infectious disease. Maintained on IV antibiotics. Underwent colonoscopy reporting mild diverticulosis, without evidence of inflammatory bowel disease, malignancy. Significant clinical improvement. Cleared by all consults for discharge. Patient is being discharged home in a stable condition with guarded prognosis. Microbiology 05/22/18 00:26 Blood Blood Culture - Preliminary No Growth after 72 hours 05/22/18 09:20 Groin Gram Stain - Final 05/22/18 09:20 Groin Wound Culture - Final 05/22/18 00:26 Groin Gram Stain - Final 05/22/18 00:26 Groin Wound Culture - Final 05/22/18 09:20 Groin Anaerobic Culture - Preliminary EXAMINATION: GENERAL: The patient is alert and oriented x3, not in any acute distress. CARDIOVASCULAR: S1 and S2 present. No murmurs, rubs, or gallops. PULMONARY: Chest is clear to auscultation, no wheezing or crackles. ABDOMEN: Soft, nontender, nondistended, normoactive bowel sounds. No palpable organomegaly. EXTREMITIES: No cyanosis, clubbing, or pedal edema. NEUROLOGICAL: Gross neurological examination did not reveal any focal deficits. SKIN: Left groin, less drainage, improving tenderness and edema . The impression and plan of care has been dictated as directed. : I performed a history and examination of this patient, discussed the same with the dictator. I agree with the dictator's note ,documented as a scribe. Any additional findings or plans will be noted. Time taken: 35 minutes Patient Condition at Discharge: Stable Plan - Discharge Summary New Discharge Prescriptions: New Cefuroxime Axetil [Ceftin] 500 mg PO BID #60 tab metroNIDAZOLE [Flagyl] 500 mg PO BID #60 tab Acetaminophen Tab [Tylenol] 650 mg PO Q6HR PRN tab PRN Reason: Mild Pain Or Fever > 100.5 Continue Clopidogrel [Plavix] 75 mg PO HS Carvedilol [Coreg] 12.5 mg PO BID Losartan [Cozaar] 50 mg PO DAILY Atorvastatin Calcium [Lipitor] 80 mg PO HS Magnesium Oxide [Magox 400] 400 mg PO DAILY #60 tablet Omeprazole 40 mg PO AC-BRKFST #30 capsule. Multivitamins, Thera [Multivitamin (formulary)] 1 tab PO DAILY Montelukast [Singulair] 10 mg PO DAILY Mometasone/Formoterol [Dulera 100 Mcg/5 Mcg Inhaler] 1 puff INHALATION RT-BID Sertraline [Zoloft] 100 mg PO DAILY Triamcinolone 0.1% Cream [Kenalog 0.1% Cream] 1 applic TOPICAL TID Nystatin 100,000Unit/gm Cream [Mycostatin Cream] 1 applic TOPICAL TID busPIRone HCL [Buspar] 30 mg PO BID clonazePAM [KlonoPIN] 0.5 mg PO DAILY Discharge Medication List Clopidogrel [Plavix] 75 mg PO HS 02/23/14 [History] Carvedilol [Coreg] 12.5 mg PO BID 08/25/15 [History] Losartan [Cozaar] 50 mg PO DAILY 05/16/16 [History] Atorvastatin Calcium [Lipitor] 80 mg PO HS 09/07/16 [History] Magnesium Oxide [Magox 400] 400 mg PO DAILY #60 tablet 09/19/16 [Rx] Omeprazole 40 mg PO AC-BRKFST #30 capsule. 11/13/16 [Rx] Montelukast [Singulair] 10 mg PO DAILY 05/11/17 [History] Multivitamins, Thera [Multivitamin (formulary)] 1 tab PO DAILY 05/11/17 [History ] Mometasone/Formoterol [Dulera 100 Mcg/5 Mcg Inhaler] 1 puff INHALATION RT-BID [History] Sertraline [Zoloft] 100 mg PO DAILY 01/26/18 [History] Nystatin 100,000Unit/gm Cream [Mycostatin Cream] 1 applic TOPICAL TID 03/22/18 [ History] Triamcinolone 0.1% Cream [Kenalog 0.1% Cream] 1 applic TOPICAL TID 03/22/18 [ History] busPIRone HCL [Buspar] 30 mg PO BID 05/22/18 [History] clonazePAM [KlonoPIN] 0.5 mg PO DAILY 05/22/18 [History] Acetaminophen Tab [Tylenol] 650 mg PO Q6HR PRN tab 05/24/18 [Rx] Cefuroxime Axetil [Ceftin] 500 mg PO BID #60 tab 05/24/18 [Rx] metroNIDAZOLE [Flagyl] 500 mg PO BID #60 tab 05/24/18 [Rx] Follow up Appointment(s)/Referral(s): Jackson Barahona DO [STAFF PHYSICIAN] - 3 Days [facility] Visiting Nurse, [NON-STAFF] - Rocky Lopez MD [STAFF PHYSICIAN] - 1 Week Ambulatory/Diagnostic Orders: Complete Blood Count w/diff [LAB.AMB] Time Frame: 3 Days, Location: None Selected Patient Instructions/Handouts: Acute Wound Care (DC) Activity/Diet/Wound Care/Special Instructions: Cardiac diet. Activity as tolerated. NO smoking, cessation information provided. cleanse left groin with Normal saline and apply guaze Discharge Disposition: HOME WITH HOME HEALTH SERVICES
== END 2018-05-24 18:30 | disposition home health service (06) ==
LOC: EC 00:17 → 4MS4W 03:11 → INTOOBSV 03:11 → 4MS4W 05-23 18:19 → UNDODISIN 05-24 18:30
PROVIDERS: ADMIT Hospitalist; ATTEND Hospitalist
PROC: 0DJD8ZZ Inspection of Lower Intestinal Tract, Via Natural or Artificial Opening Endoscopic (ICD-10-PCS; principal; 2018-05-24 10:30)
DX: L02.214 Cutaneous abscess of groin (principal); K57.30 Diverticulosis of large intestine without perforation or abscess without bleeding; J44.9 Chronic obstructive pulmonary disease, unspecified; E78.5 Hyperlipidemia, unspecified; F17.210 Nicotine dependence, cigarettes, uncomplicated; G47.30 Sleep apnea, unspecified; I10 Essential (primary) hypertension; K21.9 Gastro-esophageal reflux disease without esophagitis; M19.90 Unspecified osteoarthritis, unspecified site; D72.829 Elevated white blood cell count, unspecified; Z99.89 Dependence on other enabling machines and devices; R73.9 Hyperglycemia, unspecified; E87.5 Hyperkalemia; Z68.35 Body mass index [BMI] 35.0-35.9, adult; E66.9 Obesity, unspecified; Z79.51 Long term (current) use of inhaled steroids; Z79.899 Other long term (current) drug therapy; Z79.02 Long term (current) use of antithrombotics/antiplatelets; Z86.79 Personal history of other diseases of the circulatory system; Z86.73 Personal history of transient ischemic attack (TIA), and cerebral infarction without residual deficits; Z85.828 Personal history of other malignant neoplasm of skin; Z90.49 Acquired absence of other specified parts of digestive tract; Z88.0 Allergy status to penicillin; Z88.8 Allergy status to other drugs, medicaments and biological substances; Z82.5 Family history of asthma and other chronic lower respiratory diseases
CPT/HCPCS: 96376 ×4; 96361 ×4; 96366 ×3; 96367 ×2; 96368 ×2; 96365; 96375; 99285; 36415; 94640 ×6; 80053 ×2; 80048; 83605; 85025 ×3; 80202; 87040; 87070; 87205; 87075; 74177; G0378 ×3; J3370 ×3; J2405; J0696; J2001; J1885; J2185 ×3; J1170 ×3; J2704; Q9967; G0121; 96374; 99284

== ENCOUNTER → 2018-06-11 | Outpatient (CLI) | payer OTHER ==
[2018-06-11 13:30] LABS: Basophils # (A) 0.1 k/uL (0-0.2); Basophils % (A) 1 %; Eosinophils # (A) 0.3 k/uL (0-0.7); Eosinophils % (A) 3 %; HCT 47.3 % (39.0-53.0); HGB 16.1 gm/dL (13.0-17.5); Lymphocytes # (A) 2.2 k/uL (1.0-4.8); Lymphocytes % (A) 26 %; MCH 32.2 pg (25.0-35.0); MCV 94.8 fL (80.0-100.0); Mean Platelet Volume 7.5; Monocytes # (A) 0.6 k/uL (0-1.0); Monocytes % (A) 7 %; Neutrophils # (A) 5.1 k/uL (1.3-7.7); Neutrophils % (A) 61 %; Platelet Count 271 k/uL (150-450); RBC 4.99 m/uL (4.30-5.90); RDW 13.7 % (11.5-15.5); WBC 8.4 k/uL (3.8-10.6)
[2018-06-11 14:45] LABS: Erythrocyte Sedimentation Rate 14 mm/hr (0-15)
[2018-06-11 19:26] LABS: Albumin 4.2 g/dL (3.80-4.90); Albumin/Globulin Ratio 1.75 (1.20-2.10); Anion Gap 9.6 mmol/L (4.00-12.00); Calcium 8.9 mg/dL (8.7-10.3); Carbon Dioxide 21.4 mmol/L (21.6-31.8); Globulin 2.4 g/dL (2.1-3.7); Potassium 4.5 mmol/L (3.5-5.5); Total Bilirubin 0.5 mg/dL (0.3-1.2); Total Protein 6.6 g/dL (6.2-8.2)
== END | disposition home or self-care (01) ==
LOC: LABWHC1 12:33
PROVIDERS: ATTEND Internal Medicine Infectious Disease
DX: A49.9 Bacterial infection, unspecified (principal)
CPT/HCPCS: 36415; 80053; 85025; 85652

== ENCOUNTER 2018-07-03 11:44 | Emergency (ER) | payer OTHER ==
[2018-07-03 11:53] VITALS: TEMP 97.6
--- NOTE | 2018-07-03 12:44 | XR ---
EXAMINATION TYPE: XR chest 2V DATE OF EXAM: 07/03/2018 COMPARISON: 05/11/2017 INDICATION: Abdomen pain TECHNIQUE: Frontal and lateral views of the chest are obtained. FINDINGS: The heart size is normal. The pulmonary vasculature is normal. There may be nipple shadows at the bilateral lung bases. Study with nipple markers could be performed for additional evaluation. IMPRESSION: 1. Couple small nodules at the lung bases may be nipple shadows. The study with nipple markers could be performed for confirmation. 2. An acute pulmonary process is not otherwise evident.
--- NOTE | 2018-07-03 12:50 | XR ---
EXAMINATION TYPE: XR KUB DATE OF EXAM: 07/03/2018 COMPARISON: 04/10/2016 INDICATION: Pain TECHNIQUE: Single view abdomen frontal projection upright position FINDINGS: There is a normal bowel gas pattern. Air is within the colon. No free air is evident. No differential air-fluid levels are present Psoas margins are normal. No organomegaly is present. There is been interval placement of an aortic stent. IMPRESSION: 1. No suspicious acute changes upright abdomen
[2018-07-03] MEDS ORDERED: MORPHINE SULFATE 4 MG/ML SYRINGE IVP STA (13:11)
--- NOTE | 2018-07-03 13:14 | CT ---
EXAMINATION TYPE: CT angio thor/abd pel aorta DATE OF EXAM: 07/03/2018 COMPARISON: 05/22/2018 HISTORY: Mid abdominal pain x 4 days. History of AAA repair and stent with fem pop bypass to right le g. CT DLP: 3069.2 mGycm, Automated exposure control for dose reduction was used. CONTRAST: Performed injected with 100 mL of Isovue 300. TECHNIQUE: Axial images were obtained at 5 mm thick sections. Reconstructed images are reviewed on [email or web address] computer in the coronal plane. Pre and postcontrast imaging is performed. Three-D reconstructed im ages performed on a separate computer by the technologist are presented. FINDINGS: Thyroid appears somewhat heterogenous with slightly hypodense areas within the lateral mid left lobe. No suspicious lung nodules or focal infiltrates are present. Emphysematous changes are evident. Some minimal compressive atelectasis within the dependent lung bases is present. No enlarged mediastinal or hilar adenopathy is evident. The ascending aorta diameter at the level o f the main pulmonary artery is 3.7 cm. The main pulmonary artery diameter at the bifurcation is 2.4 cm. CTA abdomen pelvis: At this phase of contrast liver spleen pancreas adrenal glands gallbladder and ki dneys appear within normal limits. No free fluid is within the pelvis. Urinary bladder is visualized is unremarkable. Prostate is mild prominence. No free fluid is within the pelvis. Loops of bowel with out contrast are unremarkable. Contrast is within the aorto iliac stent. No extravasation of contrast is evident. IMPRESSIONS: 1. No endovascular leak evident within the aortoiliac stent.
--- NOTE | 2018-07-03 13:18 | ED ---
Abdominal Pain HPI - General Chief Complaint: Abdominal Pain Stated Complaint: Abd Pain Time Seen by Provider: 07/03/18 12:03 Source: patient Mode of arrival: EMS Limitations: no limitations - History of Present Illness Initial Comments: 57-year-old male past medical history of hypertension, diverticulitis status post colectomy, previous TIA, right LE bypass, AAA s/p graft placement presenting today for cc of abdominal pain 4 days. Pt states that over the course of the past year he has had multiple episodes of vomiting with abdominal pain, with negative workup upon evaluation. He dstaes he saw Dr. Luna for f/u after one visit but never really followed up again after doing a CT. Patient states that Sunday he began experiencing nausea and vomiting, as well as mid abdominal pain he is unsure of the amount times he vomited stating it was all day he denies any emesis, sick contacts, fever, chills, diarrhea, constipation, melena, hematochezia, chest pain, shortness of breath, UE parathesias, jaw pain/ neck pain. Pt states that abdominal pain was 10/10. Pt states that the pain and symptoms resolved Sunday, he just felt "run down" from getting sick the day prior. Pt states that yesterday he felt normal yesterday and was able to eat. Pt states that today he abdominal pain returned as well as the n/v he states that he had three episodes earlier this morning none since. Pt states that when the abdominal pain persisted he called EMS because he was home alone for transfer to the hospital. Pt contines to hematemesis, chest pain, shortness of breath. Pt does admit to mild mid back pain between the shoulders, denies ripping tear sensation. Remainder of ROS (-) Pt states he did not take his blood pressure medication today, pt hypertensive upon arrival. - Related Data Home Medications Medication Instructions Recorded Confirmed Clopidogrel [Plavix] 75 mg PO HS 02/23/14 07/03/18 Carvedilol [Coreg] 12.5 mg PO BID 08/25/15 07/03/18 Losartan [Cozaar] 50 mg PO DAILY 05/16/16 07/03/18 Atorvastatin Calcium [Lipitor] 80 mg PO HS 09/07/16 07/03/18 Montelukast [Singulair] 10 mg PO DAILY 05/11/17 07/03/18 Multivitamins, Thera [Multivitamin 1 tab PO DAILY 05/11/17 07/03/18 (formulary)] Mometasone/Formoterol [Dulera 100 1 puff INHALATION RT-BID 05/12/17 07/03/18 Mcg/5 Mcg Inhaler] Sertraline [Zoloft] 100 mg PO DAILY 01/26/18 07/03/18 Nystatin 100,000Unit/gm Cream 1 applic TOPICAL TID 03/22/18 07/03/18 [Mycostatin Cream] Triamcinolone 0.1% Cream [Kenalog 1 applic TOPICAL TID 03/22/18 07/03/18 0.1% Cream] busPIRone HCL [Buspar] 30 mg PO BID 05/22/18 07/03/18 clonazePAM [KlonoPIN] 0.5 mg PO DAILY 05/22/18 07/03/18 Previous Rx's Medication Instructions Recorded Magnesium Oxide [Magox 400] 400 mg PO DAILY #60 tablet 09/19/16 Omeprazole 40 mg PO AC-BRKFST #30 capsule. 11/13/16 Acetaminophen Tab [Tylenol] 650 mg PO Q6HR PRN tab 05/24/18 Ondansetron HCl [Zofran] 4 mg PO Q8H PRN 3 Days #5 tablet 07/03/18 Allergies Allergy/AdvReac Type Severity Reaction Status Date / Time amoxicillin [Amoxicillin] Allergy Rash/Hives Verified 07/03/18 12:49 enalapril maleate Allergy Rash/Hives Verified 07/03/18 12:49 [From Vasotec] enalaprilat dihydrate Allergy Rash/Hives Verified 07/03/18 12:49 [From Vasotec] Penicillins Allergy Rash/Hives Verified 07/03/18 12:49 Review of Systems ROS Statement: Those systems with pertinent positive or pertinent negative responses have been documented in the HPI. ROS Other: All systems not noted in ROS Statement are negative. Constitutional: Denies: fever, chills ENT: Denies: ear pain, throat pain Respiratory: Denies: cough, dyspnea, wheezes, hemoptysis, stridor Cardiovascular: Denies: chest pain, palpitations, dyspnea on exertion Endocrine: Denies: fatigue Gastrointestinal: Reports: abdominal pain, nausea, vomiting. Denies: diarrhea, constipation, hematemesis, melena, hematochezia Genitourinary: Denies: urgency, dysuria, frequency, hematuria, discharge Musculoskeletal: Reports: back pain (mid back) Skin: Denies: rash, lesions Neurological: Denies: headache, weakness, numbness, paresthesias, confusion, abnormal gait Past Medical History Past Medical History: Cancer, COPD, CVA/TIA, GERD/Reflux, Hyperlipidemia, Hypertension, Osteoarthritis (OA), Skin Disorder, Sleep Apnea/CPAP/BIPAP, Vascular Disorder Additional Past Medical History / Comment(s): Hx. TIA 2013, uses cpap, hx diverticulitis, skin cancer, aortic aneurysm(sx done stated has stent), past abscess and incision and drainage of skin abscess rt groin History of Any Multi-Drug Resistant Organisms: None Reported Past Surgical History: Bowel Resection, Orthopedic Surgery Additional Past Surgical History / Comment(s): RT ROTATOR CUFF REPAIR, BONE SPUR REMOVED RT SHOULDER, I & D BOIL LT BUTTOCK, FEM POP BYPASS rt leg, surgery fx neck (pins and plates), 08-26-15 lap lysis of adhesions, lap reduction of incarcerated lt ing hernia with ventral hernia repair w/mesh. (AAA repair has stent) Past Anesthesia/Blood Transfusion Reactions: No Reported Reaction Additional Past Anesthesia/Blood Transfusion Reaction / Comment(s): surgery for fx neck -has pins and plates-pt. states can move neck forward and back, side to side ok (this was his last surgery). Past Psychological History: No Psychological Hx Reported Smoking Status: Current every day smoker Past Alcohol Use History: None Reported Past Drug Use History: None Reported - Past Family History Mother Family Medical History: COPD Additional Family Medical History / Comment(s): 2011 at age 78. Father Family Medical History: No Reported History Additional Family Medical History / Comment(s): in 2016 at age 92 General Exam - General Exam Comments Initial Comments: General: The patient is awake and alert, in no distress. Eye: Pupils are equal, round and reactive to light, extra-ocular movements are intact. No nystagmus. There is normal conjunctiva bilaterally. No signs of icterus. Ears, nose, mouth and throat: There are moist mucous membranes and no oral lesions. Neck: The neck is supple, there is no tenderness or JVD. Cardiovascular: There is a regular rate and rhythm. No murmur, rub or gallop is appreciated. Respiratory: Lungs are clear to auscultation, respirations are non-labored, breath sounds are equal. No wheezes, stridor, rales, or rhonchi. Gastrointestinal: No noted diaphoresis, jaundice, pallor, protecting postures or squirming. Symmetrical pigmentation of abdomen without signs of inflammation, or striae. Scar to the right of umbilicus vertical. Umbilicus mildline, inverted without swelling. No dilated veins. Abdomen contour obese, no noted abdominal distention. No visible masses. No peristalsis, aortic pulsations, or ventral hernia. Bowel sounds audible in all 4 quadrants, unremarkable. No friction rubs or venous hums. No epigastic, hepatic or abdominal bruits. There is tenderness diffuse to palpation of the abdomen, oracio LLQ and LUQ. No RUQ pain, no rigidity or guarding. Liver edge, not palpable. Spleen edge, right and left kidney not palpable. Superior bladder margin non-tender. Special Testing: Negative Woodland, Rovsing, McBurney, Uday, cutaneous hyperesthesia. Iliopsoas and obturator tests negative bilaterally. Negative Heel Jar test. No CVA tenderness. Digital rectal exam deferred. Negative ball turners or cullens sign Musculoskeletal: Normal ROM, no tenderness. Strength 5/5. Sensation intact. Right DP diminished in comparison with left, side of bypass/PAD. Left DP pulses equal 2+. Neurological: A&O x 3. CN II-XII intact, There are no obvious motor or sensory deficits. Coordination appears grossly intact. Speech is normal. Skin: Skin is warm and dry and no rashes or lesions are noted. Psychiatric: Cooperative, appropriate mood & affect, normal judgment. Limitations: no limitations Course Vital Signs 07/03/18 07/03/18 07/03/18 11:48 13:24 14:03 Temperature 97.6 F Pulse Rate 67 64 68 Respiratory 18 20 16 Rate Blood Pressure 156/119 188/118 185/98 O2 Sat by Pulse 95 96 97 Oximetry 07/03/18 15:00 Temperature Pulse Rate 75 Respiratory 18 Rate Blood Pressure 175/99 O2 Sat by Pulse 99 Oximetry - Reevaluation(s) Reevaluation #1: denies nausea, no vomiting, pain 2/10 BP decreased-pt resting comfortably in room 11/21/18 14:38 07/03/18 14:39 Medical Decision Making - Medical Decision Making EKG obtained revealing no acute changes with comparision with older EKG . Abdominal exam revealed diffuse pain to deep palpation mostly LLQ and LUQ. No signs of pertioneal irritation. No protective postures or guarding. No pulsatile masses. Laboratory studies as noted above, given history of significant atherosclerotic disease and AAA with complaints of mid back pain. CTA of chest, abdomen, and pelvis obtained revealing no graft leakage, no acute process. KUB (-) for obstruction. The elevated white blood cell, possibly reactive. Lipase elevated however not pertinent the upper limits. This also could be reactive given history of vomiting. Pt states that he has experienced this many time over course of the past year, pt complaint chronic in nature. After discussing the case in detail with Dr. Bah B feel patient is stable for discharge with gastroenterology follow-up as well as primary care follow-up in the next 1-2 days. Patient is agreeable discharge. Patient's have significantly decreased since admission. Patient denies any nausea or episodes of vomiting. Patient is resting comfortably in room. Patient was given blood pressure medications here during his stay which brought his blood pressure into acceptable limits. Patient was instructed to follow-up with primary care provider for elevated blood pressure readings as well as be compliant with blood pressure medications. Patient was instructed to return for any worsening or concerning in terms. Patient verbalizes understanding. Patient was discharged in stable condition shins at that time. All findings of the imaging were discussed with the patient. - Lab Data Result diagrams: 07/03/18 12:10 07/03/18 12:10 Lab Results 07/03/18 07/03/18 07/03/18 Range/Units 12:10 12:10 12:10 WBC 11.6 H (3.8-10.6) k/uL RBC 5.40 (4.30-5.90) m/uL Hgb 17.5 (13.0-17.5) gm/dL Hct 51.0 (39.0-53.0) % MCV 94.4 (80.0-100.0) fL MCH 32.4 (25.0-35.0) pg MCHC 34.3 (31.0-37.0) g/dL RDW 13.8 (11.5-15.5) % Plt Count 254 (150-450) k/uL Neutrophils % 83 % Lymphocytes % 10 % Monocytes % 3 % Eosinophils % 1 % Basophils % 0 % Neutrophils # 9.7 H (1.3-7.7) k/uL Lymphocytes # 1.2 (1.0-4.8) k/uL Monocytes # 0.4 (0-1.0) k/uL Eosinophils # 0.2 (0-0.7) k/uL Basophils # 0.1 (0-0.2) k/uL PT (9.0-12.0) sec INR (<1.2) APTT (22.0-30.0) sec Sodium 138 (137-145) mmol/L Potassium 4.6 (3.5-5.1) mmol/L Chloride 106 (98-107) mmol/L Carbon Dioxide 21 L (22-30) mmol/L Anion Gap 11 mmol/L BUN 20 (9-20) mg/dL Creatinine 0.89 (0.66-1.25) mg/dL Est GFR (CKD-EPI)AfAm >90 (>60 ml/min/1.73 sqM) Est GFR (CKD-EPI)NonAf >90 (>60 ml/min/1.73 sqM) Glucose 131 H (74-99) mg/dL Lactic Ac Sepsis Rflx Plasma Lactic Acid Maximilian (0.7-2.0) mmol/L Calcium 9.4 (8.4-10.2) mg/dL Total Bilirubin 0.5 (0.2-1.3) mg/dL AST 17 (17-59) U/L ALT 22 (21-72) U/L Alkaline Phosphatase 45 (38-126) U/L Total Creatine Kinase 59 (55-170) U/L CK-MB (CK-2) 0.5 (0.0-2.4) ng/mL CK-MB (CK-2) Rel Index 0.8 Troponin I <0.012 (0.000-0.034) ng/mL Total Protein 7.5 (6.3-8.2) g/dL Albumin 4.1 (3.5-5.0) g/dL Amylase 68 (30-110) U/L Lipase 522 H (23-300) U/L 11/07/03/18 07/03/18 Range/Units 12:10 12:10 13:58 WBC (3.8-10.6) k/uL RBC (4.30-5.90) m/uL Hgb (13.0-17.5) gm/dL Hct (39.0-53.0) % MCV (80.0-100.0) fL MCH (25.0-35.0) pg MCHC (31.0-37.0) g/dL RDW (11.5-15.5) % Plt Count (150-450) k/uL Neutrophils % % Lymphocytes % % Monocytes % % Eosinophils % % Basophils % % Neutrophils # (1.3-7.7) k/uL Lymphocytes # (1.0-4.8) k/uL Monocytes # (0-1.0) k/uL Eosinophils # (0-0.7) k/uL Basophils # (0-0.2) k/uL PT 9.9 (9.0-12.0) sec INR 1.0 (<1.2) APTT 22.2 (22.0-30.0) sec Sodium (137-145) mmol/L Potassium (3.5-5.1) mmol/L Chloride (98-107) mmol/L Carbon Dioxide (22-30) mmol/L Anion Gap mmol/L BUN (9-20) mg/dL Creatinine (0.66-1.25) mg/dL Est GFR (CKD-EPI)AfAm (>60 ml/min/1.73 sqM) Est GFR (CKD-EPI)NonAf (>60 ml/min/1.73 sqM) Glucose (74-99) mg/dL Lactic Ac Sepsis Rflx Y Plasma Lactic Acid Maximilian 2.2 H* (0.7-2.0) mmol/L Calcium (8.4-10.2) mg/dL Total Bilirubin (0.2-1.3) mg/dL AST (17-59) U/L ALT (21-72) U/L Alkaline Phosphatase (38-126) U/L Total Creatine Kinase (55-170) U/L CK-MB (CK-2) (0.0-2.4) ng/mL CK-MB (CK-2) Rel Index Troponin I (0.000-0.034) ng/mL Total Protein (6.3-8.2) g/dL Albumin (3.5-5.0) g/dL Amylase (30-110) U/L Lipase (23-300) U/L - EKG Data EKG Comments: A 12-lead EKG was performed and shows the following: Rate is 66bpm, there is a sinus arrhythmia. There are normal QRS complexes and normal R-wave progression. ST segments have no elevation or depression, and VT segments appear normal. Disposition Clinical Impression: Abdominal pain, Nausea & vomiting Disposition: HOME SELF-CARE Condition: Good Instructions: Acute Nausea and Vomiting (ED), Abdominal Pain (ED) Additional Instructions: Please use medication as discussed. Please follow-up with family doctor in the next 2 days, please follow-up with scudding inspector in next 1-2 days. Please return to emergency room if the symptoms increase or worsen or for any other concerns, including inability to tolerate PO intake. Prescriptions: Ondansetron HCl [Zofran] 4 mg PO Q8H PRN 3 Days #5 tablet PRN Reason: Nausea Is patient prescribed a controlled substance at d/c from ED?: No Referrals: Jackson Barahona DO [Primary Care Provider] - 1-2 days Bony Luna MD [STAFF PHYSICIAN] - 1-2 days Time of Disposition: 15:04
[2018-07-03 13:21] LABS: Basophils # (A) 0.1 k/uL (0-0.2); Basophils % (A) 0 %; Eosinophils # (A) 0.2 k/uL (0-0.7); Eosinophils % (A) 1 %; HGB 17.5 gm/dL (13.0-17.5); Lymphocytes # (A) 1.2 k/uL (1.0-4.8); Lymphocytes % (A) 10 %; MCH 32.4 pg (25.0-35.0); MCHC 34.3 g/dL (31.0-37.0); MCV 94.4 fL (80.0-100.0); Mean Platelet Volume 7.2; Monocytes # (A) 0.4 k/uL (0-1.0); Monocytes % (A) 3 %; Neutrophils # (A) 9.7 k/uL (1.3-7.7); Neutrophils % (A) 83 %; Platelet Count 254 k/uL (150-450); RDW 13.8 % (11.5-15.5); WBC 11.6 k/uL (3.8-10.6)
[2018-07-03] MEDS ORDERED: HYDROmorphone 1 MG/ML 1 ML SYRINGE IVP STA (13:21)
[2018-07-03] MEDS ORDERED: LABETALOL 5 MG/ML VIAL MDV IVP STA (13:30)
[2018-07-03] MEDS ORDERED: hydrALAZINE HCL 20 MG/ML 1 ML VIAL IVP STA (13:31)
[2018-07-03 13:35] LABS: ALT 22 U/L (21-72); AST 17 U/L (17-59); Albumin 4.1 g/dL (3.5-5.0); Alkaline Phosphatase 45 U/L (38-126); Amylase 68 U/L (30-110); Anion Gap 11 mmol/L; Blood Urea Nitrogen 20 mg/dL (9-20); Calcium 9.4 mg/dL (8.4-10.2); Carbon Dioxide 21 mmol/L (22-30); Chloride 106 mmol/L (98-107); Glucose 131 mg/dL (74-99); Lipase 522 U/L (23-300); Potassium 4.6 mmol/L (3.5-5.1); Sodium 138 mmol/L (137-145); Total Bilirubin 0.5 mg/dL (0.2-1.3); Total Protein 7.5 g/dL (6.3-8.2)
[2018-07-03 13:44] LABS: Partial Thromboplastin Time 22.2 sec (22.0-30.0); Prothrombin Time 9.9 sec (9.0-12.0)
[2018-07-03 13:46] LABS: Creatine Kinase 59 U/L (55-170)
[2018-07-03 13:59] LABS: Creatine Kinase MB 0.5 ng/mL (0.0-2.4); Troponin I <0.012 ng/mL (0.000-0.034)
[2018-07-03] MEDS ORDERED: SODIUM CHLORIDE 0.9% 1,000 ML IV ONE (13:59)
[2018-07-03 15:00] VITALS: BP 175/99; PULSE 75; RESP 18
== END 2018-07-03 15:29 | disposition home or self-care (01) ==
LOC: EC 11:44
DX: R10.9 Unspecified abdominal pain (principal); R11.2 Nausea with vomiting, unspecified; F17.200 Nicotine dependence, unspecified, uncomplicated; J44.9 Chronic obstructive pulmonary disease, unspecified; E78.5 Hyperlipidemia, unspecified; I10 Essential (primary) hypertension; G47.30 Sleep apnea, unspecified; Z79.02 Long term (current) use of antithrombotics/antiplatelets; Z79.899 Other long term (current) drug therapy; Z88.0 Allergy status to penicillin; Z88.8 Allergy status to other drugs, medicaments and biological substances; Z86.73 Personal history of transient ischemic attack (TIA), and cerebral infarction without residual deficits; Z85.828 Personal history of other malignant neoplasm of skin
CPT/HCPCS: 36415; 93005; 80053; 82150; 82550; 82553; 83605; 83690; 84484; 85025; 85610; 85730; 71046; 74018; 71275; 74174; 99285; 96374; 96375; 96361; J0360; J1170; Q9967

== ENCOUNTER → 2018-07-18 | Outpatient (CLI) | payer OTHER ==
--- NOTE | 2018-07-18 17:19 | US ---
EXAMINATION TYPE: US abdomen complete DATE OF EXAM: 07/18/2018 COMPARISON: 01/22/2018 CLINICAL HISTORY: 57-year-old male R10.9 Abdominal Pain. TECHNIQUE: Multiple sonographic images of the abdomen are obtained. FINDINGS: EXAM MEASUREMENTS: Liver Length: 17.8 cm Gallbladder Wall: 0.3 cm CBD: 0.6 cm Spleen: 12.8 cm Right Kidney: 12.3 x 4.5 x 6.3 cm Left Kidney: 11.4 x 5.5 x 6.3 cm Pancreas: Obscured by bowel gas. Only small portions of the pancreatic body are seen. Liver: appears homogeneous, scans limited due to large body habitus and gas Gallbladder: No stones seen Evidence for sonographic Tang's sign: no CBD: wnl Spleen: wnl Right Kidney: No hydronephrosis. Left Kidney: No hydronephrosis. Upper IVC: Obscured by overlying bowel gas Abd Aorta: Obscured by overlying bowel gas IMPRESSION: Exam limited due to patient large body habitus and bowel gas. Liver is upper limits of normal in size . Otherwise, no specific abnormality seen. Multiple structures are either nonvisualized or suboptimal ly visualized.
--- NOTE | 2018-07-18 18:56 | NM ---
EXAMINATION TYPE: NM hepatobiliary w EF DATE OF EXAM: 07/18/2018 COMPARISON: Ultrasound 07/18/2018 HISTORY: 57 year-old male abdominal pain TECHNIQUE: After the intravenous administration of 5.11 mCi Tc 99m Mebrofenin hepatobiliary scintigra phy is performed. Immediate images post injection. FINDINGS: There is satisfactory initial accumulation of tracer by the liver. The gallbladder is visualized wit hin 10 minutes. The small bowel activity is noted within 6 minutes. At one hour 8 ounces of oral en sure plus is given to mimic CCK and gallbladder ejection fraction is calculated at 54 %, in the sommer l range. Therefore there is no scintigraphic evidence of cystic or common bile duct obstruction to s uggest acute cholecystitis or gallbladder dyskinesia. IMPRESSION: Exam is within normal limits.
== END | disposition home or self-care (01) ==
LOC: RADUSMAIN 12:14
PROVIDERS: ATTEND Family Medicine
DX: R14.0 Abdominal distension (gaseous) (principal); R10.9 Unspecified abdominal pain
CPT/HCPCS: 76700; 78226; A9537

== ENCOUNTER 2018-10-16 09:27 | Day surgery (SDC) | payer OTHER ==
[2018-10-11 14:22] VITALS: BMI 36.5
--- NOTE | 2018-10-16 08:48 | P.GSHP ---
History of Present Illness H&P Date: 10/16/18 CHIEF COMPLAINT: GERD HISTORY OF PRESENT ILLNESS: The patient is a 58-year-old male who presents reports gastroesophageal reflux disease. Upper endoscopy was offered for further evaluation and management. PAST MEDICAL HISTORY: Please see list. PAST SURGICAL HISTORY: Please see list. MEDICATIONS: Please see list. ALLERGIES: Please see list. SOCIAL HISTORY: No illicit drug use FAMILY HISTORY: No reports of Crohn disease or ulcerative colitis. REVIEW OF ORGAN SYSTEMS: CONSTITUTIONAL: No reports of fevers or chills. GI: Denies any blood in stools or constipation. PHYSICAL EXAM: VITAL SIGNS: Stable GENERAL: Well-developed and pleasant in no acute distress. HEENT: No scleral icterus. Extraocular movements grossly intact. Moist buccal mucosa. NECK: Supple without lymphadenopathy. CHEST: Unlabored respirations. Equal bilateral excursions. CARDIOVASCULAR: Regular rate and rhythm. Distal 2+ pulses. ABDOMEN: Soft, nondistended. MUSCULOSKELETAL: No clubbing, cyanosis, or edema. ASSESSMENT: 1. Gastroesophageal reflux disease PLAN: 1. Recommend proceeding with an upper endoscopy Past Medical History Past Medical History: Cancer, COPD, CVA/TIA, GERD/Reflux, Hyperlipidemia, Hypertension, Osteoarthritis (OA), Skin Disorder, Sleep Apnea/CPAP/BIPAP, Vascular Disorder Additional Past Medical History / Comment(s): Hx. TIA 2013, uses cpap, hx diverticulitis, skin cancer, aortic aneurysm(sx done stated has stent), past abscess and incision and drainage of skin abscess rt groin History of Any Multi-Drug Resistant Organisms: None Reported Past Surgical History: Bowel Resection, Orthopedic Surgery Additional Past Surgical History / Comment(s): RT ROTATOR CUFF REPAIR, BONE SPUR REMOVED RT SHOULDER, I & D BOIL LT BUTTOCK, FEM POP BYPASS rt leg, surgery fx neck (pins and plates), 08-26-15 lap lysis of adhesions, lap reduction of incarcerated lt ing hernia with ventral hernia repair w/mesh. (AAA repair has stent) Past Anesthesia/Blood Transfusion Reactions: No Reported Reaction Additional Past Anesthesia/Blood Transfusion Reaction / Comment(s): surgery for fx neck -has pins and plates-pt. states can move neck forward and back, side to side ok (this was his last surgery). Smoking Status: Former smoker - Past Family History Mother Family Medical History: COPD Additional Family Medical History / Comment(s): 2011 at age 78. Father Family Medical History: No Reported History Additional Family Medical History / Comment(s): in 2017 at age 92 Medications and Allergies Home Medications Medication Instructions Recorded Confirmed Type Clopidogrel [Plavix] 75 mg PO HS 02/23/14 10/11/18 History Carvedilol [Coreg] 12.5 mg PO BID 08/25/15 10/11/18 History Losartan [Cozaar] 50 mg PO DAILY 05/16/16 10/11/18 History Atorvastatin Calcium [Lipitor] 80 mg PO HS 09/07/16 10/11/18 History Magnesium Oxide [Magox 400] 400 mg PO DAILY #60 tablet 09/19/16 10/11/18 Rx Omeprazole 40 mg PO AC-BRKT #30 capsule. 11/13/16 10/11/18 Rx Montelukast [Singulair] 10 mg PO DAILY 05/11/17 10/11/18 History Multivitamins, Thera [Multivitamin 1 tab PO DAILY 05/11/17 10/11/18 History (formulary)] Mometasone/Formoterol [Dulera 100 1 puff INHALATION RT-BID 05/12/17 10/11/18 History Mcg/5 Mcg Inhaler] Sertraline [Zoloft] 100 mg PO DAILY 01/26/18 10/11/18 History busPIRone HCL [Buspar] 30 mg PO BID 05/22/18 10/11/18 History clonazePAM [KlonoPIN] 0.5 mg PO DAILY 05/22/18 10/11/18 History Acetaminophen Tab [Tylenol] 650 mg PO Q6HR PRN tab 05/24/18 10/11/18 Rx Ondansetron HCl [Zofran] 4 mg PO Q8H PRN 3 Days #5 tablet 07/03/18 10/11/18 Rx Allergies Allergy/AdvReac Type Severity Reaction Status Date / Time amoxicillin [Amoxicillin] Allergy Rash/Hives Verified 10/11/18 14:13 enalapril maleate Allergy Rash/Hives Verified 10/11/18 14:13 [From Vasotec] enalaprilat dihydrate Allergy Rash/Hives Verified 10/11/18 14:13 [From Vasotec] Penicillins Allergy Rash/Hives Verified 10/11/18 14:13
[~2018-10-16 09:27] MED LIST: LACTATED RINGERS 1,000 ML IV SCH
[2018-10-16] MEDS ORDERED: LIDOCAINE 1% 20 ML VIAL (10MG/ML) FOR IV START INTRADERMA ONE (10:13)
[2018-10-16 10:15] VITALS: TEMP 97.6
[2018-10-16] MEDS ORDERED: PROPOFOL 10 MG/ML 20 ML VIAL IV ONE (10:42)
--- NOTE | 2018-10-16 11:00 | P.PCN ---
Date of Procedure: 10/16/18 Description of Procedure: PREOPERATIVE DIAGNOSIS: Gastroesophageal reflux disease. Epigastric abdominal pain Morbid obesity. POSTOPERATIVE DIAGNOSIS: Gastroesophageal reflux disease. Epigastric abdominal pain Gastritis. Diaphragmatic hiatal hernia OPERATION: Esophagogastroduodenoscopy with biopsies along antrum. SURGEON: Letitia Baez MD ANESTHESIA: MAC. INDICATIONS: The patient is a 58-year-old male who presents with a history of reflux disease. Benefits and risks of the procedure were described. Informed consent was obtained. DESCRIPTION: The patient was brought into the endoscopy suite and laid in the left lateral decubitus position. An Olympus gastroscope was passed along the posterior oropharynx down to the distal esophagus where the squamocolumnar junction was encountered at 35 cm from the incisors. The stomach was entered and no bile reflux was found. Additional findings are listed below. Biopsies with cold forceps were obtained of the antrum. The first through third portion of the duodenum was examined and unremarkable. Retroflexion of the scope confirmed Hill grade 2 lower esophageal valve. The squamocolumnar junction demonstrated LA grade B erosive esophagitis. The stomach was desufflated. The patient tolerated the procedure well. FINDINGS: Squamocolumnar junction 35 cm from the incisors. Diaphragmatic hiatus at 40 cm. Hiatal hernia, 5 cm Hill grade 2 lower esophageal valve. LA grade B erosive esophagitis. No active duodenitis. Chronic gastritis RECOMMENDATIONS: Upper endoscopy as needed. Plan - Discharge Summary Discharge Rx Participant: No New Discharge Prescriptions: No Action Clopidogrel [Plavix] 75 mg PO HS Carvedilol [Coreg] 12.5 mg PO BID Losartan [Cozaar] 50 mg PO DAILY Atorvastatin Calcium [Lipitor] 80 mg PO HS Magnesium Oxide [Magox 400] 400 mg PO DAILY #60 tablet Omeprazole 40 mg PO AC-BRKFST #30 capsule. Multivitamins, Thera [Multivitamin (formulary)] 1 tab PO DAILY Montelukast [Singulair] 10 mg PO DAILY Mometasone/Formoterol [Dulera 100 Mcg/5 Mcg Inhaler] 1 puff INHALATION RT-BID Sertraline [Zoloft] 100 mg PO DAILY busPIRone HCL [Buspar] 30 mg PO BID clonazePAM [KlonoPIN] 0.5 mg PO DAILY Acetaminophen Tab [Tylenol] 650 mg PO Q6HR PRN tab PRN Reason: Mild Pain Or Fever > 100.5 Ondansetron HCl [Zofran] 4 mg PO Q8H PRN 3 Days #5 tablet PRN Reason: Nausea Discharge Medication List Clopidogrel [Plavix] 75 mg PO HS 02/23/14 [History] Carvedilol [Coreg] 12.5 mg PO BID 08/25/15 [History] Losartan [Cozaar] 50 mg PO DAILY 05/16/16 [History] Atorvastatin Calcium [Lipitor] 80 mg PO HS 09/07/16 [History] Magnesium Oxide [Magox 400] 400 mg PO DAILY #60 tablet 09/19/16 [Rx] Omeprazole 40 mg PO AC-BRKT #30 capsule. 11/13/16 [Rx] Montelukast [Singulair] 10 mg PO DAILY 05/11/17 [History] Multivitamins, Thera [Multivitamin (formulary)] 1 tab PO DAILY 05/11/17 [History ] Mometasone/Formoterol [Dulera 100 Mcg/5 Mcg Inhaler] 1 puff INHALATION RT-BID [History] Sertraline [Zoloft] 100 mg PO DAILY 01/26/18 [History] busPIRone HCL [Buspar] 30 mg PO BID 05/22/18 [History] clonazePAM [KlonoPIN] 0.5 mg PO DAILY 05/22/18 [History] Acetaminophen Tab [Tylenol] 650 mg PO Q6HR PRN tab 05/24/18 [Rx] Ondansetron HCl [Zofran] 4 mg PO Q8H PRN 3 Days #5 tablet 07/03/18 [Rx] Follow up Appointment(s)/Referral(s): Letitia Baez MD [STAFF PHYSICIAN] - 11/12/18 Patient Instructions/Handouts: Hiatal Hernia (DC), Gastritis (DC) Activity/Diet/Wound Care/Special Instructions: Start Plavix on October 18 Discharge Disposition: HOME SELF-CARE
[2018-10-16 11:24] VITALS: BP 132/85; PULSE 65; RESP 18
== END 2018-10-16 11:30 | disposition home or self-care (01) ==
LOC: ORWHC2ENDO 09:27
PROVIDERS: ATTEND Surgery Plastic and Reconstructive Surgery
DX: K22.10 Ulcer of esophagus without bleeding (principal); K44.9 Diaphragmatic hernia without obstruction or gangrene; K21.9 Gastro-esophageal reflux disease without esophagitis; E66.01 Morbid (severe) obesity due to excess calories; Z68.37 Body mass index [BMI] 37.0-37.9, adult; K57.92 Diverticulitis of intestine, part unspecified, without perforation or abscess without bleeding; J44.9 Chronic obstructive pulmonary disease, unspecified; Z86.73 Personal history of transient ischemic attack (TIA), and cerebral infarction without residual deficits; E78.5 Hyperlipidemia, unspecified; I10 Essential (primary) hypertension; M19.90 Unspecified osteoarthritis, unspecified site; G47.30 Sleep apnea, unspecified; Z99.89 Dependence on other enabling machines and devices; Z85.828 Personal history of other malignant neoplasm of skin; Z87.891 Personal history of nicotine dependence; Z79.02 Long term (current) use of antithrombotics/antiplatelets; Z79.51 Long term (current) use of inhaled steroids; Z79.899 Other long term (current) drug therapy; Z88.0 Allergy status to penicillin; Z88.8 Allergy status to other drugs, medicaments and biological substances
CPT/HCPCS: 88305; 43239; J2704

== ENCOUNTER 2018-11-14 10:17 | Day surgery (SDC) | payer OTHER ==
[2018-11-07 08:59] VITALS: BMI 36.9
--- NOTE | 2018-11-14 08:03 | P.GSHP ---
History of Present Illness H&P Date: 11/14/18 CHIEF COMPLAINT: History of intra-abdominal adhesions HISTORY OF PRESENT ILLNESS: The patient is a 58-year-old male who presents with history of intra-abdominal adhesions from multiple prior surgeries including increasing abdominal pain. He now presents for diagnostic laparoscopy including lysis of adhesions. PAST MEDICAL HISTORY: Please see list. PAST SURGICAL HISTORY: Please see list. MEDICATIONS: Please see list. ALLERGIES: Please see list. SOCIAL HISTORY: No illicit drug use FAMILY HISTORY: No reports of Crohn disease or ulcerative colitis. REVIEW OF ORGAN SYSTEMS: CONSTITUTIONAL: No reports of fevers or chills. GI: Denies any blood in stools or constipation. PHYSICAL EXAM: VITAL SIGNS: Stable GENERAL: Well-developed pleasant and in no acute distress. HEENT: No scleral icterus. Extraocular movements grossly intact. Moist buccal mucosa. NECK: Supple without lymphadenopathy. CHEST: Unlabored respirations. Equal bilateral excursions. CARDIOVASCULAR: Regular rate and rhythm. Distal 2+ pulses. ABDOMEN: Soft, diffuse abdominal tenderness. No peritonitis. MUSCULOSKELETAL: No clubbing, cyanosis, or edema. ASSESSMENT: 1. Diffuse abdominal pain. 2. History of multiple abdominal surgeries. 3. Intra-abdominal adhesions. PLAN: 1. Robotic assisted approach diagnostic laparoscopy with lysis of adhesions were described in detail including risk of injury to the intestine, need for further surgery, and open technique. 2. DVT prophylaxis. 3. Antibiotic prophylaxis. Past Medical History Past Medical History: Cancer, COPD, CVA/TIA, GERD/Reflux, Hyperlipidemia, Hypertension, Osteoarthritis (OA), Skin Disorder, Sleep Apnea/CPAP/BIPAP, Vascular Disorder Additional Past Medical History / Comment(s): HIATAL HERNIA, TIA 2013, uses cpap, hx diverticulitis, skin cancer, aortic aneurysm(sx done stated has stent), past abscess and incision and drainage of skin abscess rt groin History of Any Multi-Drug Resistant Organisms: None Reported Past Surgical History: Bowel Resection, Orthopedic Surgery Additional Past Surgical History / Comment(s): RT ROTATOR CUFF REPAIR, BONE SPUR REMOVED RT SHOULDER, I & D BOIL LT BUTTOCK, FEM POP BYPASS rt leg, surgery fx neck (pins and plates), 08-26-16 lap lysis of adhesions, lap reduction of incarcerated lt ing hernia with ventral hernia repair w/mesh. (AAA repair has stent) Past Anesthesia/Blood Transfusion Reactions: No Reported Reaction Additional Past Anesthesia/Blood Transfusion Reaction / Comment(s): surgery for fx neck -has pins and plates-pt. states can move neck forward and back, side to side ok (this was his last surgery). Smoking Status: Former smoker - Past Family History Mother Family Medical History: COPD Additional Family Medical History / Comment(s): 2011 at age 78. Father Family Medical History: No Reported History Additional Family Medical History / Comment(s): in 2016 at age 92 Medications and Allergies Home Medications Medication Instructions Recorded Confirmed Type Clopidogrel [Plavix] 75 mg PO HS 02/23/14 11/07/18 History Carvedilol [Coreg] 12.5 mg PO BID 08/25/15 11/07/18 History Losartan [Cozaar] 50 mg PO DAILY 05/16/16 11/07/18 History Atorvastatin Calcium [Lipitor] 80 mg PO HS 09/07/16 11/07/18 History Magnesium Oxide [Magox 400] 400 mg PO DAILY #60 tablet 09/19/16 11/07/18 Rx Omeprazole 40 mg PO AC-BRKFSKurt #30 capsule. 11/13/16 11/07/18 Rx Montelukast [Singulair] 10 mg PO DAILY 05/11/17 11/07/18 History Multivitamins, Thera [Multivitamin 1 tab PO DAILY 05/11/17 11/07/18 History (formulary)] Mometasone/Formoterol [Dulera 100 1 puff INHALATION RT-BID 05/12/17 11/07/18 History Mcg/5 Mcg Inhaler] Sertraline [Zoloft] 100 mg PO DAILY 01/26/18 11/07/18 History busPIRone HCL [Buspar] 30 mg PO BID 05/22/18 11/07/18 History clonazePAM [KlonoPIN] 0.5 mg PO DAILY 05/22/18 11/07/18 History Acetaminophen Tab [Tylenol] 650 mg PO Q6HR PRN tab 05/24/18 11/07/18 Rx Ondansetron HCl [Zofran] 4 mg PO Q8H PRN 3 Days #5 tablet 07/03/18 11/07/18 Rx Allergies Allergy/AdvReac Type Severity Reaction Status Date / Time amoxicillin [Amoxicillin] Allergy Rash/Hives Verified 11/07/18 08:52 enalapril maleate Allergy Rash/Hives Verified 11/07/18 08:52 [From Vasotec] enalaprilat dihydrate Allergy Rash/Hives Verified 11/07/18 08:52 [From Vasotec] Penicillins Allergy Rash/Hives Verified 11/07/18 08:52
[~2018-11-14 10:17] MED LIST changes: +DEXAMETHASONE SOD PHOSPHATE 10 MG/ML 1 ML VIAL IV ONE; +HEPARIN SODIUM,PORCINE 5,000 UNIT/ML 1 ML VIAL SQ ONE; +LIDOCAINE 1% 20 ML VIAL (10MG/ML) FOR IV START INTRADERMA PRN; +MIDAZOLAM 2 MG/2 ML VIAL IV PRN; +ONDANSETRON 4 MG/2 ML VIAL IVP ONE; +Pre Op ABX Message 1 EACH MISC MISCELLANE ONE; +SCOPOLAMINE 1.5MG/72HR PATCH TRANSDERM ONE; +ceFAZolin 3 GM in SODIUM CHLORIDE 0.9% 100 ML IVPB ONE
[2018-11-14] MEDS ORDERED: fentaNYL (PF) 50 MCG/ML 2 ML AMP ONE (13:05)
[2018-11-14] MEDS ORDERED: ROCURONIUM BROMIDE 10 MG/ML 10 ML VIAL IV ONE (13:05)
[2018-11-14] MEDS ORDERED: LIDOCAINE 1% INJ 10MG/ML (20 ML MDV) ONE (13:05)
[2018-11-14] MEDS ORDERED: PROPOFOL 10 MG/ML 20 ML VIAL IV ONE (13:05)
[2018-11-14] MEDS ORDERED: GLYCOPYRROLATE 0.2 MG/ML 2 ML VIAL ONE (13:05)
[2018-11-14] MEDS ORDERED: NEOSTIGMINE 1 MG/ML 10 ML VIAL ONE (13:05)
[2018-11-14] MEDS ORDERED: MIDAZOLAM 2 MG/2 ML VIAL ONE (13:05)
[2018-11-14] MEDS ORDERED: BUPIVACAIN-EPI 0.5%-1:200,000 30 ML VIAL SQ ONE (13:37)
[2018-11-14] MEDS ORDERED: LACTATED RINGERS 1,000 ML IV ONE (14:24)
[2018-11-14] MEDS: HYDROmorphone 0.5 MG/0.5 ML SYRINGE IVP PRN ×4 (14:58→15:53)
[2018-11-14 15:03] VITALS: TEMP 97.4
--- NOTE | 2018-11-14 15:18 | P.OP ---
Date of Procedure: 11/14/18 Description of Procedure: SURGEON: SHU BAEZ MD PREOPERATIVE DIAGNOSES: 1. Peritoneal adhesions sequelae of multiple abdominal surgeries 2. History of ruptured diverticulitis s/p colon resection and reversal 3. Ischemic cardiomyopathy 4. Hypertensive heart disease 5. Morbid obesity due to excess calories, BMI 37.0 6. Abdominal aortic aneurysm, chronic 7. Chronic obstructive pulmonary disease, moderate 8. Peripheral vascular occlusive disease 9. Gastroesophageal reflux disease. 10. Hyperlipidemia 11. Chronic antiplatelet therapy 12. Left lower quadrant abdominal pain 13. Periumbilical abdominal pain POSTOPERATIVE DIAGNOSES: 1. Peritoneal adhesions sequelae of multiple abdominal surgeries 2. History of ruptured diverticulitis s/p colon resection and reversal 3. Ischemic cardiomyopathy 4. Hypertensive heart disease 5. Morbid obesity due to excess calories, BMI 37.0 6. Abdominal aortic aneurysm, chronic 7. Chronic obstructive pulmonary disease, moderate 8. Peripheral vascular occlusive disease 9. Gastroesophageal reflux disease. 10. Hyperlipidemia 11. Chronic antiplatelet therapy 12. Left lower quadrant abdominal pain 13. Periumbilical abdominal pain 14. Severe peritoneal adhesions greater omentum to the abdominal wall OPERATION: 1. Robotic-assisted da Leno Xi laparoscopic extensive lysis of adhesions 45 minutes COMPLICATIONS: None. Anesthesia: GETA, local Estimated Blood Loss (ml): 20 Pathology: none sent Condition: stable Disposition: same day OPERATIVE FINDINGS: 1. Severe peritoneal adhesions involving periumbilical area, left lower quadrant, lower midline to previous mesh repair INDICATIONS: The patient is a 58-year-old male who presents with moderate danya- umbilical, left lower quadrant abdominal pain. He has prior history of perforated diverticulitis, followed by reversal, incisional repair status post repair with mesh. Surgical intervention with lysis of adhesions was described. Informed consent was obtained. Robotic assisted laparoscopic approach was described. Benefits and risks of the procedure including but not limited to bleeding, infection, injury to the small bowel was described. Informed consent was obtained. DESCRIPTION OF PROCEDURE: Patient was brought to the operating room, placed in supine position. After general induction, the abdomen had been prepped and draped in standard sterile fashion. The robotic da Leno XI system was primed. After a timeout protocol was performed, the patient had been prepped and draped in standard sterile fashion. A 5 mm 0 degrees laparoscopic trocar entry was performed along the left upper quadrant. The abdomen was insufflated to 15 mmHg pressure which he tolerated well. Diagnostic laparoscopy demonstrated severe intra-abdominal adhesions involving the midline at the umbilicus and left lower quadrant. The small bowel was unremarkable without evidence of dilation or suggestion of obstruction. Small bowel to abdominal wall adhesions was found along the bilateral lower abdomen without obstruction. No injury to the bowel, viscera or mesentery was i dentified. Next, three 8 mm robotic ports were placed along the right lateral abdomen. Please note that the ports were placed at least 10 cm away from the target anatomy. The robot was docked along the right lateral abdomen. Instruments were interchanged using only 3 ports for a grasper, vessel sealer, and scissors with cautery. Instruments were interchanged by the assistant corporation counsel including Bovie cautery scissors. I had sat at the console. The camera was positioned along the right lateral abdomen. Extensive lysis of adhesions over 1 hour was performed using sharp including blunt dissections with scissors and vessel sealer. Carefully the adhesions were taken down without injury to the small bowel using vessel sealer and cautery on scissors. Carefully small bowel was dissected free from the mesh repair where all adhesions were confirmed. Hemostasis was checked and abdomen was dry upon completion. Completion lysis of adhesions confirmed no incisional hernias. The robot was undocked. All pneumoperitoneum and instruments were evacuated from the abdominal cavity. The skin was cleansed with dilute hydrogen peroxide. The incisions were reapproximated using 4-0 Monocryl in an interrupted subcuticular fashion. Please note along the trocar sites, local anesthetic was placed as a field block prior to insertion of all instruments. Liquid glue was applied to the skin. At the end of the procedure needle, sponge, and instrument count had been verified correct by the manager surgical. The patient was transferred to postanesthesia care unit in stable condition. Intraoperative images including findings were described to the patients family. Console time 45 minutes Plan - Discharge Summary Discharge Rx Participant: Yes New Discharge Prescriptions: New Ibuprofen [Motrin] 600 mg PO Q8HR PRN #30 tab PRN Reason: Pain HYDROcodone/APAP 5-325MG [[place] 5-325] 1 tab PO Q6HR PRN 3 Days #10 tab PRN Reason: Pain No Action Clopidogrel [Plavix] 75 mg PO HS Carvedilol [Coreg] 12.5 mg PO BID Losartan [Cozaar] 50 mg PO DAILY Atorvastatin Calcium [Lipitor] 80 mg PO HS Magnesium Oxide [Magox 400] 400 mg PO DAILY #60 tablet Omeprazole 40 mg PO AC-BRKFST #30 capsule. MultivKylie nuneza [Multivitamin (formulary)] 1 tab PO DAILY Montelukast [Singulair] 10 mg PO DAILY Mometasone/Formoterol [Dulera 100 Mcg/5 Mcg Inhaler] 1 puff INHALATION RT-BID Sertraline [Zoloft] 100 mg PO DAILY busPIRone HCL [Buspar] 30 mg PO BID clonazePAM [KlonoPIN] 0.5 mg PO DAILY Acetaminophen Tab [Tylenol] 650 mg PO Q6HR PRN tab PRN Reason: Mild Pain Or Fever > 100.5 Ondansetron HCl [Zofran] 4 mg PO Q8H PRN 3 Days #5 tablet PRN Reason: Nausea Discharge Medication List Clopidogrel [Plavix] 75 mg PO HS 02/23/14 [History] Carvedilol [Coreg] 12.5 mg PO BID 08/25/15 [History] Losartan [Cozaar] 50 mg PO DAILY 05/16/16 [History] Atorvastatin Calcium [Lipitor] 80 mg PO HS 09/07/16 [History] Magnesium Oxide [Magox 400] 400 mg PO DAILY #60 tablet 09/19/16 [Rx] Omeprazole 40 mg PO AC-BRKFST #30 capsule. 11/13/16 [Rx] Montelukast [Singulair] 10 mg PO DAILY 05/11/17 [History] Multivenrique Thera [Multivitamin (formulary)] 1 tab PO DAILY 05/11/17 [History] Mometasone/Formoterol [Dulera 100 Mcg/5 Mcg Inhaler] 1 puff INHALATION RT-BID 05/12/17 [History] Sertraline [Zoloft] 100 mg PO DAILY 01/26/18 [History] busPIRone HCL [Buspar] 30 mg PO BID 05/22/18 [History] clonazePAM [KlonoPIN] 0.5 mg PO DAILY 05/22/18 [History] Acetaminophen Tab [Tylenol] 650 mg PO Q6HR PRN tab 05/24/18 [Rx] Ondansetron HCl [Zofran] 4 mg PO Q8H PRN 3 Days #5 tablet 07/03/18 [Rx] HYDROcodone/APAP 5-325MG [[place] 5-325] 1 tab PO Q6HR PRN 3 Days #10 tab 11/14/18 [Rx] Ibuprofen [Motrin] 600 mg PO Q8HR PRN #30 tab 11/14/18 [Rx] Follow up Appointment(s)/Referral(s): Shu Baez MD [STAFF PHYSICIAN] - 11/19/18 Patient Instructions/Handouts: Lysis of Abdominal Adhesions (DC) Activity/Diet/Wound Care/Special Instructions: Diet as tolerated. No lifting over 10 pounds in 1 week. May shower. No bathtub soaks. Discharge Disposition: HOME SELF-CARE
[2018-11-14] MEDS ORDERED: KETOROLAC 30 MG/ML 1 ML VIAL IVP ONE (15:45)
[2018-11-14 15:48] VITALS: RESP 18
[2018-11-14] MEDS ORDERED: HYDROcodone/APAP 5-325MG 1 EACH TAB PO ONE (17:29)
[2018-11-14 17:34] VITALS: BP 144/87; PULSE 79
== END 2018-11-14 18:09 | disposition home or self-care (01) ==
LOC: OR 10:17
PROVIDERS: ATTEND Surgery Plastic and Reconstructive Surgery
DX: K66.0 Peritoneal adhesions (postprocedural) (postinfection) (principal); I25.5 Ischemic cardiomyopathy; I11.9 Hypertensive heart disease without heart failure; E66.01 Morbid (severe) obesity due to excess calories; Z68.37 Body mass index [BMI] 37.0-37.9, adult; E78.5 Hyperlipidemia, unspecified; I71.4 Abdominal aortic aneurysm, without rupture; J44.9 Chronic obstructive pulmonary disease, unspecified; K21.9 Gastro-esophageal reflux disease without esophagitis; I73.9 Peripheral vascular disease, unspecified; G47.30 Sleep apnea, unspecified; M19.90 Unspecified osteoarthritis, unspecified site; F32.9 Major depressive disorder, single episode, unspecified; Z99.89 Dependence on other enabling machines and devices; Z86.73 Personal history of transient ischemic attack (TIA), and cerebral infarction without residual deficits; Z87.891 Personal history of nicotine dependence; Z85.828 Personal history of other malignant neoplasm of skin; Z87.19 Personal history of other diseases of the digestive system; Z90.49 Acquired absence of other specified parts of digestive tract; Z98.890 Other specified postprocedural states; Z79.02 Long term (current) use of antithrombotics/antiplatelets; Z79.51 Long term (current) use of inhaled steroids; Z79.899 Other long term (current) drug therapy; Z88.1 Allergy status to other antibiotic agents; Z88.0 Allergy status to penicillin; Z88.8 Allergy status to other drugs, medicaments and biological substances
CPT/HCPCS: 44180; J2250; J1644; J1100; J2710; J0690; J2405; J2001; J3010; J1885; J2704; J1170

== ENCOUNTER 2019-01-16 09:15 | Inpatient (IN) | payer OTHER ==
--- NOTE | 2019-01-16 07:12 | P.GSHP ---
History of Present Illness H&P Date: 01/16/19 CHIEF COMPLAINT: Paraesophageal hiatal hernia with gastroesophageal reflux disease. HISTORY OF PRESENT ILLNESS: The patient is a 58-year-old female who presents with paraesophageal hiatal hernia. She has completed an esophageal manometry including upper endoscopy workup. Now she presents for surgical intervention. PAST MEDICAL HISTORY: Please see list. PAST SURGICAL HISTORY: Please see list. MEDICATIONS: Please see list. ALLERGIES: Please see list. SOCIAL HISTORY: No illicit drug use FAMILY HISTORY: No reports of Crohn disease or ulcerative colitis. REVIEW OF ORGAN SYSTEMS: CONSTITUTIONAL: No reports of fevers or chills. GI: Denies any blood in stools or constipation. PHYSICAL EXAM: VITAL SIGNS: Stable GENERAL: Well-developed pleasant and in no acute distress. HEENT: No scleral icterus. Extraocular movements grossly intact. Moist buccal mucosa. NECK: Supple without lymphadenopathy. CHEST: Unlabored respirations. Equal bilateral excursions. CARDIOVASCULAR: Regular rate and rhythm. Distal 2+ pulses. ABDOMEN: Soft, nondistended. No peritoneal signs. MUSCULOSKELETAL: No clubbing, cyanosis, or edema. SKIN: Well-perfused. Good skin turgor. MANOMETRY: Shows no evidence of achalasia or scleroderma. ASSESSMENT: 1. Diaphragmatic paraesophageal hiatal hernia with severe gastroesophageal reflux disease. PLAN: 1. Recommend proceeding with a robotic paraesophageal hiatal hernia with possible mesh. 2. Benefits and risks of surgical intervention was discussed including possibility of open technique. 3. Inpatient hospitalization recommended of 2 nights 4. DVT prophylaxis. 5. Antibiotic prophylaxis. 6. She has also completed a very low caloric high-protein diet to address underlying hepatomegaly. Past Medical History Past Medical History: Cancer, COPD, CVA/TIA, GERD/Reflux, Hyperlipidemia, Hypertension, Osteoarthritis (OA), Skin Disorder, Sleep Apnea/CPAP/BIPAP, Vascular Disorder Additional Past Medical History / Comment(s): Hx. TIA 2013, uses cpap, hx diverticulitis, skin cancer, aortic aneurysm(sx done stated has stent) History of Any Multi-Drug Resistant Organisms: None Reported Past Surgical History: Bowel Resection, Orthopedic Surgery Additional Past Surgical History / Comment(s): RT ROTATOR CUFF REPAIR, BONE SPUR REMOVED RT SHOULDER, I & D BOIL LT BUTTOCK, FEM POP BYPASS rt leg, surgery fx neck (pins and plates), 08-26-16 lap lysis of adhesions, lap reduction of incarcerated lt ing hernia with ventral hernia repair w/mesh. (AAA repair has stent). lysis adhesions 11/14/18. Past Anesthesia/Blood Transfusion Reactions: No Reported Reaction Additional Past Anesthesia/Blood Transfusion Reaction / Comment(s): surgery for fx neck -has pins and plates-pt. states can move neck forward and back, side to side ok (this was his last surgery). Smoking Status: Former smoker - Past Family History Mother Family Medical History: COPD Additional Family Medical History / Comment(s): 2011 at age 78. Father Family Medical History: No Reported History Additional Family Medical History / Comment(s): in 2016 at age 92 Medications and Allergies Home Medications Medication Instructions Recorded Confirmed Type Clopidogrel [Plavix] 75 mg PO HS 02/23/14 01/09/19 History Carvedilol [Coreg] 12.5 mg PO BID 08/25/15 01/09/19 History Losartan [Cozaar] 50 mg PO DAILY 05/16/16 01/09/19 History Atorvastatin Calcium [Lipitor] 80 mg PO HS 09/07/16 01/09/19 History Magnesium Oxide [Magox 400] 400 mg PO DAILY #60 tablet 09/19/16 01/09/19 Rx Omeprazole 40 mg PO AC-SAÚLKurt #30 capsule. 11/13/16 01/09/19 Rx Montelukast [Singulair] 10 mg PO DAILY 05/11/17 01/09/19 History Multivitamins, Thera [Multivitamin 1 tab PO DAILY 05/11/17 01/09/19 History (formulary)] Mometasone/Formoterol [Dulera 100 1 puff INHALATION RT-BID 05/12/17 01/09/19 History Mcg/5 Mcg Inhaler] Sertraline [Zoloft] 100 mg PO DAILY 01/26/18 01/09/19 History busPIRone HCL [Buspar] 30 mg PO BID 05/22/18 01/09/19 History clonazePAM [KlonoPIN] 0.5 mg PO DAILY 05/22/18 01/09/19 History HYDROcodone/APAP 7.5-325MG [[place] 1 tab PO BID 01/09/19 01/09/19 History 7.5-325] Ipratropium-Albuterol Nebulize 3 ml INHALATION DIRECTED PRN 01/09/19 01/09/19 History [Duoneb 0.5 mg-3 mg/3 ml Soln] Allergies Allergy/AdvReac Type Severity Reaction Status Date / Time amoxicillin [Amoxicillin] Allergy Rash/Hives Verified 01/09/19 16:41 enalapril maleate Allergy Rash/Hives Verified 01/09/19 16:41 [From Vasotec] enalaprilat dihydrate Allergy Rash/Hives Verified 01/09/19 16:41 [From Vasotec] Penicillins Allergy Rash/Hives Verified 01/09/19 16:41 varenicline [From Chantix] AdvReac MIGRAINE Verified 01/09/19 17:04 HEADACHES
[~2019-01-16 09:15] MED LIST changes: -DEXAMETHASONE SOD PHOSPHATE 10 MG/ML 1 ML VIAL IV ONE; -LACTATED RINGERS 1,000 ML IV SCH; -ONDANSETRON 4 MG/2 ML VIAL IVP ONE; -Pre Op ABX Message 1 EACH MISC MISCELLANE ONE; -ceFAZolin 3 GM in SODIUM CHLORIDE 0.9% 100 ML IVPB ONE; +ceFAZolin IN SWFI 2 GM/20 ML SYRINGE IVP ONE
[2019-01-16] MEDS: LACTATED RINGERS 1,000 ML IV SCH ×2 (10:30→10:50)
[2019-01-16] MEDS: DEXAMETHASONE SOD PHOSPHATE 10 MG/ML 1 ML VIAL IV ONE ×2 (10:32→14:45)
[2019-01-16] MEDS: ONDANSETRON 4 MG/2 ML VIAL IVP ONE ×2 (10:32→14:46)
[2019-01-16] MEDS: PANTOPRAZOLE 40 MG/10 ML VIAL IV STA ×2 (10:33→14:46)
[2019-01-16] MEDS: ENOXAPARIN 40 MG/0.4 ML SYRINGE SQ STA ×2 (10:35→14:46)
[2019-01-16] MEDS: CARVEDILOL 12.5 MG TAB PO STA ×2 (10:46→14:46)
[2019-01-16] MEDS ORDERED: GLYCOPYRROLATE 0.2 MG/ML 2 ML VIAL ONE (10:47)
[2019-01-16] MEDS ORDERED: ePHEDrine SULFATE/0.9% NACL/PF 50 MG/5 ML SYRINGE IV ONE (10:47)
[2019-01-16] MEDS ORDERED: MIDAZOLAM 2 MG/2 ML VIAL ONE (10:47)
[2019-01-16] MEDS ORDERED: LIDOCAINE 1% INJ 10MG/ML (20 ML MDV) ONE (10:47)
[2019-01-16] MEDS ORDERED: PROPOFOL 10 MG/ML 20 ML VIAL IV ONE (10:47)
[2019-01-16] MEDS ORDERED: NEOSTIGMINE 1 MG/ML 10 ML VIAL ONE (10:47)
[2019-01-16] MEDS ORDERED: fentaNYL (PF) 50 MCG/ML 2 ML AMP ONE (10:47)
[2019-01-16] MEDS ORDERED: SUCCINYLCHOLINE CHLORIDE 100 MG/5 ML SYR IV ONE (10:47)
[2019-01-16] MEDS ORDERED: ROCURONIUM BROMIDE 10 MG/ML 10 ML VIAL IV ONE (10:47)
[2019-01-16] MEDS: CHLORHEXIDINE GLUCONATE 15 ML CUP MUCOUS MEM ONE ×2 (10:49→14:46)
[2019-01-16] MEDS ORDERED: BUPIVACAIN-EPI 0.25%-1:200,000 30 ML VIAL SQ ONE (11:16)
[2019-01-16] MEDS: HYDROmorphone 0.5 MG/0.5 ML SYRINGE IVP PRN ×2 (14:01→14:19)
[2019-01-16] MEDS ORDERED: IPRATROPIUM-ALBUTEROL 3 ML NEB INHALATION PRN (14:17)
[2019-01-16] MEDS ORDERED: NALOXONE 0.4 MG/ML 1 ML VIAL IV PRN (14:19)
[2019-01-16] MEDS ORDERED: diphenhydrAMINE 50 MG/ML 1 ML VIAL IVP PRN (14:19)
--- NOTE | 2019-01-16 14:31 | P.OP ---
Date of Procedure: 01/16/19 Description of Procedure: SURGEON: SHU MANCUSO MD PREOPERATIVE DIAGNOSES: 1. Symptomatic paraesophageal diaphragmatic hiatal hernia. 2. Gastroesophageal reflux disease. 3. Ischemic hypertensive cardiomyopathy 4. Hyperlipidemia 5. History of abdominal aortic aneurysm 6. Peripheral vascular occlusive disease 7. Chronic obstructive pulmonary disease 8. History of diverticulitis status post colectomy 9. Peritoneal adhesions 10. History of adrenal tumor 11. Anxiety disorder generalized 12. Depressive disorder POSTOPERATIVE DIAGNOSES: 1. Symptomatic paraesophageal diaphragmatic hiatal hernia. 2. Gastroesophageal reflux disease. 3. Ischemic hypertensive cardiomyopathy 4. Hyperlipidemia 5. History of abdominal aortic aneurysm 6. Peripheral vascular occlusive disease 7. Chronic obstructive pulmonary disease 8. History of diverticulitis status post colectomy 9. Peritoneal adhesions 10. History of adrenal tumor 11. Anxiety disorder generalized 12. Depressive disorder OPERATION: 1. Robotic-assisted da Leno Xi laparoscopic repair of incarcerated paraesophageal hiatal hernia, 5 x 4 cm, with Steuben Biopatch A 8 x 8 cm. 2. Intraoperative esophagogastroduodenoscopy ANESTHESIA: General with local anesthetic. ESTIMATED BLOOD LOSS: 10 mL SPECIMENS REMOVED: None. COMPLICATIONS: None. Condition: stable Disposition: floor FINDINGS: 1. Midline incarcerated paraesophageal hiatal hernia 5 x 4 cm 2. Intraoperative upper endoscopy confirms complete closure of hiatal hernia from Hill grade 4 to Hill grade 1 3. Peritoneal adhesions of the lower abdomeb 4. Console time 73 minutes INDICATIONS: The patient is a 58-year-old male who presents with regurgitation, gastroesophageal reflux disease poorly controlled despite medications, and a symptomatic diaphragmatic hiatal hernia with Lizarraga's esophagus. Preoperative workup including upper endoscopy demonstrated a Hill grade 4 lower esophageal valve. She completed an esophageal manometry. Given the severity of symptoms, she had elected for surgical intervention. Benefits and risks including bleeding, infection, recurrence, dysphagia, injury to the lung, need for further surgery was described at length. Informed consent was obtained. DESCRIPTION: The patient was brought into the operating room and placed in supine position. Preoperatively she had received heparin subcutaneously for DVT prophylaxis. After general induction, the abdomen was prepped and draped in standard sterile fashion. The patient had previously voided prior to coming to the operating room. Ioban draping was placed along the abdomen. A timeout protocol was confirmed with the surgical team, for which the patient's name, procedure to be performed including DVT prophylaxis with bilateral SCDs, and preoperative antibiotics were also confirmed. A robotic da Leno Xi system was prepped and primed. At 12 cm from the xiphoid to just below the umbilicus, proposed port sites were marked with indelible marker along the left axillary line, left mid-clavicular line with each ports were marked 10 cm from each other. A 5 mm 0 degrees laparoscopic trocar entry was performed along the left upper quadrant. The abdomen was insufflated to 15 mmHg pressure was tolerated well. Diagnostic laparoscopy demonstrated no injury to bowel, viscera, or mesentery. Severe adhesions of the mid to lower abdomen was confirmed despite prior lysis of adhesions from prior surgeries. Port sites were repositioned along the upper abdomen for robotic trochars. The 5 mm trocar was left in place. Next, one 8 mm robotic port was placed along the right upper abdomen. An 8-mm port was were placed along the left lateral abdominal wall. The camera 8-mm port was maintained along the epigastrium via the hernia defect. Another 12 mm port was placed along the left upper abdominal wall. Please note that the ports were placed at least 20 cm away from the target anatomy. Care was taken to check that each robotic arm were safely away from collision with the bed or the patient. At the epigastrium, a medium sized Gerardo liver retractor was placed under direct visualization with the Iron Second Helper placed under the right shoulder of the patient. All robotic arms were used. The patient was repositioned in reverse Trendelenburg position at 16-degrees after lowering the bed. The robot was docked above the right side of the patient. Using a grasper for arm 3, a grasper for arm 1, including vessel sealer for arm 2, the robotic system was docked and primed as described. Instruments were interchanged by the addictions counselor assistant. I had sat at the console. The gastrohepatic ligament was cleaved using a vessel sealer. Next, the ph renoesophageal ligament was mobilized and the distal esophagus was mobilized circumferentially. The left and right crura was identified. Circumferentially, the hernia sac was excised and brought into the peritoneal cavity. Moderate dissection into the mediastinum was performed to release the esophagus into the abdominal cavity. The paraesophageal hiatal hernia sac was also incised and divided from the esophagus. The measured defect was consistent with 5 cm axial length and 4 cm in width. After dissection, the distal esophagus of 3 cm was brought into the abdominal cavity. Once the hiatus and crura was dissected, 2-0 VLOC suture was placed to reapproximate the diaphragmatic hiatus posteriorly. To buttress the repair, a [place] Biopatch A was prepared along the back table and cut in half of a cain-hole fashion as to reinforce the repair as an underlay. The mesh was placed along the crural repair and tagged using horizontal mattress sutures using 2-0 VLOC. I went to the head of the bed to perform intraoperative esophagogastroduodenoscopy and placement of a 56Fr bougie. The bougie did not pass easily into the posterior pharynx and abandoned. An Olympus gastroscope was passed through posterior oropharynx. Retroflexion of the scope confirmed a Hill grade 1 lower esophageal valve. The stomach had been desufflated. No evidence of leaks were found of the esophagus or stomach. The squamocolumnar junction and hiatus was placed at 45 cm from the incisors. The GI tract with desufflated This concluded the endoscopic portion of the case. The robot was undocked from the patient. I re-scrubbed into the case. All instruments and pneumoperitoneum and specimens were evacuated from the abdominal cavity. Incisions were reapproximated using 4-0 Monocryl in an interrupted subcuticular fashion. Liquid glue was applied to the skin. Local anesthetic was infiltrated in all wounds for postop analgesia. Multiple intra-abdominal films were obtained. At the end of the procedure, needle, sponge, and instrument count was verified correct by the dental technician. The patient had tolerated the procedure well and was taken to the postanesthesia unit in stable condition. Intraoperative films were reviewed with the patient's family who was pleased with the level of care.
[2019-01-16] MEDS: ALBUTEROL NEBULIZED 2.5 MG/3 ML INHALATION SCH ×2 (15:24→19:28)
[2019-01-16] MEDS: 0.9% NACL WITH KCL 20 MEQ/L 1,000 ML IV SCH ×2 (15:39→21:11)
[2019-01-16] MEDS: SIMETHICONE 40 MG/0.6 ML DROPS 2,000 MG/30 ML BOTTLE PO SCH ×2 (17:09→23:09)
[2019-01-16] MEDS: HYDROmorphone 1 MG/ML 1 ML SYRINGE IVP PRN ×2 (17:15→22:46)
[2019-01-16] MEDS: METOCLOPRAMIDE 5 MG/ML 2 ML VIAL IVP SCH ×2 (17:15→23:09)
[2019-01-16] MEDS: ceFAZolin IN SWFI 2 GM/20 ML SYRINGE IVP SCH (18:17)
[2019-01-16] MEDS: LOSARTAN 50 MG TAB PO SCH (19:04)
[2019-01-16] MEDS: SYMBICORT 80-4.5 MCG INHALER INHALATION SCH (19:35)
[2019-01-16] MEDS: busPIRone HCl 10 MG TAB PO SCH (21:11)
[2019-01-16] MEDS: HYDROcodone/APAP 7.5-325MG 1 EACH TAB PO SCH (21:11)
[2019-01-16] MEDS ORDERED: ONDANSETRON 4 MG/2 ML VIAL IVP PRN (21:40)
[2019-01-17] MEDS: ceFAZolin IN SWFI 2 GM/20 ML SYRINGE IVP SCH (03:18)
[2019-01-17] MEDS: HYDROmorphone 1 MG/ML 1 ML SYRINGE IVP PRN ×2 (03:24→10:45)
[2019-01-17] MEDS: LACTATED RINGERS 1,000 ML IV SCH (03:47)
[2019-01-17] MEDS: METOCLOPRAMIDE 5 MG/ML 2 ML VIAL IVP SCH ×2 (06:01→13:12)
[2019-01-17] MEDS ORDERED: 0.9% NACL WITH KCL 20 MEQ/L 1,000 ML IV SCH (08:00)
[2019-01-17 08:07] VITALS: BP 155/88; RESP 16; TEMP 97.6
[2019-01-17 08:24] LABS: Basophils % (A) 0 %; Eosinophils % (A) 0 %; HCT 46.1 % (39.0-53.0); HGB 15.1 gm/dL (13.0-17.5); Lymphocytes # (A) 1.4 k/uL (1.0-4.8); Lymphocytes % (A) 10 %; MCH 31.5 pg (25.0-35.0); MCHC 32.7 g/dL (31.0-37.0); MCV 96.5 fL (80.0-100.0); Monocytes # (A) 0.6 k/uL (0-1.0); Monocytes % (A) 5 %; Neutrophils # (A) 11.1 k/uL (1.3-7.7); Neutrophils % (A) 83 %; Platelet Count 277 k/uL (150-450); RBC 4.78 m/uL (4.30-5.90); WBC 13.3 k/uL (3.8-10.6)
[2019-01-17] MEDS: SYMBICORT 80-4.5 MCG INHALER INHALATION SCH (08:32)
[2019-01-17 08:36] LABS: African American GFR (CKD) >90 (>60 ml/min/1.73 sqM); Anion Gap 8 mmol/L; Blood Urea Nitrogen 12 mg/dL (9-20); Calcium 8.2 mg/dL (8.4-10.2); Carbon Dioxide 22 mmol/L (22-30); Chloride 108 mmol/L (98-107); Magnesium 1.8 mg/dL (1.6-2.3); Phosphorus 3.7 mg/dL (2.5-4.5); Potassium 4.7 mmol/L (3.5-5.1); Sodium 138 mmol/L (137-145)
[2019-01-17] MEDS: ALBUTEROL NEBULIZED 2.5 MG/3 ML INHALATION SCH ×2 (08:36→11:51)
[2019-01-17] MEDS ORDERED: MONTELUKAST 10 MG TAB PO SCH (09:00)
[2019-01-17] MEDS ORDERED: LOSARTAN 50 MG TAB PO SCH (09:00)
[2019-01-17] MEDS ORDERED: PANTOPRAZOLE 40 MG/10 ML VIAL IV SCH (09:00)
[2019-01-17] MEDS ORDERED: clonazePAM 0.5 MG TAB PO SCH (09:00)
[2019-01-17] MEDS ORDERED: ENOXAPARIN 40 MG/0.4 ML SYRINGE SQ SCH (09:00)
[2019-01-17] MEDS: SIMETHICONE 40 MG/0.6 ML DROPS 2,000 MG/30 ML BOTTLE PO SCH ×2 (09:34→13:11)
[2019-01-17] MEDS: HYDROcodone/APAP 7.5-325MG 1 EACH TAB PO SCH (09:37)
[2019-01-17] MEDS: busPIRone HCl 10 MG TAB PO SCH (09:39)
--- NOTE | 2019-01-17 09:41 | FL ---
EXAMINATION TYPE: FL esophagus cervic/pharynx DATE OF EXAM: 01/17/2019 HISTORY: Status post hiatal hernia repair COMPARISON: NONE TECHNIQUE: A single contrast esophagram is performed utilizing air and barium. FINDINGS: Attention directed to the gastroesophageal junction. Patient was given 50 cc Isovue 370 orally. 47 se conds fluoroscopy time. 4 intraoperative images. Postop appearance noted at the gastroesophageal junction. There is no extravasation of contrast or ob struction to flow. Incidental note of patient's aortic stent graft. IMPRESSION: No evident complication status post hiatal hernia repair.
[2019-01-17] MEDS: LOSARTAN 50 MG TAB PO SCH (09:59)
--- NOTE | 2019-01-17 11:23 | P.DS ---
Providers Date of admission: 01/16/19 09:51 Expected date of discharge: 01/17/19 Attending physician: Letitia Baez Primary care physician: [facility] Course: 58-year-old male who underwent robotic-assisted da Leno Xi laparoscopic repair of incarcerated paraesophageal hiatal hernia on 01/16/2019. Patient is doing well postoperatively without any immediate complications. He is tolerating clear liquid diet. His vital signs are stable. Pain is controlled on oral medications. Esophagram completed postoperatively negative for leak or obstruction. Patient is stable for discharge home today. He is to follow up on an outpatient basis. Please see EMR for further hospital course details. Discharge diagnosis 1. Symptomatic paraesophageal diaphragmatic hiatal hernia. 2. Gastroesophageal reflux disease. 3. Ischemic hypertensive cardiomyopathy 4. Hyperlipidemia 5. History of abdominal aortic aneurysm 6. Peripheral vascular occlusive disease 7. Chronic obstructive pulmonary disease 8. History of diverticulitis status post colectomy 9. Peritoneal adhesions 10. History of adrenal tumor 11. Anxiety disorder generalized 12. Depressive disorder Nurse practitioner note has been reviewed by physician. Signing provider agrees with the documented findings, assessment, and plan of care. Plan - Discharge Summary Discharge Rx Participant: Yes New Discharge Prescriptions: New Bisacodyl [Dulcolax] 5 mg PO DAILY PRN #10 tablet. PRN Reason: Constipation Simethicone 40 mg/0.6 ml Drops [Mylicon Drops] 40 mg PO PCHS PRN #30 ml PRN Reason: Gas Ondansetron Odt [Zofran Odt] 4 mg PO Q8HR PRN #9 tab PRN Reason: Nausea Continue Carvedilol [Coreg] 12.5 mg PO BID Losartan [Cozaar] 50 mg PO DAILY Magnesium Oxide [Magox 400] 400 mg PO DAILY #60 tablet Montelukast [Singulair] 10 mg PO DAILY Mometasone/Formoterol [Dulera 100 Mcg/5 Mcg Inhaler] 1 puff INHALATION RT-BID Sertraline [Zoloft] 100 mg PO DAILY busPIRone HCL [Buspar] 30 mg PO BID clonazePAM [KlonoPIN] 0.5 mg PO DAILY HYDROcodone/APAP 7.5-325MG [[place] 7.5-325] 1 tab PO BID Ipratropium-Albuterol Nebulize [Duoneb 0.5 mg-3 mg/3 ml Soln] 3 ml INHALATION RT-Q6H PRN PRN Reason: COPD Discontinued Clopidogrel [Plavix] 75 mg PO HS Atorvastatin Calcium [Lipitor] 80 mg PO HS Omeprazole 40 mg PO AC-BRKFST #30 capsule. Multivitamins Thera [Multivitamin (formulary)] 1 tab PO DAILY Discharge Medication List Carvedilol [Coreg] 12.5 mg PO BID 08/25/15 [History] Losartan [Cozaar] 50 mg PO DAILY 05/16/16 [History] Magnesium Oxide [Magox 400] 400 mg PO DAILY #60 tablet 09/19/16 [Rx] Montelukast [Singulair] 10 mg PO DAILY 05/11/17 [History] Mometasone/Formoterol [Dulera 100 Mcg/5 Mcg Inhaler] 1 puff INHALATION RT-BID 05/12/17 [History] Sertraline [Zoloft] 100 mg PO DAILY 01/26/18 [History] busPIRone HCL [Buspar] 30 mg PO BID 05/22/18 [History] clonazePAM [KlonoPIN] 0.5 mg PO DAILY 05/22/18 [History] HYDROcodone/APAP 7.5-325MG [[place] 7.5-325] 1 tab PO BID 01/09/19 [History] Ipratropium-Albuterol Nebulize [Duoneb 0.5 mg-3 mg/3 ml Soln] 3 ml INHALATION RT-Q6H PRN 01/09/19 [History] Bisacodyl [Dulcolax] 5 mg PO DAILY PRN #10 tablet. 01/17/19 [Rx] Ondansetron Odt [Zofran Odt] 4 mg PO Q8HR PRN #9 tab 01/17/19 [Rx] Simethicone 40 mg/0.6 ml Drops [Mylicon Drops] 40 mg PO PCHS PRN #30 ml 01/17/19 [Rx] Follow up Appointment(s)/Referral(s): Letitia Baez MD [STAFF PHYSICIAN] - 01/21/19 Patient Instructions/Handouts: Hiatal Hernia (DC), Laparoscopic Hiatal Hernia Repair (DC) Activity/Diet/Wound Care/Special Instructions: NO lifting over 4 pounds in 4 weeks to February, . December shower. No bathtub soaks. No straws or carbonated beverages. Liquid diet only. Take MOM for constipation. CRUSH, OPEN, OR CUT TABLETS LARGER THAN A SIZE OF A TIC TAC. FULL LIQUID DIET only Discharge Disposition: HOME SELF-CARE
[2019-01-17 11:54] VITALS: PULSE 60
[2019-01-17 15:12] VITALS: BMI 36.3
[2019-01-18] MEDS ORDERED: BISACODYL 5 MG TABLET.DR PO PRN (08:00)
== END 2019-01-17 14:53 | disposition home or self-care (01) | DRG 327 ==
LOC: 2ORMAIN 09:51 → 4SSUR 13:39
PROVIDERS: ADMIT Surgery Plastic and Reconstructive Surgery; ATTEND Surgery Plastic and Reconstructive Surgery
PROC: 8E0W4CZ Robotic Assisted Procedure of Trunk Region, Percutaneous Endoscopic Approach (ICD-10-PCS; principal; 2019-01-17)
PROC: 0DJ08ZZ Inspection of Upper Intestinal Tract, Via Natural or Artificial Opening Endoscopic (ICD-10-PCS; principal; 2019-01-17)
PROC: 0BUT4JZ Supplement Diaphragm with Synthetic Substitute, Percutaneous Endoscopic Approach (ICD-10-PCS; principal; 2019-01-17)
DX: K44.0 Diaphragmatic hernia with obstruction, without gangrene (principal); I43 Cardiomyopathy in diseases classified elsewhere; I11.9 Hypertensive heart disease without heart failure; R16.0 Hepatomegaly, not elsewhere classified; L02.92 Furuncle, unspecified; D49.7 Neoplasm of unspecified behavior of endocrine glands and other parts of nervous system; K21.9 Gastro-esophageal reflux disease without esophagitis; K44.9 Diaphragmatic hernia without obstruction or gangrene; J44.9 Chronic obstructive pulmonary disease, unspecified; G47.30 Sleep apnea, unspecified; E78.5 Hyperlipidemia, unspecified; M19.90 Unspecified osteoarthritis, unspecified site; I25.5 Ischemic cardiomyopathy; K40.90 Unilateral inguinal hernia, without obstruction or gangrene, not specified as recurrent; K66.0 Peritoneal adhesions (postprocedural) (postinfection); F41.1 Generalized anxiety disorder; F32.9 Major depressive disorder, single episode, unspecified; Z87.891 Personal history of nicotine dependence; Z79.899 Other long term (current) drug therapy; Z79.51 Long term (current) use of inhaled steroids; Z86.79 Personal history of other diseases of the circulatory system; Z90.49 Acquired absence of other specified parts of digestive tract; Z86.73 Personal history of transient ischemic attack (TIA), and cerebral infarction without residual deficits; Z82.5 Family history of asthma and other chronic lower respiratory diseases; Z88.0 Allergy status to penicillin; Z88.1 Allergy status to other antibiotic agents; Z88.8 Allergy status to other drugs, medicaments and biological substances; Z85.828 Personal history of other malignant neoplasm of skin; Z98.890 Other specified postprocedural states
CPT/HCPCS: 74210; 80051; 82310; 82565; 83735; 84100; 84520; 85025; 93005; 94640

== ENCOUNTER → 2019-02-27 | Outpatient (CLI) | payer OTHER ==
[2019-02-27 17:07] LABS: HCT 49.8 % (39.0-53.0); HGB 16.5 gm/dL (13.0-17.5); MCH 32.2 pg (25.0-35.0); MCHC 33.2 g/dL (31.0-37.0); MCV 97.1 fL (80.0-100.0); Mean Platelet Volume 6.9; Platelet Count 279 k/uL (150-450); RBC 5.13 m/uL (4.30-5.90); RDW 12.9 % (11.5-15.5); WBC 8.6 k/uL (3.8-10.6)
== END | disposition home or self-care (01) ==
LOC: LABPAT 16:14
PROVIDERS: ATTEND Surgery Plastic and Reconstructive Surgery
DX: Z01.812 Encounter for preprocedural laboratory examination (principal)
CPT/HCPCS: 85027

== ENCOUNTER 2019-02-28 06:14 | Day surgery (SDC) | payer OTHER ==
[2019-02-26 16:15] VITALS: BMI 34.5
[~2019-02-28 06:14] MED LIST changes: +LACTATED RINGERS 1,000 ML IV SCH; -LIDOCAINE 1% 20 ML VIAL (10MG/ML) FOR IV START INTRADERMA PRN; -MIDAZOLAM 2 MG/2 ML VIAL IV PRN; -SCOPOLAMINE 1.5MG/72HR PATCH TRANSDERM ONE; -ceFAZolin IN SWFI 2 GM/20 ML SYRINGE IVP ONE
[2019-02-28] MEDS ORDERED: LIDOCAINE 1% 20 ML VIAL (10MG/ML) FOR IV START INTRADERMA ONE (07:06)
[2019-02-28] MEDS: ONDANSETRON 4 MG/2 ML VIAL IVP PRN ×3 (07:08→10:50)
[2019-02-28] MEDS ORDERED: CARVEDILOL 12.5 MG TAB PO STA (07:13)
[2019-02-28] MEDS ORDERED: INDOCYANINE GREEN 25 MG VIAL IV STA (07:16)
--- NOTE | 2019-02-28 07:19 | P.GSHP ---
History of Present Illness H&P Date: 02/28/19 CHIEF COMPLAINT: Cholecystitis HISTORY OF PRESENT ILLNESS: The patient is a 58-year-old male who presents with history of epigastric including right upper quadrant abdominal pain. He underwent diagnostic studies for the gallbladder. Separately his clinical picture was consistent with cholecystitis. Now he presents for surgical intervention. PAST MEDICAL HISTORY: Please see list PAST SURGICAL HISTORY: Please see list MEDICATIONS: Please see list ALLERGIES: Please see list SOCIAL HISTORY: Past tobacco use FAMILY HISTORY: Cardiovascular disease REVIEW OF ORGAN SYSTEMS: CONSTITUTIONAL: No reports of fevers or chills. HEENT: Denies any troubles with the vision or hearing. ENDOCRINE: No reports of hypothyroidism. No diabetes. RESPIRATORY: No recent pneumonias. CARDIOVASCULAR: Past chest pain or palpitations GI: No blood in stools or constipation. MUSCULOSKELETAL: Has occasional joint pain including back pain. NEURO: No seizure disorders or headaches. No recent stroke. PSYCH: No depression or suicidal ideation. HEMATOLOGIC: No personal or family history of DVTs or pulmonary emboli. PHYSICAL EXAM: VITAL SIGNS: Afebrile vital signs stable GENERAL: Well-developed pleasant male in no acute distress. HEENT: No scleral icterus. Extraocular movements grossly intact. Moist buccal mucosa. NECK: Supple without lymphadenopathy. CHEST: Unlabored respirations. Equal bilateral excursions. CARDIOVASCULAR: Regular rate regular rhythm rhythm. Distal 2+ pulses. ABDOMEN: Soft, nondistended. Tender along the epigastrium and right upper quadrant. MUSCULOSKELETAL: No clubbing, cyanosis, or edema. NEURO : No focal or lateralizing signs. Cranial nerves II-12 within normal limits. PSYCH: Alert and oriented to person, place and time. SKIN: Well perfused. Good skin turgor. ASSESSMENT: 1. Epigastric and right upper quadrant abdominal pain 2. Chronic cholecystitis PLAN: 1. Will need a robotic cholecystectomy possible open. Benefits and risks were described. 2. Heparin for DVT prophylaxis 5000 units. 3. Antibiotic prophylaxis. Past Medical History Past Medical History: Cancer, COPD, CVA/TIA, GERD/Reflux, Hyperlipidemia, Hypertension, Osteoarthritis (OA), Skin Disorder, Sleep Apnea/CPAP/BIPAP, Vascular Disorder Additional Past Medical History / Comment(s): TIA 2013, uses cpap, hx diverticulitis with bowel resection., skin cancer, aortic aneurysm (sx done with stent)., states hx of blockage right leg surgery with Dr. Villeda., hx of surgery for fx neck- has neck pain, lower back pain from herniated disc and left shoulder pain for "bad rotator cuff". History of Any Multi-Drug Resistant Organisms: None Reported Past Surgical History: Bowel Resection, Orthopedic Surgery Additional Past Surgical History / Comment(s): RT ROTATOR CUFF REPAIR, BONE SPUR REMOVED RT SHOULDER, I & D BOIL LT BUTTOCK, FEM POP BYPASS RIGHT LEG., surgery fx neck (pins and plates),lap lysis of adhesions, lap reduction of incarcerated lt ing hernia with ventral hernia repair w/mesh. (AAA repair has stent). lysis adhesions , HIATAL HERNIA REPAIR (01/2019) Past Anesthesia/Blood Transfusion Reactions: No Reported Reaction Additional Past Anesthesia/Blood Transfusion Reaction / Comment(s): . Past Psychological History: Anxiety, Depression Additional Psychological History / Comment(s): . Smoking Status: Former smoker Past Alcohol Use History: None Reported Additional Past Alcohol Use History / Comment(s): started smoking in 1987 , QUIT SMOKING 2012, SMOKED 1 PPD. Past Drug Use History: None Reported - Past Family History Mother Family Medical History: COPD Additional Family Medical History / Comment(s): 2011 at age 78. Father Family Medical History: No Reported History Additional Family Medical History / Comment(s): in 2016 at age 92 Medications and Allergies Home Medications Medication Instructions Recorded Confirmed Type Carvedilol [Coreg] 12.5 mg PO BID 08/25/15 02/26/19 History Losartan [Cozaar] 50 mg PO DAILY 05/16/16 02/26/19 History Magnesium Oxide [Magox 400] 400 mg PO DAILY #60 tablet 09/19/16 02/26/19 Rx Montelukast [Singulair] 10 mg PO DAILY 05/11/17 02/26/19 History busPIRone HCL [Buspar] 30 mg PO BID 05/22/18 02/26/19 History HYDROcodone/APAP 7.5-325MG [[place] 1 tab PO BID PRN 01/09/19 02/26/19 History 7.5-325] Albuterol Sulfate [Albuterol 2 puff PO Q6H PRN 02/26/19 02/26/19 History Sulfate Hfa] Aspirin [Adult Low Dose Aspirin EC] 81 mg PO 02/26/19 History Atorvastatin [Lipitor] 80 mg PO HS 02/26/19 02/26/19 History Clopidogrel Bisulfate [Plavix] 75 mg PO HS 02/26/19 02/26/19 History Escitalopram [Lexapro] 20 mg PO HS 02/26/19 02/26/19 History Omeprazole [PriLOSEC] 40 mg PO DAILY 02/26/19 02/26/19 History clonazePAM [KlonoPIN] 1 mg PO DAILY 02/26/19 02/26/19 History Allergies Allergy/AdvReac Type Severity Reaction Status Date / Time amoxicillin [Amoxicillin] Allergy Rash/Hives Verified 02/28/19 06:41 enalapril maleate Allergy Rash/Hives Verified 02/28/19 06:41 [From Vasotec] enalaprilat dihydrate Allergy Rash/Hives Verified 02/28/19 06:41 [From Vasotec] Penicillins Allergy Rash/Hives Verified 02/28/19 06:41 varenicline [From Chantix] AdvReac MIGRAINE Verified 02/28/19 06:41 HEADACHES Surgical - Exam Vital Signs Temp Pulse Resp BP Pulse Ox 97.6 F 63 18 130/77 95 02/28/19 06:52 02/28/19 06:52 02/28/19 06:52 02/28/19 06:52 02/28/19 06:52
[2019-02-28] MEDS ORDERED: NEOSTIGMINE 1 MG/ML 10 ML VIAL ONE (07:37)
[2019-02-28] MEDS ORDERED: MIDAZOLAM 2 MG/2 ML VIAL ONE (07:37)
[2019-02-28] MEDS ORDERED: ROCURONIUM BROMIDE 10 MG/ML 10 ML VIAL IV ONE (07:37)
[2019-02-28] MEDS ORDERED: fentaNYL (PF) 50 MCG/ML 2 ML AMP ONE (07:37)
[2019-02-28] MEDS ORDERED: SUCCINYLCHOLINE CHLORIDE 100 MG/5 ML SYR IV ONE (07:37)
[2019-02-28] MEDS ORDERED: LIDOCAINE 1% INJ 10MG/ML (20 ML MDV) ONE (07:37)
[2019-02-28] MEDS ORDERED: LABETALOL 5 MG/ML VIAL MDV ONE (07:37)
[2019-02-28] MEDS ORDERED: PROPOFOL 10 MG/ML 20 ML VIAL IV ONE (07:37)
[2019-02-28] MEDS ORDERED: INDOCYANINE GREEN 25 MG VIAL IV ONE (07:37)
[2019-02-28] MEDS ORDERED: ePHEDrine SULFATE/0.9% NACL/PF 50 MG/5 ML SYRINGE IV ONE (07:37)
[2019-02-28] MEDS ORDERED: GLYCOPYRROLATE 0.2 MG/ML 2 ML VIAL ONE (07:37)
[2019-02-28] MEDS ORDERED: BUPIVACAINE (PF) 0.25% 30 ML VIAL SQ ONE (08:19)
[2019-02-28] MEDS ORDERED: LACTATED RINGERS 1,000 ML IV ONE (08:32)
[2019-02-28 09:16] VITALS: TEMP 97
[2019-02-28] MEDS: HYDROmorphone 0.5 MG/0.5 ML SYRINGE IVP PRN ×3 (09:30→10:00)
--- NOTE | 2019-02-28 09:32 | P.OP ---
Date of Procedure: 02/28/19 Description of Procedure: Date of Procedure: 02/28/19 SURGEON: LETITIA BAEZ MD PREOPERATIVE DIAGNOSES: 1. Right upper quadrant abdominal pain 2. Chronic cholecystitis 3. Morbid obesity due to excess calories, BMI 34.6 4. Hypertensive heart disease 5. Ischemic cardiomyopathy 6. History of congestive heart failure 7. Obstructive sleep apnea 8. History of peritoneal adhesions 9. Depressive disorder 10. Peripheral vascular occlusive disease POSTOPERATIVE DIAGNOSES: 1. Right upper quadrant abdominal pain 2. Chronic cholecystitis 3. Morbid obesity due to excess calories, BMI 34.6 4. Hypertensive heart disease 5. Ischemic cardiomyopathy 6. History of congestive heart failure 7. Obstructive sleep apnea 8. History of peritoneal adhesions 9. Depressive disorder 10. Peritoneal adhesions, diffuse 11. Peripheral vascular occlusive disease OPERATION: 1. Robotic-assisted da Leno Xi laparoscopic lysis of adhesions over 30 minutes 2. Robotic-assisted da Leno Xi laparoscopic cholecystectomy, multiport with FIREFLY COMPLICATIONS: None. Anesthesia: GETA, local Estimated Blood Loss (ml): 20 Pathology: other (gallbladder) Condition: stable Disposition: floor Operative Findings: 1. Severe adhesions throughout the gallbladder consistent with chronic cholecystitis. 2. Recurrent peritoneal adhesions within the abdomen with additional trochars used of the left upper abdomen x 2 INDICATIONS: The patient is a 58-year-old male who presents with cholelcystitis. Surgical intervention with a laparoscopic cholecystectomy was described at length including injury to the biliary tree, bleeding, infection, need for further surgery. Informed consent was obtained. Robotic assisted laparoscopic approach was described. Benefits and risks of the procedure including but not limited to bleeding, infection, injury to the biliary tree was described. Informed consent was obtained. DESCRIPTION OF PROCEDURE: Patient was brought to the operating room, placed in supine position. After general induction, the abdomen had been prepped and draped in standard sterile fashion. The robotic da Leno XI system was primed. After a timeout protocol was performed, the patient had been prepped and draped in standard sterile fashion. The patient was injected with indocyanine green. A 5 mm 0 degrees laparoscopic trocar entry was performed along the left upper quadrant. The abdomen insufflated to 15 mmHg pressure which was tolerated well. Diagnostic laparoscopy demonstrated no injury to bowel viscera or mesentery. Additionally, severe peritoneal adhesions were identified. The liver surface was unremarkable. Next, two 8 mm robotic ports were placed along the right upper abdomen. The camera 8-mm port was maintained along the epigastrium. Another 8 mm port was placed along the left upper abdominal wall after exchanging the 5 mm port. Please note that the ports were placed at least 10 to 15 cm away from the target anatomy of the gallbladder. Additionally, two additional 5-mm ports were placed along the left upper quadrant. The robot was docked along the left lateral abdomen. The patient was repositioned in reverse Trendelenburg position. Using a grasper for arm 3, a grasper for arm 4, including hook cautery for arm 1, the robotic system was docked and primed as described. Instruments were interchanged by the telecom assistant including hook cautery, Bovie cautery and clip appliers. I had sat at the console. Adhesions along the right upper quadrant were addressed using extensive lysis of adhesions over 30 minutes. The gallbladder fundus was retracted over the dome of the liver. Initial attention was brought to the infundibulum which was gently retracted in the inferior lateral approach. Using a grasper, the cystic duct including the cystic artery was carefully skeletonized. FIREFLY was used to identify the cystic artery and cystic structures. Large PLASTIC clips were used throughout the entire case. Using a clip rake operator 2 clips were placed proximally, and 1 clip was placed distally along the cystic duct and then cauterized with the cautery. The gallbladder was divided between infundibulum and cystic duct with critical view obtained. Next, the cystic artery was similarly clipped and cauterized. Electro-Bovie cautery was used to remove the gallbladder from the hepatic fossa. Hemostasis was checked and found to be adequate. The robot was undocked. I re-scrubbed into the case. Using a 10 mm Endo Catch bag via the left upper quadrant incision, the specimen was removed from the abdominal cavity. All pneumoperitoneum instruments were evacuated from the abdominal cavity. The incisions were reapproximated using 4-0 Monocryl in an interrupted subcuticular fashion. Fascial defects were less than 8 mm in size. Please note along the trocar sites, local anesthetic was placed as a field block prior to insertion of all instruments. Liquid glue was applied to the skin. At the end of the procedure needle, sponge, and instrument count had been verified correct by the surgical instruments inspector. The patient was transferred to postanesthesia care unit in stable condition. Intraoperative films were shared with the patient's family who were very pleased with the level of care. Plan - Discharge Summary Discharge Rx Participant: Yes New Discharge Prescriptions: New HYDROcodone/APAP 7.5-325MG [[place] 7.5-325] 1 tab PO Q4H PRN 3 Days #10 tab PRN Reason: Pain Continue Carvedilol [Coreg] 12.5 mg PO BID Losartan [Cozaar] 50 mg PO DAILY Magnesium Oxide [Magox 400] 400 mg PO DAILY #60 tablet Montelukast [Singulair] 10 mg PO DAILY busPIRone HCL [Buspar] 30 mg PO BID HYDROcodone/APAP 7.5-325MG [[place] 7.5-325] 1 tab PO BID PRN PRN Reason: Pain clonazePAM [KlonoPIN] 1 mg PO DAILY Escitalopram [Lexapro] 20 mg PO HS Atorvastatin [Lipitor] 80 mg PO HS Omeprazole [PriLOSEC] 40 mg PO DAILY Discontinued Albuterol Sulfate [Albuterol Sulfate Hfa] 2 puff PO Q6H PRN PRN Reason: Shortness Of Breath Clopidogrel Bisulfate [Plavix] 75 mg PO HS Aspirin [Adult Low Dose Aspirin EC] 81 mg PO Discharge Medication List Carvedilol [Coreg] 12.5 mg PO BID 08/25/15 [History] Losartan [Cozaar] 50 mg PO DAILY 05/16/16 [History] Magnesium Oxide [Magox 400] 400 mg PO DAILY #60 tablet 09/19/16 [Rx] Montelukast [Singulair] 10 mg PO DAILY 05/11/17 [History] busPIRone HCL [Buspar] 30 mg PO BID 05/22/18 [History] HYDROcodone/APAP 7.5-325MG [[place] 7.5-325] 1 tab PO BID PRN 01/09/19 [History] Atorvastatin [Lipitor] 80 mg PO HS 02/26/19 [History] Escitalopram [Lexapro] 20 mg PO HS 02/26/19 [History] Omeprazole [PriLOSEC] 40 mg PO DAILY 02/26/19 [History] clonazePAM [KlonoPIN] 1 mg PO DAILY 02/26/19 [History] HYDROcodone/APAP 7.5-325MG [[place] 7.5-325] 1 tab PO Q4H PRN 3 Days #10 tab 02/28/19 [Rx] Follow up Appointment(s)/Referral(s): Jackson Barahona DO [Primary Care Provider] - 03/05/19 Letitia Baez MD [STAFF PHYSICIAN] - 03/11/19 4:45 pm Patient Instructions/Handouts: *Surgery [facility] - (Anesthesia) Discharge Instructions Outpatient Surgery, Low Fat Diet (DC), Laparoscopic Cholecystectomy (DC) Activity/Diet/Wound Care/Special Instructions: No lifting over 10 pounds and 10 days, 03/10/2019. May shower. No bathtub soaks. Low-fat diet over the weekend through 03/05/2019. Resume Plavix and aspirin 03/05/2019 Discharge Disposition: HOME SELF-CARE
[2019-02-28] MEDS ORDERED: hydrALAZINE HCL 20 MG/ML 1 ML VIAL IVP ONE (09:40)
[2019-02-28] MEDS ORDERED: HYDROcodone/APAP 7.5-325MG 1 EACH TAB PO ONE (10:49)
[2019-02-28 10:57] VITALS: RESP 18
[2019-02-28] MEDS ORDERED: DEXAMETHASONE SOD PHOSPHATE 10 MG/ML 1 ML VIAL IV ONE (11:10)
[2019-02-28] MEDS ORDERED: PROMETHAZINE INJ 25 MG/ML 1 ML VIAL IVPB ONE (11:21)
[2019-02-28 11:37] VITALS: BP 171/95
[2019-02-28 11:55] VITALS: PULSE 62
== END 2019-02-28 12:27 | disposition home or self-care (01) ==
LOC: OR 06:14
PROVIDERS: ATTEND Surgery Plastic and Reconstructive Surgery
DX: K81.1 Chronic cholecystitis (principal); K66.0 Peritoneal adhesions (postprocedural) (postinfection); I11.9 Hypertensive heart disease without heart failure; I25.5 Ischemic cardiomyopathy; E78.5 Hyperlipidemia, unspecified; J44.9 Chronic obstructive pulmonary disease, unspecified; K21.9 Gastro-esophageal reflux disease without esophagitis; M19.90 Unspecified osteoarthritis, unspecified site; G47.33 Obstructive sleep apnea (adult) (pediatric); Z99.89 Dependence on other enabling machines and devices; F32.9 Major depressive disorder, single episode, unspecified; I73.9 Peripheral vascular disease, unspecified; M54.2 Cervicalgia; M51.27 Other intervertebral disc displacement, lumbosacral region; M25.512 Pain in left shoulder; Z86.73 Personal history of transient ischemic attack (TIA), and cerebral infarction without residual deficits; Z86.79 Personal history of other diseases of the circulatory system; Z95.828 Presence of other vascular implants and grafts; E66.01 Morbid (severe) obesity due to excess calories; Z68.34 Body mass index [BMI] 34.0-34.9, adult; Z87.891 Personal history of nicotine dependence; Z79.02 Long term (current) use of antithrombotics/antiplatelets; Z79.82 Long term (current) use of aspirin; Z79.891 Long term (current) use of opiate analgesic; Z79.899 Other long term (current) drug therapy; Z99.81 Dependence on supplemental oxygen; Z90.49 Acquired absence of other specified parts of digestive tract; Z88.0 Allergy status to penicillin; Z88.8 Allergy status to other drugs, medicaments and biological substances; Z85.828 Personal history of other malignant neoplasm of skin; Z82.49 Family history of ischemic heart disease and other diseases of the circulatory system; Z82.5 Family history of asthma and other chronic lower respiratory diseases
CPT/HCPCS: 47562; 49329; S2900; 88304

== ENCOUNTER 2019-06-10 16:23 | Observation (INO) | payer OTHER ==
--- NOTE | 2019-06-10 16:43 | ED ---
SOB HPI - General Chief Complaint: Shortness of Breath Stated Complaint: BÁRBARA Time Seen by Provider: 06/10/19 16:30 Source: patient, RN notes reviewed, old records reviewed Mode of arrival: EMS Limitations: no limitations - History of Present Illness Initial Comments: This is a 58-year-old male the ER for evaluation patient resents today for multiple complaints shortness of breath as well as severe abdominal pain. Persistent nausea vomiting. Patient did have his gallbladder removed about 2 months ago. Denies fever patient unable to keep any food or liquids down. No recent sick contacts or travel history. Patient having anterior abdominal pain. Right upper quadrant abdominal pain with decreased bowel pain with nausea vomiting. Normal bowel movement today but has had diarrhea as of late. No recent travel history or known sick contacts. No other recent hospitalizations. Patient was having increasing shortness of breath with his COPD was given breathing treatment and arrival now feeling better MD Complaint: shortness of breath, cough -: days(s) Severity: moderate (Patient complains abdominal pain) Severity scale (1-10): 4 Quality: aching, throbbing, sharp Worsens With: nothing Known History Of: COPD, other (Recent gallbladder removal) Context: recent URI Associated Symptoms: cough, sputum production, nausea/vomiting, abdominal pain Treatments Prior to Arrival: none - Related Data Home Medications Medication Instructions Recorded Confirmed Carvedilol [Coreg] 12.5 mg PO BID 08/25/15 06/10/19 Losartan [Cozaar] 50 mg PO DAILY 05/16/16 06/10/19 Montelukast [Singulair] 10 mg PO DAILY 05/11/17 06/10/19 busPIRone HCL [Buspar] 30 mg PO BID 05/22/18 06/10/19 HYDROcodone/APAP 7.5-325MG [[place] 1 tab PO BID PRN 01/09/19 06/10/19 7.5-325] Atorvastatin [Lipitor] 80 mg PO HS 02/26/19 06/10/19 Escitalopram [Lexapro] 20 mg PO HS 02/26/19 06/10/19 Omeprazole [PriLOSEC] 40 mg PO DAILY 02/26/19 06/10/19 clonazePAM [KlonoPIN] 1 mg PO DAILY 02/26/19 06/10/19 Albuterol Inhaler [Ventolin Hfa 1 - 2 puff INHALATION RT-Q6H PRN 06/10/19 06/10/19 Inhaler] Clopidogrel [Plavix] 75 mg PO DAILY 06/10/19 06/10/19 tiZANidine [Zanaflex] 4 mg PO BID PRN 06/10/19 06/10/19 Previous Rx's Medication Instructions Recorded Magnesium Oxide [Magox 400] 400 mg PO DAILY #60 tablet 09/19/16 Allergies Allergy/AdvReac Type Severity Reaction Status Date / Time amoxicillin [Amoxicillin] Allergy Rash/Hives Verified 06/10/19 17:24 enalapril maleate Allergy Rash/Hives Verified 06/10/19 17:24 [From Vasotec] enalaprilat dihydrate Allergy Rash/Hives Verified 06/10/19 17:24 [From Vasotec] Penicillins Allergy Rash/Hives Verified 06/10/19 17:24 varenicline [From Chantix] AdvReac MIGRAINE Verified 06/10/19 17:24 HEADACHES Review of Systems ROS Statement: Those systems with pertinent positive or pertinent negative responses have been documented in the HPI. ROS Other: All systems not noted in ROS Statement are negative. Past Medical History Past Medical History: Cancer, COPD, CVA/TIA, GERD/Reflux, Hyperlipidemia, Hypertension, Osteoarthritis (OA), Skin Disorder, Sleep Apnea/CPAP/BIPAP, Vascular Disorder Additional Past Medical History / Comment(s): TIA 2013, uses cpap, hx diverticulitis with bowel resection., skin cancer, aortic aneurysm (sx done with stent)., states hx of blockage right leg surgery with Dr. Villeda., hx of surgery for fx neck- has neck pain, lower back pain from herniated disc and left shoulder pain for "bad rotator cuff". History of Any Multi-Drug Resistant Organisms: None Reported Past Surgical History: Bowel Resection, Orthopedic Surgery Additional Past Surgical History / Comment(s): RT ROTATOR CUFF REPAIR, BONE SPUR REMOVED RT SHOULDER, I & D BOIL LT BUTTOCK, FEM POP BYPASS RIGHT LEG., surgery fx neck (pins and plates),lap lysis of adhesions, lap reduction of incarcerated lt ing hernia with ventral hernia repair w/mesh. (AAA repair has stent). lysis adhesions , HIATAL HERNIA REPAIR (01/2019) Past Anesthesia/Blood Transfusion Reactions: No Reported Reaction Additional Past Anesthesia/Blood Transfusion Reaction / Comment(s): . Past Psychological History: Anxiety, Depression Smoking Status: Current every day smoker Past Alcohol Use History: None Reported Past Drug Use History: None Reported - Past Family History Mother Family Medical History: COPD Additional Family Medical History / Comment(s): 2012 at age 78. Father Family Medical History: No Reported History Additional Family Medical History / Comment(s): in 2017 at age 92 General Exam Limitations: no limitations General appearance: alert, in no apparent distress Head exam: Present: atraumatic, normocephalic, normal inspection Eye exam: Present: normal appearance, PERRL, EOMI. Absent: scleral icterus, con junctival injection, periorbital swelling ENT exam: Present: normal exam, mucous membranes moist Neck exam: Present: normal inspection. Absent: tenderness, meningismus, lymphadenopathy Respiratory exam: Present: wheezes. Absent: respiratory distress, rales, rhonchi, stridor Cardiovascular Exam: Present: regular rate, normal rhythm, normal heart sounds. Absent: systolic murmur, diastolic murmur, rubs, gallop, clicks GI/Abdominal exam: Present: soft, tenderness, guarding, normal bowel sounds. Absent: distended, rebound, rigid Extremities exam: Present: normal inspection, full ROM, normal capillary refill. Absent: tenderness, pedal edema, joint swelling, calf tenderness Back exam: Present: normal inspection Neurological exam: Present: alert, oriented X3, CN II-XII intact Psychiatric exam: Present: normal affect, normal mood Skin exam: Present: warm, dry, intact, normal color. Absent: rash Course Vital Signs 06/10/19 06/10/19 06/10/19 16:26 16:28 16:30 Temperature 98.0 F Pulse Rate 69 Respiratory 18 Rate Blood Pressure 169/102 169/102 O2 Sat by Pulse 96 96 94 L Oximetry 06/10/19 06/10/19 06/10/19 16:40 16:46 17:30 Temperature Pulse Rate Respiratory 18 18 Rate Blood Pressure 175/97 O2 Sat by Pulse 95 Oximetry 06/10/19 06/10/19 06/10/19 18:00 18:01 18:10 Temperature Pulse Rate 78 78 Respiratory 16 16 16 Rate Blood Pressure O2 Sat by Pulse Oximetry - Reevaluation(s) Reevaluation #1: 06/10/19 17:50 Medical records reviewed Reevaluation #2: 06/10/19 19:42 Patient's pain is well-controlled - Consultations Consultation #1: spoke w DR Baez aware patient's CT findings and lab values Consultation #2: Spoke with Dr. Ferguson who is okay for admission Medical Decision Making - Medical Decision Making 28 male the ER with persistent abdominal pain persistent nausea vomiting. Patient be admitted for pain control and monitoring of nausea vomiting - Lab Data Result diagrams: 06/10/19 17:33 06/10/19 17:33 Lab Results 06/10/19 06/10/19 06/10/19 Range/Units 17:33 17:33 17:33 WBC 23.4 H (3.8-10.6) k/uL RBC 5.33 (4.30-5.90) m/uL Hgb 17.7 H (13.0-17.5) gm/dL Hct 50.4 (39.0-53.0) % MCV 94.7 (80.0-100.0) fL MCH 33.3 (25.0-35.0) pg MCHC 35.2 (31.0-37.0) g/dL RDW 12.2 (11.5-15.5) % Plt Count 223 (150-450) k/uL Neutrophils % 91 % Lymphocytes % 4 % Monocytes % 3 % Eosinophils % 1 % Basophils % 1 % Neutrophils # 21.2 H (1.3-7.7) k/uL Lymphocytes # 0.9 L (1.0-4.8) k/uL Monocytes # 0.8 (0-1.0) k/uL Eosinophils # 0.1 (0-0.7) k/uL Basophils # 0.2 (0-0.2) k/uL Sodium 139 (137-145) mmol/L Potassium 4.6 (3.5-5.1) mmol/L Chloride 102 (98-107) mmol/L Carbon Dioxide 26 (22-30) mmol/L Anion Gap 11 mmol/L BUN 18 (9-20) mg/dL Creatinine 0.79 (0.66-1.25) mg/dL Est GFR (CKD-EPI)AfAm >90 (>60 ml/min/1.73 sqM) Est GFR (CKD-EPI)NonAf >90 (>60 ml/min/1.73 sqM) Glucose 136 H (74-99) mg/dL Plasma Lactic Acid Maximilian 1.5 (0.7-2.0) mmol/L Calcium 9.6 (8.4-10.2) mg/dL Phosphorus 4.1 (2.5-4.5) mg/dL Magnesium 1.7 (1.6-2.3) mg/dL Total Bilirubin 1.0 (0.2-1.3) mg/dL AST 26 (17-59) U/L ALT 15 L (21-72) U/L Alkaline Phosphatase 42 (38-126) U/L Creatine Kinase 64 (55-170) U/L Troponin I (0.000-0.034) ng/mL Total Protein 8.3 H (6.3-8.2) g/dL Albumin 4.5 (3.5-5.0) g/dL Amylase 47 (30-110) U/L Lipase 80 (23-300) U/L 06/10/19 Range/Units 17:33 WBC (3.8-10.6) k/uL RBC (4.30-5.90) m/uL Hgb (13.0-17.5) gm/dL Hct (39.0-53.0) % MCV (80.0-100.0) fL MCH (25.0-35.0) pg MCHC (31.0-37.0) g/dL RDW (11.5-15.5) % Plt Count (150-450) k/uL Neutrophils % % Lymphocytes % % Monocytes % % Eosinophils % % Basophils % % Neutrophils # (1.3-7.7) k/uL Lymphocytes # (1.0-4.8) k/uL Monocytes # (0-1.0) k/uL Eosinophils # (0-0.7) k/uL Basophils # (0-0.2) k/uL Sodium (137-145) mmol/L Potassium (3.5-5.1) mmol/L Chloride (98-107) mmol/L Carbon Dioxide (22-30) mmol/L Anion Gap mmol/L BUN (9-20) mg/dL Creatinine (0.66-1.25) mg/dL Est GFR (CKD-EPI)AfAm (>60 ml/min/1.73 sqM) Est GFR (CKD-EPI)NonAf (>60 ml/min/1.73 sqM) Glucose (74-99) mg/dL Plasma Lactic Acid Maximilian (0.7-2.0) mmol/L Calcium (8.4-10.2) mg/dL Phosphorus (2.5-4.5) mg/dL Magnesium (1.6-2.3) mg/dL Total Bilirubin (0.2-1.3) mg/dL AST (17-59) U/L ALT (21-72) U/L Alkaline Phosphatase (38-126) U/L Creatine Kinase (55-170) U/L Troponin I <0.012 (0.000-0.034) ng/mL Total Protein (6.3-8.2) g/dL Albumin (3.5-5.0) g/dL Amylase (30-110) U/L Lipase (23-300) U/L - EKG Data -: EKG Interpreted by Me (EKG shows sinus rhythm rate of 77, MI 190, QRS 80, QTC 454) - Radiology Data Radiology results: report reviewed (CT head and pelvis. could show SMAtype mesenteric findings but otherwise nonspecific), image reviewed Disposition Clinical Impression: Abdominal pain, Nausea and vomiting, COPD exacerbation Disposition: ADMITTED IP TO THIS [facility] Condition: Good Referrals: Jackson Barahona DO [Primary Care Provider] - 1-2 days
[2019-06-10] MEDS ORDERED: SODIUM CHLORIDE 0.9% 1,000 ML IV STA ×2 (17:00→19:41)
[2019-06-10] MEDS ORDERED: SODIUM CHLORIDE 0.9% 500 ML 500 ML IV STA ×2 (17:00→19:41)
[2019-06-10] MEDS ORDERED: ONDANSETRON 4 MG/2 ML VIAL IVP STA (17:00)
[2019-06-10] MEDS ORDERED: IPRATROPIUM-ALBUTEROL 3 ML NEB INHALATION STA (17:00)
[2019-06-10] MEDS ORDERED: MORPHINE SULFATE 4 MG/ML SYRINGE IV STA (17:00)
[2019-06-10] MEDS ORDERED: PANTOPRAZOLE 40 MG/10 ML VIAL IVP STA (17:00)
[2019-06-10] MEDS ORDERED: methylPREDNISolone SOD SUCCI 125 MG/2 ML VIAL IV STA (17:01)
[2019-06-10 17:45] LABS: Basophils # (A) 0.2 k/uL (0-0.2); Basophils % (A) 1 %; Eosinophils # (A) 0.1 k/uL (0-0.7); Eosinophils % (A) 1 %; HCT 50.4 % (39.0-53.0); HGB 17.7 gm/dL (13.0-17.5); Lymphocytes # (A) 0.9 k/uL (1.0-4.8); Lymphocytes % (A) 4 %; MCH 33.3 pg (25.0-35.0); MCHC 35.2 g/dL (31.0-37.0); MCV 94.7 fL (80.0-100.0); Mean Platelet Volume 6.8; Monocytes # (A) 0.8 k/uL (0-1.0); Monocytes % (A) 3 %; Neutrophils # (A) 21.2 k/uL (1.3-7.7); Neutrophils % (A) 91 %; Platelet Count 223 k/uL (150-450); RBC 5.33 m/uL (4.30-5.90); RDW 12.2 % (11.5-15.5); WBC 23.4 k/uL (3.8-10.6)
[2019-06-10 17:56] LABS: ALT 15 U/L (21-72); AST 26 U/L (17-59); African American GFR (CKD) >90 (>60 ml/min/1.73 sqM); Albumin 4.5 g/dL (3.5-5.0); Alkaline Phosphatase 42 U/L (38-126); Amylase 47 U/L (30-110); Anion Gap 11 mmol/L; Blood Urea Nitrogen 18 mg/dL (9-20); Calcium 9.6 mg/dL (8.4-10.2); Carbon Dioxide 26 mmol/L (22-30); Chloride 102 mmol/L (98-107); Creatine Kinase 64 U/L (55-170); Glucose 136 mg/dL (74-99); Magnesium 1.7 mg/dL (1.6-2.3); Non-African American GFR(CKD) >90 (>60 ml/min/1.73 sqM); Phosphorus 4.1 mg/dL (2.5-4.5); Potassium 4.6 mmol/L (3.5-5.1); Sodium 139 mmol/L (137-145); Total Protein 8.3 g/dL (6.3-8.2)
--- NOTE | 2019-06-10 19:26 | CT ---
EXAMINATION TYPE: CT abdomen pelvis w con DATE OF EXAM: 06/10/2019 COMPARISON: 06/24/2018 CT HISTORY: Mid abdominal pain x [address] DLP: 1833.8 mGycm Automated exposure control for dose reduction was used. TECHNIQUE: Helical acquisition of images was performed from the lung bases through the pelvis. CONTRAST: Performed without Oral Contrast and with IV Contrast, patient injected with 100 mL of Isovu e 300. FINDINGS: LUNG BASES: No acute findings. LIVER/GB: No significant abnormality is appreciated. PANCREAS: No significant abnormality is seen. SPLEEN: No significant abnormality is seen. ADRENALS: No significant abnormality is seen. KIDNEYS: No significant abnormality is seen. FREE AIR: No free air is visualized. No peritoneal fluid. RETROPERITONEAL ADENOPATHY: None visualized REPRODUCTIVE ORGANS: No significant abnormality is seen URINARY BLADDER: No significant abnormality is seen. PELVIC ADENOPATHY: None visualized. OSSEOUS STRUCTURES: No significant abnormality is seen. BOWEL: No significant abnormality is seen. However, the stomach is rather patulous and enlarged, and the duodenum right of midline has larger caliber than that left of midline. These findings are nonsp ecific but could correlate with a clinical diagnosis of SMA syndrome. OTHER: No acute vascular findings. The aortobiiliac stent graft has similar appearance when compared to the prior study. IMPRESSION: NO DEFINITE ACUTE CT PROCESS. However, nonspecific findings which could correlate with a clinical diagnosis of SMA syndrome.
[2019-06-10] MEDS ORDERED: SODIUM CHLORIDE 0.9% 1,000 ML IV ONE (19:40)
[2019-06-10] MEDS ORDERED: ONDANSETRON 4 MG/2 ML VIAL IVP PRN (19:41)
[2019-06-10] MEDS ORDERED: hydrALAZINE HCL 20 MG/ML 1 ML VIAL IVP STA (19:44)
[2019-06-10] MEDS: MORPHINE SULFATE 4 MG/ML SYRINGE IVP PRN ×2 (19:56→23:01)
--- NOTE | 2019-06-10 20:19 | XR ---
EXAMINATION: XR chest 2V DATE AND TIME: 06/10/2019 7:05 PM CLINICAL INDICATION: PHH; cough TECHNIQUE: Departmental protocol COMPARISON: 07/03/2018 FINDINGS: The lungs are clear. The pleural spaces are negative. The cardiac silhouette is not enlarged. The remainder of the mediastinal silhouette is unremarkable. The skeletal structures and soft tissues are negative for acute findings. IMPRESSION: No definite acute radiographic process.
[2019-06-10] MEDS ORDERED: tiZANidine 4 MG TAB PO PRN (20:44)
[2019-06-10] MEDS ORDERED: ALBUTEROL NEBULIZED 2.5 MG/3 ML INHALATION PRN (20:44)
[2019-06-10] MEDS ORDERED: HYDROcodone/APAP 7.5-325MG 1 EACH TAB PO PRN (20:44)
[2019-06-10] MEDS ORDERED: TEMAZEPAM 15 MG CAP PO PRN (21:12)
[2019-06-10] MEDS ORDERED: ALPRAZolam 0.25 MG TAB PO PRN (21:12)
--- NOTE | 2019-06-10 21:46 | HP ---
HISTORY AND PHYSICAL DATE OF SERVICE: 06/10/2019 CHIEF COMPLAINT: Abdominal pain. HISTORY OF PRESENT ILLNESS: 58-year-old woman with a past medical history of multiple medical problems including COPD, CVA, TIA, GERD, hypertension, hyperlipidemia, DJD, sleep apnea, history of TIA, history of bowel resection, anxiety, depression, being followed by Dr. Barahona in the outpatient setting, recently had a cholecystectomy by Dr. Baez for right upper quadrant abdominal pain as well as chronic cholecystitis. The patient also had other multiple medical issues including ischemic cardiomyopathy, history of DJD, history of obstructive sleep apnea. Currently the patient is complaining of abdominal pain which is situated in the mid part increased with movement, but not related to exertion or any food intake and the patient came to [facility]. Initial evaluation showed elevated white count of 23.4. The patient also had COPD and CAT scan showed evidence of suspicious findings for SMA syndrome. Patient was admitted to the hospital for further evaluation and treatment. There is no history of fever, rigors or chills. No history of chest pain or palpations at this time. PAST MEDICAL HISTORY: History of COPD, CVA, TIA, GERD, hypertension, hyperlipidemia, DJD, sleep apnea, history of bowel resection. MEDICATIONS: Prior to admission include home medications are: 1. Albuterol. 2. Ventolin HFA 1-2 puffs q.6h p.r.n. 3. Zanaflex 4 mg b.i.d. p.r.n. 4. Cozaar 50 mg p.o. daily. 5. Plavix 75 mg p.o. daily. 6. Klonopin 1 mg p.o. daily. 7. Prilosec 40 mg p.o. daily. 8. Singulair 10 mg p.o. daily. 9. Magnesium oxide 400 mg p.o. daily. 10.[place] 7.5 b.i.d. p.r.n. 11.Lexapro 20 mg p.o. q.h.s. 12.BuSpar 30 mg p.o. b.i.d. 13.Coreg 12.5 mg p.o. b.i.d. 14.Lipitor 80 mg q.h.s. ALLERGIES: AMOXICILLIN, ENALAPRIL, PENICILLIN, CHANTIX. FAMILY HISTORY: History of COPD. SOCIAL HISTORY: Continued ongoing nicotine dependence. No history of alcohol intake. REVIEW OF SYSTEMS: ENT: No diminished hearing. No diminished vision. CARDIOVASCULAR as mentioned earlier. GASTROINTESTINAL: As mentioned earlier. no dysuria. NERVOUS SYSTEM: No numbness or weakness. ALLERGY/IMMUNOLOGY: No asthma, hay fever. MUSCULOSKELETAL: As mentioned earlier. HEMATOLOGY/ONCOLOGY: No history of anemia. ENDOCRINE: No history of diabetes or hypothyroidism. CONSTITUTIONAL: As mentioned earlier. DERMATOLOGY: Negative. RHEUMATOLOGY: Negative. PSYCHIATRY: As mentioned earlier. PHYSICAL EXAMINATION: Alert and oriented times three. Pulse 98, blood pressure 117/80, respiration 18, temperature 98 degrees, pulse ox 97% on 3 L. HEENT is conjunctivae normal. NECK: No JVD. CARDIOVASCULAR: S1, S2 muffled. RESPIRATIONS: Breath sounds diminished in the bases. Bilateral scattered rhonchi and crackles. Expiratory wheezing also present. ABDOMEN: Soft, obese. Mild diffuse discomfort on palpation. No guarding. No rigidity. No mass palpable. Pulses normal. LEGS: No edema. No swelling. NERVOUS SYSTEM: Higher functions as mentioned earlier. Moves all 4 limbs. No focal motor or sensory deficits. LYMPHATICS: No lymph nodes palpable in the neck, axillae or groin. SKIN: No ulcer. No rashes. No bleeding. JOINTS: No active deforming arthropathy. LABS: WBC 23.2, hemoglobin 17.7, sodium 130, potassium 4.2. ASSESSMENT: 1. Abdominal pain for evaluation, rule out SMA syndrome. 2. History of recent cholecystectomy for chronic cholecystitis. 3. Increased WBC. 4. Mild polycythemia possibly secondary. 5. Chronic obstructive pulmonary disease acute exacerbation. 6. History of cerebrovascular accident, transient ischemic attack. 7. Gastroesophageal reflux disease. 8. Hypertension. 9. History of hyperlipidemia. 10.Degenerative joint disease. 11.History of sleep apnea. 12.History of diverticulitis. 13.History of aortic aneurysm status post stenting. 14.History of right leg peripheral vascular disease and surgery. 15.History of degenerative joint disease. 16.Anxiety, depression. 17.Continued ongoing nicotine dependence. RECOMMENDATIONS AND DISCUSSION: This 58-year-old gentleman who presented with multiple complex medical issues, at this time, I recommend to continue current medications, continue symptomatic treatment. Otherwise, repeat labs. The exact etiology of the abdominal pain is unknown at this time. CT scan findings are noted. I would recommend evaluation by Dr. Baez and we will also treat COPD acute exacerbation as well. Otherwise, overall prognosis is guarded because of the multiple complex medical issues. A copy of dictation being forwarded to Dr. Barahona who is the primary physician. Chest x-ray was reviewed at length. MMJOSÉ MIGUELL / IJN: [id number] /
[2019-06-10] MEDS: ESCITALOPRAM 20 MG TAB PO SCH (23:03)
[2019-06-10] MEDS: CARVEDILOL 12.5 MG TAB PO SCH (23:03)
[2019-06-10] MEDS: ATORVASTATIN 80 MG TAB PO SCH (23:03)
[2019-06-10] MEDS: busPIRone HCl 10 MG TAB PO SCH (23:04)
[2019-06-10] MEDS: IPRATROPIUM-ALBUTEROL 3 ML NEB INHALATION PRN (23:49)
[2019-06-11] MEDS: methylPREDNISolone SOD SUCCI 125 MG/2 ML VIAL IV SCH ×4 (00:33→16:39)
[2019-06-11] MEDS: IPRATROPIUM-ALBUTEROL 3 ML NEB INHALATION PRN ×2 (04:09→23:43)
[2019-06-11] MEDS: MORPHINE SULFATE 4 MG/ML SYRINGE IVP PRN (04:39)
[2019-06-11] MEDS: ENOXAPARIN 40 MG/0.4 ML SYRINGE SQ SCH (07:07)
[2019-06-11] MEDS: CLOPIDOGREL 75 MG TAB PO SCH (07:07)
[2019-06-11] MEDS: LOSARTAN 50 MG TAB PO SCH (07:11)
[2019-06-11] MEDS: busPIRone HCl 10 MG TAB PO SCH ×2 (07:11→22:00)
[2019-06-11] MEDS: CARVEDILOL 12.5 MG TAB PO SCH ×2 (07:12→16:39)
[2019-06-11] MEDS: MONTELUKAST 10 MG TAB PO SCH (07:12)
[2019-06-11] MEDS: clonazePAM 1 MG TAB PO SCH (07:12)
[2019-06-11] MEDS: MAGNESIUM OXIDE 400 MG TAB PO SCH (07:12)
[2019-06-11] MEDS: IPRATROPIUM-ALBUTEROL 3 ML NEB INHALATION SCH ×4 (07:21→19:32)
[2019-06-11] MEDS: FORMOTEROL FUMARATE 20 MCG/2 ML NEBU INHALATION SCH ×2 (07:21→19:32)
[2019-06-11] MEDS: BUDESONIDE 1 MG/2 ML NEBU INHALATION SCH ×2 (07:21→19:32)
[2019-06-11] MEDS ORDERED: PANTOPRAZOLE 40 MG TABLET PO SCH (07:30)
--- NOTE | 2019-06-11 08:23 | P.GSCN ---
History of Present Illness Consult date: 06/11/19 History of present illness: CHIEF COMPLAINT: Abnormal computed tomography scan gastritis HISTORY OF PRESENT ILLNESS: The patient is a 58-year-old male who presents with epigastric abdominal pain including a normal CT suspicious for gastritis and this may syndrome. Upper endoscopy was offered for further evaluation and management. PAST MEDICAL HISTORY: Please see list. PAST SURGICAL HISTORY: Please see list. MEDICATIONS: Please see list. ALLERGIES: Please see list. SOCIAL HISTORY: Please see list. FAMILY HISTORY: No reports of Crohn disease or ulcerative colitis. REVIEW OF ORGAN SYSTEMS: CONSTITUTIONAL: No reports of fevers or chills. GI: Denies any blood in stools or constipation. PHYSICAL EXAM: VITAL SIGNS: Stable GENERAL: Well-developed and pleasant in no acute distress. HEENT: No scleral icterus. Extraocular movements grossly intact. Moist buccal mucosa. NECK: Supple without lymphadenopathy. CHEST: Unlabored respirations. Equal bilateral excursions. CARDIOVASCULAR: Regular rate and rhythm. Distal 2+ pulses. ABDOMEN: Soft, nondistended. MUSCULOSKELETAL: No clubbing, cyanosis, or edema. PSYCH: Appropriate affect. Alert hard to person place and time NEURO: Cranial nerves II-12 grossly within normal limits STUDIES: CT of the abdomen and pelvis independently reviewed consistent with dilated. Stomach and duodenum with inflammation of the duodenum. LABS: White blood cell count elevated over 20,000. ASSESSMENT: 1. 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 Gastritis 3. Leukocytosis PLAN: 1. Recommend proceeding with an upper endoscopy Past Medical History Past Medical History: Cancer, COPD, CVA/TIA, GERD/Reflux, Hyperlipidemia, Hypertension, Osteoarthritis (OA), Skin Disorder, Sleep Apnea/CPAP/BIPAP, Vascular Disorder Additional Past Medical History / Comment(s): TIA 2013, uses cpap, hx diverticulitis with bowel resection., skin cancer, aortic aneurysm (sx done with stent)., states hx of blockage right leg surgery with Dr. Villeda., hx of surgery for fx neck- has neck pain, lower back pain from herniated disc and left shoulder pain for "bad rotator cuff". History of Any Multi-Drug Resistant Organisms: None Reported Past Surgical History: Bowel Resection, Cholecystectomy, Orthopedic Surgery Additional Past Surgical History / Comment(s): RT ROTATOR CUFF REPAIR, BONE SPUR REMOVED RT SHOULDER, I & D BOIL LT BUTTOCK, FEM POP BYPASS RIGHT LEG., surgery fx neck (pins and plates),lap lysis of adhesions, lap reduction of incarcerated lt ing hernia with ventral hernia repair w/mesh. (AAA repair has stent). lysis adhesions , HIATAL HERNIA REPAIR (01/2019) Past Anesthesia/Blood Transfusion Reactions: No Reported Reaction Additional Past Anesthesia/Blood Transfusion Reaction / Comm: . Past Psychological History: Anxiety, Depression Additional Psychological History / Comment(s): . Smoking Status: Current every day smoker Past Alcohol Use History: None Reported Additional Past Alcohol Use History / Comment(s): started smoking in 1987 , QUIT SMOKING 2012, SMOKED 1 PPD. Past Drug Use History: None Reported - Past Family History Mother Family Medical History: COPD Additional Family Medical History / Comment(s): 2011 at age 78. Father Family Medical History: No Reported History Additional Family Medical History / Comment(s): in 2016 at age 92 Medications and Allergies Home Medications Medication Instructions Recorded Confirmed Type Carvedilol [Coreg] 12.5 mg PO BID 08/25/15 06/10/19 History Losartan [Cozaar] 50 mg PO DAILY 05/16/16 06/10/19 History Magnesium Oxide [Magox 400] 400 mg PO DAILY #60 tablet 09/19/16 06/10/19 Rx Montelukast [Singulair] 10 mg PO DAILY 05/11/17 06/10/19 History busPIRone HCL [Buspar] 30 mg PO BID 05/22/18 06/10/19 History HYDROcodone/APAP 7.5-325MG [[place] 1 tab PO BID PRN 01/09/19 06/10/19 History 7.5-325] Atorvastatin [Lipitor] 80 mg PO HS 02/26/19 06/10/19 History Escitalopram [Lexapro] 20 mg PO HS 02/26/19 06/10/19 History Omeprazole [PriLOSEC] 40 mg PO DAILY 02/26/19 06/10/19 History clonazePAM [KlonoPIN] 1 mg PO DAILY 02/26/19 06/10/19 History Albuterol Inhaler [Ventolin Hfa 1 - 2 puff INHALATION RT-Q6H PRN 06/10/19 06/10/19 History Inhaler] Clopidogrel [Plavix] 75 mg PO DAILY 06/10/19 06/10/19 History tiZANidine [Zanaflex] 4 mg PO BID PRN 06/10/19 06/10/19 History Allergies Allergy/AdvReac Type Severity Reaction Status Date / Time amoxicillin [Amoxicillin] Allergy Rash/Hives Verified 06/10/19 17:24 enalapril maleate Allergy Rash/Hives Verified 06/10/19 17:24 [From Vasotec] enalaprilat dihydrate Allergy Rash/Hives Verified 06/10/19 17:24 [From Vasotec] Penicillins Allergy Rash/Hives Verified 06/10/19 17:24 varenicline [From Chantix] AdvReac MIGRAINE Verified 06/10/19 17:24 HEADACHES Surgical - Exam Vital Signs Pulse Ox 96 06/10/19 16:26 Results - Labs 06/10/19 17:33 06/10/19 17:33 Abnormal Lab Results - Last 24 Hours (Table) 06/10/19 06/10/19 Range/Units 17:33 17:33 WBC 23.4 H (3.8-10.6) k/uL Hgb 17.7 H (13.0-17.5) gm/dL Neutrophils # 21.2 H (1.3-7.7) k/uL Lymphocytes # 0.9 L (1.0-4.8) k/uL Glucose 136 H (74-99) mg/dL ALT 15 L (21-72) U/L Total Protein 8.3 H (6.3-8.2) g/dL Diabetes panel 06/10/19 Range/Units 17:33 Sodium 139 (137-145) mmol/L Potassium 4.6 (3.5-5.1) mmol/L Chloride 102 (98-107) mmol/L Carbon Dioxide 26 (22-30) mmol/L BUN 18 (9-20) mg/dL Creatinine 0.79 (0.66-1.25) mg/dL Glucose 136 H (74-99) mg/dL Calcium 9.6 (8.4-10.2) mg/dL AST 26 (17-59) U/L ALT 15 L (21-72) U/L Alkaline Phosphatase 42 (38-126) U/L Total Protein 8.3 H (6.3-8.2) g/dL Albumin 4.5 (3.5-5.0) g/dL Calcium panel 06/10/19 Range/Units 17:33 Calcium 9.6 (8.4-10.2) mg/dL Phosphorus 4.1 (2.5-4.5) mg/dL Albumin 4.5 (3.5-5.0) g/dL Pituitary panel 06/10/19 Range/Units 17:33 Sodium 139 (137-145) mmol/L Potassium 4.6 (3.5-5.1) mmol/L Chloride 102 (98-107) mmol/L Carbon Dioxide 26 (22-30) mmol/L BUN 18 (9-20) mg/dL Creatinine 0.79 (0.66-1.25) mg/dL Glucose 136 H (74-99) mg/dL Calcium 9.6 (8.4-10.2) mg/dL Adrenal panel 06/10/19 Range/Units 17:33 Sodium 139 (137-145) mmol/L Potassium 4.6 (3.5-5.1) mmol/L Chloride 102 (98-107) mmol/L Carbon Dioxide 26 (22-30) mmol/L BUN 18 (9-20) mg/dL Creatinine 0.79 (0.66-1.25) mg/dL Glucose 136 H (74-99) mg/dL Calcium 9.6 (8.4-10.2) mg/dL Total Bilirubin 1.0 (0.2-1.3) mg/dL AST 26 (17-59) U/L ALT 15 L (21-72) U/L Alkaline Phosphatase 42 (38-126) U/L Total Protein 8.3 H (6.3-8.2) g/dL Albumin 4.5 (3.5-5.0) g/dL
[2019-06-11] MEDS ORDERED: LIDOCAINE 1% INJ 10MG/ML (20 ML MDV) ONE (08:27)
[2019-06-11] MEDS ORDERED: PROPOFOL 10 MG/ML 20 ML VIAL IV ONE (08:27)
[2019-06-11] MEDS ORDERED: IV FLUID CONTINUATION 1,000 ML IV ONE (08:34)
[2019-06-11] MEDS ORDERED: SODIUM CHLORIDE 0.9% 1,000 ML IV ONE (08:54)
[2019-06-11 08:58] LABS: Basophils # (A) 0.1 k/uL (0-0.2); Basophils % (A) 1 %; Eosinophils % (A) 0 %; HGB 16.1 gm/dL (13.0-17.5); Lymphocytes % (A) 6 %; MCH 32.4 pg (25.0-35.0); MCHC 33.6 g/dL (31.0-37.0); MCV 96.6 fL (80.0-100.0); Mean Platelet Volume 6.8; Monocytes # (A) 0.4 k/uL (0-1.0); Monocytes % (A) 2 %; Neutrophils # (A) 15.8 k/uL (1.3-7.7); Neutrophils % (A) 91 %; Platelet Count 223 k/uL (150-450); RBC 4.97 m/uL (4.30-5.90); RDW 12.4 % (11.5-15.5); WBC 17.4 k/uL (3.8-10.6)
[2019-06-11] MEDS ORDERED: PANTOPRAZOLE 40 MG/10 ML VIAL IVP SCH (09:00)
[2019-06-11] MEDS: HYDROmorphone 0.5 MG/0.5 ML SYRINGE IVP PRN ×4 (09:04→22:03)
[2019-06-11 09:08] LABS: African American GFR (CKD) >90 (>60 ml/min/1.73 sqM); Anion Gap 9 mmol/L; Blood Urea Nitrogen 17 mg/dL (9-20); Calcium 8.7 mg/dL (8.4-10.2); Carbon Dioxide 24 mmol/L (22-30); Chloride 106 mmol/L (98-107); Glucose 130 mg/dL (74-99); Non-African American GFR(CKD) >90 (>60 ml/min/1.73 sqM); Sodium 139 mmol/L (137-145)
--- NOTE | 2019-06-11 09:09 | P.PCN ---
Date of Procedure: 06/11/19 Description of Procedure: PREOPERATIVE DIAGNOSIS: SMA syndrome, abnormal computed tomography scan Gastroesophageal reflux disease Intractable nausea and vomiting Epigastric abdominal pain Chronic antiplatelet therapy POSTOPERATIVE DIAGNOSIS: Gastritis, with recent bleeding, acute Duodenitis without bleeding SMA syndrome, abnormal computed tomography scan Gastroesophageal reflux disease Intractable nausea and vomiting Epigastric abdominal pain Chronic antiplatelet therapy OPERATION: Esophagogastroduodenoscopy SURGEON: Letitia Baez MD ANESTHESIA: MAC. INDICATIONS: The patient is a 58-year-old male who presents with a history of intractable nausea and vomiting, leukocytosis, SMA syndrome and history of gastric esophageal reflux disease. Benefits and risks of the procedure were described. Informed consent was obtained. DESCRIPTION: The patient was brought into the endoscopy suite and laid in the left lateral decubitus position. An Olympus gastroscope was passed along the posterior oropharynx down to the distal esophagus where the squamocolumnar junction was encountered at 40 cm from the incisors. The stomach was entered with moderate gastritis identified. Additional findings are listed below. Biopsies were avoided with recent Plavix use. The first through third portion of the duodenum was examined and remarkable for duodenitis. Retroflexion of the scope confirmed Hill grade 1 lower esophageal valve. The squamocolumnar junction demonstrated LA grade B erosive esophagitis. The stomach was desufflated. The patient tolerated the procedure well. FINDINGS: Squamocolumnar junction 40 cm from the incisors. Diaphragmatic hiatus at 41 cm. Hiatal hernia, 1 cm with recurrent Hill grade 1 lower esophageal valve. LA grade B erosive esophagitis. Duodenitis without bleeding Acute on chronic gastritis with recent bleed RECOMMENDATIONS: Upper endoscopy as needed. May start liquid diet. Start proton pump inhibitor 2 weeks
[2019-06-11 09:11] LABS: Potassium 4.4 mmol/L (3.5-5.1)
--- NOTE | 2019-06-11 16:03 | PN ---
PROGRESS NOTE DATE OF SERVICE: 06/11/2019 This 58-year-old gentleman who was admitted with abdominal pain underwent EGD by Dr. Baez today which showed duodenitis and gastritis. No chest pain. No palpitations. No fever. On exam, alert and oriented x3. Pulse 79, blood pressure 126/85, respirations 17, temperature 97.9, pulse ox 93% on 2 L. HEENT: Conjunctivae normal. NECK: No jugular venous distention. CARDIOVASCULAR SYSTEM: S1, S2 muffled. RESPIRATORY SYSTEM: Breath sounds diminished at the bases. No rhonchi. No crackles. ABDOMEN: Soft. Non-tender. No mass palpable. LEGS: No edema. No swelling. NERVOUS SYSTEM: No focal deficit. LABS: WBC 17.4. ASSESSMENT: 1. Abdominal pain, possibly duodenitis and gastritis. 2. Chronic obstructive pulmonary disease, acute exacerbation. 3. Features of suspected SMA syndrome on the CT scan. 4. History of recent cholecystectomy for chronic cholecystitis. 5. Increased white count. 6. Mild polycythemia, possibly secondary. 7. History of cerebrovascular accident, transient ischemic attack. 8. Gastroesophageal reflux disease. 9. Hypertension. 10.Hyperlipidemia. 11.History of degenerative joint disease. 12.Sleep apnea. 13.History of diverticulitis. 14.History of aortic aneurysm, status post stenting. 15.History of right leg peripheral vascular disease and surgery. 16.Anxiety, depression. 17.Continued ongoing nicotine dependence. RECOMMENDATIONS AND DISCUSSION: I recommend to continue current medications, continue with the monitoring, symptomatic treatment. Otherwise, proton pump inhibitors. Repeat labs. Advance diet per Surgery. Guarded prognosis. Further recommendations to follow. MMODL / IJN: [id number] /
--- NOTE | 2019-06-11 19:49 | P.PN ---
Progress Note - Text Progress Note Date: 06/11/19 He reports improvement of his abdominal pain. He has been started on Protonix. Recommend UGI to confirm no SMA syndrome per initial CT scan. Likely discharge after UGI. Should continue at home with Protonix for at least 2 weeks.
[2019-06-11] MEDS: ATORVASTATIN 80 MG TAB PO SCH (21:59)
[2019-06-11] MEDS: ESCITALOPRAM 20 MG TAB PO SCH (21:59)
[2019-06-11 22:20] LABS: Appearance,Urine Clear (Clear); Bilirubin,Urine Negative (Negative); Blood,Urine Negative (Negative); Color,Urine Yellow; Glucose,Urine (UA) Negative (Negative); Ketones,Urine Negative (Negative); Leukocyte Esterase,Urine Negative (Negative); Nitrite,Urine Negative (Negative); Protein,Urine Trace (Negative); Specific Gravity,Urine 1.029 (1.001-1.035); Urobilinogen,Urine <2.0 mg/dL (<2.0)
[2019-06-12] MEDS: methylPREDNISolone SOD SUCCI 125 MG/2 ML VIAL IV SCH ×3 (00:25→12:55)
[2019-06-12] MEDS: HYDROmorphone 0.5 MG/0.5 ML SYRINGE IVP PRN ×2 (02:45→09:51)
[2019-06-12 05:32] VITALS: RESP 16
[2019-06-12] MEDS: CARVEDILOL 12.5 MG TAB PO SCH (05:33)
[2019-06-12] MEDS: IPRATROPIUM-ALBUTEROL 3 ML NEB INHALATION SCH ×3 (06:53→16:02)
[2019-06-12] MEDS: FORMOTEROL FUMARATE 20 MCG/2 ML NEBU INHALATION SCH (06:53)
[2019-06-12] MEDS: BUDESONIDE 1 MG/2 ML NEBU INHALATION SCH (06:53)
[2019-06-12] MEDS ORDERED: PANTOPRAZOLE 40 MG TABLET PO SCH (07:30)
[2019-06-12 09:00] LABS: African American GFR (CKD) >90 (>60 ml/min/1.73 sqM); Anion Gap 7 mmol/L; Blood Urea Nitrogen 17 mg/dL (9-20); Calcium 8.4 mg/dL (8.4-10.2); Carbon Dioxide 25 mmol/L (22-30); Chloride 106 mmol/L (98-107); Glucose 136 mg/dL (74-99); Non-African American GFR(CKD) >90 (>60 ml/min/1.73 sqM); Potassium 4.3 mmol/L (3.5-5.1); Sodium 138 mmol/L (137-145)
[2019-06-12 09:03] LABS: Basophils % (A) 0 %; Eosinophils % (A) 0 %; HCT 45.9 % (39.0-53.0); HGB 15.7 gm/dL (13.0-17.5); Lymphocytes # (A) 0.8 k/uL (1.0-4.8); Lymphocytes % (A) 5 %; MCH 33.1 pg (25.0-35.0); MCHC 34.1 g/dL (31.0-37.0); MCV 97.1 fL (80.0-100.0); Mean Platelet Volume 6.4; Monocytes # (A) 0.3 k/uL (0-1.0); Monocytes % (A) 2 %; Neutrophils # (A) 13.4 k/uL (1.3-7.7); Neutrophils % (A) 92 %; Platelet Count 206 k/uL (150-450); RBC 4.73 m/uL (4.30-5.90); RDW 12.4 % (11.5-15.5); WBC 14.7 k/uL (3.8-10.6)
[2019-06-12] MEDS: MAGNESIUM OXIDE 400 MG TAB PO SCH (12:54)
[2019-06-12] MEDS: LOSARTAN 50 MG TAB PO SCH (12:54)
[2019-06-12] MEDS: clonazePAM 1 MG TAB PO SCH (12:54)
[2019-06-12] MEDS: busPIRone HCl 10 MG TAB PO SCH (12:54)
[2019-06-12] MEDS: CLOPIDOGREL 75 MG TAB PO SCH (12:54)
[2019-06-12] MEDS: ENOXAPARIN 40 MG/0.4 ML SYRINGE SQ SCH (12:55)
[2019-06-12] MEDS: MONTELUKAST 10 MG TAB PO SCH (12:55)
[2019-06-12 13:39] VITALS: BP 169/97; PULSE 73; TEMP 97.9
--- NOTE | 2019-06-12 16:35 | FL ---
EXAMINATION TYPE: FL UGI w esophagus w sm bowel DATE OF EXAM: 06/12/2019 COMPARISON: NONE HISTORY: SMA syndrome, epigastric abdominal pain TECHNIQUE: An air contrast UGI study is performed with small bowel follow through. FINDINGS: Pmo Lead image of the abdomen shows no gross abnormality. The esophagus shows normal motility and emptying into the stomach. No evidence of hiatal hernia or s tricture noted. The stomach shows normal distensibility, peristalsis, and mucosal folds. No evidence of any mass or ulcer disease. No significant esophageal reflux was seen during real time performance of this study. The duodenal bulb and sweep are unremarkable. No evidence for SMA syndrome. The small bowel study shows normal transit to the colon in less than 175 minutes. There is normal mu cosal fold pattern throughout the small bowel. There is no evidence of any stricture or filling defe ct noted. The terminal ileum is unremarkable. IMPRESSION: 1. No distinct abnormality to account for the patient's symptoms. No evidence for SMA syndrome.
--- NOTE | 2019-06-12 23:57 | DS ---
DISCHARGE SUMMARY DATE OF ADMISSION: 06/10/2019 DATE OF DISCHARGE: 06/12/2019 FINAL DIAGNOSES: 1. Abdominal pain from acute on chronic gastritis, duodenitis, reflux esophagitis. 2. Obesity; body mass index of 34.2. 3. Gastroesophageal reflux disease. 4. Hyperlipidemia. 5. Essential hypertension. 6. Primary osteoarthritis. 7. Obstructive sleep apnea. Uses CPAP. 8. History of diverticulitis with bowel resection. 9. Peripheral artery disease. 10.Chronic lower back pain from herniated disc. 11.Anxiety and depression not otherwise specified. HOSPITAL COURSE: Patient presented with abdominal pain with nausea, vomiting. The patient had his gallbladder removed 2 months ago. The patient did undergo EGD by Dr. Baez that showed evidence of gastritis, duodenitis and esophagitis. There was some suspicion of superior mesenteric artery syndrome on the CT scan. The patient did undergo upper GI and small-bowel x-rays that were negative for the same. Patient was given PPIs. Care was discussed with the patient. Patient did tolerate his lunch today. CONSULTATION: Dr. Letitia Baez, who did the EGD. PHYSICAL EXAMINATION: VITAL SIGNS: Temperature 97.9, pulse 73, respirations 16, blood pressure 169/97, pulse ox 92% on 3 L. LUNGS: Slightly decreased breath sounds. CARDIOVASCULAR: First and second sounds normal. ABDOMEN: Soft. Minimal epigastric tenderness. PSYCHIATRY: Alert and oriented x3. Mood and affect normal. INVESTIGATIONS: White count 14.7, hemoglobin 15.7. Potassium 4.3. DISCHARGE MEDICATIONS: 1. Coreg 12.5 p.o. b.i.d. 2. Cozaar 50 mg p.o. daily. 3. Magnesium oxide 400 mg p.o. daily. 4. Singulair 10 mg p.o. daily. 5. BuSpar 30 mg p.o. b.i.d. 6. [place] 7.5 one tablet b.i.d. p.r.n. 7. Lipitor 80 mg at bedtime. 8. Lexapro 20 mg at bedtime. 9. Klonopin 1 mg p.o. daily. 10.Ventolin HFA 1 or 2 puffs q.6 p.r.n. 11.Plavix 75 mg p.o. daily. 12.Zanaflex 4 mg p.o. b.i.d. p.r.n. 13.DuoNeb q.i.d. 14.Prilosec 40 mg b.i.d. 15.Prednisone 10 mg p.o. daily. Follow up with Dr. Barahona in 3 days. Follow up with Dr. Letitia Baez on June 17, 2019. MMODL / IJN: [id number] /
== END 2019-06-12 16:05 | disposition home or self-care (01) ==
LOC: EC 16:23 → 4MS4W 19:41 → INTOOBSV 06-12 11:29 → OBSVTOIN 06-12 11:29 → UNDODISIN 06-12 16:05
PROVIDERS: ADMIT Hospitalist; ATTEND Hospitalist
PROC: 0DJ08ZZ Inspection of Upper Intestinal Tract, Via Natural or Artificial Opening Endoscopic (ICD-10-PCS; principal; 2019-06-11 07:50)
DX: K29.80 Duodenitis without bleeding (principal); K22.10 Ulcer of esophagus without bleeding; J44.1 Chronic obstructive pulmonary disease with (acute) exacerbation; D75.1 Secondary polycythemia; K29.00 Acute gastritis without bleeding; K21.0 Gastro-esophageal reflux disease with esophagitis; I25.5 Ischemic cardiomyopathy; E78.5 Hyperlipidemia, unspecified; G47.33 Obstructive sleep apnea (adult) (pediatric); I10 Essential (primary) hypertension; M19.90 Unspecified osteoarthritis, unspecified site; F41.9 Anxiety disorder, unspecified; F32.9 Major depressive disorder, single episode, unspecified; F17.210 Nicotine dependence, cigarettes, uncomplicated; F17.200 Nicotine dependence, unspecified, uncomplicated; I73.9 Peripheral vascular disease, unspecified; E66.9 Obesity, unspecified; G89.29 Other chronic pain; D72.829 Elevated white blood cell count, unspecified; K44.9 Diaphragmatic hernia without obstruction or gangrene; M19.91 Primary osteoarthritis, unspecified site; J44.9 Chronic obstructive pulmonary disease, unspecified; Z82.5 Family history of asthma and other chronic lower respiratory diseases; Z68.34 Body mass index [BMI] 34.0-34.9, adult; Z86.79 Personal history of other diseases of the circulatory system; Z90.49 Acquired absence of other specified parts of digestive tract; Z79.02 Long term (current) use of antithrombotics/antiplatelets; Z79.899 Other long term (current) drug therapy; Z79.51 Long term (current) use of inhaled steroids; Z86.73 Personal history of transient ischemic attack (TIA), and cerebral infarction without residual deficits; Z85.828 Personal history of other malignant neoplasm of skin; Z88.1 Allergy status to other antibiotic agents; Z88.0 Allergy status to penicillin; Z88.8 Allergy status to other drugs, medicaments and biological substances; Z98.890 Other specified postprocedural states
CPT/HCPCS: 96376; 96361; 96374; 96375; 99285; 36415; 94640 ×5; 94760; 93005; 80053; 80048 ×2; 82150; 82550; 83605; 83690; 83735; 84100; 84484; 85025 ×3; 81003; 87040; 74245; 71046; 74177; 43235; G0378 ×3; J2270 ×2; J0360; J2930 ×3; J2405; J2001; J1650; J2704; C9113 ×2; J1170 ×2; Q9967

== ENCOUNTER 2019-07-17 19:18 | Observation (INO) | payer OTHER ==
[2019-07-17] MEDS ORDERED: HYDROmorphone 1 MG/ML 1 ML SYRINGE IVP STA ×2 (20:21→22:04)
[2019-07-17] MEDS ORDERED: ONDANSETRON 4 MG/2 ML VIAL IVP STA (20:21)
[2019-07-17 20:49] LABS: Basophils % (A) 0 %; Eosinophils # (A) 0.1 k/uL (0-0.7); Eosinophils % (A) 1 %; HCT 45.9 % (39.0-53.0); HGB 15.6 gm/dL (13.0-17.5); Lymphocytes # (A) 1.7 k/uL (1.0-4.8); Lymphocytes % (A) 12 %; MCH 32.2 pg (25.0-35.0); MCV 94.5 fL (80.0-100.0); Mean Platelet Volume 6.8; Monocytes # (A) 0.7 k/uL (0-1.0); Monocytes % (A) 5 %; Neutrophils # (A) 11.4 k/uL (1.3-7.7); Neutrophils % (A) 80 %; Platelet Count 332 k/uL (150-450); RBC 4.86 m/uL (4.30-5.90); RDW 12.6 % (11.5-15.5); WBC 14.2 k/uL (3.8-10.6)
[2019-07-17 21:03] LABS: Partial Thromboplastin Time 24.2 sec (22.0-30.0); Prothrombin Time 10.3 sec (9.0-12.0)
[2019-07-17 21:06] LABS: ALT 26 U/L (21-72); AST 19 U/L (17-59); African American GFR (CKD) >90 (>60 ml/min/1.73 sqM); Albumin 4.3 g/dL (3.5-5.0); Alkaline Phosphatase 58 U/L (38-126); Anion Gap 9 mmol/L; Blood Urea Nitrogen 17 mg/dL (9-20); Calcium 9.8 mg/dL (8.4-10.2); Carbon Dioxide 25 mmol/L (22-30); Chloride 102 mmol/L (98-107); Glucose 142 mg/dL (74-99); Non-African American GFR(CKD) >90 (>60 ml/min/1.73 sqM); Potassium 4.3 mmol/L (3.5-5.1); Sodium 136 mmol/L (137-145); Total Bilirubin 0.7 mg/dL (0.2-1.3); Total Protein 7.5 g/dL (6.3-8.2)
--- NOTE | 2019-07-17 21:37 | XR ---
EXAMINATION: XR chest 3V DATE AND TIME: 07/17/2019 9:04 PM CLINICAL INDICATION: Dyspnea, vomiting and pain TECHNIQUE: 2 frontal and one lateral view COMPARISON: 06/10/2019 FINDINGS: The lungs are clear. The pleural spaces are negative. The cardiac silhouette is not enlarged. The remainder of the mediastinal silhouette is unremarkable. The skeletal structures and soft tissues are negative for acute findings. IMPRESSION: NO ACUTE PROCESS.
--- NOTE | 2019-07-17 21:41 | XR ---
EXAMINATION TYPE: XR KUB 2 VIEWS DATE OF EXAM: 07/17/2019 9:04 PM CLINICAL HISTORY: Pain and vomiting TECHNIQUE: 2 upright views COMPARISON: None. FINDINGS: Scattered gas is seen in non-distended small bowel loops. Gas and fecal material is seen in non-distended colon. There is no visceromegaly, pneumoperitoneum, or abnormal calcification apprecia elvis. The lung bases are clear and the osseous structures are intact. IMPRESSION: No acute radiographic process.
[2019-07-17] MEDS ORDERED: IPRATROPIUM-ALBUTEROL 3 ML NEB INHALATION STA (21:51)
--- NOTE | 2019-07-17 22:28 | ED ---
General Adult HPI - General Source: patient Mode of arrival: ambulatory Limitations: no limitations <Mirta Sánchez - Last Filed: 07/18/19 00:11> <Varun Calvo - Last Filed: 08/05/19 07:23> - General Chief complaint: Shortness of Breath Stated complaint: BÁRBARA, Vomiting, abd pain Time Seen by Provider: 07/17/19 19:36 - History of Present Illness Initial comments: 58-year-old male patient presents to the emergency department today for evaluation of shortness of breath and abdominal pain. Patient states he is having pain to the mid upper abdomen and periumbilically. Patient states this started this morning. Patient states he is also had several episodes of vomiting. He is unable to keep down any food or fluids. Denies any hematemesis. He denies any constipation or diarrhea. The patient states that he has had pain similar to this many times in the past. States he had his gallbladder out [address] Baez and had an increase in fundoplication several months ago but it did not improve his symptoms. Patient does take [place] at home, states his last dose was 2 days ago, he is not due for refill for a couple of days. He denies taking any medication for his symptoms today. He is also reporting shortness of breath. States he has a history of COPD and is oxygen dependent. His states that his breathing has been worse today. Denies doing any breathing treatments to help his symptoms. He is reporting cough with yellowish-green sputum production. He is also reporting abscess to the left lower abdomen. States that his been increasing in size and becoming more painful for the last few days however today it opened and started draining purulent fluid. States that he gets abscesses frequently, denies history of MRSA. Patient denies any recent rash, back pain, numbness, tingling, dizziness, weakness, hematuria, dysuria, urinary urgency, urinary frequency, headache, visual changes, or any other complaints. (Mirta Sánchez) - Related Data Home Medications Medication Instructions Recorded Confirmed Carvedilol [Coreg] 12.5 mg PO BID 08/25/15 07/18/19 Montelukast [Singulair] 10 mg PO DAILY 05/11/17 07/18/19 busPIRone HCL [Buspar] 30 mg PO BID 05/22/18 07/18/19 HYDROcodone/APAP 7.5-325MG [[place] 1 tab PO BID PRN 01/09/19 07/18/19 7.5-325] Atorvastatin [Lipitor] 80 mg PO HS 02/26/19 07/18/19 Escitalopram [Lexapro] 20 mg PO HS 02/26/19 07/18/19 clonazePAM [KlonoPIN] 1 mg PO DAILY PRN 02/26/19 07/18/19 Albuterol Inhaler [Ventolin Hfa 1 - 2 puff INHALATION RT-Q6H PRN 06/10/19 07/18/19 Inhaler] Clopidogrel [Plavix] 75 mg PO DAILY 06/10/19 07/18/19 tiZANidine [Zanaflex] 4 mg PO BID PRN 06/10/19 07/18/19 Loratadine-Pseudoeph 5-120 mg 1 tab PO Q12HR PRN 07/18/19 07/18/19 [Claritin-D 12 Hour] Losartan Potassium [Cozaar] 50 mg PO DAILY 07/18/19 07/18/19 Magnesium Oxide [Magox 400] 400 mg PO BID 07/18/19 07/18/19 Sucralfate [Carafate] 1 gm PO BID 07/18/19 07/18/19 Previous Rx's Medication Instructions Recorded Omeprazole [PriLOSEC] 40 mg PO BID #60 cap 06/12/19 Cephalexin [Keflex] 500 mg PO Q6HR #30 cap 07/21/19 Allergies Allergy/AdvReac Type Severity Reaction Status Date / Time amoxicillin [Amoxicillin] Allergy Rash/Hives Verified 07/17/19 23:25 enalapril maleate Allergy Rash/Hives Verified 07/17/19 23:25 [From Vasotec] enalaprilat dihydrate Allergy Rash/Hives Verified 07/17/19 23:25 [From Vasotec] Penicillins Allergy Rash/Hives Verified 07/17/19 23:25 varenicline [From Chantix] AdvReac MIGRAINE Verified 07/17/19 23:25 HEADACHES Review of Systems ROS Other: All systems not noted in ROS Statement are negative. <Mirta Sánchez - Last Filed: 07/18/19 00:11> ROS Other: All systems not noted in ROS Statement are negative. <Trachy,Varun - Last Filed: 08/05/19 07:23> ROS Statement: Those systems with pertinent positive or pertinent negative responses have been documented in the HPI. Past Medical History Past Medical History: Cancer, COPD, CVA/TIA, GERD/Reflux, Hyperlipidemia, Hyp ertension, Osteoarthritis (OA), Skin Disorder, Sleep Apnea/CPAP/BIPAP, Vascular Disorder Additional Past Medical History / Comment(s): TIA 2013, uses cpap, hx diverticulitis with bowel resection., skin cancer, aortic aneurysm (sx done with stent)., states hx of blockage right leg surgery with Dr. Villeda., hx of surgery for fx neck- has neck pain, lower back pain from herniated disc and left shoulder pain for "bad rotator cuff". History of Any Multi-Drug Resistant Organisms: None Reported Past Surgical History: Bowel Resection, Cholecystectomy, Orthopedic Surgery Additional Past Surgical History / Comment(s): RT ROTATOR CUFF REPAIR, BONE SPUR REMOVED RT SHOULDER, I & D BOIL LT BUTTOCK, FEM POP BYPASS RIGHT LEG., surgery fx neck (pins and plates),lap lysis of adhesions, lap reduction of incarcerated lt ing hernia with ventral hernia repair w/mesh. (AAA repair has stent). lysis adhesions , HIATAL HERNIA REPAIR (01/2019) Past Anesthesia/Blood Transfusion Reactions: No Reported Reaction Additional Past Anesthesia/Blood Transfusion Reaction / Comment(s): . Past Psychological History: Anxiety, Depression Smoking Status: Current every day smoker Past Alcohol Use History: None Reported Past Drug Use History: None Reported - Past Family History Mother Family Medical History: COPD Additional Family Medical History / Comment(s): 2011 at age 78. Father Family Medical History: No Reported History Additional Family Medical History / Comment(s): in 2016 at age 92 <Mirta Sánchez Raiza - Last Filed: 07/18/19 00:11> General Exam Limitations: no limitations General appearance: alert, in no apparent distress, other (This is a well- developed, well-nourished adult male patient in no acute distress. Vital signs upon presentation are temperature 97.6F, pulse 81, respirations 20, blood pressure 160/103, pulse ox 96% on 2 L.) Eye exam: Present: normal appearance, PERRL, EOMI. Absent: scleral icterus, conjunctival injection, periorbital swelling ENT exam: Present: normal exam, normal oropharynx, mucous membranes moist Respiratory exam: Present: normal lung sounds bilaterally. Absent: respiratory distress, wheezes, rales, rhonchi, stridor Cardiovascular Exam: Present: regular rate, normal rhythm, normal heart sounds. Absent: systolic murmur, diastolic murmur, rubs, gallop, clicks GI/Abdominal exam: Present: soft, tenderness (Midepigastric), normal bowel soun ds. Absent: distended, guarding, rebound, rigid Neurological exam: Present: alert, oriented X3, CN II-XII intact Psychiatric exam: Present: normal affect, normal mood Skin exam: Present: warm, dry, intact, normal color. Absent: rash <Mirta Sánchez - Last Filed: 07/18/19 00:11> Course Vital Signs 07/17/19 07/17/19 07/17/19 19:21 19:51 21:29 Temperature 97.6 F Pulse Rate 81 70 Respiratory 20 20 18 Rate Blood Pressure 160/103 138/77 O2 Sat by Pulse 96 95 Oximetry 07/17/19 07/17/19 07/17/19 22:04 22:11 23:00 Temperature Pulse Rate 70 63 69 Respiratory 16 16 18 Rate Blood Pressure 136/77 O2 Sat by Pulse 96 Oximetry 07/18/19 07/18/19 07/18/19 00:00 01:35 04:27 Temperature 98.0 F 98.1 F Pulse Rate 69 92 70 Respiratory 18 18 17 Rate Blood Pressure 134/85 130/77 143/114 O2 Sat by Pulse 96 93 L 95 Oximetry 07/18/19 07/18/19 05:44 06:59 Temperature 98.3 F 98.1 F Pulse Rate 90 79 Respiratory 18 18 Rate Blood Pressure 127/78 112/74 O2 Sat by Pulse 95 93 L Oximetry EKG Findings - EKG Comments: EKG Findings:: EKG obtained at 2046 shows normal sinus rhythm with a sinus arrhythmia. Ventricular rate is 70, MS interval 196, QRS duration 84, QT 408, QTC 440. No evidence of ST elevation or depression. <Mirta Sánchez - Last Filed: 07/18/19 00:11> Medical Decision Making - Lab Data Result diagrams: 07/17/19 20:31 12/05/19 20:31 - Radiology Data Radiology results: report reviewed, image reviewed <Mirta Sánchez - Last Filed: 07/18/19 00:11> - Lab Data Result diagrams: 07/21/19 08:14 07/21/19 08:14 <Varun Calvo - Last Filed: 08/05/19 07:23> - Medical Decision Making 58-year-old male patient presents to the emergency department today for evaluation of upper abdominal pain and vomiting. He is also reporting shortness of breath and cough. Patient states his been going on since early this morning. He also has a draining abscess to the left lower abdomen. Labs reviewed and di d reveal elevated white blood cell count of 14.2, neutrophil count 11.4. Glucose is 142. Patient did receive several doses of pain medication in the emergency department. Upon reevaluation states he is still having pain and does not feel comfortable being discharged home. He has had similar type symptoms many times in the past and it just comes back. We will admit to the hospital with oral antibiotics for his abscess. We will give nausea and pain medications. His shortness of breath did improve with a breathing treatment. XR is negative. (Mirta Sánchez) I saw this patient in conjunction with the physician offset press assistant. I performed independent history and physical exam. Agree with case management. (Varun Calvo) - Lab Data Lab Results 07/17/19 07/17/19 07/17/19 Range/Units 20:31 20:31 20:31 WBC 14.2 H (3.8-10.6) k/uL RBC 4.86 (4.30-5.90) m/uL Hgb 15.6 (13.0-17.5) gm/dL Hct 45.9 (39.0-53.0) % MCV 94.5 (80.0-100.0) fL MCH 32.2 (25.0-35.0) pg MCHC 34.0 (31.0-37.0) g/dL RDW 12.6 (11.5-15.5) % Plt Count 332 (150-450) k/uL Neutrophils % 80 % Lymphocytes % 12 % Monocytes % 5 % Eosinophils % 1 % Basophils % 0 % Neutrophils # 11.4 H (1.3-7.7) k/uL Lymphocytes # 1.7 (1.0-4.8) k/uL Monocytes # 0.7 (0-1.0) k/uL Eosinophils # 0.1 (0-0.7) k/uL Basophils # 0.0 (0-0.2) k/uL PT 10.3 (9.0-12.0) sec INR 1.0 (<1.2) APTT 24.2 (22.0-30.0) sec Sodium 136 L (137-145) mmol/L Potassium 4.3 (3.5-5.1) mmol/L Chloride 102 (98-107) mmol/L Carbon Dioxide 25 (22-30) mmol/L Anion Gap 9 mmol/L BUN 17 (9-20) mg/dL Creatinine 0.87 (0.66-1.25) mg/dL Est GFR (CKD-EPI)AfAm >90 (>60 ml/min/1.73 sqM) Est GFR (CKD-EPI)NonAf >90 (>60 ml/min/1.73 sqM) Glucose 142 H (74-99) mg/dL Calcium 9.8 (8.4-10.2) mg/dL Total Bilirubin 0.7 (0.2-1.3) mg/dL AST 19 (17-59) U/L ALT 26 (21-72) U/L Alkaline Phosphatase 58 (38-126) U/L Troponin I (0.000-0.034) ng/mL Total Protein 7.5 (6.3-8.2) g/dL Albumin 4.3 (3.5-5.0) g/dL Lipase 184 (23-300) U/L 07/17/19 07/18/19 07/18/19 Range/Units 20:31 05:38 05:38 WBC 10.2 (3.8-10.6) k/uL RBC 4.53 (4.30-5.90) m/uL Hgb 15.3 (13.0-17.5) gm/dL Hct 43.0 (39.0-53.0) % MCV 94.8 (80.0-100.0) fL MCH 33.8 (25.0-35.0) pg MCHC 35.6 (31.0-37.0) g/dL RDW 12.5 (11.5-15.5) % Plt Count 296 (150-450) k/uL Neutrophils % 83 % Lymphocytes % 11 % Monocytes % 4 % Eosinophils % 1 % Basophils % 0 % Neutrophils # 8.5 H (1.3-7.7) k/uL Lymphocytes # 1.1 (1.0-4.8) k/uL Monocytes # 0.4 (0-1.0) k/uL Eosinophils # 0.1 (0-0.7) k/uL Basophils # 0.0 (0-0.2) k/uL PT (9.0-12.0) sec INR (<1.2) APTT (22.0-30.0) sec Sodium 137 (137-145) mmol/L Potassium 5.3 H (3.5-5.1) mmol/L Chloride 102 (98-107) mmol/L Carbon Dioxide 26 (22-30) mmol/L Anion Gap 9 mmol/L BUN 19 (9-20) mg/dL Creatinine 0.79 (0.66-1.25) mg/dL Est GFR (CKD-EPI)AfAm >90 (>60 ml/min/1.73 sqM) Est GFR (CKD-EPI)NonAf >90 (>60 ml/min/1.73 sqM) Glucose 140 H (74-99) mg/dL Calcium 9.1 (8.4-10.2) mg/dL Total Bilirubin 0.9 (0.2-1.3) mg/dL AST 29 (17-59) U/L ALT 17 L (21-72) U/L Alkaline Phosphatase 31 L (38-126) U/L Troponin I <0.012 (0.000-0.034) ng/mL Total Protein 7.5 (6.3-8.2) g/dL Albumin 4.0 (3.5-5.0) g/dL Lipase (23-300) U/L 07/19/19 07/19/19 Range/Units 08:04 08:04 WBC 7.9 (3.8-10.6) k/uL RBC 4.27 L (4.30-5.90) m/uL Hgb 13.9 (13.0-17.5) gm/dL Hct 41.2 (39.0-53.0) % MCV 96.5 (80.0-100.0) fL MCH 32.4 (25.0-35.0) pg MCHC 33.6 (31.0-37.0) g/dL RDW 12.7 (11.5-15.5) % Plt Count 256 (150-450) k/uL Neutrophils % 60 % Lymphocytes % 28 % Monocytes % 7 % Eosinophils % 2 % Basophils % 1 % Neutrophils # 4.7 (1.3-7.7) k/uL Lymphocytes # 2.2 (1.0-4.8) k/uL Monocytes # 0.6 (0-1.0) k/uL Eosinophils # 0.1 (0-0.7) k/uL Basophils # 0.0 (0-0.2) k/uL PT (9.0-12.0) sec INR (<1.2) APTT (22.0-30.0) sec Sodium 136 L (137-145) mmol/L Potassium 4.2 (3.5-5.1) mmol/L Chloride 102 (98-107) mmol/L Carbon Dioxide 28 (22-30) mmol/L Anion Gap 6 mmol/L BUN 15 (9-20) mg/dL Creatinine 0.98 (0.66-1.25) mg/dL Est GFR (CKD-EPI)AfAm >90 (>60 ml/min/1.73 sqM) Est GFR (CKD-EPI)NonAf 86 (>60 ml/min/1.73 sqM) Glucose 109 H (74-99) mg/dL Calcium 8.5 (8.4-10.2) mg/dL Total Bilirubin (0.2-1.3) mg/dL AST (17-59) U/L ALT (21-72) U/L Alkaline Phosphatase (38-126) U/L Troponin I (0.000-0.034) ng/mL Total Protein (6.3-8.2) g/dL Albumin (3.5-5.0) g/dL Lipase (23-300) U/L - Radiology Data KUB x-ray was obtained report was reviewed in its entirety. Impression by Dr. Kim Chu shows no acute radiographic process. Two-view x-ray of the chest is obtained. Report was reviewed in its entirety. Impression by Dr. Kim Vlad shows no acute process. (Mirta Sánchez) Disposition Decision to Admit Reason: Admit from EC Decision Date: 07/17/19 Decision Time: 23:10 <Mirta Sánchez - Last Filed: 07/18/19 00:11> <Varun Calvo - Last Filed: 08/05/19 07:23> Clinical Impression: Intractable abdominal pain, Intractable vomiting, Abscess of abdominal wall Disposition: ADMITTED IP TO THIS HOSP
[2019-07-17] MEDS ORDERED: NALOXONE 0.4 MG/ML 1 ML VIAL IV PRN (23:07)
[2019-07-17] MEDS ORDERED: SULFAMETHOX-TMP 800-160MG 1 EACH TAB PO STA (23:09)
[2019-07-17] MEDS: SODIUM CHLORIDE 0.9% 1,000 ML IV SCH (23:31)
[2019-07-18] MEDS: HYDROmorphone 1 MG/ML 1 ML SYRINGE IVP PRN ×7 (01:09→21:28)
[2019-07-18] MEDS: ONDANSETRON 4 MG/2 ML VIAL IVP PRN (04:35)
[2019-07-18 05:49] LABS: Basophils % (A) 0 %; Eosinophils # (A) 0.1 k/uL (0-0.7); Eosinophils % (A) 1 %; HGB 15.3 gm/dL (13.0-17.5); Lymphocytes # (A) 1.1 k/uL (1.0-4.8); Lymphocytes % (A) 11 %; MCH 33.8 pg (25.0-35.0); MCHC 35.6 g/dL (31.0-37.0); MCV 94.8 fL (80.0-100.0); Mean Platelet Volume 7.8; Monocytes # (A) 0.4 k/uL (0-1.0); Monocytes % (A) 4 %; Neutrophils # (A) 8.5 k/uL (1.3-7.7); Neutrophils % (A) 83 %; Platelet Count 296 k/uL (150-450); RBC 4.53 m/uL (4.30-5.90); RDW 12.5 % (11.5-15.5); WBC 10.2 k/uL (3.8-10.6)
[2019-07-18 06:01] LABS: ALT 17 U/L (21-72); AST 29 U/L (17-59); African American GFR (CKD) >90 (>60 ml/min/1.73 sqM); Alkaline Phosphatase 31 U/L (38-126); Anion Gap 9 mmol/L; Blood Urea Nitrogen 19 mg/dL (9-20); Calcium 9.1 mg/dL (8.4-10.2); Carbon Dioxide 26 mmol/L (22-30); Chloride 102 mmol/L (98-107); Glucose 140 mg/dL (74-99); Non-African American GFR(CKD) >90 (>60 ml/min/1.73 sqM); Sodium 137 mmol/L (137-145); Total Bilirubin 0.9 mg/dL (0.2-1.3); Total Protein 7.5 g/dL (6.3-8.2)
[2019-07-18 06:17] LABS: Potassium 5.3 mmol/L (3.5-5.1)
[2019-07-18] MEDS ORDERED: SULFAMETHOX-TMP 800-160MG 1 EACH TAB PO SCH (09:00)
[2019-07-18] MEDS ORDERED: clonazePAM 1 MG TAB PO PRN (10:57)
[2019-07-18] MEDS ORDERED: tiZANidine 4 MG TAB PO PRN (10:57)
[2019-07-18] MEDS ORDERED: LORATADINE-PSEUDOEPH 5-120 MG 1 EACH TAB.ER.12H PO PRN (10:57)
[2019-07-18] MEDS ORDERED: VANCOMYCIN IVPB ONE (10:59)
[2019-07-18] MEDS ORDERED: VANCOMYCIN IV PER PHARMACY 1 EACH MISC MISCELLANE PRN (10:59)
[2019-07-18] MEDS ORDERED: SODIUM CHLORIDE 0.9% IVPB ONE (10:59)
[2019-07-18] MEDS: ALBUTEROL NEBULIZED 2.5 MG/3 ML INHALATION PRN ×3 (11:18→19:37)
[2019-07-18] MEDS: CLOPIDOGREL 75 MG TAB PO SCH (11:44)
[2019-07-18] MEDS: LOSARTAN 50 MG TAB PO SCH (11:45)
[2019-07-18] MEDS ORDERED: VANCOMYCIN 1,500 MG in SODIUM CHLORIDE 0.9% 250 ML IVPB SCH (12:00)
[2019-07-18] MEDS: VANCOMYCIN 2,000 MG in SODIUM CHLORIDE 0.9% 500 ML 500 ML IVPB SCH ×2 (12:45→21:30)
[2019-07-18] MEDS: PANTOPRAZOLE 40 MG TABLET PO SCH (16:28)
[2019-07-18] MEDS: CARVEDILOL 12.5 MG TAB PO SCH (16:28)
[2019-07-18] MEDS: SODIUM CHLORIDE 0.9% 1,000 ML IV SCH (16:28)
[2019-07-18] MEDS: HYDROcodone/APAP 7.5-325MG 1 EACH TAB PO PRN (16:30)
--- NOTE | 2019-07-18 19:54 | HP ---
HISTORY AND PHYSICAL DATE OF SERVICE: 07/18/2019 CHIEF COMPLAINT: Abdominal pain. HISTORY OF PRESENT ILLNESS: This 58-year-old gentleman with a past medical history of multiple medical problems, including history of COPD, CVA, TIA, hypertension, hyperlipidemia, history of chronic abdominal pain, history of vascular disorder, history of diverticulitis, history of bowel resection, cholecystomy, anxiety, depression, being followed by Dr. Barahona in the outpatient setting, was complaining of abdominal pain. The pain was mostly situated diffusely in the anterior part of the abdomen bilaterally. The patient came to [facility] and was admitted for further evaluation and treatment. Patient also had abdominal wall pain, especially in the left lower quadrant, with possible abscess also. The pain was not related to any food intake. The patient had several episodes of vomiting apparently also. Because of increased symptoms, the patient came to [facility] and was admitted for further evaluation and treatment. There is no history of any fever, rigor or chills. No history of headache, loss of consciousness, seizures. Abscess of the abdominal wall is considered. Surgery was consulted. PAST MEDICAL HISTORY: 1. History of abdominal pain. 2. History of COPD. 3. CVA, TIA. 4. GERD. 5. Hypertension. 6. Hyperlipidemia. 7. History of DJD. 8. History of sleep apnea. 9. Vascular disorder. 10.Bowel resection. HOME MEDICATIONS: 1. Cozaar 50 mg p.o. daily. 2. Zanaflex 4 mg b.i.d. p.r.n. 3. Klonopin 1 mg daily p.r.n. 4. BuSpar 30 mg p.o. b.i.d. 5. Carafate 1 gram p.o. b.i.d. 6. Prilosec 40 mg p.o. b.i.d. 7. Singulair 10 mg p.o. daily. 8. Magnesium oxide 400 mg p.o. b.i.d. 9. Claritin b.i.d. p.r.n. 10.[place] 7.5 b.i.d. p.r.n. 11.Lexapro 20 mg p.o. at bedtime. 12.Plavix 75 mg p.o. daily. 13.Coreg 12.5 mg daily. 14.Lipitor 80 mg at bedtime. 15.Vitamin B1. 16.Ventolin inhalers 1-2 puffs q.6 p.r.n. ALLERGIES: 1. AMOXICILLIN. 2. ENALAPRIL. 3. PENICILLIN. 4. CHANTIX. FAMILY HISTORY: History of COPD in the family. SOCIAL HISTORY: History of smoking, continued ongoing. REVIEW OF SYSTEMS: ENT: No diminished hearing. No diminished vision. CARDIOVASCULAR SYSTEM: No angina, palpitations. RESPIRATORY SYSTEM: As mentioned earlier. GI: As mentioned earlier. : No dysuria or retention. NERVOUS SYSTEM: No numbness, weakness. ALLERGY/IMMUNOLOGY: No asthma, hayfever. MUSCULOSKELETAL: As mentioned earlier. HEMATOLOGY/ONCOLOGY: No history of anemia. ENDOCRINE: No history of diabetes, hypothyroidism. CONSTITUTIONAL: As mentioned earlier. DERMATOLOGY: Negative. RHEUMATOLOGY: Negative. PSYCHIATRY: As mentioned earlier. PHYSICAL EXAMINATION: Patient alert and oriented x3. Pulse 75, blood pressure 127/81, respiration 20, temperature 97.7, pulse ox 96% on room air. HEENT: Conjunctivae normal. Oral mucosa moist. NECK: No jugular venous distention. No carotid bruit. No lymph node enlargement. CARDIOVASCULAR SYSTEM: S1, S2 muffled. No S3. No S4. RESPIRATORY SYSTEM: Breath sounds diminished at the bases. A few scattered rhonchi. No crackles. ABDOMEN: Soft, obese. Mild diffuse tenderness present. Evidence of left lower HEENT is conjunctivae normal. Oral mucosa moist neck is no jugular venous distention. No cellulitis and abscess also present, severely tender. Bowel sounds present. No mass palpable. No ascites. LEGS: No edema. No swelling. NERVOUS SYSTEM: Higher functions as mentioned earlier. Moves all 4 limbs. No focal motor or sensory deficit. LYMPHATICS: No lymph node palpable in neck, axillae or groin. SKIN: No ulcer, rash, bleeding. JOINTS: No active deforming arthropathy. LABS: WBC 10.2, hemoglobin 15.3. Sodium 137, potassium 5.3. Other labs are noted. ASSESSMENT: 1. Abdominal pain for evaluation. 2. Possible abscess of the left lower quadrant, abdominal. 3. Previous history of abdominal pain secondary to chronic gastritis or SMA syndrome. 4. Increased white count, present on admission. 5. Hyponatremia, mild. 6. History of chronic obstructive pulmonary disease. 7. Cerebrovascular accident, transient ischemic attack. 8. Gastroesophageal reflux disease. 9. Hypertension. 10.Hyperlipidemia. 11.History of degenerative joint disease. 12.Sleep apnea. 13.History of diverticulitis and bowel resection. 14.History of aortic aneurysm and stenting. 15.History of peripheral vascular disease. 16.History of bowel resection. 17.History of cholecystectomy. 18.History of degenerative joint disease. 19.Anxiety, depression. 20.Continued ongoing nicotine dependence. 21.Obesity with a body mass index of 34.6. 22.FULL CODE. RECOMMENDATIONS AND DISCUSSION: In this 58-year-old gentleman who presented with multiple complex medical issues, we will monitor the patient closely, continue the current medications, continue with symptomatic treatment. Will initiate the vancomycin IV. Infectious disease evaluation. Otherwise, we will continue to monitor. Resume the home medications. DVT prophylaxis. Overall prognosis guarded because of multiple complex medical issues. Further recommendations to follow. A copy of this dictation is being forwarded to Dr. Barahona, who is the primary physician. YUNG / JEFFREY: [id number] /
[2019-07-18] MEDS: ATORVASTATIN 80 MG TAB PO SCH (21:30)
[2019-07-18] MEDS: SUCRALFATE 1 GM TAB PO SCH (21:30)
[2019-07-18] MEDS: HEPARIN SODIUM,PORCINE 5,000 UNIT/ML 1 ML VIAL SQ SCH (21:30)
[2019-07-18] MEDS: ESCITALOPRAM 20 MG TAB PO SCH (21:30)
[2019-07-18] MEDS: busPIRone HCl 10 MG TAB PO SCH (21:30)
[2019-07-18] MEDS: MAGNESIUM OXIDE 400 MG TAB PO SCH (21:30)
[2019-07-19] MEDS: HYDROmorphone 1 MG/ML 1 ML SYRINGE IVP PRN ×6 (00:21→21:03)
--- NOTE | 2019-07-19 00:30 | P.CONS ---
History of Present Illness - Reason for Consult Consult date: 07/18/19 abdominal wall abscess/cellulitis Requesting physician: Lamont Ferguson - Chief Complaint abdominal pain and swelling x 1 day - History of Present Illness Patient is a 58-year-old male presenting to the ER at [facility] yesterday with a chief complaints of shortness of breath abdominal pain across the lower abdominal area. Described the pain to be sharp throbbing about 5-6 out of 10 and no radiation radiating across the lower abdominal patient also noticed to have a swelling in his left lower abdominal area patient denies any history of any trauma patient did have slight purulent drainage from it this morning which has been cultured patient did have some chills but denies high-grade fever with the symptom the patient was evaluated by the ER physician on arrival to the ER the patient was afebrile however he did have elevated white count 14,000 patient has been started on vancomycin because of his allergies and infectious was consulted for further recommendation about antibiotic therapy. Patient does give a history of recurrent skin and soft infection however did not recall he ever have a culture done or given a diagnosis of MRSA infection Review of Systems Positive point has been mentioned in HPI rest of the systems are negative Past Medical History Past Medical History: Cancer, COPD, CVA/TIA, GERD/Reflux, Hyperlipidemia, Hypertension, Osteoarthritis (OA), Skin Disorder, Sleep Apnea/CPAP/BIPAP, Vascular Disorder Additional Past Medical History / Comment(s): TIA 2013, uses cpap, hx diverticulitis with bowel resection., skin cancer right arm, aortic aneurysm (sx done with stent)., states hx of blockage right leg surgery with Dr. Villeda., hx of surgery for fx neck- has neck pain, lower back pain from herniated disc and left shoulder pain for "bad rotator cuff". History of Any Multi-Drug Resistant Organisms: None Reported Past Surgical History: Bowel Resection, Cholecystectomy, Hernia Repair, Orthopedic Surgery Additional Past Surgical History / Comment(s): RT ROTATOR CUFF REPAIR, BONE SPUR REMOVED RT SHOULDER, I & D BOIL LT BUTTOCK, FEM POP BYPASS RIGHT LEG., surgery fx neck (pins and plates),lap lysis of adhesions, lap reduction of incarcerated lt ing hernia with ventral hernia repair w/mesh. (AAA repair has stent). lysis adhesions , HIATAL HERNIA REPAIR (01/2019) Past Anesthesia/Blood Transfusion Reactions: No Reported Reaction Additional Past Anesthesia/Blood Transfusion Reaction / Comm: . Past Psychological History: Anxiety, Depression Additional Psychological History / Comment(s): . Smoking Status: Current every day smoker Past Alcohol Use History: None Reported Additional Past Alcohol Use History / Comment(s): started smoking in 1987 , QUIT SMOKING 2012, SMOKED 1 PPD. Past Drug Use History: None Reported - Past Family History Mother Family Medical History: COPD Additional Family Medical History / Comment(s): 2011 at age 78. Father Family Medical History: No Reported History Additional Family Medical History / Comment(s): in 2016 at age 92 Medications and Allergies Home Medications Medication Instructions Recorded Confirmed Type Carvedilol [Coreg] 12.5 mg PO BID 08/25/15 07/18/19 History Montelukast [Singulair] 10 mg PO DAILY 05/11/17 07/18/19 History busPIRone HCL [Buspar] 30 mg PO BID 05/22/18 07/18/19 History HYDROcodone/APAP 7.5-325MG [[place] 1 tab PO BID PRN 01/09/19 07/18/19 History 7.5-325] Atorvastatin [Lipitor] 80 mg PO HS 02/26/19 07/18/19 History Escitalopram [Lexapro] 20 mg PO HS 02/26/19 07/18/19 History clonazePAM [KlonoPIN] 1 mg PO DAILY PRN 02/26/19 07/18/19 History Albuterol Inhaler [Ventolin Hfa 1 - 2 puff INHALATION RT-Q6H PRN 06/10/19 07/18/19 History Inhaler] Clopidogrel [Plavix] 75 mg PO DAILY 06/10/19 07/18/19 History tiZANidine [Zanaflex] 4 mg PO BID PRN 06/10/19 07/18/19 History Omeprazole [PriLOSEC] 40 mg PO BID #60 cap 06/12/19 07/18/19 Rx Loratadine-Pseudoeph 5-120 mg 1 tab PO Q12HR PRN 07/18/19 07/18/19 History [Claritin-D 12 Hour] Losartan Potassium [Cozaar] 50 mg PO DAILY 07/18/19 07/18/19 History Magnesium Oxide [Magox 400] 400 mg PO BID 07/18/19 07/18/19 History Sucralfate [Carafate] 1 gm PO BID 07/18/19 07/18/19 History Allergies Allergy/AdvReac Type Severity Reaction Status Date / Time amoxicillin [Amoxicillin] Allergy Rash/Hives Verified 07/17/19 23:25 enalapril maleate Allergy Rash/Hives Verified 07/17/19 23:25 [From Vasotec] enalaprilat dihydrate Allergy Rash/Hives Verified 07/17/19 23:25 [From Vasotec] Penicillins Allergy Rash/Hives Verified 07/17/19 23:25 varenicline [From Chantix] AdvReac MIGRAINE Verified 07/17/19 23:25 HEADACHES Physical Exam Vitals: Vital Signs Temp Pulse Pulse Resp BP BP Pulse Ox 07/18/19 11:44 75 105/55 07/18/19 11:30 76 07/18/19 11:18 76 93 L 07/18/19 07:49 97.8 F 76 16 120/78 95 07/18/19 06:59 98.1 F 79 18 112/74 93 L 07/18/19 05:44 98.3 F 90 18 127/78 95 07/18/19 04:27 98.1 F 70 17 143/114 95 07/18/19 01:35 98.0 F 92 18 130/77 93 L 07/18/19 00:00 69 18 134/85 96 07/17/19 23:00 69 18 136/77 96 07/17/19 22:11 63 16 07/17/19 22:04 70 16 07/17/19 21:29 70 18 138/77 95 07/17/19 19:51 97.6 F 81 20 160/103 96 07/17/19 19:21 20 Intake and Output 07/17/19 07/18/19 07/18/19 22:59 06:59 14:59 Other: # Voids 1 Weight 111.584 kg 111.6 kg GENERAL DESCRIPTION: Middle-aged male lying in bed, no distress. No tachypnea or accessory muscle of respiration use. HEENT: Shows Pallor , no scleral icterus. Oral mucous membrane is dry. NECK: Trachea central, no thyromegaly. LUNGS: Unlabored breathing. Clear to auscultation anteriorly. No wheeze or crackle. HEART: S1, S2, regular rate and rhythm. ABDOMEN: Soft, left lower abdominal wall area of induration swelling redness tenderness and minimal drainage EXTREMITIES: No edema of feet. SKIN: No rash, no masses palpable. NEUROLOGICAL: The patient is awake, alert, oriented x3, mood and affect normal. Results CBC & Chem 7: 07/18/19 05:38 07/18/19 05:38 Labs: Abnormal Lab Results - Last 24 Hours (Table) 07/17/19 07/17/19 07/18/19 Range/Units 20:31 20:31 05:38 WBC 14.2 H (3.8-10.6) k/uL Neutrophils # 11.4 H 8.5 H (1.3-7.7) k/uL Sodium 136 L (137-145) mmol/L Potassium (3.5-5.1) mmol/L Glucose 142 H (74-99) mg/dL ALT (21-72) U/L Alkaline Phosphatase (38-126) U/L 07/18/19 Range/Units 05:38 WBC (3.8-10.6) k/uL Neutrophils # (1.3-7.7) k/uL Sodium (137-145) mmol/L Potassium 5.3 H (3.5-5.1) mmol/L Glucose 140 H (74-99) mg/dL ALT 17 L (21-72) U/L Alkaline Phosphatase 31 L (38-126) U/L Microbiology - Last 24 Hours (Table) 07/17/19 20:44 Gram Stain - Preliminary Abdomen Wound Culture - Preliminary Assessment and Plan Assessment: 1-patient presented to the hospital with abdominal pain this patient did have swelling redness left abdominal wall likely representing an abscess and cellulitis and likely from gram-positive skin gibran less likely gram-negative i nfection 2-patient with multiple antibiotic allergies that would limit the number of antibiotics safe to use (1) Abscess of abdominal wall Current Visit: Yes Status: Acute Code(s): L02.211 - CUTANEOUS ABSCESS OF ABDOMINAL WALL SNOMED Code(s): 11455919 Plan: 1-Recommend general surgery evaluation for drainage of this abscess and deep culture 2-vancomycin pharmacy to dose her with a target trough of 15 while watching her kidney function and Vanco trough closely. We will follow on clinical condition and cultures to further adjust medication if needed Thank you for this consultation we will follow the patient along with you Time with Patient: Greater than 30
[2019-07-19] MEDS: ALBUTEROL NEBULIZED 2.5 MG/3 ML INHALATION PRN ×3 (07:13→23:37)
[2019-07-19 08:30] LABS: Basophils % (A) 1 %; Eosinophils # (A) 0.1 k/uL (0-0.7); Eosinophils % (A) 2 %; HCT 41.2 % (39.0-53.0); HGB 13.9 gm/dL (13.0-17.5); Lymphocytes # (A) 2.2 k/uL (1.0-4.8); Lymphocytes % (A) 28 %; MCH 32.4 pg (25.0-35.0); MCHC 33.6 g/dL (31.0-37.0); MCV 96.5 fL (80.0-100.0); Monocytes # (A) 0.6 k/uL (0-1.0); Monocytes % (A) 7 %; Neutrophils # (A) 4.7 k/uL (1.3-7.7); Neutrophils % (A) 60 %; Platelet Count 256 k/uL (150-450); RBC 4.27 m/uL (4.30-5.90); RDW 12.7 % (11.5-15.5); WBC 7.9 k/uL (3.8-10.6)
[2019-07-19 08:50] LABS: African American GFR (CKD) >90 (>60 ml/min/1.73 sqM); Anion Gap 6 mmol/L; Blood Urea Nitrogen 15 mg/dL (9-20); Calcium 8.5 mg/dL (8.4-10.2); Carbon Dioxide 28 mmol/L (22-30); Chloride 102 mmol/L (98-107); Glucose 109 mg/dL (74-99); Non-African American GFR(CKD) 86 (>60 ml/min/1.73 sqM); Potassium 4.2 mmol/L (3.5-5.1); Sodium 136 mmol/L (137-145)
[2019-07-19] MEDS: MONTELUKAST 10 MG TAB PO SCH (09:45)
[2019-07-19] MEDS: PANTOPRAZOLE 40 MG TABLET PO SCH ×2 (09:45→17:59)
[2019-07-19] MEDS: LOSARTAN 50 MG TAB PO SCH (09:45)
[2019-07-19] MEDS: SUCRALFATE 1 GM TAB PO SCH ×2 (09:45→21:04)
[2019-07-19] MEDS: HEPARIN SODIUM,PORCINE 5,000 UNIT/ML 1 ML VIAL SQ SCH ×2 (09:45→21:03)
[2019-07-19] MEDS: MAGNESIUM OXIDE 400 MG TAB PO SCH ×2 (09:45→21:04)
[2019-07-19] MEDS: CARVEDILOL 12.5 MG TAB PO SCH ×2 (09:45→17:59)
[2019-07-19] MEDS: busPIRone HCl 10 MG TAB PO SCH ×2 (09:45→21:04)
[2019-07-19] MEDS: CLOPIDOGREL 75 MG TAB PO SCH (09:45)
[2019-07-19] MEDS: ONDANSETRON 4 MG/2 ML VIAL IVP PRN ×2 (09:53→17:59)
[2019-07-19] MEDS: VANCOMYCIN 2,000 MG in SODIUM CHLORIDE 0.9% 500 ML 500 ML IVPB SCH (09:54)
[2019-07-19] MEDS: SODIUM CHLORIDE 0.9% 1,000 ML IV SCH (15:52)
[2019-07-19] MEDS: ATORVASTATIN 80 MG TAB PO SCH (21:04)
[2019-07-19] MEDS: ESCITALOPRAM 20 MG TAB PO SCH (21:04)
--- NOTE | 2019-07-19 21:23 | PN ---
PROGRESS NOTE DATE OF SERVICE: 07/19/2019 This 58-year-old gentleman admitted with abdominal pain, abdominal wall abscess is being closely monitored. Patient is started on IV antibiotics. The abdominal pain is slightly better. Abdominal wall pain is still present with some area of induration with no discharge. Dr. Lin is following the patient closely at this time. Recommended General surgery consultation as well. PAST MEDICAL HISTORY: Reviewed. REVIEW OF SYSTEMS: Cardiovascular: No angina, otherwise, as mentioned earlier. Respiration as mentioned earlier. GI as mentioned earlier. : No dysuria or retention. CENTRAL NERVOUS SYSTEM: No numbness or weakness. CURRENT MEDICATIONS: Reviewed and include: 1. [place] 7.5 mg. 2. Ventolin 2.5 q.6h. 3. Lipitor 80 mg q.h.s. 4. Buspar 30 mg p.o. b.i.d. 5. Coreg 12.5 mg b.i.d. 6. Cefazolin 2 g IV q.8. 7. Klonopin 1 mg daily. 8. Plavix 75 mg daily. 9. Lexapro 20 mg q.h.s. 10.Heparin 5000 subcu b.i.d. 11.Dilaudid. 12.Claritin-D b.i.d. 13.Cozaar 50 mg. 14.Magnesium oxide. 15.Singulair 10 mg. 16.Narcan 0.2 q.2 p.r.n. 17.Protonix 40 mg b.i.d. 18.Carafate 1 g b.i.d. 19.Zanaflex 4 mg p.o. b.i.d. PHYSICAL EXAMINATION: Patient is alert, oriented x3. Pulse is 78, blood pressure 156/60. Respiration 18. Temp 98.2, pulse ox 94% on 2 L. HEENT is conjunctivae normal. NECK: No JVD. CARDIOVASCULAR: S1, S2. RESPIRATORY SYSTEM: Breath sounds diminished at the bases. No rhonchi. No crackles. ABDOMEN: Soft, obese. Mild diffuse tenderness in the abdomen and abdominal wall abscess and tenderness in the left lower quadrant. CENTRAL NERVOUS SYSTEM: No focal deficits. LAB STUDIES: WBC 7.1, hemoglobin 13.2. Sodium 130. Potassium 4.2. normal today. ASSESSMENT: 1. Abdominal pain and left lower quadrant abdominal wall abscess for evaluation. 2. Previous history of abdominal pain secondary to chronic gastroenteritis, SMA syndrome. 3. Increased WBC present on admission. 4. Hyponatremia, mild. 5. History of chronic obstructive pulmonary disease. 6. History of cerebrovascular accident, transient ischemic attack. 7. Gastroesophageal reflux disease. 8. Hypertension. 9. Hyperlipidemia. 10.History of degenerative joint disease. 11.History of sleep apnea. 12.History of diverticulitis and bowel resection. 13.History of aortic aneurysm and stenting. 14.History of peripheral vascular disease. 15.History of bowel resection. 16.History of cholecystectomy. 17.History of degenerative joint disease. 18.History of anxiety, depression. 19.Continued ongoing nicotine dependence. 20.Obesity with body mass index of 34.6. 21.FULL CODE. RECOMMENDATIONS AND DISCUSSION: I recommend to continue current medications, monitoring, management and symptomatic treatment. Otherwise, at this time I recommend surgical evaluation. Continue with antibiotics. Cultures are wound culture showing Strep agalactiae, but otherwise, we will continue to monitor. Guarded prognosis. Further recommendations to follow. See orders for details. DVT prophylaxis. Proton pump inhibitors. Prognosis guarded. MMODL / IJN: [id number] / [facility]
--- NOTE | 2019-07-19 21:38 | PN ---
PROGRESS NOTE DATE OF SERVICE: 07/19/2019 REASON FOR FOLLOWUP: Left lower abdominal wound abscess and cellulitis. INTERVAL HISTORY: The patient is currently afebrile. Patient has been breathing comfortably. The left lower abdominal wall swelling and redness have improved. No further drainage has been noted. No chest pain, shortness of breath or cough and no diarrhea. PHYSICAL EXAMINATION: Blood pressure 105/63 with a pulse of 78, temperature 98.7, he is 94% 2 L nasal cannula. General description is a middle-aged male lying in bed in no distress. Respiratory system: Unlabored breathing, clear to auscultation anteriorly. Heart S1, S2. Regular rate and rhythm. Abdomen soft. Lower abdominal wall swelling and redness have improved. No drainage. Extremities: No edema of the feet. LABS: Hemoglobin is 13.8, white count 7.9 with a BUN of 15, creatinine 0.98. Abdominal cultures with group B strep. DIAGNOSTIC IMPRESSION AND PLAN: Patient with left lower abdominal wall abscess and cellulitis. The patient seemed to have shown clinical improvement. Culture with group B strep. The patient has a PENICILLIN allergy with rash, no history of anaphylaxis. We will discontinue the vancomycin and start the patient on cefazolin 2 g q.8 hours. If the patient continues to improve hopefully finish therapy with oral antibiotics. Continue supportive care. MMODL / IJN: [id number] /
[2019-07-20] MEDS: HYDROmorphone 1 MG/ML 1 ML SYRINGE IVP PRN ×6 (00:27→22:39)
[2019-07-20] MEDS ORDERED: VANCOMYCIN TROUGH DUE 1 EACH MISC MISCELLANE ONE (08:00)
[2019-07-20 08:01] LABS: Basophils # (A) 0.1 k/uL (0-0.2); Basophils % (A) 1 %; Eosinophils # (A) 0.2 k/uL (0-0.7); Eosinophils % (A) 2 %; HCT 42.2 % (39.0-53.0); HGB 14.4 gm/dL (13.0-17.5); Lymphocytes # (A) 2.3 k/uL (1.0-4.8); Lymphocytes % (A) 28 %; MCH 32.9 pg (25.0-35.0); MCHC 34.1 g/dL (31.0-37.0); MCV 96.5 fL (80.0-100.0); Mean Platelet Volume 7.4; Monocytes # (A) 0.6 k/uL (0-1.0); Monocytes % (A) 8 %; Neutrophils # (A) 4.9 k/uL (1.3-7.7); Neutrophils % (A) 59 %; Platelet Count 252 k/uL (150-450); RBC 4.37 m/uL (4.30-5.90); RDW 12.5 % (11.5-15.5); WBC 8.2 k/uL (3.8-10.6)
[2019-07-20 08:23] LABS: African American GFR (CKD) >90 (>60 ml/min/1.73 sqM); Anion Gap 7 mmol/L; Blood Urea Nitrogen 13 mg/dL (9-20); Calcium 8.7 mg/dL (8.4-10.2); Carbon Dioxide 30 mmol/L (22-30); Chloride 102 mmol/L (98-107); Glucose 95 mg/dL (74-99); Non-African American GFR(CKD) 82 (>60 ml/min/1.73 sqM); Potassium 4.1 mmol/L (3.5-5.1); Sodium 139 mmol/L (137-145)
[2019-07-20] MEDS: LOSARTAN 50 MG TAB PO SCH (08:41)
[2019-07-20] MEDS: MAGNESIUM OXIDE 400 MG TAB PO SCH ×2 (08:41→20:18)
[2019-07-20] MEDS: busPIRone HCl 10 MG TAB PO SCH ×2 (08:41→20:19)
[2019-07-20] MEDS: CLOPIDOGREL 75 MG TAB PO SCH (08:42)
[2019-07-20] MEDS: CARVEDILOL 12.5 MG TAB PO SCH ×2 (08:42→16:26)
[2019-07-20] MEDS: HEPARIN SODIUM,PORCINE 5,000 UNIT/ML 1 ML VIAL SQ SCH ×2 (08:42→20:19)
[2019-07-20] MEDS: SUCRALFATE 1 GM TAB PO SCH ×2 (08:42→20:18)
[2019-07-20] MEDS: MONTELUKAST 10 MG TAB PO SCH (08:42)
[2019-07-20] MEDS: PANTOPRAZOLE 40 MG TABLET PO SCH ×2 (08:42→16:27)
[2019-07-20] MEDS: ALBUTEROL NEBULIZED 2.5 MG/3 ML INHALATION PRN ×2 (10:57→19:24)
[2019-07-20] MEDS: DOCUSATE 100 MG CAP PO SCH (11:21)
--- NOTE | 2019-07-20 11:50 | P.GSCN ---
History of Present Illness Consult date: 07/20/19 History of present illness: CHIEF COMPLAINT: Abdominal wall abscess HISTORY OF PRESENT ILLNESS: The patient is a 58 year old male well-known to me from prior surgeries. In fact, he was recently seen in my office in the last 5 days for follow-up of his abdominal pain and a recent hospitalization almost a month and a half ago. He reports 2 days after leaving my office , he developed acute abscess of the left lower abdomen. He also had recurrent intractable nausea vomiting which prompted his presentation to the hospital , now 4 days ago. He has been seen by infectious disease doctor. General surgery is consulted for abdominal wall cellulitis with abscess. Since admission, no further intractable nausea and vomiting. His wound has spontaneously drained. No fevers or chills. For his intractable nausea and vomiting, findings of persistent postnasal sinus drip was diagnosed however he was unable to obtain his medication due to insurance. PAST MEDICAL HISTORY: See list. PAST SURGICAL HISTORY: See list. MEDICATIONS: See list. ALLERGIES: See list. SOCIAL HISTORY: See list. FAMILY HISTORY: See list. REVIEW OF ORGAN SYSTEMS: CONSTITUTIONAL: No fevers or chills. No recent weight loss. EYES: Denies any trouble with vision. No glasses. HEENT: No difficulties with hearing. No nosebleeds. No difficulty swallowing. RESPIRATORY: Denies pneumonia. Has occasional troubles with breathing or dyspnea on exertion. CARDIOVASCULAR: Past chest pain, palpitations, or recent heart attacks. GASTROINTESTINAL: No change in bowel habits and gas bloat. GENITOURINARY: Denies any blood in urine or increased urinary frequency. NEUROLOGICAL: Has occasional numbness or tingling along the distal extremities. No seizure disorders or headaches. MUSCULOSKELETAL: Has back pain, stiffness or joint arthritis. SKIN: No current skin cancer. No rash. PSYCHIATRIC: Has depression. No suicidal thoughts. ENDOCRINE: Denies current thyroid disorders. Denies any blood sugar glucose intolerance. HEME/LYMPHATIC: Denies any lumps and bumps around the neck. No recent deep venous thrombosis. ALLERGY/IMMUNOLOGY: No immunoglobulin therapy. No immune deficiencies. BREAST: Denies current breast lumps, pain or nipple discharge. PHYSICAL EXAM: VITALS: Reviewed CONSTITUTIONAL: Well developed and in no acute distress. Lying comfortably in bed. EYES: Conjuctivae without sclera icterus. Pupils are equally round and reactive to light. Extraocular movements grossly intact. HEAD, EARS, NOSE, THROAT: Moist buccal mucosa. Head is atraumatic, normo cephalic. Hears conversational speech. No nasal drainage NECK: Supple. No JV distention. No thyroidomegaly. RESPIRATORY: Non-labored respirations and equal bilateral excursions. No gross wheezes. CARDIOVASCULAR: Regular rate and rhythm. Extremities without moderate edema. Palpable 2+ radial pulses. ABDOMEN: Soft. Non-tender. Nondistended. 1 cm draining carbuncle of the left lower quadrant without tenderness. Cellulitis almost completely receded MUSCULOSKELETAL: Nail and fingers with good capillary refill. SKIN: Warm and well perfused with good skin turgor. NEUROLOGIC: Cranial nerves I through XII grossly intact. Sensation upper and extremities intact. No focal or lateralizing signs. PSYCH: Appropriate affect. Alert and oriented to person, place and time. Displays appropriate insight. CLINCAL LABS: Reviewed. No elevated white blood cell count. RADIOLOGY: Report reviewed. Abdominal x-ray without acute obstructive pattern. ASSESSMENT: 1. Left lower quadrant abscess with cellulitis resolving 2. Intractable nausea and vomiting causing abdominal pain improved 3. Postnasal drip causing intractable nausea with vomiting PLAN: 1. He was prescribed Claritin-D however was not covered by insurance. We'll start Claritin during his current hospitalization to prevent recurrent intractable nausea and vomiting 2. No surgical intervention needed as his left lower quadrant abscess had spontaneously drained with minimal output at this time 3. Diet as tolerated Thank you for this kind consultation. Past Medical History Past Medical History: Cancer, COPD, CVA/TIA, GERD/Reflux, Hyperlipidemia, Hypertension, Osteoarthritis (OA), Skin Disorder, Sleep Apnea/CPAP/BIPAP, Vascular Disorder Additional Past Medical History / Comment(s): TIA 2013, uses cpap, hx diverticulitis with bowel resection., skin cancer right arm, aortic aneurysm (sx done with stent)., states hx of blockage right leg surgery with Dr. Villeda., hx of surgery for fx neck- has neck pain, lower back pain from herniated disc and left shoulder pain for "bad rotator cuff". History of Any Multi-Drug Resistant Organisms: None Reported Past Surgical History: Bowel Resection, Cholecystectomy, Hernia Repair, Orthopedic Surgery Additional Past Surgical History / Comment(s): RT ROTATOR CUFF REPAIR, BONE SPUR REMOVED RT SHOULDER, I & D BOIL LT BUTTOCK, FEM POP BYPASS RIGHT LEG., surgery fx neck (pins and plates),lap lysis of adhesions, lap reduction of incarcerated lt ing hernia with ventral hernia repair w/mesh. (AAA repair has stent). lysis adhesions , HIATAL HERNIA REPAIR (01/2019) Past Anesthesia/Blood Transfusion Reactions: No Reported Reaction Additional Past Anesthesia/Blood Transfusion Reaction / Comm: . Past Psychological History: Anxiety, Depression Additional Psychological History / Comment(s): . Smoking Status: Current every day smoker Past Alcohol Use History: None Reported Additional Past Alcohol Use History / Comment(s): started smoking in 1987 , QUIT SMOKING 2012, SMOKED 1 PPD. Past Drug Use History: None Reported - Past Family History Mother Family Medical History: COPD Additional Family Medical History / Comment(s): 2011 at age 78. Father Family Medical History: No Reported History Additional Family Medical History / Comment(s): in 2016 at age 92 Medications and Allergies Home Medications Medication Instructions Recorded Confirmed Type Carvedilol [Coreg] 12.5 mg PO BID 08/25/15 07/18/19 History Montelukast [Singulair] 10 mg PO DAILY 05/11/17 07/18/19 History busPIRone HCL [Buspar] 30 mg PO BID 05/22/18 07/18/19 History HYDROcodone/APAP 7.5-325MG [[place] 1 tab PO BID PRN 01/09/19 07/18/19 History 7.5-325] Atorvastatin [Lipitor] 80 mg PO HS 02/26/19 07/18/19 History Escitalopram [Lexapro] 20 mg PO HS 02/26/19 07/18/19 History clonazePAM [KlonoPIN] 1 mg PO DAILY PRN 02/26/19 07/18/19 History Albuterol Inhaler [Ventolin Hfa 1 - 2 puff INHALATION RT-Q6H PRN 06/10/19 07/18/19 History Inhaler] Clopidogrel [Plavix] 75 mg PO DAILY 06/10/19 07/18/19 History tiZANidine [Zanaflex] 4 mg PO BID PRN 06/10/19 07/18/19 History Omeprazole [PriLOSEC] 40 mg PO BID #60 cap 06/12/19 07/18/19 Rx Loratadine-Pseudoeph 5-120 mg 1 tab PO Q12HR PRN 07/18/19 07/18/19 History [Claritin-D 12 Hour] Losartan Potassium [Cozaar] 50 mg PO DAILY 07/18/19 07/18/19 History Magnesium Oxide [Magox 400] 400 mg PO BID 07/18/19 07/18/19 History Sucralfate [Carafate] 1 gm PO BID 07/18/19 07/18/19 History Allergies Allergy/AdvReac Type Severity Reaction Status Date / Time amoxicillin [Amoxicillin] Allergy Rash/Hives Verified 07/17/19 23:25 enalapril maleate Allergy Rash/Hives Verified 07/17/19 23:25 [From Vasotec] enalaprilat dihydrate Allergy Rash/Hives Verified 07/17/19 23:25 [From Vasotec] Penicillins Allergy Rash/Hives Verified 07/17/19 23:25 varenicline [From Chantix] AdvReac MIGRAINE Verified 07/17/19 23:25 HEADACHES Surgical - Exam Vital Signs Resp 20 07/17/19 19:21 Results - Labs 07/20/19 07:27 07/20/19 07:27 Microbiology - Last 24 Hours (Table) 07/18/19 11:47 Blood Culture - Preliminary Blood No Growth after 24 hours Diabetes panel 07/20/19 Range/Units 07:27 Sodium 139 (137-145) mmol/L Potassium 4.1 (3.5-5.1) mmol/L Chloride 102 (98-107) mmol/L Carbon Dioxide 30 (22-30) mmol/L BUN 13 (9-20) mg/dL Creatinine 1.01 (0.66-1.25) mg/dL Glucose 95 (74-99) mg/dL Calcium 8.7 (8.4-10.2) mg/dL Calcium panel 07/20/19 Range/Units 07:27 Calcium 8.7 (8.4-10.2) mg/dL Pituitary panel 07/20/19 Range/Units 07:27 Sodium 139 (137-145) mmol/L Potassium 4.1 (3.5-5.1) mmol/L Chloride 102 (98-107) mmol/L Carbon Dioxide 30 (22-30) mmol/L BUN 13 (9-20) mg/dL Creatinine 1.01 (0.66-1.25) mg/dL Glucose 95 (74-99) mg/dL Calcium 8.7 (8.4-10.2) mg/dL Adrenal panel 07/20/19 Range/Units 07:27 Sodium 139 (137-145) mmol/L Potassium 4.1 (3.5-5.1) mmol/L Chloride 102 (98-107) mmol/L Carbon Dioxide 30 (22-30) mmol/L BUN 13 (9-20) mg/dL Creatinine 1.01 (0.66-1.25) mg/dL Glucose 95 (74-99) mg/dL Calcium 8.7 (8.4-10.2) mg/dL Assessment and Plan (1) Abscess of abdominal wall Current Visit: Yes Status: Acute Code(s): L02.211 - CUTANEOUS ABSCESS OF ABDOMINAL WALL SNOMED Code(s): 03902287 (2) Intractable abdominal pain Current Visit: Yes Status: Acute Code(s): R10.9 - UNSPECIFIED ABDOMINAL PAIN SNOMED Code(s): 28513834 (3) Intractable vomiting Current Visit: Yes Status: Acute Code(s): R11.10 - VOMITING, UNSPECIFIED SNOMED Code(s): 543075592 (4) Depressive disorder Current Visit: No Status: Acute Code(s): F32.9 - MAJOR DEPRESSIVE DISORDER, SINGLE EPISODE, UNSPECIFIED SNOMED Code(s): 62708085 (5) Gastroesophageal reflux disease Current Visit: No Status: Acute Code(s): K21.9 - GASTRO-ESOPHAGEAL REFLUX DISEASE WITHOUT ESOPHAGITIS SNOMED Code(s): 825636397 (6) Ischemic cardiomyopathy Current Visit: No Status: Acute Code(s): I25.5 - ISCHEMIC CARDIOMYOPATHY SNOMED Code(s): 003443060 (7) Peripheral vascular occlusive disease Current Visit: No Status: Acute Code(s): I73.9 - PERIPHERAL VASCULAR DISEASE, UNSPECIFIED SNOMED Code(s): 911317010 (8) COPD (chronic obstructive pulmonary disease) Current Visit: No Status: Chronic Code(s): J44.9 - CHRONIC OBSTRUCTIVE PULMONARY DISEASE, UNSPECIFIED SNOMED Code(s): 88184416 (9) Chronic pain syndrome Current Visit: No Status: Chronic Code(s): G89.4 - CHRONIC PAIN SYNDROME SNOMED Code(s): 639833737 (10) Hypertension with heart disease Current Visit: No Status: Chronic Code(s): I11.9 - HYPERTENSIVE HEART DISEASE WITHOUT HEART FAILURE SNOMED Code(s): 41717699 (11) Post-nasal discharge Current Visit: Yes Status: Acute Code(s): R09.82 - POSTNASAL DRIP SNOMED Code(s): 80438129 (12) Sinus drainage Current Visit: Yes Status: Acute Code(s): J34.89 - OTHER SPECIFIED DISORDERS OF NOSE AND NASAL SINUSES SNOMED Code(s): 780406787
[2019-07-20] MEDS: LORATADINE-PSEUDOEPH 5-120 MG 1 EACH TAB.ER.12H PO SCH ×2 (12:23→20:19)
[2019-07-20] MEDS: SODIUM CHLORIDE 0.9% 1,000 ML IV SCH (12:25)
[2019-07-20] MEDS: ONDANSETRON 4 MG/2 ML VIAL IVP PRN (14:42)
--- NOTE | 2019-07-20 19:34 | PN ---
PROGRESS NOTE DATE OF SERVICE: 07/20/2019. This 58-year-old gentleman who was admitted with abdominal pain and left lower quadrant abdominal pain with cellulitis and abscess is being closely monitored. The patient is evaluated by surgery and as well as Infectious Disease and surgery is planning no surgical intervention at this time. No chest pain. No palpitations. No fever. There was some spontaneous drainage last night according to him. No fever. No cough. PHYSICAL EXAM: Alert and oriented times three. Pulse is 70. Blood pressure is 128/99, respirations 16, temp 97.8, pulse ox 91 percent on room air. HEENT: Conjunctivae normal. NECK: No JVD. CARDIOVASCULAR: S1, S2 muffled. RESPIRATORY: Breath sounds diminished at the bases. A few scattered rhonchi. No crackles. ABDOMEN: Soft, obese, left lower quadrant abdominal abscess cellulitis present. Mildly tender. Erythema is subsiding. LEGS: No edema. No swelling. NERVOUS SYSTEM: No focal deficits. LABS: WBC 8.2, hemoglobin 14.4. BMP normal. ASSESSMENT: 1. Abdominal pain with left lower quadrant abdominal pain with possible abdominal wall abscess for evaluation with strep agalactiae group B. 2. Previous history of abdominal pain secondary to chronic gastritis or SMA syndrome. 3. Increased WBC present on admission. 4. Hyponatremia, mild. 5. History of chronic obstructive pulmonary disease. 6. History of cerebrovascular accident, transient ischemic attack. 7. Gastroesophageal reflux disease. 8. Hypertension. 9. Hyperlipidemia. 10.History of degenerative joint disease. 11.History of sleep apnea. 12.History of diverticulitis and bowel resection. 13.History of aortic aneurysm with stenting. 14.History of peripheral vascular disease. 15.History of bowel resection. 16.History of cholecystectomy. 17.History of degenerative joint disease. 18.History of anxiety, depression. 19.Continued ongoing nicotine dependence. 20.Obesity with body mass index of 34.6. 21.FULL CODE. RECOMMENDATIONS AND DISCUSSION: Recommend to continue current medications. Continue with IV antibiotics. Cultures are reviewed and showing strep agalactiae group B. Closely monitor with surgery and infectious Disease. No surgical intervention at this time. Guarded prognosis. Further recommendations to follow. MMODL / IJN: [id number] /
[2019-07-20] MEDS: ESCITALOPRAM 20 MG TAB PO SCH (20:18)
[2019-07-20] MEDS: ATORVASTATIN 80 MG TAB PO SCH (20:18)
--- NOTE | 2019-07-21 02:37 | PN ---
PROGRESS NOTE DATE OF SERVICE: 07/20/2019. REASON FOR FOLLOWUP: Left lower abdominal wound abscess and cellulitis. INTERVAL HISTORY: The patient is currently afebrile. Patient is breathing comfortably. Denies having any chest pain, cough. No nausea, no vomiting. The left lower abdominal wall pain and swelling has improved. No drainage. PHYSICAL EXAMINATION: Blood pressure is 122/99 with a pulse of 70. Temperature 97.8. He is 91% on room air. General description is a middle-aged male lying in bed in no distress. RESPIRATORY SYSTEM: Unlabored breathing, clear to auscultation anteriorly. HEART S1, S2. Regular rate and rhythm. ABDOMEN: Soft. Left lower abdominal wall swelling and induration has much improved. LABS: Hemoglobin 14.4, white count 8.2. BUN of 13, creatinine 1.01. Wound cultures with group B Strep. DIAGNOSTIC IMPRESSION AND PLAN: Patient with left lower abdominal wall abscess and cellulitis with spontaneous drainage. Culture with group B strep. The patient is currently covered with Cefazolin. Will plan to finish therapy with oral Keflex. Monitor clinical course closely. MMODL / IJN: [id number] /
[2019-07-21] MEDS: HYDROmorphone 1 MG/ML 1 ML SYRINGE IVP PRN ×5 (03:04→20:52)
[2019-07-21] MEDS: SUCRALFATE 1 GM TAB PO SCH ×2 (07:26→20:53)
[2019-07-21] MEDS: HEPARIN SODIUM,PORCINE 5,000 UNIT/ML 1 ML VIAL SQ SCH ×2 (07:26→20:52)
[2019-07-21] MEDS: CARVEDILOL 12.5 MG TAB PO SCH ×2 (07:26→16:57)
[2019-07-21] MEDS: busPIRone HCl 10 MG TAB PO SCH ×2 (07:26→20:53)
[2019-07-21] MEDS: CLOPIDOGREL 75 MG TAB PO SCH (07:26)
[2019-07-21] MEDS: MAGNESIUM OXIDE 400 MG TAB PO SCH ×2 (07:26→20:54)
[2019-07-21] MEDS: DOCUSATE 100 MG CAP PO SCH (07:26)
[2019-07-21] MEDS: MONTELUKAST 10 MG TAB PO SCH (07:26)
[2019-07-21] MEDS: PANTOPRAZOLE 40 MG TABLET PO SCH ×2 (07:26→16:57)
[2019-07-21] MEDS: LOSARTAN 50 MG TAB PO SCH (07:26)
[2019-07-21] MEDS: LORATADINE-PSEUDOEPH 5-120 MG 1 EACH TAB.ER.12H PO SCH ×2 (07:28→20:54)
[2019-07-21] MEDS: SODIUM CHLORIDE 0.9% 1,000 ML IV SCH (08:17)
--- NOTE | 2019-07-21 09:04 | P.PN ---
Subjective This is a pleasant 58 years old male with past medical history of CVA/TIA, COPD, GERD, hyperlipidemia, hypertension, arthritis, sleep apnea, aortic aneurysm status post stent placement and surgical repair, multiple skin infections, chronic back pain with herniated disc. Patient presents with left lower quadrant abdominal pain and tenderness with abdominal wall abscess associated with nausea vomiting, patient has been evaluated by ID and surgical team and he was been treated with IV cefazolin, also patient is on Protonix and Carafate as well as gentle hydration. Patient also on pain medication. Patient showed interval improvement gradually. Objective - Vital Signs Vital signs: Vital Signs Temp 97.6 F 07/21/19 04:30 Pulse 70 07/21/19 04:30 Resp 18 07/21/19 07:30 BP 126/80 07/21/19 04:30 Pulse Ox 93 L 07/21/19 04:30 Intake & Output 07/20/19 07/21/19 07/21/19 18:59 06:59 18:59 Intake Total 300 Balance 300 Intake: Oral 300 Other: Voiding Method Toilet # Voids 3 1 - Exam GENERAL: The patient is alert and oriented x3, not in any acute distress. Well developed, well nourished. HEENT: Pupils are round and equally reacting to light. EOMI. No scleral icterus. No conjunctival pallor. Normocephalic, atraumatic. No pharyngeal erythema. No thyromegaly. CARDIOVASCULAR: S1 and S2 present. No murmurs, rubs, or gallops. PULMONARY: Chest is clear to auscultation, no wheezing or crackles. -ABDOMEN: Soft, nontender, nondistended, normoactive bowel sounds. No palpable organomegaly. Left lower quadrant abdominal wall abscess cellulitis MUSCULOSKELETAL: No joint swelling or deformity. EXTREMITIES: No cyanosis, clubbing, or pedal edema. NEUROLOGICAL: Gross neurological examination did not reveal any focal deficits. SKIN: No rashes. no petechiae. - Labs CBC & Chem 7: 07/20/19 07:27 07/20/19 07:27 Labs: Microbiology - Last 24 Hours (Table) 07/17/19 20:44 Gram Stain - Final Abdomen Wound Culture - Final Strep agalactiae - (group b) 07/18/19 11:47 Blood Culture - Preliminary Blood No Growth after 48 hours Assessment and Plan Assessment: Left lower abdominal wall abscess and cellulitis secondary to Streptococcus agalactiae group B Previous history of abdominal pain secondary to chronic gastritis versus others Mild hyponatremia Chronic obstructive pulmonary disease, not in acute exacerbation History of transient ischemic attacks Gastroesophageal reflux disease Hypertension Hyperlipidemia Primary osteoarthritis History of sleep apnea History of diverticulitis status post bowel resection History of aortic aneurysm with stenting History of peripheral vascular disease History of cholecystectomy History of anxiety and depression, not in active tissue Chronic nicotine dependence Obesity with body mass index of 54.6. Plan: This is a pleasant 58 years old male who presents with abdominal wall cellulitis, continue with cefazolin and Protonix with Carafate, continue with normal saline. Continue with pain management,Labs and medication were reviewed.. Continue same treatment. Continue with symptomatic treatment. Resume home medication. Monitor lytes and vitals. DVT and GI prophylaxis. Further recommendations of the clinical course of the patient DVT prophylaxis: Subcutaneous heparin GI Prophylaxis: Protonix PT/OT: Pending Prognosis is guarded
[2019-07-21 09:06] LABS: Basophils # (A) 0.1 k/uL (0-0.2); Basophils % (A) 1 %; Eosinophils # (A) 0.2 k/uL (0-0.7); Eosinophils % (A) 2 %; HCT 42.3 % (39.0-53.0); HGB 14.4 gm/dL (13.0-17.5); Lymphocytes # (A) 2.2 k/uL (1.0-4.8); Lymphocytes % (A) 26 %; MCH 32.2 pg (25.0-35.0); MCHC 34.1 g/dL (31.0-37.0); MCV 94.3 fL (80.0-100.0); Mean Platelet Volume 6.7; Monocytes # (A) 0.6 k/uL (0-1.0); Monocytes % (A) 8 %; Neutrophils % (A) 60 %; Platelet Count 252 k/uL (150-450); RBC 4.48 m/uL (4.30-5.90); RDW 12.3 % (11.5-15.5); WBC 8.3 k/uL (3.8-10.6)
[2019-07-21 09:25] LABS: African American GFR (CKD) >90 (>60 ml/min/1.73 sqM); Anion Gap 8 mmol/L; Blood Urea Nitrogen 12 mg/dL (9-20); Calcium 8.8 mg/dL (8.4-10.2); Carbon Dioxide 27 mmol/L (22-30); Chloride 103 mmol/L (98-107); Glucose 93 mg/dL (74-99); Non-African American GFR(CKD) >90 (>60 ml/min/1.73 sqM); Sodium 138 mmol/L (137-145)
--- NOTE | 2019-07-21 14:10 | P.PN ---
Subjective Progress Note Date: 07/21/19 CHIEF COMPLAINT: Abdominal wall abscess HISTORY OF PRESENT ILLNESS: The patient is a 58 year old male presents with abdominal wall cellulitis with abscess. Separately, no further ports were intractable nausea and vomiting. Has been started on Claritin. No further drainage from abdominal wall abscess. ROS: No chest pain. No fevers or chills. No nausea or vomiting. PHYSICAL EXAM: VITALS: Reviewed CONSTITUTIONAL: Well developed and in no acute distress. Lying comfortably in bed. EYES: Conjuctivae without sclera icterus. Pupils are equally round and reactive to light. Extraocular movements grossly intact. HEAD, EARS, NOSE, THROAT: Moist buccal mucosa. Head is atraumatic, normocephalic. Hears conversational speech. No nasal drainage NECK: Supple. No JV distention. No thyroidomegaly. RESPIRATORY: Non-labored respirations and equal bilateral excursions. No gross wheezes. CARDIOVASCULAR: Regular rate and rhythm. Extremities without moderate edema. Palpable 2+ radial pulses. ABDOMEN: Soft. Abscess left lower abdomen minimal drainage 1 cm carbuncle MUSCULOSKELETAL: Nail and fingers with good capillary refill. SKIN: Warm and well perfused with good skin turgor. NEUROLOGIC: Cranial nerves I through XII grossly intact. Sensation upper and extremities intact. No focal or lateralizing signs. PSYCH: Appropriate affect. Alert and oriented to person, place and time. Displays appropriate insight. ASSESSMENT: 1. Left lower quadrant abscess with cellulitis resolving 2. Intractable nausea and vomiting causing abdominal pain improved 3. Postnasal drip causing intractable nausea with vomiting PLAN: 1. No surgical intervention if her abdominal wall abscess 2. Discontinue Claritin upon discharge Objective - Vital Signs Vital signs: Vital Signs Temp 97.6 F 07/21/19 04:30 Pulse 70 07/21/19 04:30 Resp 18 07/21/19 07:30 BP 126/80 07/21/19 04:30 Pulse Ox 93 L 07/21/19 04:30 Intake & Output 07/20/19 07/21/19 07/21/19 18:59 06:59 18:59 Intake Total 300 Balance 300 Intake: Oral 300 Other: Voiding Method Toilet # Voids 3 1 1 - Labs CBC & Chem 7: 07/21/19 08:14 07/21/19 08:14 Labs: Microbiology - Last 24 Hours (Table) 07/17/19 20:44 Gram Stain - Final Abdomen Wound Culture - Final Strep agalactiae - (group b) 07/18/19 11:47 Blood Culture - Preliminary Blood No Growth after 48 hours Assessment and Plan (1) Abscess of abdominal wall Current Visit: Yes Status: Acute Code(s): L02.211 - CUTANEOUS ABSCESS OF ABDOMINAL WALL SNOMED Code(s): 87668836 (2) Intractable abdominal pain Current Visit: Yes Status: Acute Code(s): R10.9 - UNSPECIFIED ABDOMINAL PAIN SNOMED Code(s): 10333237 (3) Intractable vomiting Current Visit: Yes Status: Acute Code(s): R11.10 - VOMITING, UNSPECIFIED SNOMED Code(s): 991250249 (4) Depressive disorder Current Visit: No Status: Acute Code(s): F32.9 - MAJOR DEPRESSIVE DISORDER, SINGLE EPISODE, UNSPECIFIED SNOMED Code(s): 93970765 (5) Gastroesophageal reflux disease Current Visit: No Status: Acute Code(s): K21.9 - GASTRO-ESOPHAGEAL REFLUX DISEASE WITHOUT ESOPHAGITIS SNOMED Code(s): 596897390 (6) Ischemic cardiomyopathy Current Visit: No Status: Acute Code(s): I25.5 - ISCHEMIC CARDIOMYOPATHY SNOMED Code(s): 244985650 (7) Peripheral vascular occlusive disease Current Visit: No Status: Acute Code(s): I73.9 - PERIPHERAL VASCULAR DISEASE, UNSPECIFIED SNOMED Code(s): 793615540 (8) COPD (chronic obstructive pulmonary disease) Current Visit: No Status: Chronic Code(s): J44.9 - CHRONIC OBSTRUCTIVE PULMONARY DISEASE, UNSPECIFIED SNOMED Code(s): 53334543 (9) Chronic pain syndrome Current Visit: No Status: Chronic Code(s): G89.4 - CHRONIC PAIN SYNDROME SNOMED Code(s): 765453067 (10) Hypertension with heart disease Current Visit: No Status: Chronic Code(s): I11.9 - HYPERTENSIVE HEART DISEASE WITHOUT HEART FAILURE SNOMED Code(s): 74697009 (11) Post-nasal discharge Current Visit: Yes Status: Acute Code(s): R09.82 - POSTNASAL DRIP SNOMED Code(s): 07663928 (12) Sinus drainage Current Visit: Yes Status: Acute Code(s): J34.89 - OTHER SPECIFIED DISORDERS OF NOSE AND NASAL SINUSES SNOMED Code(s): 949819316
[2019-07-21] MEDS: ALBUTEROL NEBULIZED 2.5 MG/3 ML INHALATION PRN ×2 (15:36→20:13)
[2019-07-21] MEDS: ESCITALOPRAM 20 MG TAB PO SCH (20:53)
[2019-07-21] MEDS: ATORVASTATIN 80 MG TAB PO SCH (20:54)
[2019-07-21 23:06] VITALS: RESP 20
--- NOTE | 2019-07-21 23:43 | PN ---
PROGRESS NOTE DATE OF SERVICE: 07/21/2019. REASON FOR FOLLOWUP: Left lower abdominal wall abscess and cellulitis. INTERVAL HISTORY: The patient is currently afebrile. Patient has been breathing comfortably. The patient denies having any chest pain, cough. No nausea, vomiting. No abdominal pain and no diarrhea. PHYSICAL EXAMINATION: Blood pressure 124/83 with a pulse of 60. Temperature 97.6. He is 95% on 2 L nasal cannula. General description is a middle-aged male lying in bed in no distress. Respiratory system: Unlabored breathing. Clear to auscultation anteriorly. Heart S1, S2. Regular rate and rhythm. ABDOMEN: Soft. No tenderness. Left lower abdominal wall swelling and induration has improved. No drainage. EXTREMITIES: No edema of the feet. LABS: BUN of 12, creatinine 0.91, hemoglobin 14.4, white count 8.3. DIAGNOSTIC IMPRESSION AND PLAN: Patient with left lower abdominal wall abscess and cellulitis, culture with Streptococcus agalactiae. Patient on cefazolin to finish therapy with oral Keflex. Prescription has been sent to the pharmacy. Continue supportive care. MMODL / IJN: [id number] /
[2019-07-22] MEDS: HYDROmorphone 1 MG/ML 1 ML SYRINGE IVP PRN (01:07)
[2019-07-22] MEDS: SODIUM CHLORIDE 0.9% 1,000 ML IV SCH (01:07)
[2019-07-22 05:21] VITALS: BP 134/78; PULSE 71; TEMP 98.1
[2019-07-22] MEDS: busPIRone HCl 10 MG TAB PO SCH (07:47)
[2019-07-22] MEDS: SUCRALFATE 1 GM TAB PO SCH (07:47)
[2019-07-22] MEDS: PANTOPRAZOLE 40 MG TABLET PO SCH (07:47)
[2019-07-22] MEDS: LORATADINE-PSEUDOEPH 5-120 MG 1 EACH TAB.ER.12H PO SCH (07:47)
[2019-07-22] MEDS: CARVEDILOL 12.5 MG TAB PO SCH (07:47)
[2019-07-22] MEDS: CLOPIDOGREL 75 MG TAB PO SCH (07:47)
[2019-07-22] MEDS: MONTELUKAST 10 MG TAB PO SCH (07:47)
[2019-07-22] MEDS: MAGNESIUM OXIDE 400 MG TAB PO SCH (07:47)
[2019-07-22] MEDS: LOSARTAN 50 MG TAB PO SCH (07:47)
[2019-07-22] MEDS: DOCUSATE 100 MG CAP PO SCH (07:47)
[2019-07-22] MEDS: HEPARIN SODIUM,PORCINE 5,000 UNIT/ML 1 ML VIAL SQ SCH (07:55)
[2019-07-22] MEDS: HYDROcodone/APAP 7.5-325MG 1 EACH TAB PO PRN (07:56)
--- NOTE | 2019-07-23 06:23 | DS ---
DISCHARGE SUMMARY DATE OF ADMISSION: 07/19/2019. DATE OF DISCHARGE: 07/22/2019 FINAL DIAGNOSES: 1. Left lower abdominal wall abscess and cellulitis secondary to Streptococcus agalactiae group B. 2. Obesity; body mass index 34.3. 3. Gastroesophageal reflux disease. 4. Hyperlipidemia. 5. Essential hypertension. 6. Primary osteoarthritis. 7. Obstructive sleep apnea, uses CPAP. 8. History of diverticulitis with bowel resection. 9. Peripheral arterial disease. 10.Chronic low back pain from herniated disk. 11.Anxiety, depression, not otherwise specified. HOSPITAL COURSE: The patient admitted with some abdominal pain, shortness of breath, found to have abdominal wall abscess. I and D was carried out. Cultures were positive for above. By the time of discharge, greatly improved. CONSULTATIONS: Dr. Baez from General Surgery and Dr. Lin from ID. PHYSICAL EXAMINATION: On examination, temperature 98.1, pulse 71, respiration 20, blood pressure 134/78. LUNGS: Decreased breath sounds. ABDOMEN: Left lower abdomen wound greatly improved. INVESTIGATIONS: White count 8.3, hemoglobin 14.4. Potassium 4. Wound culture positive for Streptococcus agalactiae group B. DISCHARGE MEDICATIONS: 1. Coreg 12.5 p.o. b.i.d. 2. Singulair 10 mg p.o. daily. 3. BuSpar 30 mg b.i.d. 4. [place] 7.5 b.i.d. p.r.n. 5. Lipitor 80 mg at bedtime. 6. Lexapro 20 mg at bedtime. 7. Klonopin 1 mg p.o. daily p.r.n. 8. Ventolin HFA 1 or 2 puffs q.6 p.r.n. 9. Plavix 75 mg a day. 10.Zanaflex 4 mg b.i.d. p.r.n. 11.Prilosec 40 mg p.o. b.i.d. 12.Claritin-D 1 tab q.12 p.r.n. 13.Cozaar 50 mg a day. 14.Magnesium 400 mg p.o. b.i.d. 15.Carafate 1 gram b.i.d. 16.Keflex 500 mg q.6 total of 30 tablets. Follow up with Dr. Barahona in 2 days. Follow up with Dr. Lin on 07/29/2019. MMODL / IJN: [id number] /
== END 2019-07-22 10:40 | disposition home or self-care (01) ==
LOC: EC 19:18 → 3NMEDONC 23:52 → 4MS4W 07-18 03:12 → INTOOBSV 07-19 14:34 → OBSVTOIN 07-19 14:34 → UNDODISIN 07-22 10:40
PROVIDERS: ADMIT Hospitalist; ATTEND Hospitalist
DX: L02.211 Cutaneous abscess of abdominal wall (principal); E87.1 Hypo-osmolality and hyponatremia; L03.311 Cellulitis of abdominal wall; B95.1 Streptococcus, group B, as the cause of diseases classified elsewhere; E66.9 Obesity, unspecified; Z68.34 Body mass index [BMI] 34.0-34.9, adult; E78.5 Hyperlipidemia, unspecified; F17.200 Nicotine dependence, unspecified, uncomplicated; F32.9 Major depressive disorder, single episode, unspecified; F41.9 Anxiety disorder, unspecified; G47.33 Obstructive sleep apnea (adult) (pediatric); G89.4 Chronic pain syndrome; I11.9 Hypertensive heart disease without heart failure; I25.5 Ischemic cardiomyopathy; Z86.73 Personal history of transient ischemic attack (TIA), and cerebral infarction without residual deficits; I73.9 Peripheral vascular disease, unspecified; J44.9 Chronic obstructive pulmonary disease, unspecified; K21.9 Gastro-esophageal reflux disease without esophagitis; M19.91 Primary osteoarthritis, unspecified site; Z79.02 Long term (current) use of antithrombotics/antiplatelets; Z79.899 Other long term (current) drug therapy; Z82.5 Family history of asthma and other chronic lower respiratory diseases; Z85.828 Personal history of other malignant neoplasm of skin; Z86.12 Personal history of poliomyelitis; Z86.79 Personal history of other diseases of the circulatory system; Z88.1 Allergy status to other antibiotic agents; Z90.49 Acquired absence of other specified parts of digestive tract; Z99.81 Dependence on supplemental oxygen; Z79.52 Long term (current) use of systemic steroids; Z88.0 Allergy status to penicillin; Z88.8 Allergy status to other drugs, medicaments and biological substances; Z99.89 Dependence on other enabling machines and devices
CPT/HCPCS: 96376 ×7; 96365; 96366 ×5; 96367; 96372 ×5; 96375; 99285; 36415; 94640 ×9; 94760 ×3; 93005; 97166; 80053 ×2; 80048 ×3; 83690; 84484; 85025 ×5; 85610; 85730; 87040; 87070; 87205; 71046; 74018; G0378 ×7; J3370 ×2; J1644 ×5; J0690 ×4; J2405 ×4; J1170 ×6; 96374

== ENCOUNTER 2019-08-22 12:28 | Emergency (ER) | payer OTHER ==
[2019-08-22 12:36] VITALS: TEMP 98.3
[2019-08-22] MEDS ORDERED: ONDANSETRON 4 MG/2 ML VIAL IVP STA (12:45)
[2019-08-22] MEDS ORDERED: SODIUM CHLORIDE 0.9% 500 ML 500 ML IV STA (12:45)
[2019-08-22] MEDS ORDERED: MORPHINE SULFATE 4 MG/ML SYRINGE IV STA (12:45)
[2019-08-22] MEDS ORDERED: HYDROmorphone 1 MG/ML 1 ML SYRINGE IVP STA ×2 (12:53→15:21)
[2019-08-22 13:10] LABS: Basophils % (A) 0 %; Eosinophils # (A) 0.1 k/uL (0-0.7); Eosinophils % (A) 1 %; HCT 46.9 % (39.0-53.0); Lymphocytes % (A) 9 %; MCH 32.7 pg (25.0-35.0); MCHC 34.2 g/dL (31.0-37.0); MCV 95.7 fL (80.0-100.0); Mean Platelet Volume 7.3; Monocytes # (A) 0.5 k/uL (0-1.0); Monocytes % (A) 4 %; Neutrophils # (A) 9.8 k/uL (1.3-7.7); Neutrophils % (A) 85 %; Platelet Count 321 k/uL (150-450); RDW 12.6 % (11.5-15.5); WBC 11.6 k/uL (3.8-10.6)
[2019-08-22 13:15] LABS: ALT 16 U/L (4-49); AST 21 U/L (17-59); African American GFR (CKD) >90 (>60 ml/min/1.73 sqM); Albumin 4.2 g/dL (3.5-5.0); Alkaline Phosphatase 56 U/L (38-126); Anion Gap 10 mmol/L; Blood Urea Nitrogen 19 mg/dL (9-20); Calcium 9.6 mg/dL (8.4-10.2); Carbon Dioxide 26 mmol/L (22-30); Chloride 101 mmol/L (98-107); Glucose 130 mg/dL (74-99); Non-African American GFR(CKD) 84 (>60 ml/min/1.73 sqM); Partial Thromboplastin Time 22.7 sec (22.0-30.0); Potassium 4.2 mmol/L (3.5-5.1); Prothrombin Time 10.4 sec (9.0-12.0); Sodium 137 mmol/L (137-145); Total Bilirubin 0.8 mg/dL (0.2-1.3); Total Protein 7.6 g/dL (6.3-8.2)
--- NOTE | 2019-08-22 13:44 | CT ---
EXAMINATION TYPE: CT abdomen pelvis wo con DATE OF EXAM: 08/22/2019 COMPARISON: 06/10/2019 INDICATION: Abdominal pain DLP: 1184.2 mGycm, Automated exposure control for dose reduction was used. CONTRAST: 0 mL of Isovue 300. Study performed without Oral Contrast TECHNIQUE: Axial images were obtained from above the diaphragm to the pubic rami in the axial plane a t 5 mm thick sections. Reconstructed images are reviewed on the computer in the coronal plane. FINDINGS: Limited CT sections are obtained the lung bases. The lung bases are clear. CT ABDOMEN: Liver: Normal Spleen: Normal Pancreas: Normal Adrenal glands: There is some mild thickening of the mid left adrenal gland 1.3 cm. Right adrenal gla nd appears normal. Gallbladder: Normal Kidneys: No masses are evident. No hydronephrosis is present. No cysts are present. No renal stone s are evident. Aorta: There is a stent present within the abdominal aorta. Vascular wall calcification is noted. Inferior vena cava: Normal. CT PELVIS: Loops of bowel within the abdomen and pelvis are normal. Study is without oral contrast limiting bowel evaluation. Appendix: Not identified. No suspicious tubular structure inflammatory changes are evident suggest ac aniket appendicitis. Urinary bladder: Normal. Genitourinary structures: Prostate is somewhat prominent. Osseous structures: No suspicious lytic or sclerotic lesions. IMPRESSIONS: 1. No suspicious abnormality to account for abdominal pain. 2. Bowel gas pattern appears normal. No obstruction or ileus or enteritis type changes radiographical ly evident.
[2019-08-22 14:57] LABS: Appearance,Urine Cloudy (Clear); Bilirubin,Urine Negative (Negative); Blood,Urine Negative (Negative); Color,Urine Yellow; Glucose,Urine (UA) Negative (Negative); Ketones,Urine Negative (Negative); Leukocyte Esterase,Urine Negative (Negative); Mucus,Urine Occasional /hpf; Nitrite,Urine Negative (Negative); Protein,Urine Trace (Negative); RBC,Urine 1 /hpf (0-5); Specific Gravity,Urine 1.025 (1.001-1.035); Urobilinogen,Urine <2.0 mg/dL (<2.0); WBC,Urine 2 /hpf (0-5)
--- NOTE | 2019-08-22 16:30 | CT ---
EXAMINATION TYPE: CT abdomen pelvis w con DATE OF EXAM: 08/22/2019 COMPARISON: 08/22/2019 same date INDICATION: intractable pain DLP: 1981.8 mGycm, Automated exposure control for dose reduction was used. CONTRAST: 100 mL of Isovue 300. Study performed without Oral Contrast TECHNIQUE: Axial images were obtained from above the diaphragm to the pubic rami in the axial plane a t 5 mm thick sections. Reconstructed images are reviewed on the computer in the coronal plane. FINDINGS: Limited CT sections are obtained the lung bases. Mild compressive atelectasis within the dependent p ortions of the lung bases may be present.. CT ABDOMEN: Diffuse wall thickening of the nondistended stomach is not excluded. Liver: Normal Spleen: Normal Pancreas: Normal Adrenal glands: The mild prominence of the left adrenal gland remains present. Right adrenal gland is normal Gallbladder: Not identified. Suspicious right upper quadrant changes are not evident. Correlate with the patient's surgical history. Kidneys: No masses are evident. No hydronephrosis is present. No cysts are present. Delayed images were obtained through the kidneys, which remain unremarkable. Aorta: Vascular calcification is within the aorta. Aortic stent is present. No endovascular leak is identified on this postcontrast study. Inferior vena cava: Normal. CT PELVIS: Loops of bowel within the abdomen and pelvis are normal. Postsurgical changes at the rectosigmoid ju nction. No stenosis is evident. There are loops of bowel which are incompletely distended or lack o ral contrast limiting their evaluation. Appendix: Not identified. Urinary bladder: Normal. Genitourinary structures: Prostate is somewhat prominent Osseous structures: No suspicious lytic or sclerotic lesions. IMPRESSIONS: 1. No suspicious acute interval changes.
--- NOTE | 2019-08-22 17:34 | ED ---
Abdominal Pain HPI - General Chief Complaint: Abdominal Pain Stated Complaint: abdominal pain Time Seen by Provider: 08/22/19 12:35 Source: patient, EMS Mode of arrival: EMS Limitations: no limitations - History of Present Illness Initial Comments: The patient is a 58-year-old male past history of hypertension, hyperlipidemia, COPD, diverticulitis and aortic aneurysm with stent placement who presents to the emergency room reported abdominal pain. He states that this is a chronic issue for him. Will affect him approximately once per month. He has had a bowel resection, cholecystectomy as well as scar tissue removal. States he was recently hospitalized in July for similar pain. He is currently under the care of Dr. Campbell and is supposed to be following up with Dr. Schmitz. He states that his pain began this morning. It is located in the periumbilical region. He has had several episodes of associated vomiting. Denies hematemesis. He denies diarrhea or constipation. No melanotic stools or hematochezia. Denies dysuria, hematuria or difficulty voiding. 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 He ran out of his medications as he missed his appointments. He did not have any medications at home to take for his pain however does have nausea medications. Did not take it prior to calling EMS. He denies any fevers or chills. No ripping or tearing sensation to his back. He denies any numbness, tingling or weakness into his lower extremities. No chest pain or shortness of breath. There are no alleviating, precipitating or modifying factors - Related Data Home Medications Medication Instructions Recorded Confirmed Carvedilol [Coreg] 12.5 mg PO BID 08/25/15 08/22/19 Montelukast [Singulair] 10 mg PO DAILY 05/11/17 08/22/19 busPIRone HCL [Buspar] 30 mg PO BID 05/22/18 08/22/19 HYDROcodone/APAP 7.5-325MG [[place] 1 tab PO BID PRN 01/09/19 08/22/19 7.5-325] Atorvastatin [Lipitor] 80 mg PO HS 02/26/19 08/22/19 Escitalopram [Lexapro] 20 mg PO HS 02/26/19 08/22/19 clonazePAM [KlonoPIN] 1 mg PO DAILY PRN 02/26/19 08/22/19 Albuterol Inhaler [Ventolin Hfa 1 - 2 puff INHALATION RT-Q6H PRN 06/10/19 08/22/19 Inhaler] Clopidogrel [Plavix] 75 mg PO DAILY 06/10/19 08/22/19 tiZANidine [Zanaflex] 4 mg PO BID PRN 06/10/19 08/22/19 Loratadine-Pseudoeph 5-120 mg 1 tab PO Q12HR PRN 07/18/19 08/22/19 [Claritin-D 12 Hour] Losartan Potassium [Cozaar] 50 mg PO DAILY 07/18/19 08/22/19 Magnesium Oxide [Magox 400] 400 mg PO BID 07/18/19 08/22/19 Sucralfate [Carafate] 1 gm PO BID 07/18/19 08/22/19 Ipratropium-Albuterol Nebulize 3 ml INHALATION RT-Q6H PRN 08/22/19 08/22/19 [Duoneb 0.5 mg-3 mg/3 ml Soln] Previous Rx's Medication Instructions Recorded Omeprazole [PriLOSEC] 40 mg PO BID #60 cap 06/12/19 HYDROcodone/APAP 7.5-325MG [[place] 1 tab PO Q6HR PRN 3 Days #12 tab 08/22/19 7.5-325] Allergies Allergy/AdvReac Type Severity Reaction Status Date / Time amoxicillin [Amoxicillin] Allergy Rash/Hives Verified 08/22/19 14:14 enalapril maleate Allergy Rash/Hives Verified 08/22/19 14:14 [From Vasotec] enalaprilat dihydrate Allergy Rash/Hives Verified 08/22/19 14:14 [From Vasotec] Penicillins Allergy Rash/Hives Verified 08/22/19 14:14 varenicline [From Chantix] AdvReac MIGRAINE Verified 08/22/19 14:14 HEADACHES Review of Systems ROS Statement: Those systems with pertinent positive or pertinent negative responses have been documented in the HPI. ROS Other: All systems not noted in ROS Statement are negative. Past Medical History Past Medical History: Cancer, COPD, CVA/TIA, GERD/Reflux, Hyperlipidemia, H ypertension, Osteoarthritis (OA), Skin Disorder, Sleep Apnea/CPAP/BIPAP, Vascular Disorder Additional Past Medical History / Comment(s): TIA 2013, uses cpap, hx diverticulitis with bowel resection., skin cancer right arm, aortic aneurysm (sx done with stent)., states hx of blockage right leg surgery with Dr. Villeda., hx of surgery for fx neck- has neck pain, lower back pain from herniated disc and left shoulder pain for "bad rotator cuff". History of Any Multi-Drug Resistant Organisms: None Reported Past Surgical History: Bowel Resection, Cholecystectomy, Hernia Repair, Orthopedic Surgery Additional Past Surgical History / Comment(s): RT ROTATOR CUFF REPAIR, BONE SPUR REMOVED RT SHOULDER, I & D BOIL LT BUTTOCK, FEM POP BYPASS RIGHT LEG., surgery fx neck (pins and plates),lap lysis of adhesions, lap reduction of incarcerated lt ing hernia with ventral hernia repair w/mesh. (AAA repair has stent). lysis adhesions , HIATAL HERNIA REPAIR (01/2019) Past Anesthesia/Blood Transfusion Reactions: No Reported Reaction Additional Past Anesthesia/Blood Transfusion Reaction / Comment(s): . Past Psychological History: Anxiety, Depression Smoking Status: Current every day smoker Past Alcohol Use History: None Reported Past Drug Use History: None Reported - Past Family History Mother Family Medical History: COPD Additional Family Medical History / Comment(s): 2011 at age 78. Father Family Medical History: No Reported History Additional Family Medical History / Comment(s): in 2016 at age 92 General Exam Limitations: no limitations General appearance: alert, in no apparent distress Head exam: Present: atraumatic, normocephalic, normal inspection Eye exam: Present: normal appearance, PERRL, EOMI. Absent: scleral icterus, conjunctival injection, periorbital swelling ENT exam: Present: normal exam, mucous membranes moist Neck exam: Present: normal inspection. Absent: tenderness, meningismus, lymphadenopathy Respiratory exam: Present: normal lung sounds bilaterally. Absent: respiratory distress, wheezes, rales, rhonchi, stridor Cardiovascular Exam: Present: regular rate, normal rhythm, normal heart sounds. Absent: systolic murmur, diastolic murmur, rubs, gallop, clicks GI/Abdominal exam: Present: soft, tenderness (diffuse), normal bowel sounds. Absent: distended, guarding, rebound, rigid Extremities exam: Present: normal inspection, full ROM, normal capillary refill. Absent: tenderness, pedal edema, joint swelling, calf tenderness Back exam: Present: normal inspection Neurological exam: Present: alert, oriented X3, CN II-XII intact Psychiatric exam: Present: normal affect, normal mood Skin exam: Present: warm, dry, intact, normal color. Absent: rash Course Vital Signs 08/22/19 08/22/19 08/22/19 12:33 12:36 13:36 Temperature 98.3 F Pulse Rate 82 80 81 Respiratory 20 18 18 Rate Blood Pressure 150/100 140/80 123/84 O2 Sat by Pulse 93 L 95 95 Oximetry 08/22/19 08/22/19 08/22/19 14:00 15:00 16:00 Temperature Pulse Rate 79 79 77 Respiratory 18 18 18 Rate Blood Pressure 128/85 122/80 118/78 O2 Sat by Pulse 95 95 95 Oximetry 08/22/19 08/22/19 17:00 17:41 Temperature Pulse Rate 80 Respiratory 18 20 Rate Blood Pressure 125/79 O2 Sat by Pulse 95 Oximetry Medical Decision Making - Medical Decision Making Upon arrival the patient is placed into room 7. A thorough history and physical exam was performed. Peripheral IV was established. The patient is requesting Dilaudid for pain control as morphine does not help him. The patient was given 1 mg as well as 4 mg of Zofran. I did recommend completing laboratory studies and a urinalysis. CBC demonstrates a white blood cell count of 11.6. Coag studies are normal. Glucose is 130. Lactic acid is 1.6. Urinalysis shows occasional mucus with no bacteria. The patient was sent for CT of his abdomen and pelvis with and without contrast. Both of these CTs demonstrate no acute findings for the patient's pain. He is reevaluated and is requesting a second dose of pain medications. I do provide this to the patient. I discussed diagnosis, differential and treatment options. At this time I do not have an answer for the patient's abdominal pain. He states that this is chronic pain for many has been under the care of multiple physicians. He does feel comfortable to be discharged home at this time as his pain has resolved and he has had no further episodes of nausea. The patient is given something to eat and drink and does hold these down. The patient will be discharged home. I did provide him with Dr. Schmitz's phone number as he is supposed to follow-up with her. He should follow up with his primary care physician in 2-4 days. He is re questing a narcotic pain medication as he did run out from his pain management doctor. I indicated to him that I could give him a short supply of the pain medications however I do not want him disrupting his pain contract. He states that he is not in a pain contract. I will write him for a short course of [place] however indicated to him that he needs to call his pain management doctor and notify them before he fills his prescription. He doesn't and opioids start talking form. The patient has any new or worsening symptoms he should return to the emergency department. Patient was then discharged home in stable condition - Lab Data Result diagrams: 08/22/19 12:37 08/22/19 12:37 Lab Results 08/22/19 08/22/19 08/22/19 Range/Units 12:37 12:37 12:37 WBC 11.6 H (3.8-10.6) k/uL RBC 4.90 (4.30-5.90) m/uL Hgb 16.0 (13.0-17.5) gm/dL Hct 46.9 (39.0-53.0) % MCV 95.7 (80.0-100.0) fL MCH 32.7 (25.0-35.0) pg MCHC 34.2 (31.0-37.0) g/dL RDW 12.6 (11.5-15.5) % Plt Count 321 (150-450) k/uL Neutrophils % 85 % Lymphocytes % 9 % Monocytes % 4 % Eosinophils % 1 % Basophils % 0 % Neutrophils # 9.8 H (1.3-7.7) k/uL Lymphocytes # 1.0 (1.0-4.8) k/uL Monocytes # 0.5 (0-1.0) k/uL Eosinophils # 0.1 (0-0.7) k/uL Basophils # 0.0 (0-0.2) k/uL PT (9.0-12.0) sec INR (<1.2) APTT (22.0-30.0) sec Sodium 137 (137-145) mmol/L Potassium 4.2 (3.5-5.1) mmol/L Chloride 101 (98-107) mmol/L Carbon Dioxide 26 (22-30) mmol/L Anion Gap 10 mmol/L BUN 19 (9-20) mg/dL Creatinine 0.99 (0.66-1.25) mg/dL Est GFR (CKD-EPI)AfAm >90 (>60 ml/min/1.73 sqM) Est GFR (CKD-EPI)NonAf 84 (>60 ml/min/1.73 sqM) Glucose 130 H (74-99) mg/dL Plasma Lactic Acid Maximilian 1.6 (0.7-2.0) mmol/L Calcium 9.6 (8.4-10.2) mg/dL Total Bilirubin 0.8 (0.2-1.3) mg/dL AST 21 (17-59) U/L ALT 16 (4-49) U/L Alkaline Phosphatase 56 (38-126) U/L Total Protein 7.6 (6.3-8.2) g/dL Albumin 4.2 (3.5-5.0) g/dL Lipase 32 (23-300) U/L Urine Color Urine Appearance (Clear) Urine pH (5.0-8.0) Ur Specific [place] (1.001-1.035) Urine Protein (Negative) Urine Glucose (UA) (Negative) Urine Ketones (Negative) Urine Blood (Negative) Urine Nitrite (Negative) Urine Bilirubin (Negative) Urine Urobilinogen (<2.0) mg/dL Ur Leukocyte Esterase (Negative) Urine RBC (0-5) /hpf Urine WBC (0-5) /hpf Urine Mucus (None) /hpf 08/22/19 08/22/19 Range/Units 12:37 14:00 WBC (3.8-10.6) k/uL RBC (4.30-5.90) m/uL Hgb (13.0-17.5) gm/dL Hct (39.0-53.0) % MCV (80.0-100.0) fL MCH (25.0-35.0) pg MCHC (31.0-37.0) g/dL RDW (11.5-15.5) % Plt Count (150-450) k/uL Neutrophils % % Lymphocytes % % Monocytes % % Eosinophils % % Basophils % % Neutrophils # (1.3-7.7) k/uL Lymphocytes # (1.0-4.8) k/uL Monocytes # (0-1.0) k/uL Eosinophils # (0-0.7) k/uL Basophils # (0-0.2) k/uL PT 10.4 (9.0-12.0) sec INR 1.0 (<1.2) APTT 22.7 (22.0-30.0) sec Sodium (137-145) mmol/L Potassium (3.5-5.1) mmol/L Chloride (98-107) mmol/L Carbon Dioxide (22-30) mmol/L Anion Gap mmol/L BUN (9-20) mg/dL Creatinine (0.66-1.25) mg/dL Est GFR (CKD-EPI)AfAm (>60 ml/min/1.73 sqM) Est GFR (CKD-EPI)NonAf (>60 ml/min/1.73 sqM) Glucose (74-99) mg/dL Plasma Lactic Acid Maximilian (0.7-2.0) mmol/L Calcium (8.4-10.2) mg/dL Total Bilirubin (0.2-1.3) mg/dL AST (17-59) U/L ALT (4-49) U/L Alkaline Phosphatase (38-126) U/L Total Protein (6.3-8.2) g/dL Albumin (3.5-5.0) g/dL Lipase (23-300) U/L Urine Color Yellow Urine Appearance Cloudy (Clear) Urine pH 6.0 (5.0-8.0) Ur Specific [place] 1.025 (1.001-1.035) Urine Protein Trace H (Negative) Urine Glucose (UA) Negative (Negative) Urine Ketones Negative (Negative) Urine Blood Negative (Negative) Urine Nitrite Negative (Negative) Urine Bilirubin Negative (Negative) Urine Urobilinogen <2.0 (<2.0) mg/dL Ur Leukocyte Esterase Negative (Negative) Urine RBC 1 (0-5) /hpf Urine WBC 2 (0-5) /hpf Urine Mucus Occasional H (None) /hpf - EKG Data EKG Comments: EKG demonstrates normal sinus rhythm with a ventricular rate of 71. DC interval 176. QRS 86. QTC of 441. There are no acute ST segment elevations or depr essions concerning for ischemic changes Disposition Clinical Impression: Abdominal pain, Chronic pain syndrome Disposition: HOME SELF-CARE Condition: Stable Instructions (If sedation given, give patient instructions): Abdominal Pain (ED) Additional Instructions: Please follow-up with your primary care doctor in 2-4 days. Return to the emergency room for any new or worsening symptoms. You need to make an appointment with Dr. Trejo for further evaluation Prescriptions: HYDROcodone/APAP 7.5-325MG [[place] 7.5-325] 1 tab PO Q6HR PRN 3 Days #12 tab PRN Reason: Pain Is patient prescribed a controlled substance at d/c from ED?: Yes When asked, does pt state using other controlled substances?: Yes If prescribed controlled substance>3 days was MAPS reviewed?: Prescribed <3 Days If opioid is for acute pain is fill amount 7 days or less?: Yes If Rx opioid, was Start Talking consent form obtained?: Yes Referrals: Jackson Barahona DO [Primary Care Provider] - 1-2 days Time of Disposition: 17:35
[2019-08-22 17:37] VITALS: BP 125/79; PULSE 80
[2019-08-22 17:42] VITALS: RESP 20
== END 2019-08-22 17:42 | disposition home or self-care (01) ==
LOC: EC 12:28
DX: G89.4 Chronic pain syndrome (principal); R10.33 Periumbilical pain; R82.998 Other abnormal findings in urine; R11.10 Vomiting, unspecified; J44.9 Chronic obstructive pulmonary disease, unspecified; K21.9 Gastro-esophageal reflux disease without esophagitis; E78.5 Hyperlipidemia, unspecified; I10 Essential (primary) hypertension; M19.90 Unspecified osteoarthritis, unspecified site; G47.30 Sleep apnea, unspecified; F32.9 Major depressive disorder, single episode, unspecified; F41.9 Anxiety disorder, unspecified; F17.200 Nicotine dependence, unspecified, uncomplicated; Z88.0 Allergy status to penicillin; Z88.8 Allergy status to other drugs, medicaments and biological substances; Z79.02 Long term (current) use of antithrombotics/antiplatelets; Z79.899 Other long term (current) drug therapy; Z86.73 Personal history of transient ischemic attack (TIA), and cerebral infarction without residual deficits; Z85.828 Personal history of other malignant neoplasm of skin; Z90.49 Acquired absence of other specified parts of digestive tract; Z99.89 Dependence on other enabling machines and devices; Z98.890 Other specified postprocedural states; Z86.79 Personal history of other diseases of the circulatory system; Z95.818 Presence of other cardiac implants and grafts; Z53.8 Procedure and treatment not carried out for other reasons
CPT/HCPCS: 99285; 96374; 96375; 96376; 36415; 93005; 80053; 83605; 83690; 85025; 85610; 85730; 81001; 74176; 74177; J2405; J1170; Q9967

== ENCOUNTER 2019-09-17 10:46 | Emergency (ER) | payer OTHER ==
[2019-09-17 10:58] VITALS: RESP 18
[2019-09-17] MEDS ORDERED: SODIUM CHLORIDE 0.9% 1,000 ML IV STA (11:23)
[2019-09-17] MEDS ORDERED: HYDROmorphone 0.5 MG/0.5 ML SYRINGE IVP STA ×2 (11:23→12:57)
[2019-09-17] MEDS ORDERED: ONDANSETRON 4 MG/2 ML VIAL IVP STA ×2 (11:23→12:56)
--- NOTE | 2019-09-17 11:30 | ED ---
General Adult HPI - General Chief complaint: Abdominal Pain Stated complaint: abd pain/vomiting Time Seen by Provider: 09/17/19 11:00 Source: patient, RN notes reviewed, old records reviewed Mode of arrival: wheelchair Limitations: no limitations - History of Present Illness Initial comments: This is a 58-year-old male who presents emergency department with past medical history significant for high blood pressure previous CVA high cholesterol and multiple abdominal surgeries. Patient states she has had a small bowel obstruction in the past. Patient states he's been vomiting for the last 3 days with diffuse abdominal pain mostly in the center of his abdomen. Patient states it does remind him when he had a and obstruction in the past. Patient denies any diarrhea and denies any bowel movement 2 days but states he is passing some gas per patient denies fever chills per patient denies any chest pain difficulty breathing shortest breath. - Related Data Home Medications Medication Instructions Recorded Confirmed Carvedilol [Coreg] 12.5 mg PO BID 08/25/15 08/22/19 Montelukast [Singulair] 10 mg PO DAILY 05/11/17 08/22/19 busPIRone HCL [Buspar] 30 mg PO BID 05/22/18 08/22/19 HYDROcodone/APAP 7.5-325MG [[place] 1 tab PO BID PRN 01/09/19 08/22/19 7.5-325] Atorvastatin [Lipitor] 80 mg PO HS 02/26/19 08/22/19 Escitalopram [Lexapro] 20 mg PO HS 02/26/19 08/22/19 clonazePAM [KlonoPIN] 1 mg PO DAILY PRN 02/26/19 08/22/19 Albuterol Inhaler [Ventolin Hfa 1 - 2 puff INHALATION RT-Q6H PRN 06/10/19 08/22/19 Inhaler] Clopidogrel [Plavix] 75 mg PO DAILY 06/10/19 08/22/19 tiZANidine [Zanaflex] 4 mg PO BID PRN 06/10/19 08/22/19 Loratadine-Pseudoeph 5-120 mg 1 tab PO Q12HR PRN 07/18/19 08/22/19 [Claritin-D 12 Hour] Losartan Potassium [Cozaar] 50 mg PO DAILY 07/18/19 08/22/19 Magnesium Oxide [Magox 400] 400 mg PO BID 12/06/19 01/10/20 Sucralfate [Carafate] 1 gm PO BID 07/18/19 08/22/19 Ipratropium-Albuterol Nebulize 3 ml INHALATION RT-Q6H PRN 08/22/19 08/22/19 [Duoneb 0.5 mg-3 mg/3 ml Soln] Previous Rx's Medication Instructions Recorded Omeprazole [PriLOSEC] 40 mg PO BID #60 cap 06/12/19 HYDROcodone/APAP 7.5-325MG [[place] 1 tab PO Q6HR PRN 3 Days #12 tab 08/22/19 7.5-325] Allergies Allergy/AdvReac Type Severity Reaction Status Date / Time amoxicillin [Amoxicillin] Allergy Rash/Hives Verified 09/17/19 10:58 enalapril maleate Allergy Rash/Hives Verified 09/17/19 10:58 [From Vasotec] enalaprilat dihydrate Allergy Rash/Hives Verified 09/17/19 10:58 [From Vasotec] Penicillins Allergy Rash/Hives Verified 09/17/19 10:58 varenicline [From Chantix] AdvReac MIGRAINE Verified 09/17/19 10:58 HEADACHES Review of Systems ROS Statement: Those systems with pertinent positive or pertinent negative responses have been documented in the HPI. ROS Other: All systems not noted in ROS Statement are negative. Past Medical History Past Medical History: Cancer, COPD, CVA/TIA, GERD/Reflux, Hyperlipidemia, Hypertension, Osteoarthritis (OA), Skin Disorder, Sleep Apnea/CPAP/BIPAP, Vascular Disorder Additional Past Medical History / Comment(s): TIA 2013, uses cpap, hx diverticulitis with bowel resection., skin cancer right arm, aortic aneurysm (sx done with stent)., states hx of blockage right leg surgery with Dr. Villeda., hx of surgery for fx neck- has neck pain, lower back pain from herniated disc and left shoulder pain for "bad rotator cuff". History of Any Multi-Drug Resistant Organisms: None Reported Past Surgical History: Bowel Resection, Cholecystectomy, Hernia Repair, Orthopedic Surgery Additional Past Surgical History / Comment(s): RT ROTATOR CUFF REPAIR, BONE SPUR REMOVED RT SHOULDER, I & D BOIL LT BUTTOCK, FEM POP BYPASS RIGHT LEG., surgery fx neck (pins and plates),lap lysis of adhesions, lap reduction of incarcerated lt ing hernia with ventral hernia repair w/mesh. (AAA repair has stent). lysis adhesions , HIATAL HERNIA REPAIR (01/2019) Past Anesthesia/Blood Transfusion Reactions: No Reported Reaction Additional Past Anesthesia/Blood Transfusion Reaction / Comment(s): . Past Psychological History: Anxiety, Depression Smoking Status: Current every day smoker Past Alcohol Use History: None Reported Past Drug Use History: None Reported - Past Family History Mother Family Medical History: COPD Additional Family Medical History / Comment(s): 2011 at age 78. Father Family Medical History: No Reported History Additional Family Medical History / Comment(s): in 2016 at age 92 General Exam - General Exam Comments Initial Comments: GENERAL: Patient is well-developed and well-nourished. Patient is nontoxic and well- hydrated and is in mild distress. ENT: Neck is soft and supple. No significant lymphadenopathy is noted. Oropharynx is clear. Moist mucous membranes. Neck has full range of motion without eliciting any pain. EYES: The sclera were anicteric and conjunctiva were pink and moist. Extraocular movements were intact and pupils were equal round and reactive to light. Eyelids were unremarkable. PULMONARY: Unlabored respirations. Good breath sounds bilaterally. No audible rales rhonchi or wheezing was noted. CARDIOVASCULAR: There is a regular rate and rhythm without any murmurs gallops or rubs. ABDOMEN: minimal diffuse tenderness SKIN: Skin is clear with no lesions or rashes and otherwise unremarkable. NEUROLOGIC: Patient is alert and oriented x3. Cranial nerves II through XII are grossly intact. Motor and sensory are also intact. Normal speech, volume and content. Symmetrical smile. MUSCULOSKELETAL: Normal extremities with adequate strength and full range of motion. LYMPHATICS: No significant lymphadenopathy is noted PSYCHIATRIC: Normal psychiatric evaluation. Limitations: no limitations Course Vital Signs 09/17/19 10:53 Temperature 98.1 F Pulse Rate 77 Respiratory 18 Rate Blood Pressure 167/84 O2 Sat by Pulse 95 Oximetry Medical Decision Making - Medical Decision Making CT showed no acute abnormality. - Lab Data Result diagrams: 09/17/19 11:30 09/17/19 11:30 Lab Results 09/17/19 09/17/19 09/17/19 Range/Units 11:30 11:30 11:30 WBC 9.9 (3.8-10.6) k/uL RBC 4.95 (4.30-5.90) m/uL Hgb 15.8 (13.0-17.5) gm/dL Hct 46.6 (39.0-53.0) % MCV 94.0 (80.0-100.0) fL MCH 31.9 (25.0-35.0) pg MCHC 34.0 (31.0-37.0) g/dL RDW 12.2 (11.5-15.5) % Plt Count 391 (150-450) k/uL Neutrophils % 77 % Lymphocytes % 13 % Monocytes % 7 % Eosinophils % 1 % Basophils % 0 % Neutrophils # 7.6 (1.3-7.7) k/uL Lymphocytes # 1.2 (1.0-4.8) k/uL Monocytes # 0.7 (0-1.0) k/uL Eosinophils # 0.1 (0-0.7) k/uL Basophils # 0.0 (0-0.2) k/uL Sodium 138 (137-145) mmol/L Potassium 4.6 (3.5-5.1) mmol/L Chloride 103 (98-107) mmol/L Carbon Dioxide 25 (22-30) mmol/L Anion Gap 10 mmol/L BUN 18 (9-20) mg/dL Creatinine 0.96 (0.66-1.25) mg/dL Est GFR (CKD-EPI)AfAm >90 (>60 ml/min/1.73 sqM) Est GFR (CKD-EPI)NonAf 88 (>60 ml/min/1.73 sqM) Glucose 135 H (74-99) mg/dL Plasma Lactic Acid Maximilian 1.0 (0.7-2.0) mmol/L Calcium 9.7 (8.4-10.2) mg/dL Total Bilirubin 0.7 (0.2-1.3) mg/dL AST 18 (17-59) U/L ALT 16 (4-49) U/L Alkaline Phosphatase 65 (38-126) U/L Total Protein 7.9 (6.3-8.2) g/dL Albumin 4.1 (3.5-5.0) g/dL Amylase 42 (30-110) U/L Lipase 50 (23-300) U/L Urine Color Urine Appearance (Clear) Urine pH (5.0-8.0) Ur Specific [place] (1.001-1.035) Urine Protein (Negative) Urine Glucose (UA) (Negative) Urine Ketones (Negative) Urine Blood (Negative) Urine Nitrite (Negative) Urine Bilirubin (Negative) Urine Urobilinogen (<2.0) mg/dL Ur Leukocyte Esterase (Negative) 09/17/19 Range/Units 13:25 WBC (3.8-10.6) k/uL RBC (4.30-5.90) m/uL Hgb (13.0-17.5) gm/dL Hct (39.0-53.0) % MCV (80.0-100.0) fL MCH (25.0-35.0) pg MCHC (31.0-37.0) g/dL RDW (11.5-15.5) % Plt Count (150-450) k/uL Neutrophils % % Lymphocytes % % Monocytes % % Eosinophils % % Basophils % % Neutrophils # (1.3-7.7) k/uL Lymphocytes # (1.0-4.8) k/uL Monocytes # (0-1.0) k/uL Eosinophils # (0-0.7) k/uL Basophils # (0-0.2) k/uL Sodium (137-145) mmol/L Potassium (3.5-5.1) mmol/L Chloride (98-107) mmol/L Carbon Dioxide (22-30) mmol/L Anion Gap mmol/L BUN (9-20) mg/dL Creatinine (0.66-1.25) mg/dL Est GFR (CKD-EPI)AfAm (>60 ml/min/1.73 sqM) Est GFR (CKD-EPI)NonAf (>60 ml/min/1.73 sqM) Glucose (74-99) mg/dL Plasma Lactic Acid Maximilian (0.7-2.0) mmol/L Calcium (8.4-10.2) mg/dL Total Bilirubin (0.2-1.3) mg/dL AST (17-59) U/L ALT (4-49) U/L Alkaline Phosphatase (38-126) U/L Total Protein (6.3-8.2) g/dL Albumin (3.5-5.0) g/dL Amylase (30-110) U/L Lipase (23-300) U/L Urine Color Yellow Urine Appearance Clear (Clear) Urine pH 6.5 (5.0-8.0) Ur Specific [place] 1.027 (1.001-1.035) Urine Protein Trace H (Negative) Urine Glucose (UA) Negative (Negative) Urine Ketones Negative (Negative) Urine Blood Negative (Negative) Urine Nitrite Negative (Negative) Urine Bilirubin Negative (Negative) Urine Urobilinogen 2.0 (<2.0) mg/dL Ur Leukocyte Esterase Negative (Negative) Disposition Clinical Impression: Abdominal pain Disposition: HOME SELF-CARE Instructions (If sedation given, give patient instructions): Abdominal Pain (ED) Is patient prescribed a controlled substance at d/c from ED?: No Referrals: Jackson Barahona DO [Primary Care Provider] - 1-2 days Time of Disposition: 14:39
[2019-09-17 11:59] LABS: ALT 16 U/L (4-49); AST 18 U/L (17-59); African American GFR (CKD) >90 (>60 ml/min/1.73 sqM); Albumin 4.1 g/dL (3.5-5.0); Alkaline Phosphatase 65 U/L (38-126); Amylase 42 U/L (30-110); Anion Gap 10 mmol/L; Blood Urea Nitrogen 18 mg/dL (9-20); Calcium 9.7 mg/dL (8.4-10.2); Carbon Dioxide 25 mmol/L (22-30); Chloride 103 mmol/L (98-107); Glucose 135 mg/dL (74-99); Non-African American GFR(CKD) 88 (>60 ml/min/1.73 sqM); Potassium 4.6 mmol/L (3.5-5.1); Sodium 138 mmol/L (137-145); Total Bilirubin 0.7 mg/dL (0.2-1.3); Total Protein 7.9 g/dL (6.3-8.2)
[2019-09-17 12:07] LABS: Basophils % (A) 0 %; Eosinophils # (A) 0.1 k/uL (0-0.7); Eosinophils % (A) 1 %; HCT 46.6 % (39.0-53.0); HGB 15.8 gm/dL (13.0-17.5); Lymphocytes # (A) 1.2 k/uL (1.0-4.8); Lymphocytes % (A) 13 %; MCH 31.9 pg (25.0-35.0); Mean Platelet Volume 7.5; Monocytes # (A) 0.7 k/uL (0-1.0); Monocytes % (A) 7 %; Neutrophils # (A) 7.6 k/uL (1.3-7.7); Neutrophils % (A) 77 %; Platelet Count 391 k/uL (150-450); RBC 4.95 m/uL (4.30-5.90); RDW 12.2 % (11.5-15.5); WBC 9.9 k/uL (3.8-10.6)
--- NOTE | 2019-09-17 12:08 | CT ---
EXAMINATION TYPE: CT abdomen pelvis wo con DATE OF EXAM: 09/17/2019 COMPARISON: 08/22/2019 HISTORY: Generalized pain with nausea. CT DLP: 1137.4 mGycm Examination of the solid and hollow viscera is limited given the lack of contrast. FINDINGS: LUNG BASES: No evidence for nodule. No evidence for infiltrate. LIVER/GB: The gallbladder is surgically absent. No space-occupying hepatic lesion. PANCREAS: No pancreatic mass identified. No inflammatory process seen. SPLEEN: No evidence for splenomegaly. No intrasplenic lesions seen. ADRENALS: No adrenal nodules identified. No evidence for thickening. KIDNEYS: No evidence for renal mass. No nephrolithiasis. No hydronephrosis. BOWEL: Appendix has a normal appearance. Rectosigmoid postsurgical changes. No evidence of bowel obst ruction. No inflammatory process. Lymph nodes: No evidence for adenopathy greater than 1 cm. Abdominal aorta: Atheromatous changes seen. Aortic stent graft is unchanged in overall appearance. Genital organs: No significant abnormality. Other: No significant abnormality. IMPRESSION: NO ACUTE INTRA-ABDOMINAL PROCESS IDENTIFIED.
[2019-09-17 13:46] LABS: Appearance,Urine Clear (Clear); Bilirubin,Urine Negative (Negative); Blood,Urine Negative (Negative); Color,Urine Yellow; Glucose,Urine (UA) Negative (Negative); Ketones,Urine Negative (Negative); Leukocyte Esterase,Urine Negative (Negative); Nitrite,Urine Negative (Negative); PH, Urine 6.5 (5.0-8.0); Protein,Urine Trace (Negative); Specific Gravity,Urine 1.027 (1.001-1.035)
[2019-09-17] MEDS ORDERED: KETOROLAC 30 MG/ML 1 ML VIAL IVP STA (14:35)
[2019-09-17 14:50] VITALS: BP 168/99; PULSE 69; TEMP 98
== END 2019-09-17 14:48 | disposition home or self-care (01) ==
LOC: EC 10:46
DX: R10.84 Generalized abdominal pain (principal); R11.10 Vomiting, unspecified; J44.9 Chronic obstructive pulmonary disease, unspecified; I10 Essential (primary) hypertension; E78.5 Hyperlipidemia, unspecified; G47.30 Sleep apnea, unspecified; F41.9 Anxiety disorder, unspecified; F32.9 Major depressive disorder, single episode, unspecified; F17.200 Nicotine dependence, unspecified, uncomplicated; Z79.02 Long term (current) use of antithrombotics/antiplatelets; Z79.899 Other long term (current) drug therapy; Z88.0 Allergy status to penicillin; Z88.8 Allergy status to other drugs, medicaments and biological substances; Z86.73 Personal history of transient ischemic attack (TIA), and cerebral infarction without residual deficits; Z99.89 Dependence on other enabling machines and devices; Z85.828 Personal history of other malignant neoplasm of skin; Z90.49 Acquired absence of other specified parts of digestive tract
CPT/HCPCS: 36415; 80053; 82150; 83605; 83690; 85025; 81003; 74176; 99284; 96374; 96375 ×2; 96376 ×2; 96361; J2405; J1885; J1170

== ENCOUNTER 2019-12-22 09:54 | Emergency (ER) | payer OTHER ==
[2019-12-22 09:58] VITALS: PULSE 77; RESP 18; TEMP 98.1
[2019-12-22] MEDS ORDERED: ONDANSETRON 4 MG/2 ML VIAL IVP STA (10:25)
[2019-12-22] MEDS ORDERED: SODIUM CHLORIDE 0.9% 1,000 ML IV STA (10:25)
[2019-12-22] MEDS ORDERED: HYDROmorphone 0.5 MG/0.5 ML SYRINGE IVP STA (10:25)
[2019-12-22] MEDS ORDERED: PANTOPRAZOLE 40 MG/10 ML VIAL IVP STA (10:25)
--- NOTE | 2019-12-22 10:39 | ED ---
Abdominal Pain HPI - General Chief Complaint: Abdominal Pain Stated Complaint: Abd pain Time Seen by Provider: 12/22/19 10:01 Source: patient, RN notes reviewed, old records reviewed Mode of arrival: ambulatory Limitations: no limitations - History of Present Illness Initial Comments: 51-year-old male monitor is warm and presents today with chief complaint of midabdominal pain. He denies bloody stools or bloody emesis. Patient reports these had this pain for quite some time. He states it typically is better after IV nausea medicines and pain medicine. Patient states that he has had no changes in urination or bowel habits. He reports the central abdominal pain with radiation towards his back. - Related Data Home Medications Medication Instructions Recorded Confirmed Carvedilol [Coreg] 12.5 mg PO BID 08/25/15 08/22/19 Montelukast [Singulair] 10 mg PO DAILY 05/11/17 08/22/19 busPIRone HCL [Buspar] 30 mg PO BID 05/22/18 08/22/19 HYDROcodone/APAP 7.5-325MG [[place] 1 tab PO BID PRN 01/09/19 08/22/19 7.5-325] Atorvastatin [Lipitor] 80 mg PO HS 02/26/19 08/22/19 Escitalopram [Lexapro] 20 mg PO HS 02/26/19 08/22/19 clonazePAM [KlonoPIN] 1 mg PO DAILY PRN 02/26/19 08/22/19 Albuterol Inhaler (Mhu) [Ventolin 1 - 2 puff INHALATION RT-Q6H PRN 06/10/19 08/22/19 Hfa Inhaler (Mhu)] Clopidogrel [Plavix] 75 mg PO DAILY 06/10/19 08/22/19 tiZANidine [Zanaflex] 4 mg PO BID PRN 06/10/19 08/22/19 Loratadine-Pseudoeph 5-120 mg 1 tab PO Q12HR PRN 07/18/19 08/22/19 [Claritin-D 12 Hour] Losartan Potassium [Cozaar] 50 mg PO DAILY 07/18/19 08/22/19 Magnesium Oxide [Magox 400] 400 mg PO BID 07/18/19 08/22/19 Sucralfate [Carafate] 1 gm PO BID 07/18/19 08/22/19 Ipratropium-Albuterol Nebulize 3 ml INHALATION RT-Q6H PRN 08/22/19 08/22/19 [Duoneb 0.5 mg-3 mg/3 ml Soln] Previous Rx's Medication Instructions Recorded Omeprazole [PriLOSEC] 40 mg PO BID #60 cap 06/12/19 HYDROcodone/APAP 7.5-325MG [[place] 1 tab PO Q6HR PRN 3 Days #12 tab 08/22/19 7.5-325] Famotidine [Pepcid] 20 mg PO BID #20 tablet 12/22/19 Ondansetron [Zofran] 4 mg PO Q8HR PRN #20 tab 12/22/19 Allergies Allergy/AdvReac Type Severity Reaction Status Date / Time amoxicillin [Amoxicillin] Allergy Rash/Hives Verified 12/22/19 09:58 enalapril maleate Allergy Rash/Hives Verified 12/22/19 09:58 [From Vasotec] enalaprilat dihydrate Allergy Rash/Hives Verified 12/22/19 09:58 [From Vasotec] Penicillins Allergy Rash/Hives Verified 12/22/19 09:58 varenicline [From Chantix] AdvReac MIGRAINE Verified 12/22/19 09:58 HEADACHES Review of Systems ROS Statement: Those systems with pertinent positive or pertinent negative responses have been documented in the HPI. ROS Other: All systems not noted in ROS Statement are negative. Past Medical History Past Medical History: Cancer, COPD, CVA/TIA, GERD/Reflux, Hyperlipidemia, Hypertension, Osteoarthritis (OA), Skin Disorder, Sleep Apnea/CPAP/BIPAP, Vascular Disorder Additional Past Medical History / Comment(s): TIA 2013, uses cpap, hx diverticulitis with bowel resection., skin cancer right arm, aortic aneurysm (sx done with stent)., states hx of blockage right leg surgery with Dr. Villeda., hx of surgery for fx neck- has neck pain, lower back pain from herniated disc and left shoulder pain for "bad rotator cuff". History of Any Multi-Drug Resistant Organisms: None Reported Past Surgical History: Bowel Resection, Cholecystectomy, Hernia Repair, Orthopedic Surgery Additional Past Surgical History / Comment(s): RT ROTATOR CUFF REPAIR, BONE SPUR REMOVED RT SHOULDER, I & D BOIL LT BUTTOCK, FEM POP BYPASS RIGHT LEG., surgery fx neck (pins and plates),lap lysis of adhesions, lap reduction of incarcerated lt ing hernia with ventral hernia repair w/mesh. (AAA repair has stent). lysis adhesions , HIATAL HERNIA REPAIR (01/2019) Past Anesthesia/Blood Transfusion Reactions: No Reported Reaction Additional Past Anesthesia/Blood Transfusion Reaction / Comment(s): . Past Psychological History: Anxiety, Depression Smoking Status: Current every day smoker Past Alcohol Use History: None Reported Past Drug Use History: None Reported - Past Family History Mother Family Medical History: COPD Additional Family Medical History / Comment(s): 2011 at age 78. Father Family Medical History: No Reported History Additional Family Medical History / Comment(s): in 2016 at age 92 General Exam - General Exam Comments Initial Comments: 59 year male, no distress. Limitations: no limitations Head exam: Present: atraumatic, normocephalic, normal inspection Eye exam: Present: normal appearance, PERRL, EOMI. Absent: scleral icterus, conjunctival injection, periorbital swelling ENT exam: Present: normal exam, mucous membranes moist Neck exam: Present: normal inspection. Absent: tenderness, meningismus, lymphadenopathy Respiratory exam: Present: normal lung sounds bilaterally. Absent: respiratory distress, wheezes, rales, rhonchi, stridor Cardiovascular Exam: Present: regular rate, normal rhythm, normal heart sounds. Absent: systolic murmur, diastolic murmur, rubs, gallop, clicks GI/Abdominal exam: Present: soft, tenderness (epigastric tenderness), normal bowel sounds. Absent: distended, guarding, rebound, rigid Extremities exam: Present: normal inspection, full ROM, normal capillary refill. Absent: tenderness, pedal edema, joint swelling, calf tenderness Back exam: Present: normal inspection Neurological exam: Present: alert, oriented X3, CN II-XII intact Psychiatric exam: Present: normal affect, normal mood Skin exam: Present: warm, dry, intact, normal color. Absent: rash Course Vital Signs 12/22/19 12/22/19 09:56 11:54 Temperature 98.1 F Pulse Rate 77 77 Respiratory 18 18 Rate Blood Pressure 186/103 162/100 O2 Sat by Pulse 99 97 Oximetry Medical Decision Making - Medical Decision Making 59-year-old male presents emergency room today for her abdominal pain nausea vomiting. Patient has been here multiple times for similar complaints. Patient denies any lower extremity swelling. He reports symptoms have been going on for 2 days. At this time patient's labwork was reviewed and unremarkable. EKG and KUB are unremarkable for any acute process. Reviewed patient's previous CT scans within the past year. Patient at this time is advised to have close follow-up with primary care doctor. Patient is reevaluated after nausea and pain medicine is feeling better. - Lab Data Result diagrams: 12/22/19 10:30 12/22/19 10:30 Lab Results 12/22/19 12/22/19 12/22/19 Range/Units 10:30 10:30 10:30 WBC 9.8 (3.8-10.6) k/uL RBC 5.02 (4.30-5.90) m/uL Hgb 15.3 (13.0-17.5) gm/dL Hct 45.9 (39.0-53.0) % MCV 91.5 (80.0-100.0) fL MCH 30.6 (25.0-35.0) pg MCHC 33.4 (31.0-37.0) g/dL RDW 13.5 (11.5-15.5) % Plt Count 381 (150-450) k/uL Neutrophils % 75 % Lymphocytes % 15 % Monocytes % 6 % Eosinophils % 1 % Basophils % 1 % Neutrophils # 7.3 (1.3-7.7) k/uL Lymphocytes # 1.5 (1.0-4.8) k/uL Monocytes # 0.6 (0-1.0) k/uL Eosinophils # 0.1 (0-0.7) k/uL Basophils # 0.1 (0-0.2) k/uL PT 10.7 (9.0-12.0) sec INR 1.0 (<1.2) APTT 22.2 (22.0-30.0) sec Sodium 135 L (137-145) mmol/L Potassium 3.9 (3.5-5.1) mmol/L Chloride 101 (98-107) mmol/L Carbon Dioxide 24 (22-30) mmol/L Anion Gap 10 mmol/L BUN 16 (9-20) mg/dL Creatinine 0.92 (0.66-1.25) mg/dL Est GFR (CKD-EPI)AfAm >90 (>60 ml/min/1.73 sqM) Est GFR (CKD-EPI)NonAf >90 (>60 ml/min/1.73 sqM) Glucose 132 H (74-99) mg/dL Calcium 9.3 (8.4-10.2) mg/dL Total Bilirubin 0.6 (0.2-1.3) mg/dL AST 18 (17-59) U/L ALT 13 (4-49) U/L Alkaline Phosphatase 58 (38-126) U/L Troponin I (0.000-0.034) ng/mL Total Protein 7.5 (6.3-8.2) g/dL Albumin 3.9 (3.5-5.0) g/dL Amylase 52 (30-110) U/L Lipase 57 (23-300) U/L 12/22/19 Range/Units 10:30 WBC (3.8-10.6) k/uL RBC (4.30-5.90) m/uL Hgb (13.0-17.5) gm/dL Hct (39.0-53.0) % MCV (80.0-100.0) fL MCH (25.0-35.0) pg MCHC (31.0-37.0) g/dL RDW (11.5-15.5) % Plt Count (150-450) k/uL Neutrophils % % Lymphocytes % % Monocytes % % Eosinophils % % Basophils % % Neutrophils # (1.3-7.7) k/uL Lymphocytes # (1.0-4.8) k/uL Monocytes # (0-1.0) k/uL Eosinophils # (0-0.7) k/uL Basophils # (0-0.2) k/uL PT (9.0-12.0) sec INR (<1.2) APTT (22.0-30.0) sec Sodium (137-145) mmol/L Potassium (3.5-5.1) mmol/L Chloride (98-107) mmol/L Carbon Dioxide (22-30) mmol/L Anion Gap mmol/L BUN (9-20) mg/dL Creatinine (0.66-1.25) mg/dL Est GFR (CKD-EPI)AfAm (>60 ml/min/1.73 sqM) Est GFR (CKD-EPI)NonAf (>60 ml/min/1.73 sqM) Glucose (74-99) mg/dL Calcium (8.4-10.2) mg/dL Total Bilirubin (0.2-1.3) mg/dL AST (17-59) U/L ALT (4-49) U/L Alkaline Phosphatase (38-126) U/L Troponin I <0.012 (0.000-0.034) ng/mL Total Protein (6.3-8.2) g/dL Albumin (3.5-5.0) g/dL Amylase (30-110) U/L Lipase (23-300) U/L 12/22/19 10:40 EKG performed at 10:30 AM shows normal sinus rhythm normal EKG. Ventricular rate of 74 bpm. NC interval is 182 ms. QRS duration is 80 ms. QT QTc is 402/446 ms - Radiology Data Radiology results: report reviewed Overall nonobstructive bowel gas pattern. Disposition Clinical Impression: Gastroesophageal reflux disease Disposition: HOME SELF-CARE Condition: Good Instructions (If sedation given, give patient instructions): Acute Abdominal Pain (ED) Additional Instructions: Please use medication as discussed. Please follow up with family doctor if symptoms have not improved over the next two days. Please return to the emergency room if your symptoms increase or worsen or for any other concerns. Prescriptions: Famotidine [Pepcid] 20 mg PO BID #20 tablet Ondansetron [Zofran] 4 mg PO Q8HR PRN #20 tab PRN Reason: Nausea Is patient prescribed a controlled substance at d/c from ED?: No Referrals: Jackson Barahona DO [Primary Care Provider] - 1-2 days Time of Disposition: 12:23
[2019-12-22 10:58] LABS: Basophils # (A) 0.1 k/uL (0-0.2); Basophils % (A) 1 %; Eosinophils # (A) 0.1 k/uL (0-0.7); Eosinophils % (A) 1 %; HCT 45.9 % (39.0-53.0); HGB 15.3 gm/dL (13.0-17.5); Lymphocytes # (A) 1.5 k/uL (1.0-4.8); Lymphocytes % (A) 15 %; MCH 30.6 pg (25.0-35.0); MCHC 33.4 g/dL (31.0-37.0); MCV 91.5 fL (80.0-100.0); Mean Platelet Volume 7.1; Monocytes # (A) 0.6 k/uL (0-1.0); Monocytes % (A) 6 %; Neutrophils # (A) 7.3 k/uL (1.3-7.7); Neutrophils % (A) 75 %; Platelet Count 381 k/uL (150-450); RBC 5.02 m/uL (4.30-5.90); RDW 13.5 % (11.5-15.5); WBC 9.8 k/uL (3.8-10.6)
--- NOTE | 2019-12-22 11:02 | XR ---
EXAMINATION TYPE: XR KUB DATE OF EXAM: 12/22/2019 COMPARISON: 07/17/2019 HISTORY: Pain TECHNIQUE: Single supine KUB image of the abdomen is obtained FINDINGS: Small bowel demonstrates no evidence for dilatation or air fluid levels. Gas and fecal material is seen in non-distended colon. No convincing evidence for pneumoperitoneum. No unusual calcifications. The lung bases are clear. Aortic stent graft redemonstrated. The osseous structures are intact. IMPRESSION: 1. Overall nonobstructive bowel gas pattern.
[2019-12-22 11:11] LABS: Partial Thromboplastin Time 22.2 sec (22.0-30.0); Prothrombin Time 10.7 sec (9.0-12.0)
[2019-12-22 11:13] LABS: ALT 13 U/L (4-49); AST 18 U/L (17-59); African American GFR (CKD) >90 (>60 ml/min/1.73 sqM); Albumin 3.9 g/dL (3.5-5.0); Alkaline Phosphatase 58 U/L (38-126); Amylase 52 U/L (30-110); Anion Gap 10 mmol/L; Blood Urea Nitrogen 16 mg/dL (9-20); Calcium 9.3 mg/dL (8.4-10.2); Carbon Dioxide 24 mmol/L (22-30); Chloride 101 mmol/L (98-107); Glucose 132 mg/dL (74-99); Non-African American GFR(CKD) >90 (>60 ml/min/1.73 sqM); Potassium 3.9 mmol/L (3.5-5.1); Sodium 135 mmol/L (137-145); Total Bilirubin 0.6 mg/dL (0.2-1.3); Total Protein 7.5 g/dL (6.3-8.2)
[2019-12-22] MEDS ORDERED: HYDROmorphone 1 MG/ML 1 ML SYRINGE IVP STA (11:42)
[2019-12-22 11:57] VITALS: BP 162/100
[2019-12-22 12:51] LABS: Appearance,Urine Clear (Clear); Bacteria,Urine Rare /hpf; Bilirubin,Urine Negative (Negative); Blood,Urine Negative (Negative); Color,Urine Yellow; Glucose,Urine (UA) Negative (Negative); Ketones,Urine Negative (Negative); Leukocyte Esterase,Urine Negative (Negative); Mucus,Urine Rare /hpf; Nitrite,Urine Negative (Negative); Protein,Urine 1+ (Negative); Specific Gravity,Urine 1.028 (1.001-1.035); WBC,Urine 1 /hpf (0-5)
== END 2019-12-22 12:46 | disposition home or self-care (01) ==
LOC: EC 09:54
DX: K21.9 Gastro-esophageal reflux disease without esophagitis (principal); R10.9 Unspecified abdominal pain; R11.2 Nausea with vomiting, unspecified; F41.9 Anxiety disorder, unspecified; F32.9 Major depressive disorder, single episode, unspecified; E78.5 Hyperlipidemia, unspecified; I10 Essential (primary) hypertension; J44.9 Chronic obstructive pulmonary disease, unspecified; G47.30 Sleep apnea, unspecified; F17.200 Nicotine dependence, unspecified, uncomplicated; Z79.02 Long term (current) use of antithrombotics/antiplatelets; Z79.51 Long term (current) use of inhaled steroids; Z79.899 Other long term (current) drug therapy; Z88.0 Allergy status to penicillin; Z88.8 Allergy status to other drugs, medicaments and biological substances; Z88.1 Allergy status to other antibiotic agents; Z99.89 Dependence on other enabling machines and devices; Z86.73 Personal history of transient ischemic attack (TIA), and cerebral infarction without residual deficits; Z87.19 Personal history of other diseases of the digestive system; Z85.828 Personal history of other malignant neoplasm of skin; Z90.49 Acquired absence of other specified parts of digestive tract; Z98.890 Other specified postprocedural states
CPT/HCPCS: 36415; 93005; 80053; 82150; 83690; 84484; 85025; 85610; 85730; 81001; 74018; 99285; 96374; 96375 ×2; 96376; 96361; J2405; J1170 ×2; C9113